=== PATIENT | female | born 1960 | race Caucasian/White ===

== ENCOUNTER 2017-09-20 15:50 | Emergency (ER) | payer MEDICARE, SELFPAY ==
[2017-09-20 15:51] VITALS: BP 122/91; PULSE 76; RESP 16; TEMP 36.5; O2SAT 94; BMI 23.3
--- NOTE | 2017-09-20 16:09 | CT_ITS ---
STUDY: CT ABDOMEN AND PELVIS WITHOUT CONTRAST REASON FOR EXAM: Female, 57 years old. Colostomy with nonfunctioning stoma RADIATION DOSAGE (If Supplied By Facility): CTDIvol = ( 6.77 ) mGy, DLP = ( 348.42 ) mGycm TECHNIQUE: Transaxial images were obtained from the dome of the diaphragm to the symphysis pubis without oral contrast, and without intravenous contrast. Sagittal and coronal images were reconstructed. Individualized dose optimization techniques were used for this CT. COMPARISON: None. FINDINGS: Evaluation is limited without intravenous contrast. There are trace bilateral pleural effusions with overlying atelectasis. The visualized portions of the heart and pericardium are within normal limits. There are no calcified gallstones present. The liver demonstrates an unremarkable unenhanced appearance. The spleen is normal in size. The pancreas demonstrates an unremarkable unenhanced appearance. The adrenal glands are within normal limits. There are no obstructing renal stones. There is no hydronephrosis. Normal visualized stomach. There is a right lower quadrant colostomy noted. There is no bowel obstruction or inflammation. The appendix is not visualized, but there are no findings to suggest acute appendicitis. The aorta is normal in caliber. There is no abdominal or pelvic free air, free fluid, fluid collection or lymphadenopathy. There are no destructive osseous lesions. CT/Abdomen/Pel W ORAL Cont Only IMPRESSION: Right lower quadrant colostomy in place. No bowel obstruction or inflammation. Trace bilateral pleural effusions with overlying atelectasis. Electronically Signed: Dennis Castillo, at 18:49 EST Tel , Service support ,
--- NOTE | 2017-09-20 16:28 | ED.VISSUMM ---
- ER Visit Summary Date of Service: 09/20/17 Chief Complaint: [] Abdominal discomfort constipation history of mitochondrial disorder History of Present Illness: The patient is a 57 F [] history of mitochondrial disorder, prior history for ileus bowel obstruction, colostomy, she indicates that basically for a few days she has had decreased output from the colostomy, initially she actually had diarrhea she has passed gas, no fever no vomiting she indicates when she gets this bad she has to come to the hospital. She spoke with Dr. Holly her surgeon who met her in the emergency department and examined her and discussed case with her. The patient's had no fever no cough no exposure to anyone has been ill no UTI symptoms. She indicates last week she had a similar process were basically her bowels stop moving because of her mitochondrial disorder and she develops ileus, she usually requires oral contrast Gastrografin CT IV fluid hydration she can be discharged home Dr. Holly has seen the patient in the emergency department please see her note Physical Examination: [] On examination the patient's resting cupping the bed her abdomen is minimally distended colostomy is in place it is dry the lungs are clear heart tones are normal the abdomen again is soft and nontender the backs unremarkable remarkable she has chronic weakness related to her mitochondrial disorder that affects every muscle her body neurologic she is at her baseline, she has been able to eat and drink she has had normal urinary habits and output Test Results: [] Emergency Department Course and Treatment: [] Please see Dr. Holly's note Dr. Holly did see her in the emergency department this time the plan is for IV fluid hydration CT with oral contrast only if this is unremarkable the patient can be discharged home follow-up Dr. Holly the patient is completely agreeable with this plan Patient's CT abdomen, UA all labs are unremarkable the plan is as outlined above by Dr. Holly to the patient Treatment Plan: [] Disposition: [] Home stable Impression: [] Abdominal pain history of same This note was generated with [employer] dictation software. It may contain incorrect words, spelling, and punctuation that were not noted in review of the chart prior to signing ED Disposition - Plan for ED Patient: Chief Complaint: Abd Pain Referrals: Marianna Forte MD [Primary Care Provider] -
[2017-09-20] MEDS: 0.9% Normal Saline 1,000 ML 125 ML IV (16:40)
[2017-09-20] MEDS: Ondansetron 4 MG/2 ML Vial IV ×2 (16:40→18:09)
[2017-09-20 16:53] LABS: Absolute Neutrophil Count 4.1 X10^3/uL (2.0-7.7); Basophil# 0.01 X10^3/uL; Basophil% 0.1 % (0-1); Eosinophil# 0.11 X10^3/uL; Eosinophils% 1.5 % (0-5); Hematocrit 40.8 % (37-47); Hemoglobin 12.8 g/dl (12.0-15.0); Lymphocyte % 37.2 % (19-41); Mean Corp Hgb Conc 31.4 g/gl (32-36); Mean Corpuscular Hgb 27.5 pg (27.0-32.0); Mean Corpuscular Volume 87.7 fL (81-99); Mean Platelet Vol. 10.7 fl (6.2-12.0); Monocyte# 0.36 X10^3/uL; Neutrophil # 4.06 X10^3/uL (2.7-7.7); Neutrophil % 56.1 % (47-70); Platelet Count 199 K/mm3 (150-450); RBC Distribution Width SD 41.5 fl (35.1-43.9); Red Blood Count 4.65 M/mm3 (4.2-5.4); White Blood Count 7.3 K/mm3 (4.4-11.0)
[2017-09-20 16:54] LABS: POSITIVE COUNT NO; POSITIVE DIFFERENTIAL NO; POSITIVE MORPHOLOGY NO
--- NOTE | 2017-09-20 17:10 | CON.PCM_ITS ---
- Consult Date of Consult: 09/20/17 - Reason for Consult CHIEF COMPLAINT: obstipation/constipation, abdominal distention/RLQ abdominal pain ? HPI: The patient is a 57 year old female with a complaint of obstipation and constipation via stoma since Friday. She had been admitted to the hospital about a week ago with similar presentation except that she had obstipation and constipation for two weeks prio. Had to undergo colonoscopy for fecal impaction. Patient is known to [facility] general surgery given history of mitochondrial myositis. She has overall muscle weakness, respiratory, hearing, and visual changes. She has a history of seizure disorders. She also has a long-standing history of impaired gastrointestinal motility. She had a PEG tube placed by Dr. Abdalla in 2012. She also has a history of chronic constipation. In the past. She has been on lactulose and multiple other agents including prokinetic agents. ? The patient had progressive issues with GI motility and constipation. She has tried multiple laxatives, been on multiple prokinetic agents and agents such as Linzess. She underwent a proximal transverse loop colostomy on November 21, 2015. She has been maintained on Reglan as a prokinetic agent. She was admitted to the hospital on August 29, 2017 with nausea and a feeling of abdominal discomfort. She also noted stomal edema. She was actually given Gastrografin as a contrast agent to assess for an obstructive pattern and this actually did result in decreased stoma edema and output from her stoma. Notes edema again of stoma - similar to last admission. also complaint of right lower quadrant abdominal pain. ? 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 Migraine, unspecified, without mention of intractable migraine without mention of status migrainosus ? Myositis - Mitochondrial myositis Nontoxic uninodular goiter ? Pigmentary retinal dystrophy ? Sensorineural hearing loss, asymmetrical ? Unspecified vertiginous syndromes and labyrinthine disorders ? PAST SURGICAL HISTORY BREAST BIOPSY ? ? COLONOSCOPY 06/18/04 normal EGD W/O BRSH W/PEG/ENDOS 01/11/15replaced displaced PEG tube LAP CHOLECYSTECT/CHOLANGIOGRAPHY ? 02/08/15 LYSIS ADNEXAL ADHESIONS ? 2004 PEG TUBE PLACEMENT HX ? 2013 REMOVAL OF TONSILS,<12 Y/O ? ? THYROID LOBECTOMY,UNILAT [address], benign TOTAL ABDOM HYSTERECTOMY ? with BSO CURRENT?MEDICATIONS amitriptyline (ELAVIL) 25 mg tablet Take 25 mg by mouth daily at bedtime. ALBUTEROL SULFATE (PROAIR HFA INHALATION) Inhale 2 Puffs as instructed as needed. oxyCODONE (ROXICODONE) 5 mg/5 mL oral solution Take 5-10 mL by mouth every 4 hours as needed. escitalopram oxalate (LEXAPRO) 10 mg tablet Take 10 mg by mouth daily at bedtime. diphenhydrAMINE (BENADRYL) 12.5 mg/5 mL liquid Take by mouth four times daily as needed. 25mg every 4 hours as needed for allergies levothyroxine (SYNTHROID) 75 mcg tablet Take 1 tablet by mouth once daily. metoclopramide HCl (REGLAN) 10 mg tablet Take 1 tablet by mouth four times daily. rivastigmine (EXELON) 9.5 mg/24 hr patch Apply 1 Patch as directed once daily. famotidine (PEPCID) 20 mg tablet 20 mg by G-TUBE route twice daily. melatonin 3 mg Take 2 tablets by mouth daily at bedtime. ondansetron (ZOFRAN, HYDROCHLORIDE,) 4 mg tablet Take 4 mg by mouth every 6 hours as needed. onabotulinum toxin type A (BOTOX) 200 unit injection Inject intramuscularly one time only. lacosamide (VIMPAT) 50 mg ORAL Tab Take 50 mg by mouth twice daily. DENOSUMAB (PROLIA SUBCUTANEOUS) Inject subcutaneously. Injection one injection every 6 months. levetiracetam(KEPPRA 100 MG/ML ORAL SOLN) Take 15 mL BID aspirin, enteric coated (ECOTRIN LOW STRENGTH) 81 mg ORAL TbEC Take one(1) tablet daily. gabapentin (NEURONTIN) 400 mg capsule Take 400 mg by mouth three times daily. meloxicam (MOBIC) 7.5 mg tablet Take 7.5 mg by mouth once daily. SUMAtriptan (IMITREX) 50 mg tablet Take 50 mg by mouth as needed. gabapentin 250 mg/5 mL (5 mL) soln 20 mL by G-TUBE route three times daily. albuterol HFA (PROVENTIL HFA, VENTOLIN HFA) 90 mcg/actuation inhaler Inhale 2 Puffs as instructed as needed. IBUPROFEN, BULK, MISC liquid 100mg every 6 hrs prn LACTOBACILLUS COMBO NO.11 ORAL by G-TUBE route once daily. one each gastric feeding tube daily phenazopyridine (PYRIDIUM, GERIDIUM) 100 mg tablet Take 100 mg by mouth three times daily as needed. B Complex Vitamins capsule Take 1 capsule by mouth once daily. gastric tube daily Water For Inject Bact Parabens soln by INJECTION(UNSPECIFIED PARENTERAL ROUTES ) route. 150 ml gastric feeding tube 4 times daily cyclobenzaprine (FLEXERIL) 5 mg tablet Take 10 mg by mouth three times daily. potassium chloride 20 mEq/15 mL solution Take 20 mEq by mouth once daily. oxybutynin (DITROPAN) 5 mg/5 mL syrup Take 10 mg by mouth once daily. ? ? ALLERGIES: Boniva [Ibandronate]; Erthromycin [Erythromycin]; Iodine; Betadine [ Povidone-Iodine]; Hay Fever [Seasonal Allergies]; Peanut; Penicillins; Shellfish ? PERSONAL HISTORY: Marital status: Smoking status: Former Smoker Packs/day: 0.50 Years: 2.00 Types: Cigarettes Quit date: 08/25/1982 Smokeless status: Never Used Alcohol use: No Drug use: No FAMILY?HISTORY Heart Maternal Grandmother ? Heart Maternal Grandfather ? ?? REVIEW OF SYMPTOMS: Denies fevers, has decreased appetite, complains of fatigue, denies chest pain, denies coughing up blood, abdominal pain as above, denies blood in urine, has seizure disorder but none presently ? ?? PHYSICAL EXAMINATION: ?General: The patient is 57 year old female, well nourished, well hydrated in no acute distress. She is lying comfortably on [facility] and does have a degree of peripheral muscle wasting. The patient is oriented to time, place, and person. ?VITALS: Blood pressure 134/88, Temp 98.7F pulse 90, weight 145 lb ?HEENT: Normal cephalic, ataumatic, pupils are equally round, sclera are anicteric, mucous membranes are moist, oropharynx is clear. Neck has no masses ?Respirtory: Clear to auscultation and percussion. Normal respiratory excursion and pattern. ?Cardiac: Examination is regular rate and rhythm. ?Abdominal exam: Soft, slightly distended, tenderness in right lower quadrant with no peritoneal signs noted. Stoma in right side with pink mucosa, there is clear lliquid brown stool present but no air in bag ?Rectal exam: exam deferred ?Extremities: no clubbing, cyanosis or edema. No adenopathy. ? IMPRESSION: Mitochondrial myositis, chronic constipation/GI motility disorders, presenting with obstipation and constipation ? PLAN: I have recommended that patient undergo CT scan with gastrografin oral contrast. Rule out intraabdominal pathology (such as internal hernia, stomal hernia, etc) and the gastrografin will hopefully improve GI peristalsis (this has helped her in the past) IV hydration Will probably be able to be discharged from ED.?
[2017-09-20 17:12] VITALS: BP 145/84; PULSE 55; RESP 14; O2SAT 99
[2017-09-20 17:15] LABS: AST(SGOT) 17 U/L (15-37); Alanine Aminotransfer ALT/SGPT 18 U/L (12-78); Albumin, Serum 3.6 g/dL (3.4-5.0); Alkaline Phosphatase 71 U/L (45-117); Anion Gap 9 (5-15); BUN 8 mg/dL (7-18); BUN/Creat Ratio 10.1 RATIO (10-20); Bilirubin, Direct 0.08 mg/dL (0.00-0.30); Calcium,Total 8.3 mg/dL (8.5-10.1); Chloride 109 mmol/L (98-107); Creatinine, Serum 0.79 mg/dL (0.55-1.02); EST Glomerular Filtration Rate 79 mL/min (>60); Est Glom Filt Rate - Afr Amer 95 mL/min (>60); Estimated Creatinine Clearance 71.78 ml/min; Globulin 3.8 g/dL (2.2-4.2); Glucose 103 mg/dL (70-110); Lipase 147 U/L (73-393); Potassium 3.5 mmol/L (3.5-5.1); Protein, Total 7.4 g/dL (6.4-8.2); Sodium Level 144 mmol/L (136-145)
[2017-09-20 17:33] LABS: Bacteria 0 SEEN /hpf (None Seen); Mucous, Urine 0 SEEN /hpf (<or=2+); Squamous Epithelial Cells - UA 0 SEEN /hpf (5-10); White Blood Cells 0 SEEN /hpf (0-5)
[2017-09-20 17:43] LABS: Color, Urine Straw (Yellow); Glucose, Dipstick Normal (Normal); Ketone-Dipstick Negative (Negative); Leukocyte Esterase-Dipstick Negative /ul (Negative); Nitrite-Dipstick Negative (Negative); Occult Blood-Urine 10 /ul (Negative); Protein-Dipstick Negative (Negative); Urine Bilirubin Dipstick Negative (Negative); Urine Clarity Clear (Clear); Urine Urobilinogen Normal (Normal)
[2017-09-20 17:52] LABS: Red Blood Cells-Urine 0-5 SEEN /hpf (0-5)
--- NOTE | 2017-09-20 18:10 | ED.RN ---
1805-PATIENT C/O NAUSEA. ED PHYSICIAN AWARE AND ORDERS RECEIVED.
[2017-09-20 18:20] VITALS: PULSE 76; RESP 16; O2SAT 100
--- NOTE | 2017-09-20 19:08 | ED.DEP ---
ED Disposition - Plan for ED Patient: Chief Complaint: Abd Pain Instructions: ED Abdominal Pain Unkn Cause Referrals: Marianna Forte MD [Primary Care Provider] - Caroline Holly MD [STAFF PHYSICIAN] -
[2017-09-20 19:16] VITALS: BP 155/93; PULSE 72; RESP 14; O2SAT 100
== END 2017-09-20 19:27 | disposition home or self-care (01) ==
LOC: ED 16:30
PROVIDERS: Emergency Provider Emergency Medicine; Family Provider Family Medicine; PCP Family Medicine
DX: R10.9 Unspecified abdominal pain (principal); K59.00 Constipation, unspecified; E88.40 Mitochondrial metabolism disorder, unspecified; Z87.19 Personal history of other diseases of the digestive system; Z93.3 Colostomy status
CPT/HCPCS: 74176; 80048; 80076; 81001; 83690; 84484; 85025; 96361; 96374; 96375; 96376; 99284; J7030; J7040; A4216; J2405

== ENCOUNTER 2017-09-29 11:29 | Emergency (ER) | payer MEDICARE, SELFPAY ==
[2017-09-29 11:30] VITALS: BP 133/89; PULSE 102; RESP 16; TEMP 36.6; O2SAT 99; BMI 23.3
--- NOTE | 2017-09-29 12:23 | RAD_ITS ---
STUDY: X-RAY - ACUTE ABDOMINAL SERIES REASON FOR EXAM: Female, 57 years old. Abdominal pain. TECHNIQUE: Single view of the chest. Supine, and decubitus view(s) of the abdomen were obtained. COMPARISON: Comparison is made with prior examination dated September 12, 2017. FINDINGS: Mild increased markings at the lung bases suggests a mild degree of bibasilar atelectasis. Normal size heart. Normal mediastinum and dianna. Normal visualized pulmonary arteries. Normal visualized aortic arch and descending thoracic aorta. Oral contrast is seen within the stomach as well as the small bowel and throughout the colon. There is no evidence of bowel obstruction. Normal visualized osseous structures. RAD/Acute Abdomen Inc Chest IMPRESSION: Contrast is seen within the stomach, small bowel loops and colon. Electronically Signed: Dennis Franco MD at 15:33 EST Tel [phone], Service support ,
[2017-09-29 12:46] LABS: Absolute Lymphocyte Count 2.16 X10^3/ul (0.83-4.51); Absolute Neutrophil Count 4.3 X10^3/uL (2.0-7.7); Basophil# 0.01 X10^3/uL; Basophil% 0.1 % (0-1); Eosinophil# 0.08 X10^3/uL; Eosinophils% 1.2 % (0-5); Hematocrit 43.1 % (37-47); Hemoglobin 13.8 g/dl (12.0-15.0); Lymphocyte # 2.16 X10^3/ul (4.0); Lymphocyte % 31.3 % (19-41); Mean Corpuscular Hgb 28.2 pg (27.0-32.0); Mean Corpuscular Volume 88.1 fL (81-99); Mean Platelet Vol. 10.9 fl (6.2-12.0); Monocyte% 5.8 % (0-10); Neutrophil # 4.26 X10^3/uL (2.7-7.7); Neutrophil % 61.6 % (47-70); Platelet Count 197 K/mm3 (150-450); RBC Distribution Width CV 13.3 % (11.6-14.6); RBC Distribution Width SD 42.1 fl (35.1-43.9); Red Blood Count 4.89 M/mm3 (4.2-5.4); White Blood Count 6.9 K/mm3 (4.4-11.0)
[2017-09-29 12:47] LABS: POSITIVE COUNT NO; POSITIVE DIFFERENTIAL NO; POSITIVE MORPHOLOGY NO
[2017-09-29 13:00] LABS: ALB/GLOB Ratio 1.1 RATIO (0.9-2.4); AST(SGOT) 19 U/L (15-37); Alanine Aminotransfer ALT/SGPT 23 U/L (13-56); Albumin, Serum 4.1 g/dL (3.2-5.0); Alkaline Phosphatase 76 U/L (45-117); Anion Gap 6 (5-15); BUN 10 mg/dL (7-18); BUN/Creat Ratio 10.3 RATIO (10-20); Chloride 107 mmol/L (98-107); Creatinine, Serum 0.97 mg/dL (0.55-1.02); EST Glomerular Filtration Rate 62 mL/min (>60); Est Glom Filt Rate - Afr Amer 75 mL/min (>60); Estimated Creatinine Clearance 58.46 ml/min; Globulin 3.9 g/dL (2.2-4.2); Glucose 93 mg/dL (74-106); Potassium 3.7 mmol/L (3.5-5.1); Sodium Level 140 mmol/L (136-145)
[2017-09-29] MEDS: Ondansetron ODT 4 MG Tablet PO (13:48)
--- NOTE | 2017-09-29 14:21 | ED.RN ---
PT C/O ABDOMINAL PAIN 04/03. REPORTED TO DR. MUNGUIA VERBALLY. PT AWAITING RADIOLOGY, DUE AT 1430
[2017-09-29 15:35] VITALS: RESP 14
--- NOTE | 2017-09-29 15:36 | ED.RN ---
PT REPORTS CRAMPING IS GETTING BETTER. GIVEN SUPPLIES TO CHANGE OSTOMY. PT PROVIDED HER OWN CARE, DENIED NEEDING ANY HELP. Darek MUNGUIA INFORMED ABOUT PT MEDICATION REQUEST FOR PAIN.
--- NOTE | 2017-09-29 15:47 | ED.DCSUM_ITS ---
- ER Visit Summary Date of Service: 09/29/17 Chief Complaint: [No output from stoma] History of Present Illness: The patient is a 57 F [who presents to the emergency department with pain around her stoma and no output since . She has nausea but no vomiting. This is happened several times in the past. She states that Gastrografin usually helps. No fevers or chills. 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 The stoma is moderately edematous but pink. SKIN is warm and dry no rashes Alert and Oriented x3, CN II-XII in tact, no motor or sensory deficits, gait normal No lymphadenopathy Test Results: [] Emergency Department Course and Treatment: [I spoke with the patient's surgeon Dr. Waite. He came to the emergency department to evaluate the patient. She was given Gastrografin to drink and an acute abdominal series. She had movement of the Gastrografin through her colon into her stoma. She began having copious amounts of liquid output. Her pain improved. The edema from the stoma improved. She feels comfortable going home. She has appointment follow-up with Dr. Waite on . She understands reasons for which to return.] Treatment Plan: [] Disposition: [Discharge Impression: [Stoma problem, resolved] This note was generated with [employer] software. It may contain incorrect words, spelling, and punctuation that were not noted in review of the chart prior to signing ED Disposition - Plan for ED Patient: Chief Complaint: Wound Referrals: Marianna Forte MD [Primary Care Provider] -
--- NOTE | 2017-09-29 15:48 | ED.DEP ---
ED Disposition - Plan for ED Patient: Chief Complaint: Wound Instructions: Abdominal Pain Referrals: Jamin Antoine MD [STAFF PHYSICIAN] - 10/02/17
[2017-09-29 16:11] VITALS: BP 132/97; PULSE 97; RESP 14; O2SAT 99
--- NOTE | 2017-09-29 16:12 | ED.RN ---
PT GIVEN WRITTEN AND VERBAL DISCHARGE INSTRUCTIONS. PT VERBALIZES UNDERSTANDING. DR. FREEMAN AT BEDSIDE TO SPEAK WITH PT ABLUT TEST RESULTS AND FOLLOW UP. PT TO FOLLOW UP WITH DR. FREEMAN ON FRIDAY. PT VOICES NO FURTHER NEEDS OR QUESTIONS. ALISSA RN ASSISTED PT INTO PERSONAL WHEELCHAIR. YULIANA CHAIDEZ ASSISTED PT GETTING INTO CAR. MOTHER DRIVING PT HOME.
== END 2017-09-29 16:14 | disposition home or self-care (01) ==
LOC: ED 12:55
PROVIDERS: Emergency Provider Emergency Medicine; Family Provider Family Medicine; PCP Family Medicine
DX: K94.03 Colostomy malfunction (principal); E88.40 Mitochondrial metabolism disorder, unspecified; K56.0 Paralytic ileus; G40.909 Epilepsy, unspecified, not intractable, without status epilepticus; Z79.899 Other long term (current) drug therapy
CPT/HCPCS: 74022; 80053; 85025; 99282; A4216

== ENCOUNTER 2017-10-07 18:05 | Emergency (ER) | payer MEDICARE, SELFPAY ==
[2017-10-07 18:06] VITALS: BP 147/89; PULSE 76; RESP 14; TEMP 36.3; O2SAT 99; BMI 23.3
[2017-10-07] MEDS: Ketorolac 30 MG/ML Syringe IV (19:17)
--- NOTE | 2017-10-07 20:40 | ED.VISSUMM ---
- ER Visit Summary Date of Service: 10/07/17 Chief Complaint: Migraine History of Present Illness: The patient is a 57 F with a history of chronic migraines. Patient reports pain behind her left eye which is consistent with her migraines. She has a nausea and sound sensitivity. She denies recent head injury or URI symptoms. Patient states she used to get migraines approximate 1 time a week. She goes to her primary care office and gets injections of Toradol and Phenergan. Past history significant for mitochondrial disease, spastic paraparesis, gastroparesis, and seizures. She is legally blind. Physical Examination: Vital signs are unremarkable. Patient's lying in bed in no acute distress. She is nontoxic appearing. Head and neck examination was no meningismus. Heart is regular rate and rhythm. Lung sounds are clear. Abdomen is soft nontender. Neuro exam reveals mild left-sided weakness which patient states is chronic and unchanged from her baseline. Test Results: [] Emergency Department Course and Treatment: Patient was given IV fluids along with Toradol and Phenergan. On repeat evaluation she was sitting upright in bed and appeared much more comfortable. She states that her headache is resolved. Treatment Plan: [] Disposition: Discharge Impression: Migraine, improved This note was generated with [employer] dictation software. It may contain incorrect words, spelling, and punctuation that were not noted in review of the chart prior to signing ED Disposition - Plan for ED Patient: Disposition: Home or Assisted Living Chief Complaint: Headache Instructions: ED Headache Migraine Referrals: Marianna Forte MD [Primary Care Provider] - As Needed
[2017-10-07 20:52] VITALS: BP 118/87; PULSE 71; RESP 17; O2SAT 99
== END 2017-10-07 20:54 | disposition home or self-care (01) ==
PROVIDERS: Emergency Provider Emergency Medicine; Family Provider Family Medicine; PCP Family Medicine
DX: G43.909 Migraine, unspecified, not intractable, without status migrainosus (principal); G40.909 Epilepsy, unspecified, not intractable, without status epilepticus; E03.9 Hypothyroidism, unspecified; E88.40 Mitochondrial metabolism disorder, unspecified; K31.84 Gastroparesis; H54.8 Legal blindness, as defined in USA; Z79.82 Long term (current) use of aspirin; Z79.899 Other long term (current) drug therapy
CPT/HCPCS: 96361; 96374; 96375; 99284; J7030; J7040; A4216

== ENCOUNTER 2017-11-01 18:19 | Emergency (ER) | payer MEDICARE, SELFPAY ==
[2017-11-01 18:20] VITALS: BP 130/105; PULSE 95; RESP 16; TEMP 36.7; O2SAT 94; BMI 23.7
[2017-11-01] MEDS: 0.9% Normal Saline 1,000 ML 999 ML IV (19:02)
[2017-11-01] MEDS: Ketorolac 30 MG/ML Syringe IV (19:02)
--- NOTE | 2017-11-01 19:51 | ED.DCSUM_ITS ---
- ER Visit Summary Date of Service: 11/01/17 Chief Complaint: Headache History of Present Illness: The patient is a 57 F who presents with a headache. Started earlier today. She describes throbbing throughout her entire head. Similar to prior migraine headaches. She has had nausea with vomiting. She also admits to photophobia. No injuries. She took one half of an oxycodone twice at home but it did not help. She also tried Zofran for the nausea as well as Tylenol. She denies a fever. Physical Examination: Vital signs reviewed. HEENT exam unremarkable. Heart is regular rate and rhythm without murmurs. Lungs are clear to auscultation. Abdomen is soft and nontender. Extremities reveal no edema. Skin exam normal. Neurologic exam normal, except for chronic lower extremity weakness Test Results: None indicated Emergency Department Course and Treatment: Patient was given IV saline as well as Toradol and Phenergan. She feels much better at this time. Patient will be discharged to continue her home medications Treatment Plan: [] Disposition: Discharge Impression: Migraine headache This note was generated with [employer] dictation software. It may contain incorrect words, spelling, and punctuation that were not noted in review of the chart prior to signing ED Disposition - Plan for ED Patient: Chief Complaint: Headache Referrals: Marianna Forte MD [Primary Care Provider] -
--- NOTE | 2017-11-01 19:51 | ED.DEP ---
ED Disposition - Plan for ED Patient: Disposition: Home or Assisted Living Chief Complaint: Headache Instructions: ED Headache Migraine Referrals: Marianna Forte MD [Primary Care Provider] -
[2017-11-01 20:24] VITALS: BP 125/68; PULSE 86; RESP 17; O2SAT 98
== END 2017-11-01 20:25 | disposition home or self-care (01) ==
PROVIDERS: Emergency Provider Emergency Medicine; Family Provider Family Medicine; PCP Family Medicine
DX: G43.909 Migraine, unspecified, not intractable, without status migrainosus (principal); E88.40 Mitochondrial metabolism disorder, unspecified; Z79.82 Long term (current) use of aspirin; Z79.899 Other long term (current) drug therapy
CPT/HCPCS: 96361; 96374; 96375; 99283; J7030

== ENCOUNTER 2017-12-28 15:19 | Emergency (ER) | payer MEDICARE, SELFPAY ==
[2017-12-28 15:20] VITALS: BP 138/95; PULSE 107; RESP 16; TEMP 36.8; O2SAT 98; BMI 25.0
--- NOTE | 2017-12-28 15:31 | ED.DCSUM_ITS ---
- ER Visit Summary Date of Service: 12/28/17 Chief Complaint: History of Present Illness: The patient is a 57 F presenting with headache which started yesterday. Headache was gradual in onset. Similar to her previous migraines. She took Tylenol at home. She states she ran out of her oxycodone prescription which was given to her by her primary care physician for her migraines. She has history of mitochondrial disease and sees Dr. Mayer. She denies fever or neck pain. She has nausea with no vomiting. No recent injury. Physical Examination: Vitals are stable. Patient is afebrile. Alert no acute distress. HEENT exam is unremarkable. Neck is supple. No meningismus Lungs are clear and equal bilaterally. Heart is regular rate and rhythm. Abdomen is soft nontender nondistended. Extremities are unremarkable. Skin is warm and dry. No focal neurologic deficit. Remainder of exam is unremarkable. Emergency Department Course and Treatment: She is given Compazine, Benadryl with improvement. She is advised to follow-up with her PCP and her neurologist. She is advised return to the ED for any worsening complaints. Disposition: Discharge home Impression: Migraine headache This note was generated with [employer] dictation software. It may contain incorrect words, spelling, and punctuation that were not noted in review of the chart prior to signing ED Disposition - Plan for ED Patient: Chief Complaint: Headache Referrals: Marianna Fotre MD [Primary Care Provider] -
[2017-12-28] MEDS: proCHLORPERazine 10 MG/2 ML Vial IV (15:42)
[2017-12-28] MEDS: DiphenhydrAMINE 50 MG/ML Syringe 25 MG IV (15:42)
--- NOTE | 2017-12-28 16:19 | ED.DEP ---
ED Disposition - Plan for ED Patient: Chief Complaint: Headache Instructions: ED Headache Migraine Referrals: Marianna Forte MD [Primary Care Provider] - Arsen Mayer MD [STAFF PHYSICIAN] -
[2017-12-28 16:39] VITALS: BP 138/72; PULSE 71; RESP 16; O2SAT 96
== END 2017-12-28 16:39 | disposition home or self-care (01) ==
LOC: ED 15:53
PROVIDERS: Emergency Provider Emergency Medicine; Family Provider Family Medicine; PCP Family Medicine
DX: G43.909 Migraine, unspecified, not intractable, without status migrainosus (principal); E88.40 Mitochondrial metabolism disorder, unspecified; Z79.82 Long term (current) use of aspirin; Z79.899 Other long term (current) drug therapy
CPT/HCPCS: 96374; 96375; 99284; A4216

== ENCOUNTER 2018-01-18 10:33 | Emergency (ER) | payer MEDICARE, SELFPAY ==
[2018-01-18 10:33] VITALS: BP 108/93; PULSE 90; RESP 18; TEMP 36.6; O2SAT 99; BMI 25.8
--- NOTE | 2018-01-18 11:29 | ED.VIS.GEN ---
History of Present Illness Chief Complaint: Headache Informant: Patient Onset: Days - 2 Context: Gradual Onset Timing: Continuous Quality: throbbing Location: left frontal and retroorbital Current Severity: Severe Maximum Severity: Severe Worsened by: light/sound Relieved by: nothing she has tried -- ibuprofen, imitrex, percocet, tylenol Associated Symptoms: nausea, blurry vision. flashing left eye aura prior to DC onset. Narrative: Similar to prior migraines except she cannot get this when they go away. No recent head injury. No recent illnesses. She has a history of mitochondrial myopathy, she has chronic weakness for that, that feels a little worse but otherwise no focal peripheral neurologic symptoms or confusion or neck stiffness or fevers. 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 Comment: Patient has been non-ambulatory for 5 years Past Medical History - Allergies and Home Meds Allergies/Adverse Reactions: Allergies shellfish derived Allergy (Severe, Verified 01/18/18 10:35) Anaphylaxis amoxicillin Allergy (Verified 01/18/18 10:35) Rash iodine Allergy (Verified 01/18/18 10:35) Rash peanut Allergy (Verified 01/18/18 10:35) Anaphylaxis it gets stuck in my throat Penicillins [PCN] Allergy (Verified 01/18/18 10:35) Rash povidone-iodine [From Betadine] Allergy (Verified 01/18/18 10:35) Rash soap [From Betadine] Allergy (Verified 01/18/18 10:35) Rash alendronate sodium [From Fosamax] Adverse Reaction (Verified 01/18/18 10:35) unable to swallow pill/choking UNABLE TO SWALLOW PILL/CHOKING risedronate sodium [From Actonel] Adverse Reaction (Verified 01/18/18 10:35) CHOKING Home Medications: Home Medications Medication Instructions Recorded Lacosamide [Vimpat] 50 mg PO BID 07/02/13 Rivastigmine 9.5mg Patch [Exelon 1 patch TD Q24H 02/16/16 9.5MG/24HR PATCH] Melatonin 3 mg Tablet 2 - 3 mg PO QHS 04/19/16 Gabapentin [Neurontin] 800 mg PO TID 04/05/17 levETIRAcetam tablet [Keppra 1,500 mg PO BID 04/05/17 tablet] Escitalopram Oxalate [Lexapro] 10 mg PO QHS 08/23/17 Famotidine [Pepcid AC] 20 mg PO BID 08/23/17 Levothyroxine [Synthroid] 75 mcg PO DAILY 08/23/17 Metoclopramide [Reglan] 10 mg PO BIDAC 08/23/17 Albuterol IH (ProAir) [Proair Hfa] 2 puff INHALATION Q4H PRN PRN 08/29/17 Amitriptyline HCl [Elavil] 25 mg PO QHS 08/29/17 Aspirin E.C. [Ecotrin] 81 mg PO DAILY@0800 08/29/17 Ondansetron [Zofran] 4 mg PO Q4H PRN PRN 08/29/17 Oxycodone HCl/Acetaminophen 1 tablet PO Q4H PRN 08/29/17 [Percocet 5-325] Botox 100 units SQ UD 09/11/17 Denosumab [Prolia] 60 mg SQ UD 09/11/17 Acetaminophen [Tylenol Tablet] 650 mg PO Q6H PRN PRN tablet 09/13/17 Albuterol Aerosols [Ventolin 2.5 mg INHALATION Q4H PRN 09/13/17 Aerosols] vial.neb. Ensure Clear 120 ml PO 4X/DAY liquid 09/13/17 Lactulose 10 gm PO X1 12/28/17 Primary Care Physician: Marianna Forte MD [Primary Care Provider] - Surgical History: adenoidectomy, appendectomy, cholecystectomy, hysterectomy, tonsillectomy, - - Status post proximal transverse loop colostomy 2015, thyroidectomy Smoking Status: Never smoker - Family History Maternal Family History: Reports: Heart Disease - In her maternal grandmother, - - Aneurysm and her maternal grandmother and grandfather Paternal Family History: Reports: Heart Disease - In the paternal grand mother, Stroke - father alive age 84, - - Aneurysm in her paternal grandmother and in a paternal aunt. Sibling Family History: Reports: - - She has a brother who suddenly at the age of 46 and he had been diagnosed with Prader-Willi syndrome. She has a sister who at 4 years of age due to a hole in her heart. Another sister suffers from a cardiac dysrhythmia. Review of Systems All systems negative except as indicated General: Denies: Chills, Fever Eyes: Reports: Blurred Vision - bilaterally. Denies: Diplopia Gastrointestinal: Reports: Nausea Neurological: Reports: Headache, Weakness - Diffuse, chronic, little worse than usual but nonfocal. Physical Exam Vital Signs/Narrative: Vital Signs Temp Pulse Resp BP Pulse Ox 01/18/18 10:33 98 F 90 18 108/93 H 99 Inital Vital Signs reviewed: Yes General: Well nourished, Well developed Head: Normocephalic, Atraumatic Eyes: Perrl, EOMI - With disconjugate gaze at baseline, - - Photophobic ENT: Moist mucous membranes, No rhinorrhea, TM's clear. Negative for: Sinus tenderness Neck: Supple, Nontender, No lymphadenopathy Cardiovascular: Regular rate, Regular rhythm. Negative for: Tachycardia Respiratory: No distress, CTA bilaterally Skin: Normal color, No rash Neurological: Alert, Oriented x3, Cranial nerves II-XII grossly intact, Normal Strength - Normal for her, to move all 4 extremities. Psychological: Normal affect Diagnostic/Tx/Re-eval - Medical Decision Making Patient was given IV fluids, Toradol, Reglan, Benadryl. On reevaluation, her headache is completely gone she feels much better. She is asking to leave. Advised to follow-up. ED Disposition - Plan for ED Patient: Disposition: Home or Assisted Living Chief Complaint: Headache Diagnosis: Migraine headache with aura Instructions: ED Headache Migraine Referrals: Marianna Forte MD [Primary Care Provider] - 3-5 Days if not improving
[2018-01-18] MEDS: 0.9% Normal Saline 1,000 ML 999 ML IV (11:35)
[2018-01-18] MEDS: DiphenhydrAMINE 50 MG/ML Syringe 25 MG IV (11:35)
[2018-01-18] MEDS: Metoclopramide 10 MG/2 ML Vial IV (11:35)
[2018-01-18] MEDS: Ketorolac 15 MG/ML Vial IV (11:39)
[2018-01-18 13:20] VITALS: BP 133/85; PULSE 78; RESP 16; O2SAT 99
== END 2018-01-18 13:22 | disposition home or self-care (01) ==
PROVIDERS: Emergency Provider Emergency Medicine; Family Provider Family Medicine; PCP Family Medicine
DX: G43.109 Migraine with aura, not intractable, without status migrainosus (principal); K21.9 Gastro-esophageal reflux disease without esophagitis; E03.9 Hypothyroidism, unspecified; G40.909 Epilepsy, unspecified, not intractable, without status epilepticus; K31.84 Gastroparesis; D35.2 Benign neoplasm of pituitary gland; D35.3 Benign neoplasm of craniopharyngeal duct; H35.52 Pigmentary retinal dystrophy; H90.5 Unspecified sensorineural hearing loss; Z79.82 Long term (current) use of aspirin; Z79.899 Other long term (current) drug therapy
CPT/HCPCS: 96361; 96374; 96375; 99283; J7030

== ENCOUNTER 2018-01-28 16:35 | Emergency (ER) | payer MEDICARE, SELFPAY ==
--- NOTE | 2018-01-28 16:35 | DT_ITS ---
This patient was seen during an EMR downtime January 26, 2018 - February 02, 2018. This patient may have a combination of paper and electronic documentation or all paper documentation. All documentation is viewable within the e-chart portion of [facility] for each patient visit.
--- NOTE | 2018-01-28 19:30 | CT_ITS ---
STUDY: CT ABDOMEN AND PELVIS WITHOUT CONTRAST REASON FOR EXAM: Female, 58 years old. Pain and swelling RADIATION DOSAGE (If Supplied By Facility): CTDIvol = ( 8.41 ) mGy, DLP = ( 447.75 ) mGycm TECHNIQUE: Transaxial images were obtained from the dome of the diaphragm to the symphysis pubis without oral contrast, and without intravenous contrast. Sagittal and coronal images were reconstructed. Individualized dose optimization techniques were used for this CT. COMPARISON: None. FINDINGS: The visualized lung bases are unremarkable. The visualized portions of the heart are within normal limits. There is an 11 mm cyst in the lower portion of the RIGHT lobe of liver. There has been a cholecystectomy. Bile ducts are normal in caliber. Normal spleen. Normal pancreas. Normal bilateral adrenal glands. Normal right kidney. Normal left kidney. Normal visualized stomach. Normal small intestine. There is a large amount of stool in the colon particularly on the RIGHT. There is NO mechanical obstruction or mass. There is NO colitis. There is a RIGHT lower quadrant colostomy. There is a hernia defect associated with the colostomy containing fat only. There is NO mass, hematoma or abscess. Appendix is not discretely identified. There is NO indirect evidence of appendicitis. Normal abdominal aorta. Normal inferior vena cava. Normal retroperitoneum. Normal urinary bladder. There is NO ascites or free air, abscess or adenopathy. Normal abdominal wall. Normal osseous structures. CT/Abdomen/Pel W ORAL Cont Only IMPRESSION: There is an 11 mm cyst in the lower portion of the RIGHT lobe of liver. There has been a cholecystectomy. Bile ducts are normal in caliber. There is a large amount of stool in the colon particularly on the RIGHT. There is NO mechanical obstruction or mass. There is NO colitis. There is a RIGHT lower quadrant colostomy. There is a hernia defect associated with the colostomy containing fat only. There is NO mass, hematoma or abscess. Appendix is not discretely identified. There is NO indirect evidence of appendicitis. There is NO ascites or free air, abscess or adenopathy. Electronically Signed: Lucius Ferguson MD at 3:12 EDT , Service support ,
[2018-01-31 10:32] LABS: Red Blood Count 4.66 M/mm3 (4.2-5.4); White Blood Count 8.7 K/mm3 (4.4-11.0)
[2018-01-31 10:33] LABS: Absolute Lymphocyte Count 2.46 X10^3/ul (0.83-4.51); Absolute Neutrophil Count 5.3 X10^3/uL (2.0-7.7); Basophil# 0.01 X10^3/uL; Basophil% 0.1 % (0-1); Eosinophil# 0.14 X10^3/uL; Eosinophils% 1.6 % (0-5); Hematocrit 41.3 % (37-47); Hemoglobin 13.2 g/dl (12.0-15.0); Lymphocyte # 2.46 X10^3/ul (4.0); Lymphocyte % 28.4 % (19-41); Mean Corpuscular Hgb 28.3 pg (27.0-32.0); Mean Corpuscular Volume 88.6 fL (81-99); Monocyte# 0.73 X10^3/uL; Monocyte% 8.4 % (0-10); Neutrophil % 61.4 % (47-70); POSITIVE COUNT NO; POSITIVE DIFFERENTIAL NO; POSITIVE MORPHOLOGY NO; Platelet Count 260 K/mm3 (150-450); RBC Distribution Width CV 13.4 % (11.6-14.6); RBC Distribution Width SD 42.8 fl (35.1-43.9)
[2018-02-04 11:18] LABS: Anion Gap 7 (5-15); BUN 7 mg/dL (7-18); Calcium,Total 8.3 mg/dL (8.5-10.1); Chloride 107 mmol/L (98-107); Creatinine, Serum 0.78 mg/dL (0.55-1.02); EST Glomerular Filtration Rate 80 mL/min (>60); Est Glom Filt Rate - Afr Amer 97 mL/min (>60); Glucose 106 mg/dL (74-106); Potassium 3.8 mmol/L (3.5-5.1); Sodium Level 143 mmol/L (136-145)
== END 2018-01-28 23:41 | disposition short-term general hospital (02) ==
PROVIDERS: Emergency Provider Emergency Medicine; Family Provider Family Medicine; PCP Family Medicine
DX: K43.5 Parastomal hernia without obstruction or gangrene (principal); K94.09 Other complications of colostomy; R10.9 Unspecified abdominal pain; G71.3 Mitochondrial myopathy, not elsewhere classified; G40.909 Epilepsy, unspecified, not intractable, without status epilepticus; H54.7 Unspecified visual loss; Z90.89 Acquired absence of other organs; Z90.49 Acquired absence of other specified parts of digestive tract; Z90.710 Acquired absence of both cervix and uterus; Z79.82 Long term (current) use of aspirin; Z79.899 Other long term (current) drug therapy; Z87.891 Personal history of nicotine dependence
CPT/HCPCS: 36415; 74176; 80048; 85025; 96361; 96374; 96375; 96376; 99284; J7030; A4216; J2405

== ENCOUNTER 2018-01-31 16:48 | Emergency (ER) | payer MEDICARE, SELFPAY ==
--- NOTE | 2018-01-31 16:48 | DT_ITS ---
This patient was seen during an EMR downtime January 26, 2018 - February 02, 2018. This patient may have a combination of paper and electronic documentation or all paper documentation. All documentation is viewable within the e-chart portion of [facility] for each patient visit.
[2018-02-03 16:55] LABS: Lactic Acid 1.1 mmol/L (0.4-2.0)
[2018-02-03 16:56] LABS: Anion Gap 9 (5-15); BUN 7 mg/dL (7-18); Calcium,Total 9.3 mg/dL (8.5-10.1); Chloride 104 mmol/L (98-107); Creatinine, Serum 0.88 mg/dL (0.55-1.02); EST Glomerular Filtration Rate 70 mL/min (>60); Est Glom Filt Rate - Afr Amer 85 mL/min (>60); Glucose 103 mg/dL (74-106); Potassium 3.6 mmol/L (3.5-5.1); Sodium Level 142 mmol/L (136-145)
[2018-02-03 20:54] LABS: Hemoglobin 13.5 g/dl (12.0-15.0); Red Blood Count 4.77 M/mm3 (4.2-5.4); White Blood Count 6.7 K/mm3 (4.4-11.0)
[2018-02-03 20:55] LABS: Absolute Lymphocyte Count 2.19 X10^3/ul (0.83-4.51); Absolute Neutrophil Count 3.8 X10^3/uL (2.0-7.7); Basophil# 0.01 X10^3/uL; Basophil% 0.1 % (0-1); Eosinophil# 0.12 X10^3/uL; Eosinophils% 1.8 % (0-5); Hematocrit 42.2 % (37-47); Lymphocyte # 2.19 X10^3/ul (4.0); Lymphocyte % 32.8 % (19-41); Mean Corpuscular Hgb 28.3 pg (27.0-32.0); Mean Corpuscular Volume 88.5 fL (81-99); Mean Platelet Vol. 10.7 fl (6.2-12.0); Monocyte# 0.59 X10^3/uL; Monocyte% 8.8 % (0-10); Neutrophil # 3.77 X10^3/uL (2.7-7.7); Neutrophil % 56.5 % (47-70); POSITIVE COUNT NO; POSITIVE DIFFERENTIAL NO; POSITIVE MORPHOLOGY NO; Platelet Count 283 K/mm3 (150-450); RBC Distribution Width CV 13.3 % (11.6-14.6); RBC Distribution Width SD 42.9 fl (35.1-43.9)
== END 2018-01-31 20:55 | disposition home or self-care (01) ==
LOC: ED 02-01 14:37
PROVIDERS: Emergency Provider Emergency Medicine; Family Provider Family Medicine; PCP Family Medicine
DX: K94.09 Other complications of colostomy (principal); M60.80 Other myositis, unspecified site; G40.909 Epilepsy, unspecified, not intractable, without status epilepticus; Z79.51 Long term (current) use of inhaled steroids; Z79.891 Long term (current) use of opiate analgesic; Z79.899 Other long term (current) drug therapy
CPT/HCPCS: 80048; 83605; 85025; 96361; 96374; 96376; 99283; J7030; A4216; J2405

== ENCOUNTER 2018-03-02 16:33 | Inpatient (IN) | payer MEDICARE, SELFPAY ==
[2018-03-02 16:40] VITALS: BP 123/94; PULSE 81; RESP 16; TEMP 36.9; O2SAT 94
--- NOTE | 2018-03-02 18:47 | NURSING ---
2 CASE INVESTIGATOR's in room assisting pt to BSC per caregiver request, when going from BSC back to bed pt was lowered to floor on knees gently. No signs of injury. knees w/out redness or ecchymosis. Pt denies any pain except for headache that she has had since arrival to unit. Will medicate for DC. Dr Oro notified, operative supervisor notified. Pts home health aide caregiver at bedside during transfer. vitals stable.
--- NOTE | 2018-03-02 18:49 | PCA ---
Patient called out to go to the bathroom. I offered the bedpan because we have not transferred patient yet. Per at home caregiver and patient that she could transfer to BSC with help. This SEGMENTAL PAVING SUPERVISOR and SEGMENTAL PAVING SUPERVISOR's Sandra and Zayra were assisting patient to the BSC from the bed. Getting up to BSC with 2 assist went fine. When patient was ready to go back to bed SEGMENTAL PAVING SUPERVISOR's Sandra and Lauren were trying to get patient back into bed when home theater installer insisted on helping transfer her back to bed. When transferring back to bed her legs gave out and patient was lowered to floor on her knees. Per home caregiver this happens frequently at home. Charlotte CHAIDEZ aware of all above.
[2018-03-02] MEDS: oxyCODONE 5 MG Tablet PO (18:52)
[2018-03-02 18:55] VITALS: BP 134/77; PULSE 72; RESP 18; TEMP 36.4; O2SAT 94
--- NOTE | 2018-03-02 19:08 | NURSING ---
pt reports that if oxyir does not take care of her DC, ER does a cocktail trio of toradol, benadryl, & zofran IV. Dr wolf notified, new order obtained to give if oxyir ineffective x1
--- NOTE | 2018-03-02 21:40 | PCM.HP.STD ---
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 The patient is a 58 year old Female with below past medical history admitted to [facility] 02/19/[address] to have surgery with Dr.Hermann Abbott. Dr. Abbott performed exploratory laparotomy, takedown of loop colostomy, reposition of parastomal hernia and resection of hernia sac, primary closure of parastomal hernia and colostomy site, resection of colon including previous colostomy site, in discontinuity with rectal stump and new implantation of end colostomy. Intraoperative colonoscopy was performed. Post-operative course uneventful. 03/02/2018 Admit to TCU with debility, here or rehabilitation, strengthening, prior to discharge home with family. 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) Seizure disorder, grand mal (Chronic) Gastroesophageal reflux disease (Chronic) Sensorineural hearing loss (Chronic) Seizure (Chronic) Gastroparesis (Chronic) Status post osteotomy (Chronic) Mitochondrial myopathies (Chronic) Allergies shellfish derived Allergy (Severe, Verified 01/18/18 10:35) Anaphylaxis amoxicillin Allergy (Verified 01/18/18 10:35) Rash iodine Allergy (Verified 01/18/18 10:35) Rash peanut Allergy (Verified 01/18/18 10:35) Anaphylaxis it gets stuck in my throat Penicillins [PCN] Allergy (Verified 01/18/18 10:35) Rash povidone-iodine [From Betadine] Allergy (Verified 01/18/18 10:35) Rash soap [From Betadine] Allergy (Verified 01/18/18 10:35) Rash alendronate sodium [From Fosamax] Adverse Reaction (Verified 01/18/18 10:35) unable to swallow pill/choking UNABLE TO SWALLOW PILL/CHOKING risedronate sodium [From Actonel] Adverse Reaction (Verified 01/18/18 10:35) CHOKING Home Medications: Ambulatory Orders Medication Instructions Recorded Lacosamide [Vimpat] 50 mg PO BID 07/02/13 Rivastigmine 9.5mg Patch [Exelon 1 patch TD Q24H 02/16/16 9.5MG/24HR PATCH] Melatonin 3 mg Tablet 3 mg PO QHS 04/19/16 Gabapentin [Neurontin] 800 mg PO TID 04/05/17 levETIRAcetam tablet [Keppra 1,750 mg PO BID 04/05/17 tablet] Escitalopram Oxalate [Lexapro] 10 mg PO QHS 08/23/17 Famotidine [Pepcid AC] 20 mg PO BID 08/23/17 Levothyroxine [Synthroid] 75 mcg PO DAILY 08/23/17 Metoclopramide [Reglan] 10 mg PO BIDAC 08/23/17 Albuterol IH (ProAir) [Proair Hfa] 2 puff INHALATION Q6H PRN PRN 08/29/17 Amitriptyline HCl [Elavil] 75 mg PO QHS 08/29/17 Aspirin E.C. [Ecotrin] 81 mg PO DAILY@0800 08/29/17 Ondansetron [Zofran] 4 mg PO Q6H PRN PRN 08/29/17 Botox 200 units SQ UD 09/11/17 Denosumab [Prolia] 60 mg SQ UD 09/11/17 Acetaminophen [Tylenol Tablet] 650 mg PO Q6H PRN PRN tablet 09/13/17 Ensure Clear 120 ml PO 4X/DAY liquid 09/13/17 Lactulose 20 gm PO DAILY PRN 12/28/17 Albuterol Inhaler [Ventolin Hfa 2 puff INHALATION Q4H PRN PRN 03/02/18 (SP)] DiphenhydrAMINE [Benadryl] 25 mg PO Q6H 03/02/18 Ibuprofen Liquid [Motrin Liquid] 100 mg PO Q6H PRN PRN 03/02/18 Oxycodone HCl [Roxicodone] 5 mg PO Q6H PRN PRN 03/02/18 Polyethylene Glycol 3350 [Miralax] 17 gm PO DAILY 03/02/18 Surgical History: adenoidectomy, appendectomy, cholecystectomy, hysterectomy, tonsillectomy, - - Status post proximal transverse loop colostomy 2016, thyroidectomy, further surgical history per HPI. Psychiatric History: Depression ACCOUNT SUPPORT MANAGER History: No pertinent ACCOUNT SUPPORT MANAGER history Lives: With Family - Daughter. Smoking Status: Never smoker Tobacco Use: Non-smoker Alcohol: None Drugs: None - *Family History Maternal History Items: Heart Disease - In her maternal grandmother, - - Aneurysm and her maternal grandmother and grandfather Paternal History Items: Heart Disease - In the paternal grand mother, Stroke - father alive age 84, - - Aneurysm in her paternal grandmother and in a paternal aunt. Sibling History Items: - - She has a brother who suddenly at the age of 46 and he had been diagnosed with Prader-Willi syndrome. She has a sister who at 4 years of age due to a hole in her heart. Another sister suffers from a cardiac dysrhythmia. Review of Systems Constitutional: Denies: Chills, Fever, Weight Change HEENT: Denies: Head Aches, Sinus Congestion, Sinus Drainage Cardiovascular: Denies: Chest Pain, Palpitations Respiratory: Denies: Cough, Shortness of breath at rest, Sputum production Gastrointestinal: Denies: Abdominal Pain, Nausea, Vomiting Genitourinary: Denies: Dysuria Musculoskeletal: Denies: Joint Pain, Joint Tenderness Skin: Denies: Rash, Wounds Neurological: Denies: Numbness, Tingling, Focal weakness Psychiatric: Denies: Anxiety, Depression, Homicidal Ideations, Suicidal Ideations Hematologic/ Lymphatic: Denies: Easy Bruising, Easy Bleeding VTE Information - Inpt Only VTE Present on Admission: No VTE Mechan Device Prophylaxis: Knee High PRICILLA Hose VTE Pharm Prophylaxis ordered?: Yes Patient Problems: Active and Suspected Problems Colostomy prolapse (Acute) Hypophosphatemia (Acute) - Physical Exam General: Alert, Oriented x3, Cooperative HEENT: Atraumatic, PERRLA, EOMI, Normocephalic Neck: Supple, No JVD, Negative Carotid Bruits Lungs: Clear to auscultation, Normal air movement Cardiovascular: Regular rate, No murmurs Abdomen: Bowel Sounds Present, Soft, Non Tender, - - Colostomy Extremities: No edema, Capillary Refill Less than 3 Seconds Skin: No rashes, No breakdown Musculoskeletal: No Tenderness to Palpation of Joints or Extremities Neurological: Cranial nerves II-XII grossly intact Psych/Mental Status: Normal Affect, Appropriate Vital Signs Temp Pulse Resp BP Pulse Ox 97.6 F L 72 18 134/77 H 94 03/02/18 18:55 03/02/18 18:55 03/02/18 18:55 03/02/18 18:55 03/02/18 18:55 Oxygen Delivery Method Room Air Finger Stick Blood Glucose 98 Assessment/Plan All Active Problems Colostomy prolapse (Acute) Hypophosphatemia (Acute) At high risk for abnormal gastrointestinal motility (Acute) Postictal state (Resolved) Status post laparoscopic cholecystectomy (Resolved) 58 year old female with below past medical history hospitalized for complicated abdominal surgery, admitted to TCU with debility, here for rehabilitation, strengthening, prior to discharge home with family. Debility - PT/OT. Pain - Tylenol 650MG Q6H PRN mild pain, Ibuprofen 100MG Q6H PRN moderate pain, Oxycodone 5MG Q6H PRN severe pain. Bowel - Miralax 17GM daily, Lactulose 20GM daily PRN. Pneumonia vaccination - Administer Prevnar 13 and/or Pneumovax 23 as necessary. DVT prophylaxis - Lovenox 40MG SC daily. Shortness of breath - Albuterol 2 puffs Q4H PRN. Neuropathic pain - Elavil 75MG QHS, Gabapentin 800MG TID. CV prophylaxis - Aspirin 81MG daily. Osteoporosis - Prolia 60MG SC every 6 months. Migraine headaches, Benadryl 25MG IV x dose, Toradol 30MG IV x 1 dose, Zofran 4MG IV x 1 dose, Benadryl 25MG Q6H PRN, Zofran 4MG Q6H PRN. Depression - Lexapro 10MG daily. GERD - Famotidine 20MG BID. Seizure disorder - Vimpat 50MG BID, Keppra 1750MG BID. Hypothyroidism - Levothyroxine 75MCG daily. Insomnia - Melatonin 3MG QHS. Gastroparesis - Reglan 10MG BIDAC. Mitochondrial myopathy - Exelon patch 9.5MG daily.
--- NOTE | 2018-03-02 21:49 | HP.PCM_ITS ---
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 The patient is a 58 year old Female with below past medical history admitted to [facility] 02/19/2018 to have surgery with Dr.Hermann Abbott. Dr. Abbott performed exploratory laparotomy, takedown of loop colostomy, reposition of parastomal hernia and resection of hernia sac, primary closure of parastomal hernia and colostomy site, resection of colon including previous colostomy site, in discontinuity with rectal stump and new implantation of end colostomy. Intraoperative colonoscopy was performed. Post-operative course uneventful. 03/02/2018 Admit to TCU with debility, here or rehabilitation, strengthening, prior to discharge home with family. 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) Seizure disorder, grand mal (Chronic) Gastroesophageal reflux disease (Chronic) Sensorineural hearing loss (Chronic) Seizure (Chronic) Gastroparesis (Chronic) Status post osteotomy (Chronic) Mitochondrial myopathies (Chronic) Allergies shellfish derived Allergy (Severe, Verified 01/18/18 10:35) Anaphylaxis amoxicillin Allergy (Verified 01/18/18 10:35) Rash iodine Allergy (Verified 01/18/18 10:35) Rash peanut Allergy (Verified 01/18/18 10:35) Anaphylaxis it gets stuck in my throat Penicillins [PCN] Allergy (Verified 01/18/18 10:35) Rash povidone-iodine [From Betadine] Allergy (Verified 01/18/18 10:35) Rash soap [From Betadine] Allergy (Verified 01/18/18 10:35) Rash alendronate sodium [From Fosamax] Adverse Reaction (Verified 01/18/18 10:35) unable to swallow pill/choking UNABLE TO SWALLOW PILL/CHOKING risedronate sodium [From Actonel] Adverse Reaction (Verified 01/18/18 10:35) CHOKING Home Medications: Ambulatory Orders Medication Instructions Recorded Lacosamide [Vimpat] 50 mg PO BID 07/02/13 Rivastigmine 9.5mg Patch [Exelon 1 patch TD Q24H 02/16/16 9.5MG/24HR PATCH] Melatonin 3 mg Tablet 3 mg PO QHS 04/19/16 Gabapentin [Neurontin] 800 mg PO TID 04/05/17 levETIRAcetam tablet [Keppra 1,750 mg PO BID 04/05/17 tablet] Escitalopram Oxalate [Lexapro] 10 mg PO QHS 08/23/17 Famotidine [Pepcid AC] 20 mg PO BID 08/23/17 Levothyroxine [Synthroid] 75 mcg PO DAILY 08/23/17 Metoclopramide [Reglan] 10 mg PO BIDAC 08/23/17 Albuterol IH (ProAir) [Proair Hfa] 2 puff INHALATION Q6H PRN PRN 08/29/17 Amitriptyline HCl [Elavil] 75 mg PO QHS 08/29/17 Aspirin E.C. [Ecotrin] 81 mg PO DAILY@0800 08/29/17 Ondansetron [Zofran] 4 mg PO Q6H PRN PRN 08/29/17 Botox 200 units SQ UD 09/11/17 Denosumab [Prolia] 60 mg SQ UD 09/11/17 Acetaminophen [Tylenol Tablet] 650 mg PO Q6H PRN PRN tablet 09/13/17 Ensure Clear 120 ml PO 4X/DAY liquid 09/13/17 Lactulose 20 gm PO DAILY PRN 12/28/17 Albuterol Inhaler [Ventolin Hfa 2 puff INHALATION Q4H PRN PRN 03/02/18 (SP)] DiphenhydrAMINE [Benadryl] 25 mg PO Q6H 03/02/18 Ibuprofen Liquid [Motrin Liquid] 100 mg PO Q6H PRN PRN 03/02/18 Oxycodone HCl [Roxicodone] 5 mg PO Q6H PRN PRN 03/02/18 Polyethylene Glycol 3350 [Miralax] 17 gm PO DAILY 03/02/18 Surgical History: adenoidectomy, appendectomy, cholecystectomy, hysterectomy, tonsillectomy, - - Status post proximal transverse loop colostomy 2016, thyroidectomy, further surgical history per HPI. 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 Smoking Status: Never smoker Tobacco Use: Non-smoker Alcohol: None Drugs: None - *Family History Maternal History Items: Heart Disease - In her maternal grandmother, - - Aneurysm and her maternal grandmother and grandfather Paternal History Items: Heart Disease - In the paternal grand mother, Stroke - father alive age 84, - - Aneurysm in her paternal grandmother and in a paternal aunt. Sibling History Items: - - She has a brother who suddenly at the age of 46 and he had been diagnosed with Prader-Willi syndrome. She has a sister who at 4 years of age due to a hole in her heart. Another sister suffers from a cardiac dysrhythmia. Review of Systems Constitutional: Denies: Chills, Fever, Weight Change HEENT: Denies: Head Aches, Sinus Congestion, Sinus Drainage Cardiovascular: Denies: Chest Pain, Palpitations Respiratory: Denies: Cough, Shortness of breath at rest, Sputum production Gastrointestinal: Denies: Abdominal Pain, Nausea, Vomiting Genitourinary: Denies: Dysuria Musculoskeletal: Denies: Joint Pain, Joint Tenderness Skin: Denies: Rash, Wounds Neurological: Denies: Numbness, Tingling, Focal weakness Psychiatric: Denies: Anxiety, Depression, Homicidal Ideations, Suicidal Ideations Hematologic/ Lymphatic: Denies: Easy Bruising, Easy Bleeding VTE Information - Inpt Only VTE Present on Admission: No VTE Mechan Device Prophylaxis: Knee High PRICILLA Hose VTE Pharm Prophylaxis ordered?: Yes Patient Problems: Active and Suspected Problems Colostomy prolapse (Acute) Hypophosphatemia (Acute) - Physical Exam General: Alert, Oriented x3, Cooperative HEENT: Atraumatic, PERRLA, EOMI, Normocephalic Neck: Supple, No JVD, Negative Carotid Bruits Lungs: Clear to auscultation, Normal air movement Cardiovascular: Regular rate, No murmurs Abdomen: Bowel Sounds Present, Soft, Non Tender, - - Colostomy Extremities: No edema, Capillary Refill Less than 3 Seconds Skin: No rashes, No breakdown Musculoskeletal: No Tenderness to Palpation of Joints or Extremities Neurological: Cranial nerves II-XII grossly intact Psych/Mental Status: Normal Affect, Appropriate Vital Signs Temp Pulse Resp BP Pulse Ox 97.6 F L 72 18 134/77 H 94 03/02/18 18:55 03/02/18 18:55 03/02/18 18:55 03/02/18 18:55 03/02/18 18:55 Oxygen Delivery Method Room Air Finger Stick Blood Glucose 98 Assessment/Plan All Active Problems Colostomy prolapse (Acute) Hypophosphatemia (Acute) At high risk for abnormal gastrointestinal motility (Acute) Postictal state (Resolved) Status post laparoscopic cholecystectomy (Resolved) 58 year old female with below past medical history hospitalized for complicated abdominal surgery, admitted to TCU with debility, here for rehabilitation, strengthening, prior to discharge home with family. * Debility - PT/OT. * Pain - Tylenol 650MG Q6H PRN mild pain, Ibuprofen 100MG Q6H PRN moderate pain , Oxycodone 5MG Q6H PRN severe pain. * Bowel - Miralax 17GM daily, Lactulose 20GM daily PRN. * Pneumonia vaccination - Administer Prevnar 13 and/or Pneumovax 23 as necessary. * DVT prophylaxis - Lovenox 40MG SC daily. * Shortness of breath - Albuterol 2 puffs Q4H PRN. * Neuropathic pain - Elavil 75MG QHS, Gabapentin 800MG TID. * CV prophylaxis - Aspirin 81MG daily. * Osteoporosis - Prolia 60MG SC every 6 months. * Migraine headaches, Benadryl 25MG IV x dose, Toradol 30MG IV x 1 dose, Zofran 4MG IV x 1 dose, Benadryl 25MG Q6H PRN, Zofran 4MG Q6H PRN. * Depression - Lexapro 10MG daily. * GERD - Famotidine 20MG BID. * Seizure disorder - Vimpat 50MG BID, Keppra 1750MG BID. * Hypothyroidism - Levothyroxine 75MCG daily. * Insomnia - Melatonin 3MG QHS. * Gastroparesis - Reglan 10MG BIDAC. * Mitochondrial myopathy - Exelon patch 9.5MG daily.
[2018-03-02 21:54] VITALS: BMI 25.4
[2018-03-02] MEDS: MELATONIN 3 MG TABLET PO (22:05)
[2018-03-02] MEDS: Lacosamide 50 MG Tablet PO (22:05)
[2018-03-02] MEDS: DiphenhydrAMINE 25 MG Capsule PO (22:06)
[2018-03-02] MEDS: levETIRAcetam 500 MG Tablet 1750 MG PO (22:06)
[2018-03-02] MEDS: Escitalopram Oxalate 10 MG Tablet PO (22:06)
[2018-03-02] MEDS: Famotidine 20 MG Tablet PO (22:06)
--- NOTE | 2018-03-02 22:18 | NURSING ---
Pt refusing seizure pads. Pt aware of safety concerns with pads. Pt verbalizes understanding, pt continues to refuse pads. Will continue to monitor.
[2018-03-02 22:19] VITALS: BMI 25.4
--- NOTE | 2018-03-02 22:23 | NURSING ---
Pt denies any personal items needing to be locked in hospital safe.
[2018-03-03] MEDS: Polyethylene Glycol 3350 17 GM PACKET PO (02:27)
--- NOTE | 2018-03-03 02:33 | NURSING ---
Code status discussed with pt. Pt wishes to be a full code.
[2018-03-03] MEDS: Lacosamide 50 MG Tablet PO ×2 (05:55→17:16)
[2018-03-03] MEDS: Famotidine 20 MG Tablet PO ×2 (05:55→17:17)
[2018-03-03] MEDS: levETIRAcetam 500 MG Tablet 1750 MG PO ×2 (05:55→17:16)
[2018-03-03] MEDS: DiphenhydrAMINE 25 MG Capsule PO ×3 (05:55→17:17)
[2018-03-03] MEDS: Levothyroxine 75 MCG Tablet PO (05:55)
[2018-03-03] MEDS: Ondansetron ODT 4 MG Tablet PO ×2 (05:59→16:17)
[2018-03-03] MEDS: Ibuprofen 100 MG/5 ML UDC PO (06:00)
[2018-03-03 06:12] LABS: Anion Gap 9 (5-15); BUN 12 mg/dL (7-18); BUN/Creat Ratio 14.9 RATIO (10-20); Calcium,Total 9.6 mg/dL (8.5-10.1); Chloride 101 mmol/L (98-107); EST Glomerular Filtration Rate 77 mL/min (>60); Est Glom Filt Rate - Afr Amer 94 mL/min (>60); Estimated Creatinine Clearance 70.01 ml/min; Glucose 108 mg/dL (74-106); Potassium 4.1 mmol/L (3.5-5.1); Sodium Level 140 mmol/L (136-145)
[2018-03-03 06:22] LABS: Absolute Lymphocyte Count 2.55 X10^3/ul (0.83-4.51); Basophil# 0.02 X10^3/uL; Basophil% 0.2 % (0-1); Hematocrit 38.6 % (37-47); Hemoglobin 12.4 g/dl (12.0-15.0); Lymphocyte # 2.55 X10^3/ul (4.0); Lymphocyte % 24.6 % (19-41); Mean Corp Hgb Conc 32.1 g/gl (32-36); Mean Corpuscular Hgb 28.2 pg (27.0-32.0); Mean Corpuscular Volume 87.7 fL (81-99); Mean Platelet Vol. 10.4 fl (6.2-12.0); Monocyte# 0.63 X10^3/uL; Monocyte% 6.1 % (0-10); Neutrophil # 7.03 X10^3/uL (2.7-7.7); Neutrophil % 67.7 % (47-70); Platelet Count 379 K/mm3 (150-450); RBC Distribution Width CV 13.3 % (11.6-14.6); RBC Distribution Width SD 41.6 fl (35.1-43.9); White Blood Count 10.4 K/mm3 (4.4-11.0)
[2018-03-03 06:25] LABS: POSITIVE COUNT NO; POSITIVE DIFFERENTIAL NO; POSITIVE MORPHOLOGY NO
[2018-03-03] MEDS: Aspirin E.C. 81 MG Tablet PO (09:14)
[2018-03-03] MEDS: Gabapentin 400 MG Capsule 800 MG PO ×3 (09:14→17:17)
[2018-03-03] MEDS: Rivastigmine 9.5mg Patch 1 PATCH TRANSDERM. (09:14)
[2018-03-03] MEDS: Metoclopramide 10 MG Tablet PO ×2 (09:14→17:17)
--- NOTE | 2018-03-03 09:22 | NURSING ---
Pt daughter requesting nurse come into room. Upon entering daughter concerned about pain patient is having. C/O sharp abdominal pain that started last night, pain is worse with movement, rated 7/10. Vitals 123/68, 77, 98.7, 96% RA, 16. Abdomen tender to light palpation in LLQ but soft. Bowel sounds slightly hypoactive but are audible in all 4 quadrants. Colostomy bag intact, small amount of soft, thick light brown stool coming out of stoma. Patient states that she had issues with constipation and that she sometimes feels this way when she becomes constipated. Dr. Oro updated, NO for soap suds enema via colostomy site x1. Elavil also d/c'd per patient's request. Patient updated.
--- NOTE | 2018-03-03 11:24 | PCM.PN.RX ---
<Chadd Wade Joy - Last Filed: 03/03/18 11:24> Progress Note - Pharmacy Subjective: TCU Admission Objective: Allergies shellfish derived Allergy (Severe, Verified 01/18/18 10:35) Anaphylaxis amoxicillin Allergy (Verified 01/18/18 10:35) Rash iodine Allergy (Verified 01/18/18 10:35) Rash peanut Allergy (Verified 01/18/18 10:35) Anaphylaxis it gets stuck in my throat Penicillins [PCN] Allergy (Verified 01/18/18 10:35) Rash povidone-iodine [From Betadine] Allergy (Verified 01/18/18 10:35) Rash soap [From Betadine] Allergy (Verified 01/18/18 10:35) Rash alendronate sodium [From Fosamax] Adverse Reaction (Verified 01/18/18 10:35) unable to swallow pill/choking UNABLE TO SWALLOW PILL/CHOKING risedronate sodium [From Actonel] Adverse Reaction (Verified 01/18/18 10:35) CHOKING Current Medications Generic Name Dose Route Start Last Admin Trade Name Freq PRN Reason Stop Dose Admin Acetaminophen 650 mg 03/02/18 21:49 Tylenol PO Q6H PRN PRN MILD PAIN (1-310) Albuterol Sulfate 2 puff 03/02/18 17:37 Ventolin Hfa (Sp) INHALATION Q4H PRN PRN SOB &/OR WHEEZING Aspirin 81 mg 03/03/18 08:00 03/03/18 09:14 Ecotrin PO 81 mg DAILY@0800 MARLI Administration Diphenhydramine HCl 25 mg 03/02/18 18:00 03/03/18 05:55 Benadryl PO 25 mg Q6 MARLI Administration Enoxaparin Sodium 40 mg 03/04/18 06:00 Lovenox SC DAILY@0600 MARLI Escitalopram Oxalate 10 mg 03/02/18 22:00 03/02/18 22:06 Lexapro PO 10 mg QHS MARLI Administration Famotidine 20 mg 03/02/18 18:00 03/03/18 05:55 Pepcid PO 20 mg BID MARLI Administration Gabapentin 800 mg 03/03/18 07:45 03/03/18 09:14 Neurontin PO 800 mg TIDCM MARLI Administration Ibuprofen 100 mg 03/02/18 21:53 03/03/18 06:00 Motrin Liquid PO 100 mg Q6H PRN PRN Administration MODERATE PAIN (4-5/10) Lacosamide 50 mg 03/02/18 18:00 03/03/18 05:55 Vimpat PO 50 mg BID MARLI Administration Lactulose 20 gm 03/02/18 17:37 Chronulac, Cephulac PO DAILY PRN Constipation Levetiracetam 1,750 mg 03/02/18 18:00 03/03/18 05:55 Keppra Tablet PO 1,750 mg BID MARLI Administration Levothyroxine Sodium 75 mcg 03/03/18 06:00 03/03/18 05:55 Synthroid PO 75 mcg DAILY MARLI Administration Melatonin 3 mg 03/02/18 22:00 03/02/18 22:05 Melatonin PO 3 mg QHS MARLI Administration Metoclopramide HCl 10 mg 03/03/18 07:30 03/03/18 09:14 Reglan PO 10 mg BIDAC MARLI Administration Ondansetron HCl 4 mg 03/02/18 17:37 03/03/18 05:59 Zofran Odt PO 4 mg Q6H PRN PRN Administration nausea, emesis Oxycodone HCl 5 mg 03/02/18 22:02 Oxyir PO Q6H PRN PRN SEVERE PAIN (6-10/10) Polyethylene Glycol 17 gm 03/03/18 06:00 03/03/18 02:27 Miralax PO 17 gm DAILY MARLI Administration Rivastigmine 1 patch 03/03/18 10:00 03/03/18 09:14 Exelon 9.5mg/24hr Patch TRANSDERM. 1 patch Q24 MARLI Administration Tuberculin PPD 5 tu 03/10/18 10:00 Tubersol, Aplisol, Ppd ID 03/10/18 10:01 X1 ONE Problem List Blindness (Chronic) Colostomy prolapse (Acute) Hypophosphatemia (Acute) Pituitary tumor (Chronic) Epilepsy (Chronic) Migraine (Chronic) Goiter (Chronic) Hearing loss (Chronic) Nausea (Chronic) Osteoporosis (Chronic) Neuropathic pain (Chronic) Vital Signs Temp Pulse Resp BP Pulse Ox 97.6 F L 72 18 134/77 H 94 03/02/18 18:55 03/02/18 18:55 03/02/18 18:55 03/02/18 18:55 03/02/18 18:55 Oxygen Delivery Method Room Air Weight: 71.668 kg Body Mass Index (BMI) 25.4 Finger Stick Blood Glucose 98 Sodium 140 mmol/L (136-145) 03/03/18 05:10 Potassium 4.1 mmol/L (3.5-5.1) 03/03/18 05:10 Chloride 101 mmol/L (98-107) 03/03/18 05:10 Carbon Dioxide 30.0 mmol/L (21.0-32.0) 03/03/18 05:10 Anion Gap 9 (5-15) 03/03/18 05:10 BUN 12 mg/dL (7-18) 03/03/18 05:10 Creatinine 0.80 mg/dL (0.55-1.02) 03/03/18 05:10 Est GFR (MDRD) Af Amer 94 mL/min (>60) 03/03/18 05:10 Est GFR (MDRD) Non-Af 77 mL/min (>60) 03/03/18 05:10 BUN/Creatinine Ratio 14.9 RATIO (10-20) 03/03/18 05:10 Glucose 108 mg/dL (74-106) H 03/03/18 05:10 Assessment/Plan: 1) Pain APAP for mild pain, ibuprofen for moderate pain, oxycodone for severe pain, gabapentin, diphenhydramine scheduled for migraines. Continue to monitor prn medication use, daily pain scores. 2) Pulm Albuterol inh as needed. Continue to monitor prn medication use. 3) Hx Seizure Lacosamide, levetiracetam. Continue to monitor for seizure. 4) Hypothyroidism Levothyroxine daily. Continue to monitor s/s hyper/hypothyroidism. 5) CV PPx ASA daily. Continue to monitor for chest pain. 6) Mitochondrial Myopathy Rivastigmine patch. Continue to monitor clinically. 7) GI Famotidine twice daily, metoclopramide twice daily, ondansetron as needed. Continue to monitor s/s GI distress. 8) Insomnia Melatonin at HS for sleep. Continue to monitor for insomnia. 9) DVT PPx Enoxaparin daily. Continue to monitor s/s bleeding/clot. Psychotropic Medications: 10) Escitalopram at HS. Continue to monitor s/s bleeding/clot. Unnecessary Medications: None Bowel Regimen: 11) PEG daily, lactulose prn. Continue to monitor prn medication use, for constipation/diarrhea. Date of Note:: 03/03/18 - Provider Comments Provider responsibility: Provider responsible to enter orders to implement recommendations <Vinod Oro Chi - Last Filed: 03/03/18 12:54> Progress Note - Pharmacy Subjective: [] Objective: Allergies shellfish derived Allergy (Severe, Verified 01/18/18 10:35) Anaphylaxis amoxicillin Allergy (Verified 01/18/18 10:35) Rash iodine Allergy (Verified 01/18/18 10:35) Rash peanut Allergy (Verified 01/18/18 10:35) Anaphylaxis it gets stuck in my throat Penicillins [PCN] Allergy (Verified 01/18/18 10:35) Rash povidone-iodine [From Betadine] Allergy (Verified 01/18/18 10:35) Rash soap [From Betadine] Allergy (Verified 01/18/18 10:35) Rash alendronate sodium [From Fosamax] Adverse Reaction (Verified 01/18/18 10:35) unable to swallow pill/choking UNABLE TO SWALLOW PILL/CHOKING risedronate sodium [From Actonel] Adverse Reaction (Verified 01/18/18 10:35) CHOKING Current Medications Generic Name Dose Route Start Last Admin Trade Name Freq PRN Reason Stop Dose Admin Acetaminophen 650 mg 03/02/18 21:49 Tylenol PO Q6H PRN PRN MILD PAIN (1-3/10) Albuterol Sulfate 2 puff 03/02/18 17:37 Ventolin Hfa (Sp) INHALATION Q4H PRN PRN SOB &/OR WHEEZING Aspirin 81 mg 03/03/18 08:00 03/03/18 09:14 Ecotrin PO 81 mg DAILY@0800 [facility] Administration Diphenhydramine HCl 25 mg 03/02/18 18:00 03/03/18 12:21 Benadryl PO 25 mg Q6 MARLI Administration Enoxaparin Sodium 40 mg 03/04/18 06:00 Lovenox SC DAILY@0600 [facility] Escitalopram Oxalate 10 mg 03/02/18 22:00 03/02/18 22:06 Lexapro PO 10 mg QHS MARLI Administration Famotidine 20 mg 03/02/18 18:00 03/03/18 05:55 Pepcid PO 20 mg BID MARLI Administration Gabapentin 800 mg 03/03/18 07:45 03/03/18 12:21 Neurontin PO 800 mg TIDCM MARLI Administration Ibuprofen 100 mg 03/02/18 21:53 03/03/18 06:00 Motrin Liquid PO 100 mg Q6H PRN PRN Administration MODERATE PAIN (4-5/10) Lacosamide 50 mg 03/02/18 18:00 03/03/18 05:55 Vimpat PO 50 mg BID MARLI Administration Lactulose 20 gm 03/02/18 17:37 Chronulac, Cephulac PO DAILY PRN Constipation Levetiracetam 1,750 mg 03/02/18 18:00 03/03/18 05:55 Keppra Tablet PO 1,750 mg BID MARLI Administration Levothyroxine Sodium 75 mcg 03/03/18 06:00 03/03/18 05:55 Synthroid PO 75 mcg DAILY MARLI Administration Melatonin 3 mg 03/02/18 22:00 03/02/18 22:05 Melatonin PO 3 mg QHS MARLI Administration Metoclopramide HCl 10 mg 03/03/18 07:30 03/03/18 09:14 Reglan PO 10 mg BIDAC MARLI Administration Nutritional Formula (Lactose Free) 120 ml 03/03/18 17:00 Ensure Enlive PO 4X/DAY MARLI Ondansetron HCl 4 mg 03/02/18 17:37 03/03/18 05:59 Zofran Odt PO 4 mg Q6H PRN PRN Administration nausea, emesis Oxycodone HCl 5 mg 03/02/18 22:02 Oxyir PO Q6H PRN PRN SEVERE PAIN (6-10/10) Polyethylene Glycol 17 gm 03/03/18 06:00 03/03/18 02:27 Miralax PO 17 gm DAILY MARLI Administration Rivastigmine 1 patch 03/03/18 10:00 03/03/18 09:14 Exelon 9.5mg/24hr Patch TRANSDERM. 1 patch Q24 MARLI Administration Tuberculin PPD 5 tu 03/10/18 10:00 Tubersol, Aplisol, Ppd ID 03/10/18 10:01 X1 ONE Problem List Blindness (Chronic) Colostomy prolapse (Acute) Hypophosphatemia (Acute) Pituitary tumor (Chronic) Epilepsy (Chronic) Migraine (Chronic) Goiter (Chronic) Hearing loss (Chronic) Nausea (Chronic) Osteoporosis (Chronic) Neuropathic pain (Chronic) Vital Signs Temp Pulse Resp BP Pulse Ox 97.6 F L 72 18 134/77 H 94 03/02/18 18:55 03/02/18 18:55 03/02/18 18:55 03/02/18 18:55 03/02/18 18:55 Oxygen Delivery Method Room Air Weight: 71.668 kg Body Mass Index (BMI) 25.4 Finger Stick Blood Glucose 98 Sodium 140 mmol/L (136-145) 03/03/18 05:10 Potassium 4.1 mmol/L (3.5-5.1) 03/03/18 05:10 Chloride 101 mmol/L (98-107) 03/03/18 05:10 Carbon Dioxide 30.0 mmol/L (21.0-32.0) 03/03/18 05:10 Anion Gap 9 (5-15) 03/03/18 05:10 BUN 12 mg/dL (7-18) 03/03/18 05:10 Creatinine 0.80 mg/dL (0.55-1.02) 03/03/18 05:10 Est GFR (MDRD) Af Amer 94 mL/min (>60) 03/03/18 05:10 Est GFR (MDRD) Non-Af 77 mL/min (>60) 03/03/18 05:10 BUN/Creatinine Ratio 14.9 RATIO (10-20) 03/03/18 05:10 Glucose 108 mg/dL (74-106) H 03/03/18 05:10 Assessment/Plan: Psychotropic Medications: Unnecessary Medications: Bowel Regimen: - Provider Comments Provider responsibility: Provider responsible to enter orders to implement recommendations Provider Comments to Recommendations by Pharmacy: Agree
[2018-03-03] MEDS: Tuberculin,Purif.prot.deriv. 50 TU/ML Vial 5 ML ID (12:21)
--- NOTE | 2018-03-03 12:23 | NURSING ---
Pt states her abdominal pain has subsided significantly, rates pain a 2/10 with movement. Patient sitting up in bed eating lunch. Small amount of soft, thick green/brown stool in colostomy bag, bowel has moved since earlier assessment. Patient encouraged to drink plenty of fluids to help keep bowels regular. Patient wishes to wait on soap suds enema to see if bowels begin to move more on their own. Will continue to monitor.
[2018-03-03] MEDS: oxyCODONE 5 MG Tablet PO ×2 (13:37→21:04)
--- NOTE | 2018-03-03 15:21 | NURSING ---
Was consulted to see patient for colostomy care. Pt had been very independent with her care at home. pt states that she had a very large prolapse that needed to be surgically repaired. patient now has an end descending colostomy. applied was just changed on 03/02/18 prior to leaving [facility]. plan to change appliance on . will plan changes every Friday and while pt is in TCU. Will attempt to get supplies that patient feels comfortable with. Pt currently has Coloplast JEROME flex pouch #[id number] and flex wafer #[id number]. Pt also used the Coloplast moldable ring #[id number]. Pt denies further needs at this time.
[2018-03-03 15:27] VITALS: BP 114/72; PULSE 82; RESP 20; TEMP 36.4; O2SAT 97
[2018-03-03] MEDS: Acetaminophen 325 MG Tablet 650 MG PO (16:14)
[2018-03-03] MEDS: Escitalopram Oxalate 10 MG Tablet PO (21:05)
[2018-03-03] MEDS: MELATONIN 3 MG TABLET PO (21:05)
[2018-03-04] MEDS: DiphenhydrAMINE 25 MG Capsule PO ×4 (00:28→17:17)
[2018-03-04] MEDS: Ibuprofen 100 MG/5 ML UDC PO ×2 (00:29→20:13)
[2018-03-04] MEDS: Enoxaparin 40 MG/0.4 ML Syringe SC (06:13)
[2018-03-04] MEDS: Levothyroxine 75 MCG Tablet PO (06:14)
[2018-03-04] MEDS: Famotidine 20 MG Tablet PO ×2 (06:14→17:18)
[2018-03-04] MEDS: levETIRAcetam 500 MG Tablet 1750 MG PO ×2 (06:14→17:17)
[2018-03-04] MEDS: Lacosamide 50 MG Tablet PO ×2 (06:18→17:24)
[2018-03-04] MEDS: Polyethylene Glycol 3350 17 GM PACKET PO (08:01)
[2018-03-04] MEDS: Metoclopramide 10 MG Tablet PO ×2 (08:02→17:18)
[2018-03-04] MEDS: Aspirin E.C. 81 MG Tablet PO (08:02)
[2018-03-04] MEDS: Gabapentin 400 MG Capsule 800 MG PO ×3 (08:02→17:17)
[2018-03-04] MEDS: Rivastigmine 9.5mg Patch 1 PATCH TRANSDERM. (10:25)
[2018-03-04] MEDS: Acetaminophen 325 MG Tablet 650 MG PO (10:29)
[2018-03-04] MEDS: oxyCODONE 5 MG Tablet PO ×2 (12:55→18:32)
[2018-03-04] MEDS: Ondansetron ODT 4 MG Tablet PO (12:55)
--- NOTE | 2018-03-04 13:09 | NURSING ---
Addendum entered by Charlotte Andujar Al 03/04/18 15:50: denies chest pain. Original Note: Addendum entered by Charlotte Andujar Al 03/04/18 15:31: EKG done d/t pt c/o CP showed NSR. Pt fell asleep awhile and rates pain 1/10. Family at bedside. Original Note: Therapy stopped this nurse and explained that Pt had gotten dizzy, lightheaded, and felt faint durning therapy. Pt blood pressure 137/85 HR 96 pulse OX 95 on room air, Pt having ABD pain 8/10 this nurse gave Pt medication for pain and something for nausea. Pt very pale and clammy. Deysi CHAIDEZ aware
[2018-03-04 15:46] VITALS: BP 111/77; PULSE 85; RESP 18; TEMP 36.8; O2SAT 96
[2018-03-04] MEDS: Escitalopram Oxalate 10 MG Tablet PO (20:13)
[2018-03-04] MEDS: MELATONIN 3 MG TABLET PO (20:14)
[2018-03-05] MEDS: DiphenhydrAMINE 25 MG Capsule PO ×4 (00:58→17:06)
[2018-03-05] MEDS: Levothyroxine 75 MCG Tablet PO (06:12)
[2018-03-05] MEDS: Lacosamide 50 MG Tablet PO ×2 (06:12→17:11)
[2018-03-05] MEDS: levETIRAcetam 500 MG Tablet 1750 MG PO ×2 (06:12→17:07)
[2018-03-05] MEDS: Famotidine 20 MG Tablet PO ×2 (06:12→17:07)
[2018-03-05] MEDS: Enoxaparin 40 MG/0.4 ML Syringe SC (06:14)
[2018-03-05] MEDS: Gabapentin 400 MG Capsule 800 MG PO ×3 (08:00→17:06)
[2018-03-05] MEDS: Polyethylene Glycol 3350 17 GM PACKET PO (08:00)
[2018-03-05] MEDS: Metoclopramide 10 MG Tablet PO ×2 (08:00→16:34)
[2018-03-05] MEDS: Aspirin E.C. 81 MG Tablet PO (08:00)
[2018-03-05] MEDS: Rivastigmine 9.5mg Patch 1 PATCH TRANSDERM. (11:01)
[2018-03-05] MEDS: Acetaminophen 325 MG Tablet 650 MG PO ×2 (11:15→17:11)
[2018-03-05] MEDS: oxyCODONE 5 MG Tablet PO (14:46)
--- NOTE | 2018-03-05 14:46 | NURSING ---
In to change ostomy appliance. removed current appliance. there is a moderate amount soft brown stool noted in the appliance. there is a small healing ulcer noted medial to the stoma that measures approx 1cm x 1.2cm x 0.1cm. tissue pale pink. no signs of infection noted. stoma is well budded. measures approx 1 3/8 and is oval in shape. there is a nearly healed incision just inferior to the stoma that is well approximated with steri strips. cleansed peristomal skin with soap and water. pat dry. applied a Coloplast 2 piece convex appliance with a Coloplast paste ring. had placed a small piece of Hollihesive over the open ulcered area prior to placing the appliance. pt tolerated well. plan to change appliance every Friday and .
[2018-03-05 16:00] VITALS: BP 114/73; PULSE 88; RESP 20; TEMP 35.6; O2SAT 93
[2018-03-05] MEDS: Ibuprofen 100 MG/5 ML UDC PO (21:13)
[2018-03-05] MEDS: Escitalopram Oxalate 10 MG Tablet PO (21:13)
[2018-03-05] MEDS: MELATONIN 3 MG TABLET PO (21:13)
[2018-03-06] MEDS: Levothyroxine 75 MCG Tablet PO (06:50)
[2018-03-06] MEDS: levETIRAcetam 500 MG Tablet 1750 MG PO ×2 (06:50→17:54)
[2018-03-06] MEDS: Enoxaparin 40 MG/0.4 ML Syringe SC (06:51)
[2018-03-06] MEDS: Famotidine 20 MG Tablet PO ×2 (06:51→17:54)
[2018-03-06] MEDS: DiphenhydrAMINE 25 MG Capsule PO ×3 (06:51→17:53)
[2018-03-06] MEDS: Lacosamide 50 MG Tablet PO ×2 (06:54→17:58)
[2018-03-06] MEDS: Polyethylene Glycol 3350 17 GM PACKET PO (07:57)
[2018-03-06] MEDS: Metoclopramide 10 MG Tablet PO ×2 (07:57→16:57)
[2018-03-06] MEDS: Aspirin E.C. 81 MG Tablet PO (07:57)
[2018-03-06] MEDS: Gabapentin 400 MG Capsule 800 MG PO ×3 (07:57→17:53)
[2018-03-06] MEDS: oxyCODONE 5 MG Tablet PO ×2 (10:25→18:35)
--- NOTE | 2018-03-06 10:27 | NURSING ---
Addendum entered by Pneny Yepez 03/06/18 12:37: Dr. Shorty inman, N.N.O. Original Note: Working with therapy. Complains of having chest pain. States she has had the pain since she was up to the bathroom around 0930 this AM. Also complains of SOB. States chest pain is now gone but still feels SOB. BP 114/77 P83, spo2 96% on room air. Does not appear to be laboring to breath. Lung sounds clear. Denies cough. Denies chest pressure. Resident does not feel like she needs an EKG. Will continue with therapy and monitor for increased SOB with activity or return of chest pain. Therapist aware and resident agreeable. Oxyir given for complaints of incisional pain.
[2018-03-06] MEDS: Rivastigmine 9.5mg Patch 1 PATCH TRANSDERM. (11:08)
--- NOTE | 2018-03-06 14:44 | CASEMGMT ---
Brief interview for mental status (BIMS) and resident mood interview (PHQ-9) completed on this day. BIMS score 04/08. PHQ-9 score 09/20
[2018-03-06 16:00] VITALS: BP 131/75; PULSE 82; RESP 18; TEMP 36.9; O2SAT 95
[2018-03-06] MEDS: Escitalopram Oxalate 10 MG Tablet PO (22:06)
[2018-03-06] MEDS: MELATONIN 3 MG TABLET PO (22:07)
[2018-03-07] MEDS: Levothyroxine 75 MCG Tablet PO (05:50)
[2018-03-07] MEDS: Lacosamide 50 MG Tablet PO ×2 (05:50→18:32)
[2018-03-07] MEDS: Enoxaparin 40 MG/0.4 ML Syringe SC (05:51)
[2018-03-07] MEDS: Famotidine 20 MG Tablet PO ×2 (05:51→18:25)
[2018-03-07] MEDS: levETIRAcetam 500 MG Tablet 1750 MG PO ×2 (05:51→18:24)
[2018-03-07] MEDS: DiphenhydrAMINE 25 MG Capsule PO ×3 (05:51→18:24)
[2018-03-07] MEDS: Aspirin E.C. 81 MG Tablet PO (08:02)
[2018-03-07] MEDS: Polyethylene Glycol 3350 17 GM PACKET PO (08:02)
[2018-03-07] MEDS: Gabapentin 400 MG Capsule 800 MG PO ×3 (08:02→16:34)
[2018-03-07] MEDS: Metoclopramide 10 MG Tablet PO ×2 (08:02→16:34)
[2018-03-07] MEDS: oxyCODONE 5 MG Tablet PO ×3 (09:27→21:55)
[2018-03-07] MEDS: Rivastigmine 9.5mg Patch 1 PATCH TRANSDERM. (09:45)
[2018-03-07] MEDS: Acetaminophen 325 MG Tablet 650 MG PO (12:33)
[2018-03-07 15:57] VITALS: BP 111/69; PULSE 76; RESP 20; TEMP 36.5; O2SAT 96
[2018-03-07] MEDS: Ibuprofen 100 MG/5 ML UDC PO (19:55)
[2018-03-07] MEDS: Escitalopram Oxalate 10 MG Tablet PO (21:53)
[2018-03-07] MEDS: MELATONIN 3 MG TABLET PO (21:53)
[2018-03-08] MEDS: Levothyroxine 75 MCG Tablet PO (06:37)
[2018-03-08] MEDS: DiphenhydrAMINE 25 MG Capsule PO ×3 (06:37→16:36)
[2018-03-08] MEDS: Famotidine 20 MG Tablet PO ×2 (06:37→16:36)
[2018-03-08] MEDS: levETIRAcetam 500 MG Tablet 1750 MG PO ×2 (06:37→16:36)
[2018-03-08] MEDS: Metoclopramide 10 MG Tablet PO ×2 (06:38→16:35)
[2018-03-08] MEDS: Enoxaparin 40 MG/0.4 ML Syringe SC (06:40)
[2018-03-08] MEDS: Lacosamide 50 MG Tablet PO ×2 (06:40→16:35)
[2018-03-08] MEDS: Aspirin E.C. 81 MG Tablet PO (08:19)
[2018-03-08] MEDS: Polyethylene Glycol 3350 17 GM PACKET PO (08:19)
[2018-03-08] MEDS: Gabapentin 400 MG Capsule 800 MG PO ×3 (08:19→16:35)
[2018-03-08] MEDS: Rivastigmine 9.5mg Patch 1 PATCH TRANSDERM. (09:23)
[2018-03-08] MEDS: oxyCODONE 5 MG Tablet PO ×2 (12:33→19:41)
[2018-03-08] MEDS: Ondansetron ODT 4 MG Tablet PO ×2 (12:33→21:24)
[2018-03-08 15:24] VITALS: BP 121/69; PULSE 76; RESP 18; TEMP 35.7; O2SAT 93
[2018-03-08] MEDS: MELATONIN 3 MG TABLET PO (21:52)
[2018-03-08] MEDS: Escitalopram Oxalate 10 MG Tablet PO (21:52)
[2018-03-09] MEDS: Lacosamide 50 MG Tablet PO ×2 (06:26→17:04)
[2018-03-09] MEDS: DiphenhydrAMINE 25 MG Capsule PO ×4 (06:26→23:59)
[2018-03-09] MEDS: Famotidine 20 MG Tablet PO ×2 (06:26→17:01)
[2018-03-09] MEDS: levETIRAcetam 500 MG Tablet 1750 MG PO ×2 (06:26→17:00)
[2018-03-09] MEDS: Levothyroxine 75 MCG Tablet PO (06:26)
[2018-03-09] MEDS: Enoxaparin 40 MG/0.4 ML Syringe SC (06:28)
[2018-03-09] MEDS: Gabapentin 400 MG Capsule 800 MG PO ×3 (08:00→17:00)
[2018-03-09] MEDS: Aspirin E.C. 81 MG Tablet PO (08:00)
[2018-03-09] MEDS: Metoclopramide 10 MG Tablet PO ×2 (08:00→16:08)
[2018-03-09] MEDS: Ibuprofen 100 MG/5 ML UDC PO ×2 (08:37→16:07)
--- NOTE | 2018-03-09 11:30 | RAD_ITS ---
STUDY: X-RAY - ABDOMEN/PELVIS REASON FOR EXAM: Female, 58 years old. Diarrhea. TECHNIQUE: Two AP supine views of the abdomen and pelvis. COMPARISON: None. FINDINGS: Normal visualized lung bases. There is an abundance of fecal material throughout the colon. The visualized liver, spleen and kidneys are grossly normal in size and morphology. Normal soft tissue structures. Normal visualized osseous structures. RAD/Abdomen Single View IMPRESSION: Large amount of fecal material is seen in the colon. Electronically Signed: Dennis Franco MD at 12:16 EDT Tel [phone], Service support ,
--- NOTE | 2018-03-09 11:50 | CASEMGMT ---
Insurance Clinical information faxed. Pending continued stay approval. Auth#[id number] Lizz DRISCOLL, ELECTRIC POWERLINE EXAMINER
[2018-03-09] MEDS: Rivastigmine 9.5mg Patch 1 PATCH TRANSDERM. (12:20)
[2018-03-09] MEDS: Acetaminophen 325 MG Tablet 650 MG PO ×2 (12:26→18:32)
[2018-03-09] MEDS: oxyCODONE 5 MG Tablet PO ×2 (14:08→20:48)
[2018-03-09] MEDS: Polyethylene Glycol 3350 17 GM PACKET PO (14:12)
--- NOTE | 2018-03-09 15:26 | CASEMGMT ---
Brief interview for mental status (BIMS) and resident mood interview (PHQ-9) completed on this day. BIMS score 04/08. PHQ-9 score 09/20
--- NOTE | 2018-03-09 15:47 | NURSING ---
Colostomy appliance changed. small ulcer medial to the stoma is healing well. incision just inferior to the stoma is nearly healed. pt tolerated appliance change well.
[2018-03-09 16:00] VITALS: BP 118/75; PULSE 74; RESP 18; TEMP 36.6; O2SAT 97
--- NOTE | 2018-03-09 17:58 | NURSING ---
Dr. Oro reviewed KUB from today, N.O. received, Pt updated
[2018-03-09] MEDS: Escitalopram Oxalate 10 MG Tablet PO (20:48)
[2018-03-09] MEDS: MELATONIN 3 MG TABLET PO (20:49)
[2018-03-09] MEDS: Lactulose 20 GM/30 ML UDC 30 GM PO (20:50)
[2018-03-09] MEDS: Ondansetron ODT 4 MG Tablet PO (20:54)
[2018-03-10] MEDS: DiphenhydrAMINE 25 MG Capsule PO ×3 (06:17→17:59)
[2018-03-10] MEDS: Lacosamide 50 MG Tablet PO ×2 (06:17→18:02)
[2018-03-10] MEDS: Levothyroxine 75 MCG Tablet PO (06:17)
[2018-03-10] MEDS: Famotidine 20 MG Tablet PO ×2 (06:17→18:00)
[2018-03-10] MEDS: Enoxaparin 40 MG/0.4 ML Syringe SC (06:17)
[2018-03-10] MEDS: levETIRAcetam 500 MG Tablet 1750 MG PO ×2 (06:18→17:59)
[2018-03-10] MEDS: Metoclopramide 10 MG Tablet PO ×2 (06:19→16:03)
[2018-03-10 06:22] LABS: Absolute Lymphocyte Count 2.73 X10^3/ul (0.83-4.51); Absolute Neutrophil Count 2.6 X10^3/uL (2.0-7.7); Basophil# 0.02 X10^3/uL; Basophil% 0.3 % (0-1); Eosinophil# 0.13 X10^3/uL; Eosinophils% 2.1 % (0-5); Hematocrit 36.5 % (37-47); Hemoglobin 11.5 g/dl (12.0-15.0); Lymphocyte # 2.73 X10^3/ul (4.0); Lymphocyte % 44.6 % (19-41); Mean Corp Hgb Conc 31.5 g/gl (32-36); Mean Corpuscular Hgb 27.8 pg (27.0-32.0); Mean Corpuscular Volume 88.2 fL (81-99); Mean Platelet Vol. 11.3 fl (6.2-12.0); Monocyte# 0.61 X10^3/uL; Neutrophil # 2.62 X10^3/uL (2.7-7.7); Neutrophil % 42.8 % (47-70); Platelet Count 358 K/mm3 (150-450); RBC Distribution Width CV 12.8 % (11.6-14.6); RBC Distribution Width SD 40.7 fl (35.1-43.9); Red Blood Count 4.14 M/mm3 (4.2-5.4); White Blood Count 6.1 K/mm3 (4.4-11.0)
[2018-03-10 06:33] LABS: POSITIVE COUNT NO; POSITIVE DIFFERENTIAL NO; POSITIVE MORPHOLOGY NO
[2018-03-10 06:44] LABS: Anion Gap 10 (5-15); BUN 12 mg/dL (7-18); BUN/Creat Ratio 13.5 RATIO (10-20); Calcium,Total 9.2 mg/dL (8.5-10.1); Chloride 105 mmol/L (98-107); Creatinine, Serum 0.89 mg/dL (0.55-1.02); EST Glomerular Filtration Rate 69 mL/min (>60); Est Glom Filt Rate - Afr Amer 83 mL/min (>60); Estimated Creatinine Clearance 62.93 ml/min; Glucose 89 mg/dL (74-106); Potassium 3.9 mmol/L (3.5-5.1); Sodium Level 141 mmol/L (136-145)
--- NOTE | 2018-03-10 08:33 | NURSING ---
Dr. Oro reviewed labs, N.N.O.
[2018-03-10] MEDS: Gabapentin 400 MG Capsule 800 MG PO ×3 (08:48→17:59)
[2018-03-10] MEDS: Aspirin E.C. 81 MG Tablet PO (08:48)
[2018-03-10] MEDS: oxyCODONE 5 MG Tablet PO ×2 (10:34→16:47)
[2018-03-10] MEDS: Rivastigmine 9.5mg Patch 1 PATCH TRANSDERM. (10:35)
[2018-03-10] MEDS: Tuberculin,Purif.prot.deriv. 50 TU/ML Vial 5 ML ID (10:36)
[2018-03-10] MEDS: Ibuprofen 100 MG/5 ML UDC PO (13:14)
[2018-03-10] MEDS: Ondansetron ODT 4 MG Tablet PO ×2 (13:17→21:14)
--- NOTE | 2018-03-10 13:25 | NURSING ---
Resident reports experiencing a sharp pain to the left and right of her stoma. Reports it started around 1030 after her shower and has continued to get worse. Reports nausea. Bowel sounds positive. Abdomen appears distended and resident reports feeling bloated. Motrin given at this time. Dr Oro notified by Rossy Yepez RN and orders received.
[2018-03-10 16:00] VITALS: BP 122/66; PULSE 88; RESP 20; TEMP 36.7; O2SAT 93
[2018-03-10] MEDS: Acetaminophen 325 MG Tablet 650 MG PO (16:01)
--- NOTE | 2018-03-10 16:05 | NURSING ---
Addendum entered by Penny Yepez 03/10/18 17:53: Dr. Oro reviewed KUB, N.O. to increase Lactulose to TID, Pt updated. Original Note: Resident tearful after therapy. Reports sharp pains around stoma area. Rates pain #9/10. Motrin was given earlier and medicated with tylenol now. Awaiting xray to abdomen to be done. Denies nausea.
--- NOTE | 2018-03-10 16:08 | CASEMGMT ---
Insurance Continued stay approved with next update due on 03/16/18. Auth#[id number] Lizz DRISCOLL, LEASE EXAMINER
--- NOTE | 2018-03-10 16:20 | RAD_ITS ---
STUDY: X-RAY - ABDOMEN/PELVIS REASON FOR EXAM: Female, 58 years old. Constipation, status post stomach surgery and bowel resection TECHNIQUE: AP supine and upright views of the abdomen and pelvis. COMPARISON: Prior study of 03/09/2018 FINDINGS: Normal visualized lung bases. There is an unremarkable bowel gas pattern. There is no demonstrated free abdominal air. The visualized liver, spleen and kidneys are grossly normal in size and morphology. Normal soft tissue structures. Normal visualized osseous structures. RAD/Abdomen Single View IMPRESSION: Normal x-ray examination of the abdomen and pelvis. Electronically Signed: Aquiles Atkinson MD at 17:05 EDT , Service support ,
[2018-03-10] MEDS: Ibuprofen 600 MG Tablet PO (19:43)
[2018-03-10] MEDS: Lactulose 20 GM/30 ML UDC 30 GM PO (19:45)
[2018-03-10] MEDS: Escitalopram Oxalate 10 MG Tablet PO (21:14)
[2018-03-10] MEDS: MELATONIN 3 MG TABLET PO (21:14)
[2018-03-11] MEDS: oxyCODONE 5 MG Tablet PO ×3 (00:35→18:57)
[2018-03-11] MEDS: DiphenhydrAMINE 25 MG Capsule PO ×4 (00:35→17:22)
[2018-03-11] MEDS: Levothyroxine 75 MCG Tablet PO (06:20)
[2018-03-11] MEDS: levETIRAcetam 500 MG Tablet 1750 MG PO ×2 (06:20→17:22)
[2018-03-11] MEDS: Famotidine 20 MG Tablet PO ×2 (06:20→17:23)
[2018-03-11] MEDS: Lacosamide 50 MG Tablet PO ×2 (06:20→17:26)
[2018-03-11] MEDS: Lactulose 20 GM/30 ML UDC 30 GM PO ×3 (06:21→21:51)
[2018-03-11] MEDS: Enoxaparin 40 MG/0.4 ML Syringe SC (06:21)
--- NOTE | 2018-03-11 08:06 | NURSING ---
Pt having c/o ABD pain and passing only liquid stool. Dr. Oro made aware. NO for golytly 2 L PO x1.
[2018-03-11] MEDS: Aspirin E.C. 81 MG Tablet PO (08:21)
[2018-03-11] MEDS: Gabapentin 400 MG Capsule 800 MG PO ×3 (08:21→17:22)
[2018-03-11] MEDS: Metoclopramide 10 MG Tablet PO ×2 (08:21→17:22)
[2018-03-11] MEDS: Rivastigmine 9.5mg Patch 1 PATCH TRANSDERM. (08:21)
[2018-03-11] MEDS: Ibuprofen 600 MG Tablet PO (08:27)
[2018-03-11] MEDS: Electrolyte Solution/Peg's 4000 ML 2000 ML PO (09:50)
--- NOTE | 2018-03-11 10:46 | CASEMGMT ---
Plan of care meeting held. Resident present as well as resident family. No discharge date set at this time. Resident to continue with further care and treatment on the Transitional Care Unit. Resident plans to discharge home with daughter at time of discharge. Resident next insurance update is due on 03/16/18 and is aware that continued stay approval is not guaranteed. Support given. Will continue to follow. Lizz DRISCOLL, ENVELOPE SEALING MACHINE OPERATOR
--- NOTE | 2018-03-11 11:58 | MDS.RN ---
Information for the mds was obtained from review of the clinical record, interview of resident, staff, and direct observation of resident's care.
[2018-03-11] MEDS: Acetaminophen 325 MG Tablet 650 MG PO (14:07)
[2018-03-11 16:00] VITALS: BP 114/76; PULSE 70; RESP 20; TEMP 36.7; O2SAT 96
--- NOTE | 2018-03-11 18:16 | NURSING ---
Pt has c/o sharp abdominal pain, Dr. Oro in to see patient this evening, NO for CT of abd/pelvis with contrast and ultram 50mg PO [id number].
[2018-03-11] MEDS: Escitalopram Oxalate 10 MG Tablet PO (21:51)
[2018-03-11] MEDS: MELATONIN 3 MG TABLET PO (21:51)
[2018-03-11] MEDS: traMADol 50 MG Tablet PO (21:51)
[2018-03-12] MEDS: DiphenhydrAMINE 25 MG Capsule PO ×4 (00:07→17:19)
[2018-03-12] MEDS: levETIRAcetam 500 MG Tablet 1750 MG PO ×2 (07:14→17:19)
[2018-03-12] MEDS: Famotidine 20 MG Tablet PO ×2 (07:14→17:19)
[2018-03-12] MEDS: Metoclopramide 10 MG Tablet PO ×2 (07:14→17:20)
[2018-03-12] MEDS: Lacosamide 50 MG Tablet PO ×2 (07:15→17:19)
[2018-03-12] MEDS: traMADol 50 MG Tablet PO ×4 (07:15→22:01)
[2018-03-12] MEDS: Enoxaparin 40 MG/0.4 ML Syringe SC (07:15)
[2018-03-12] MEDS: Levothyroxine 75 MCG Tablet PO (07:15)
[2018-03-12] MEDS: Lactulose 20 GM/30 ML UDC 30 GM PO (07:17)
[2018-03-12] MEDS: Gabapentin 400 MG Capsule 800 MG PO ×3 (08:01→17:19)
[2018-03-12] MEDS: Aspirin E.C. 81 MG Tablet PO (08:01)
[2018-03-12] MEDS: Rivastigmine 9.5mg Patch 1 PATCH TRANSDERM. (08:06)
--- NOTE | 2018-03-12 08:06 | NURSING ---
Removed colostomy appliance. there was a moderate amount of loose brown stool noted in the appliance. pt stated that her abdomen is less painful today and overall feels better. abdomen soft, non-distended. the small wound medial to the stoma is nearly healed. the incision inferior to the stoma is healed. no drainage noted. stoma is pink, well budded, and measures approx 1 3/8. stoma is oval in shape. there is a slight red rash noted in a few areas. pt denies itching. cleansed peristomal skin with soap and warm water. pat dry. lightly dusted stoma powder. applied a 2 piece convex Coloplast appliance with a barrier ring. placed Hollihesive over the small open wound prior to placing the appliance. pt tolerated well. pt states she will be going home this weekend and feels she has everything she will need at home. pt has plenty of ostomy appliances at this time. pt has follow up appt in [place] the second week of March. pt denies further needs at this time.
[2018-03-12] MEDS: oxyCODONE 5 MG Tablet PO (11:02)
[2018-03-12] MEDS: MethylPREDNISolone DosePak 4 MG BOX PO ×3 (11:53→21:58)
[2018-03-12] MEDS: Ibuprofen 600 MG Tablet PO (14:26)
[2018-03-12 15:59] VITALS: BP 118/76; PULSE 73; RESP 16; TEMP 35.9; O2SAT 96
[2018-03-12] MEDS: MELATONIN 3 MG TABLET PO (21:58)
[2018-03-12] MEDS: Escitalopram Oxalate 10 MG Tablet PO (21:58)
[2018-03-13] MEDS: levETIRAcetam 500 MG Tablet 1750 MG PO ×2 (05:45→18:01)
[2018-03-13] MEDS: DiphenhydrAMINE 25 MG Capsule PO ×3 (05:45→18:00)
[2018-03-13] MEDS: Enoxaparin 40 MG/0.4 ML Syringe SC (05:46)
[2018-03-13] MEDS: Famotidine 20 MG Tablet PO ×2 (05:46→18:02)
[2018-03-13] MEDS: Levothyroxine 75 MCG Tablet PO (05:46)
[2018-03-13] MEDS: Lacosamide 50 MG Tablet PO ×2 (05:49→17:59)
[2018-03-13] MEDS: traMADol 50 MG Tablet PO ×4 (05:49→21:55)
[2018-03-13] MEDS: Polyethylene Glycol 3350 17 GM PACKET PO (08:24)
[2018-03-13] MEDS: MethylPREDNISolone DosePak 4 MG BOX PO ×4 (08:24→21:52)
[2018-03-13] MEDS: Rivastigmine 9.5mg Patch 1 PATCH TRANSDERM. (08:24)
[2018-03-13] MEDS: Metoclopramide 10 MG Tablet PO ×2 (08:24→17:14)
[2018-03-13] MEDS: Aspirin E.C. 81 MG Tablet PO (08:24)
[2018-03-13] MEDS: Gabapentin 400 MG Capsule 800 MG PO ×3 (08:24→18:00)
[2018-03-13] MEDS: oxyCODONE 5 MG Tablet PO (12:53)
[2018-03-13 16:00] VITALS: BP 115/70; PULSE 81; RESP 18; TEMP 36.9; O2SAT 94
[2018-03-13] MEDS: Escitalopram Oxalate 10 MG Tablet PO (21:55)
[2018-03-13] MEDS: MELATONIN 3 MG TABLET PO (21:55)
--- NOTE | 2018-03-14 00:38 | NURSING ---
Addendum entered by Marianna Negron 03/14/18 08:08: SW updated. Dr Oro not approving discharge at this time. Pt continues to have abd pain. Will continue to monitor. Original Note: RN into see pt this evening. Pt informed this nurse she is back to her baseline with ADLs and would like to go home this weekend. Will update SW in AM.
[2018-03-14] MEDS: Famotidine 20 MG Tablet PO ×2 (06:06→16:51)
[2018-03-14] MEDS: traMADol 50 MG Tablet PO ×4 (06:06→21:21)
[2018-03-14] MEDS: levETIRAcetam 500 MG Tablet 1750 MG PO ×2 (06:06→16:50)
[2018-03-14] MEDS: Lacosamide 50 MG Tablet PO ×2 (06:06→16:49)
[2018-03-14] MEDS: Levothyroxine 75 MCG Tablet PO (06:06)
[2018-03-14] MEDS: DiphenhydrAMINE 25 MG Capsule PO ×4 (06:06→23:31)
[2018-03-14] MEDS: Enoxaparin 40 MG/0.4 ML Syringe SC (06:07)
[2018-03-14] MEDS: Aspirin E.C. 81 MG Tablet PO (08:28)
[2018-03-14] MEDS: Gabapentin 400 MG Capsule 800 MG PO ×3 (08:28→16:50)
[2018-03-14] MEDS: Metoclopramide 10 MG Tablet PO ×2 (08:29→16:26)
[2018-03-14] MEDS: Polyethylene Glycol 3350 17 GM PACKET PO (08:29)
[2018-03-14] MEDS: MethylPREDNISolone DosePak 4 MG BOX PO ×4 (08:29→21:23)
[2018-03-14] MEDS: Rivastigmine 9.5mg Patch 1 PATCH TRANSDERM. (10:12)
[2018-03-14] MEDS: oxyCODONE 5 MG Tablet PO (14:11)
[2018-03-14 15:42] VITALS: BP 119/71; PULSE 81; RESP 18; TEMP 36.7; O2SAT 95
[2018-03-14] MEDS: Escitalopram Oxalate 10 MG Tablet PO (21:21)
[2018-03-14] MEDS: MELATONIN 3 MG TABLET PO (21:22)
[2018-03-15] MEDS: levETIRAcetam 500 MG Tablet 1750 MG PO ×2 (05:22→18:22)
[2018-03-15] MEDS: Lacosamide 50 MG Tablet PO ×2 (05:22→18:19)
[2018-03-15] MEDS: DiphenhydrAMINE 25 MG Capsule PO ×4 (05:22→23:49)
[2018-03-15] MEDS: traMADol 50 MG Tablet PO ×4 (05:23→22:20)
[2018-03-15] MEDS: Enoxaparin 40 MG/0.4 ML Syringe SC (05:23)
[2018-03-15] MEDS: Famotidine 20 MG Tablet PO ×2 (05:23→18:23)
[2018-03-15] MEDS: Levothyroxine 75 MCG Tablet PO (05:23)
[2018-03-15] MEDS: MethylPREDNISolone DosePak 4 MG BOX PO ×3 (08:33→21:45)
[2018-03-15] MEDS: Metoclopramide 10 MG Tablet PO ×2 (08:33→18:21)
[2018-03-15] MEDS: Gabapentin 400 MG Capsule 800 MG PO ×3 (08:33→18:21)
[2018-03-15] MEDS: Aspirin E.C. 81 MG Tablet PO (08:33)
[2018-03-15] MEDS: Polyethylene Glycol 3350 17 GM PACKET PO (08:33)
[2018-03-15] MEDS: Rivastigmine 9.5mg Patch 1 PATCH TRANSDERM. (12:12)
[2018-03-15] MEDS: Ibuprofen 600 MG Tablet PO (14:29)
[2018-03-15 16:00] VITALS: BP 125/76; PULSE 67; RESP 18; TEMP 35.8; O2SAT 95
[2018-03-15] MEDS: Escitalopram Oxalate 10 MG Tablet PO (21:46)
[2018-03-15] MEDS: MELATONIN 3 MG TABLET PO (21:46)
[2018-03-16] MEDS: Levothyroxine 75 MCG Tablet PO (06:01)
[2018-03-16] MEDS: Lacosamide 50 MG Tablet PO ×2 (06:01→16:28)
[2018-03-16] MEDS: Famotidine 20 MG Tablet PO ×2 (06:01→16:30)
[2018-03-16] MEDS: traMADol 50 MG Tablet PO ×3 (06:01→16:28)
[2018-03-16] MEDS: Enoxaparin 40 MG/0.4 ML Syringe SC (06:02)
[2018-03-16] MEDS: levETIRAcetam 500 MG Tablet 1750 MG PO ×2 (06:02→16:31)
[2018-03-16] MEDS: DiphenhydrAMINE 25 MG Capsule PO ×3 (06:02→16:29)
[2018-03-16] MEDS: Metoclopramide 10 MG Tablet PO ×2 (07:37→16:31)
[2018-03-16] MEDS: Gabapentin 400 MG Capsule 800 MG PO ×3 (07:37→16:30)
[2018-03-16] MEDS: Aspirin E.C. 81 MG Tablet PO (07:37)
[2018-03-16] MEDS: MethylPREDNISolone DosePak 4 MG BOX PO (07:37)
[2018-03-16] MEDS: Polyethylene Glycol 3350 17 GM PACKET PO (10:07)
[2018-03-16] MEDS: Rivastigmine 9.5mg Patch 1 PATCH TRANSDERM. (10:07)
[2018-03-16] MEDS: Ibuprofen 600 MG Tablet PO (11:39)
--- NOTE | 2018-03-16 13:09 | NURSING ---
was called to see patient prior to discharge today. pt wanted this nurse to assess peristomal skin again prior to patient leaving. removed ostomy appliance. the small wound just medial to the stoma is healing well. there is no rash noted today. no redness noted to the periwound. cleansed peristomal skin with soap and water. pat dry. applied small amount of stoma powder to the open wound followed by [facility]. applied patient's 2 piece Coloplast appliance with barrier ring. stoma measures approx 1 3/8 and is still oval in shape. pattern kept for patient for appliance changes at home, but reminded patient that the stoma may still shrink. patient feels comfortable with appliance changes at home and feels between herself, her daughter, and home health, she should do just fine. pt denies further needs.
--- NOTE | 2018-03-16 13:21 | CASEMGMT ---
Social Work Spoke with resident in room. Resident requesting for discharge date to be set for 03/16/18. Spoke with staff/therapy, 03/16/18 is an agreeable discharge date at this time. Resident plans to discharge home with daughter. Physical and Occupational therapy are recommending for resident to have continued services within the home. Resident is agreeable to recommendation and requesting for home health services to be set up through [facility] ([facility]). Resident daughter plans to provide transportation home for resident at time of discharge. Resident reporting to have all needed durable medical equipment already set up within the home. Resident declining for this social media marketing specialist to contact resident family in regards to above. Support given. Telephone call to [facility], Sandra. This socia worker made referral for physical and occupational therapy. Order to be completed. Proposed discharge date: 03/16/18 PLAN: Discharge home with daughter and home health services. Lizz DRISCOLL, GUN NUMBER
[2018-03-16] MEDS: oxyCODONE 5 MG Tablet PO (15:10)
[2018-03-16 15:57] VITALS: BP 117/73; PULSE 61; RESP 18; TEMP 36.8; O2SAT 98
--- NOTE | 2018-03-16 17:32 | DCINST_ITS ---
- Discharge Diagnoses Current Active Problems: Current Active and Chronic Problems Blindness (Chronic) Colostomy prolapse (Acute) Hypophosphatemia (Acute) Pituitary tumor (Chronic) Epilepsy (Chronic) Migraine (Chronic) Goiter (Chronic) Hearing loss (Chronic) Nausea (Chronic) Osteoporosis (Chronic) Neuropathic pain (Chronic) You will use the following diet at home:: No restrictions, Regular Your food should be the consistency of: Regular Your liquids should be the consistency of: Regular/Thin Discharge Activity: Return to Normal Activity, May Shower, Use Walker Weight Bearing Status: Weight bearing as tolerated Call your doctor if you observe: Fever of 101 or Higher, Inability to urinate, Inability to have a bowel movement, Chest pain, Uncontrolled pain Allergies/Adverse Reactions: Allergies shellfish derived Allergy (Severe, Verified 01/18/18 10:35) Anaphylaxis amoxicillin Allergy (Verified 01/18/18 10:35) Rash iodine Allergy (Verified 01/18/18 10:35) Rash peanut Allergy (Verified 01/18/18 10:35) Anaphylaxis it gets stuck in my throat Penicillins [PCN] Allergy (Verified 01/18/18 10:35) Rash povidone-iodine [From Betadine] Allergy (Verified 01/18/18 10:35) Rash soap [From Betadine] Allergy (Verified 01/18/18 10:35) Rash alendronate sodium [From Fosamax] Adverse Reaction (Verified 01/18/18 10:35) unable to swallow pill/choking UNABLE TO SWALLOW PILL/CHOKING risedronate sodium [From Actonel] Adverse Reaction (Verified 01/18/18 10:35) CHOKING Medications to take at Discharge Lacosamide [Vimpat] 50 mg PO BID 07/02/13 Rivastigmine 9.5mg Patch [Exelon 9.5MG/24HR PATCH] 1 patch TD Q24H 02/16/16 Melatonin 3 mg Tablet 3 mg PO QHS 04/19/16 Gabapentin [Neurontin] 800 mg PO TID 04/05/17 levETIRAcetam tablet [Keppra tablet] 1,750 mg PO BID 04/05/17 Escitalopram Oxalate [Lexapro] 10 mg PO QHS 08/23/17 Famotidine [Pepcid AC] 20 mg PO BID 08/23/17 Levothyroxine [Synthroid] 75 mcg PO DAILY 08/23/17 Metoclopramide [Reglan] 10 mg PO BIDAC 08/23/17 Aspirin E.C. [Ecotrin] 81 mg PO DAILY@0800 08/29/17 Ondansetron [Zofran] 4 mg PO Q6H PRN PRN 08/29/17 Denosumab [Prolia] 60 mg SQ UD 09/11/17 Acetaminophen [Tylenol Tablet] 650 mg PO Q6H PRN PRN tablet 09/13/17 Albuterol Inhaler [Ventolin Hfa] 2 puff INHALATION Q4H PRN PRN 03/02/18 DiphenhydrAMINE [Benadryl] 25 mg PO Q6H 03/02/18 Oxycodone HCl [Roxicodone] 5 mg PO Q6H PRN PRN 03/02/18 Polyethylene Glycol 3350 [Miralax] 17 gm PO DAILY 03/02/18 Oxycodone [Oxyir] 5 mg PO Q6H PRN PRN #30 tab 03/16/18 traMADol [Ultram] 50 mg PO 4X/DAY #30 tab 03/16/18 The following prescriptions were given: Oxycodone [Oxyir] 5 mg PO Q6H PRN PRN #30 tab PRN Reason: Severe Pain (6-10/10) traMADol [Ultram] 50 mg PO 4X/DAY #30 tab Primary Care Physician: Marianna Forte MD [Primary Care Provider] - Please follow up with your Primary Care Physician in: 1 week. Test Results: Test results from this visit will be discussed in further detail at your follow- up appointment, if applicable. Please Follow Up With: JAIMIE RICE When: 2 weeks. Please Follow Up With: GALE BLISS When: 2 weeks. Please Follow Up With: KARAN FRAUSTO When: FOR HEADACHES Please Follow Up With: Ignacio Abbott When: [phone] Please Follow Up With: Arsen Mayer MD When: 2 weeks. Proposed Discharge Date: 03/16/18
--- NOTE | 2018-03-16 17:35 | HHNOTE_ITS ---
Home Health Note - Plan Overview of reason of hospitalization: The patient is a 58 year old Female with below past medical history hospitalized for complicated abdominal surgery, admitted to TCU with debility, here for rehabilitation, strengthening, prior to discharge home with family. Discharge home with daughter, and Home Health Services. Problems: Patient was seen for Blindness (Chronic) Colostomy prolapse (Acute) Hypophosphatemia (Acute) Pituitary tumor (Chronic) Epilepsy (Chronic) Migraine (Chronic) Goiter (Chronic) Hearing loss (Chronic) Nausea (Chronic) Osteoporosis (Chronic) Neuropathic pain (Chronic) Complete List of Medical Problems Blindness (Chronic) Colostomy prolapse (Acute) Hypophosphatemia (Acute) Pituitary tumor (Chronic) Epilepsy (Chronic) Migraine (Chronic) Goiter (Chronic) Hearing loss (Chronic) Nausea (Chronic) Osteoporosis (Chronic) Neuropathic pain (Chronic) Hypothyroidism (Chronic) Legal blindness (Chronic) Spastic paraparesis (Chronic) microvascular disease (Chronic) Hx of migraines (Chronic) 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) Seizure disorder, grand mal (Chronic) Gastroesophageal reflux disease (Chronic) Sensorineural hearing loss (Chronic) Seizure (Chronic) Gastroparesis (Chronic) Status post osteotomy (Chronic) At high risk for abnormal gastrointestinal motility (Acute) Mitochondrial myopathies (Chronic) - Requirements and Reasons Disciplines Needed/Ordered: Mcfp, Physical Therapy Reason for Disciplines: Disease Specific Monitoring/education, Medication Management/Knowledge Deficit, Wound Care, Gait Training, Stair Training, Fall Prevention, Home Safety/Equipment Instruction, Balance and/or Posture Training, Transfer Training Related To: Limited/Poor Endurance, Physical Impairments, Unsteady Gait/Balance , Fall Risk Patient is unable to leave the home: Without Aid of Supportive Devices (crutches , cane, wheelchair, walker), Without the assistance of another person - Additional Disciplines Additional Disciplines Needed/Ordered: Occupational Therapy
--- NOTE | 2018-03-16 17:35 | DS.PCM_ITS ---
Discharge Date and Diagnosis - Problem List Patient Problems: Active and Suspected Problems Colostomy prolapse (Acute) Hypophosphatemia (Acute) Date of Admission: 03/02/18 Date of Discharge: 03/16/18 - Primary Discharge Diagnosis Active and Suspected Problems Colostomy prolapse (Acute) Hypophosphatemia (Acute) - Secondary Discharge Diagnosis Chronic Problems Blindness (Chronic) Pituitary tumor (Chronic) Epilepsy (Chronic) Migraine (Chronic) Goiter (Chronic) Hearing loss (Chronic) Nausea (Chronic) Osteoporosis (Chronic) Neuropathic pain (Chronic) Hypothyroidism (Chronic) Legal blindness (Chronic) Spastic paraparesis (Chronic) Patient has been non-ambulatory for 5 years microvascular disease (Chronic) Hx of migraines (Chronic) 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 Electronically Signed: Aquiles Atkinson MD at 17:05 EDT , Service support , Consultations 03/03/18 00:45 Consult: Onc/Wound/pulmonologist intensivist Routine Comment: Ostomy to RUQ Operations: None Procedures: None Summary of Care Provided: The patient is a 58 year old Female with below past medical history hospitalized for complicated abdominal surgery, admitted to TCU with debility, here for rehabilitation, strengthening, prior to discharge home with family. Discharge home with daughter, and Home Health Services. Discharge Diet: No Restrictions Discharge Activity: Return to Normal Activity, May Shower, Use Walker Weight Bearing Status: Weight bearing as tolerated Call your doctor if you observe: Fever of 101 or Higher, Inability to urinate, Inability to have a bowel movement, Chest pain, Uncontrolled pain Home Medications: Medications to take at Discharge Lacosamide [Vimpat] 50 mg PO BID 07/02/13 Rivastigmine 9.5mg Patch [Exelon 9.5MG/24HR PATCH] 1 patch TD Q24H 02/16/16 Melatonin 3 mg Tablet 3 mg PO QHS 04/19/16 Gabapentin [Neurontin] 800 mg PO TID 04/05/17 levETIRAcetam tablet [Keppra tablet] 1,750 mg PO BID 04/05/17 Escitalopram Oxalate [Lexapro] 10 mg PO QHS 08/23/17 Famotidine [Pepcid AC] 20 mg PO BID 08/23/17 Levothyroxine [Synthroid] 75 mcg PO DAILY 08/23/17 Metoclopramide [Reglan] 10 mg PO BIDAC 08/23/17 Aspirin E.C. [Ecotrin] 81 mg PO DAILY@0800 08/29/17 Ondansetron [Zofran] 4 mg PO Q6H PRN PRN 08/29/17 Denosumab [Prolia] 60 mg SQ UD 09/11/17 Acetaminophen [Tylenol Tablet] 650 mg PO Q6H PRN PRN tablet 09/13/17 Albuterol Inhaler [Ventolin Hfa] 2 puff INHALATION Q4H PRN PRN 03/02/18 DiphenhydrAMINE [Benadryl] 25 mg PO Q6H 03/02/18 Oxycodone HCl [Roxicodone] 5 mg PO Q6H PRN PRN 03/02/18 Polyethylene Glycol 3350 [Miralax] 17 gm PO DAILY 03/02/18 Oxycodone [Oxyir] 5 mg PO Q6H PRN PRN #30 tab 03/16/18 traMADol [Ultram] 50 mg PO 4X/DAY #30 tab 03/16/18 Following Prescrptions Were Given to Patient: Oxycodone [Oxyir] 5 mg PO Q6H PRN PRN #30 tab PRN Reason: Severe Pain (6-10/10) traMADol [Ultram] 50 mg PO 4X/DAY #30 tab Primary Care Physician: Marianna Forte MD [Primary Care Provider] - Please follow up with your Primary Care Physician in: 1 week. Please Follow Up With: JAIMIE RICE When: 2 weeks. Please Follow Up With: GALE BLISS When: 2 weeks. Please Follow Up With: KARAN FRAUSTO When: FOR HEADACHES Please Follow Up With: Ignacio Abbott When: [phone] Please Follow Up With: Arsen Mayer MD When: 2 weeks. Disposition: Home with Home Health Minutes spent on discharge:: 35 Patient Condition:: Stable Medical Necessity - Tobacco Use Smoking Status: Never smoker Tobacco Use: Non-smoker Meaningful Use Info Meaningful Use Diagnoses (Choose all that apply): None applicable
--- NOTE | 2018-03-17 11:46 | CASEMGMT ---
Insurance Notified insurance of resident discharge home with with daughter and home health services on 03/16/18. Auth#[id number] Lizz DRISCOLL, DEPOT MANAGER
== END 2018-03-16 18:01 | disposition home health service (06) | DRG 950 ==
PROVIDERS: Admitting Provider Family Medicine Geriatric Medicine; Family Provider Family Medicine; PCP Family Medicine; Visit Provider Family Medicine Geriatric Medicine
DX: Z48.815 Encounter for surgical aftercare following surgery on the digestive system (principal); G40.909 Epilepsy, unspecified, not intractable, without status epilepticus; K21.9 Gastro-esophageal reflux disease without esophagitis; F32.9 Major depressive disorder, single episode, unspecified; E03.9 Hypothyroidism, unspecified; K31.84 Gastroparesis; G71.3 Mitochondrial myopathy, not elsewhere classified; G43.909 Migraine, unspecified, not intractable, without status migrainosus; M81.0 Age-related osteoporosis without current pathological fracture; H90.5 Unspecified sensorineural hearing loss; H35.52 Pigmentary retinal dystrophy; Z93.3 Colostomy status; H54.8 Legal blindness, as defined in USA; E83.39 Other disorders of phosphorus metabolism
CPT/HCPCS: 36415; 74018; 80048; 85025; 97110; 97162; 97166; 97530; 97535; 97542; 97802

== ENCOUNTER → 2018-03-11 18:25 | Outpatient (CLI) | payer MEDICARE, SELFPAY ==
--- NOTE | 2018-03-11 18:29 | CT_ITS ---
STUDY: CT ABDOMEN AND PELVIS WITHOUT CONTRAST REASON FOR EXAM: Female, 58 years old. Abdominal pain RADIATION DOSAGE (If Supplied By Facility): CTDIvol = ( 7.80 ) mGy, DLP = ( 405.41 ) mGycm TECHNIQUE: Transaxial images were obtained from the dome of the diaphragm to the symphysis pubis without oral contrast, and without intravenous contrast. Sagittal and coronal images were reconstructed. Individualized dose optimization techniques were used for this CT. COMPARISON: January 28, 2018 FINDINGS: The visualized lung bases are unremarkable. The visualized portions of the heart are within normal limits. Stable pectus deformity of the chest. Stable hypodensity of the right lobe of the liver. There is non-visualization of the gallbladder, which may be secondary to either contraction or a prior cholecystectomy. Normal spleen. Normal pancreas. Normal bilateral adrenal glands. Stable bilateral peripelvic cysts. Normal visualized stomach. Normal small intestine. There is a right lower quadrant ostomy noted. There is non-visualization of the appendix. There is diffuse atherosclerotic calcification of the abdominal aorta, without a demonstrated aneurysm. Normal inferior vena cava. There is a wispy appearance to the mesentery. Air in the urinary bladder. This is likely iatrogenic. There is absence of the uterus consistent with a prior hysterectomy. Normal abdominal wall. Normal osseous structures. CT/Abdomen/Pelvis without Cont IMPRESSION: Air in the urinary bladder. This is likely iatrogenic. Nonspecific mesenteric stranding. Differential includes mesenteric panniculitis, hypo-albuminemia, sequela of superior mesentery vein thrombosis, mesenteric edema, lymphedema, inflammation, and trauma. Electronically Signed: Hudson Gonzalez MD at 22:45 EDT , Service support ,
== END ==
PROVIDERS: Family Provider Family Medicine; PCP Family Medicine; Visit Provider Family Medicine Geriatric Medicine
DX: R10.9 Unspecified abdominal pain (principal)
CPT/HCPCS: 74176

== ENCOUNTER 2018-03-26 11:32 | Observation (INO) | payer MEDICARE, SELFPAY ==
[2018-03-26] VITALS (11 sets, daily range): BP systolic 113–134; BP diastolic 68–91; PULSE 68–100; RESP 12–16; TEMP 36.7–36.8; O2SAT 96–100; BMI 25.0; BMI 25.8
--- NOTE | 2018-03-26 11:47 | EKG12_ITS ---
Test Reason : CP Blood Pressure : / mmHG Vent. Rate : 103 BPM Atrial Rate : 103 BPM P-R Int : 126 ms QRS Dur : 064 ms QT Int : 344 ms P-R-T Axes : 042 064 -11 degrees QTc Int : [address] & T wave abnormality, consider anterolateral ischemia Abnormal ECG Confirmed by KEVIN COTTON, PANCHO ([id number]), editorial director KAMI VICTORIA ([id number] on 03/30/2018 1:58:37 PM Referred By: SOPHIA Confirmed By:PANCHO BROWN MD
--- NOTE | 2018-03-26 11:49 | ED.DCSUM_ITS ---
- ER Visit Summary Date of Service: 03/26/18 Chief Complaint: Chest pain History of Present Illness: The patient is a 58 F with history of epilepsy and spastic paraparesis. Patient states that she took a shower this morning. After transverse to her wheelchair she developed substernal chest pain. EMS was called. She was given nitroglycerin. She states her pain has reduced from a 7 down to a 5. She does report getting short of breath and feeling very hot. She states she did have similar pain with esophageal spasm in the past. Patient did have recent hernia repair and states that her cup trimming machine operator cleared her for surgery. She denies ever having a stress test or a heart cath. Physical Examination: Vital signs unremarkable. Patient sitting upright in bed. Head and neck examination grossly unremarkable. Heart is regular rate and rhythm. Lung sounds are clear. Abdomen is soft nontender. Lower external examination was no calf tenderness or edema. Test Results: EKG is sinus tach at 103 with T-wave inversions noted V2 through V6. This is more pronounced when compared to prior study from 3 weeks ago. CBC and chemistry studies unremarkable. Troponin is less than 0.015. Portable chest x-ray shows increased markings at the right lung base which is likely atelectasis. Emergency Department Course and Treatment: Patient was given aspirin and nitro was squad. She was given 4 mg of morphine here and is pain-free on repeat evaluation. I did discuss with her hospitalization overnight for cycling of enzymes. She is in agreement. I spoke with the hospitalist. Treatment Plan: [] Disposition: Admit Impression: Chest pain This note was generated with [employer] dictation software. It may contain incorrect words, spelling, and punctuation that were not noted in review of the chart prior to signing ED Disposition - Plan for ED Patient: Chief Complaint: Chest Pain Referrals: Marianna Forte MD [Primary Care Provider] -
--- NOTE | 2018-03-26 11:55 | RAD_ITS ---
STUDY: X-RAY CHEST REASON FOR EXAM: Female, 58 years old. Chest pain. TECHNIQUE: Single AP portable view of the chest. COMPARISON: Comparison is made with prior study dated August 23, 2017. FINDINGS: EKG electrodes are seen. Increased markings with areas of confluence seen in the right lower lobe suggestive of atelectasis and/or early infiltrate. Stable blunting of the left costophrenic angle. There is mild cardiac enlargement. Normal mediastinum and dianna. Normal visualized pulmonary arteries. There is atherosclerotic tortuosity of the aortic arch and descending thoracic aorta. Normal visualized thoracic spine. Normal visualized ribs, clavicles, and shoulders. There is no demonstrated abnormality of the visualized soft tissue structures of the upper abdomen. RAD/Chest 1 View (Portable) IMPRESSION: Increased markings at the right lung base. This most likely represents atelectasis. Electronically Signed: Dennis Franco MD at 12:53 EDT Tel [phone], Service support ,
[2018-03-26] MEDS: 0.9% Normal Saline 1,000 ML 150 ML IV (12:06)
[2018-03-26] MEDS: Morphine 4 MG/ML Syringe IV (12:08)
[2018-03-26 12:17] LABS: Absolute Neutrophil Count 5.7 X10^3/uL (2.0-7.7); Basophil# 0.02 X10^3/uL; Basophil% 0.2 % (0-1); Eosinophil# 0.13 X10^3/uL; Eosinophils% 1.5 % (0-5); Hematocrit 41.5 % (37-47); Hemoglobin 13.2 g/dl (12.0-15.0); Lymphocyte % 25.8 % (19-41); Mean Corp Hgb Conc 31.8 g/gl (32-36); Mean Corpuscular Hgb 27.3 pg (27.0-32.0); Mean Corpuscular Volume 85.7 fL (81-99); Monocyte# 0.71 X10^3/uL; Neutrophil # 5.73 X10^3/uL (2.7-7.7); Neutrophil % 64.3 % (47-70); Platelet Count 252 K/mm3 (150-450); RBC Distribution Width CV 13.1 % (11.6-14.6); RBC Distribution Width SD 40.5 fl (35.1-43.9); Red Blood Count 4.84 M/mm3 (4.2-5.4); White Blood Count 8.9 K/mm3 (4.4-11.0)
[2018-03-26 12:28] LABS: POSITIVE COUNT NO; POSITIVE DIFFERENTIAL NO; POSITIVE MORPHOLOGY NO
[2018-03-26 12:44] LABS: Anion Gap 5 (5-15); BUN 10 mg/dL (7-18); BUN/Creat Ratio 10.9 RATIO (10-20); Calcium,Total 9.7 mg/dL (8.5-10.1); Chloride 108 mmol/L (98-107); Creatinine, Serum 0.92 mg/dL (0.55-1.02); EST Glomerular Filtration Rate 66 mL/min (>60); Est Glom Filt Rate - Afr Amer 80 mL/min (>60); Estimated Creatinine Clearance 60.88 ml/min; Glucose 115 mg/dL (74-106); Potassium 4.3 mmol/L (3.5-5.1); Sodium Level 141 mmol/L (136-145)
--- NOTE | 2018-03-26 14:22 | PCM.HP.STD ---
Problem List (1) Blindness Status: Chronic (2) Osteoporosis Status: Chronic (3) Neuropathic pain Status: Chronic (4) Hypothyroidism Status: Chronic (5) Spastic paraparesis Status: Chronic Comment: Patient has been non-ambulatory for 5 years (6) Seizure disorder, grand mal Status: Chronic (7) Gastroesophageal reflux disease Status: Chronic (8) Sensorineural hearing loss Status: Chronic (9) Gastroparesis Status: Chronic History of Present Illness Date of Admission: 03/26/18 Chief Complaint: Chest pain. The patient is a 58 year old F with past medical history as mentioned above presented to the emergency room because of chest pain. This morning, she was taking a shower and she was transferring from shower to help wheelchair and started having retrosternal chest pain, sharp pain, 7 out of 10 in severity, associated with shortness of breath, nausea and dizziness, lasted for few minutes, not radiating, relieved by nitroglycerin and without aggravating factors. At this time, she denies any more chest pain. She denies syncope or presyncope. She denied vomiting, heartburn, abdominal pain, constipation or diarrhea. In the emergency department, her vital signs are stable. Routine blood work was unremarkable. EKG revealed normal sinus rhythm, T-wave inversion in leads V4, V5 and V6 which are more prominent than EKG from February,, no acute ST elevation. Troponin is negative. Chest x-ray showed no acute findings. She is being admitted for chest pain with EKG changes for evaluation. 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) Seizure disorder, grand mal (Chronic) Gastroesophageal reflux disease (Chronic) Sensorineural hearing loss (Chronic) Seizure (Chronic) Gastroparesis (Chronic) Status post osteotomy (Chronic) Mitochondrial myopathies (Chronic) Allergies shellfish derived Allergy (Severe, Verified 01/18/18 10:35) Anaphylaxis amoxicillin Allergy (Verified 01/18/18 10:35) Rash iodine Allergy (Verified 01/18/18 10:35) Rash peanut Allergy (Verified 01/18/18 10:35) Anaphylaxis it gets stuck in my throat Penicillins [PCN] Allergy (Verified 01/18/18 10:35) Rash povidone-iodine [From Betadine] Allergy (Verified 01/18/18 10:35) Rash soap [From Betadine] Allergy (Verified 01/18/18 10:35) Rash alendronate sodium [From Fosamax] Adverse Reaction (Verified 01/18/18 10:35) unable to swallow pill/choking UNABLE TO SWALLOW PILL/CHOKING risedronate sodium [From Actonel] Adverse Reaction (Verified 01/18/18 10:35) CHOKING Home Medications: Ambulatory Orders Medication Instructions Recorded Lacosamide [Vimpat] 50 mg PO BID 07/02/13 Rivastigmine 9.5mg Patch [Exelon 1 patch TD Q24H 02/16/16 9.5MG/24HR PATCH] Melatonin 3 mg Tablet 3 mg PO QHS 04/19/16 Gabapentin [Neurontin] 800 mg PO TID 04/05/17 levETIRAcetam tablet [Keppra 1,750 mg PO BID 04/05/17 tablet] Escitalopram Oxalate [Lexapro] 10 mg PO QHS 08/23/17 Famotidine [Pepcid AC] 20 mg PO BID 08/23/17 Levothyroxine [Synthroid] 75 mcg PO DAILY 08/23/17 Metoclopramide [Reglan] 10 mg PO BIDAC 08/23/17 Aspirin E.C. [Ecotrin] 81 mg PO DAILY@0800 08/29/17 Ondansetron [Zofran] 4 mg PO Q6H PRN PRN 08/29/17 Denosumab [Prolia] 60 mg SQ UD 09/11/17 Acetaminophen [Tylenol Tablet] 650 mg PO Q6H PRN PRN tablet 09/13/17 Albuterol Inhaler [Ventolin Hfa] 2 puff INHALATION Q4H PRN PRN 03/02/18 DiphenhydrAMINE [Benadryl] 25 mg PO Q6H PRN PRN 03/02/18 Oxycodone HCl [Roxicodone] 5 mg PO Q6H PRN PRN 03/02/18 Polyethylene Glycol 3350 [Miralax] 17 gm PO DAILY 03/02/18 traMADol [Ultram] 50 mg PO 4X/DAY PRN PRN 03/26/18 Surgical History: adenoidectomy, appendectomy, cholecystectomy, hysterectomy, tonsillectomy, - - Status post proximal transverse loop colostomy 2016, thyroidectomy, further surgical history per HPI. 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 Sibling History Items: - - She has a brother who suddenly at the age of 46 and he had been diagnosed with Prader-Willi syndrome. She has a sister who at 4 years of age due to a hole in her heart. Another sister suffers from a cardiac dysrhythmia. Review of Systems Constitutional: Denies: Anorexia, Chills, Fever, Weakness Eyes: Denies: Blurred vision, Double vision, Drainage, Redness, Vision Change HEENT: Denies: Difficulty Hearing, Ear Pain, Eye Pain, Nasal Congestion, Sore Throat Cardiovascular: Reports: Chest Pain, Light Headedness. Denies: Edema, Heaviness, Orthopnea, Palpitations, Paroxysmal Noc. Dyspnea, Syncope Respiratory: Reports: Shortness of Breath. Denies: Hemoptysis, Pleuritic Pain, Sputum production, Wheezing Gastrointestinal: Reports: Nausea. Denies: Abdominal Pain, Constipation, Vomiting Genitourinary: Denies: Dysuria, Frequency, Hematuria Musculoskeletal: Denies: Arm Pain, Back Pain, Foot Pain Skin: Denies: Dryness, Rash Neurological: Denies: Balance problems, Double vision, Change in Speech, Slurred speech, Focal weakness, Headaches Psychiatric: Denies: Anxiety, Depression Endocrine: Denies: Change in Body Habitus, Polydipsia VTE Information - Inpt Only VTE Present on Admission: No VTE Mechan Device Prophylaxis: None VTE Pharm Prophylaxis ordered?: Yes - Physical Exam General: Alert, Oriented x3, Cooperative, No apparent distress HEENT: Atraumatic, PERRLA, Normocephalic, - - Patient is blind. Oral: Moist Mucosa, No Gingival or Mucosal Lesions/ Ulcerations Neck: Supple, No JVD, Negative Carotid Bruits, Trachea Midline, Thyroid Normal Size and Texture Lungs: Clear to auscultation, No rhonchi, No wheeze, No rales, Diminished Cardiovascular: Regular rate, Regular Rhythm, Normal S1, Normal S2, No murmurs, PMI Normal Abdomen: Bowel Sounds Present, Soft, Non Tender, Non-Distended, No Hepato-splenomegaly, Obese, - - Colostomy bag in place. Extremities: No clubbing, No cyanosis, No edema Skin: No rashes, No breakdown Lymphatic: No Cervical, Supraclavicular, or Inguinal Adenopathy Neurological: Cranial nerves II-XII grossly intact, - - Spastic paraplegia. Psych/Mental Status: Normal Affect, Appropriate, Alert and oriented to time, place, person, mood and affect Vital Signs Temp Pulse Resp BP Pulse Ox 98.1 F 72 12 117/79 96 03/26/18 11:39 03/26/18 13:01 03/26/18 13:01 03/26/18 13:01 03/26/18 13:01 Laboratory Tests 03/26/18 03/26/18 Range/Units 12:05 12:05 WBC 8.9 (4.4-11.0) K/mm3 RBC 4.84 (4.2-5.4) M/mm3 Hgb 13.2 (12.0-15.0) g/dl Hct 41.5 (37-47) % MCV 85.7 (81-99) fL MCH 27.3 (27.0-32.0) pg MCHC 31.8 L (32-36) g/gl RDW 13.1 (11.6-14.6) % RDW Differential 40.5 (35.1-43.9) fl Plt Count 252 (150-450) K/mm3 MPV 11.0 (6.2-12.0) fl Immature Gran % (Auto) 0.200 (0.0-0.9) % Neut % (Auto) 64.3 (47-70) % Lymph % (Auto) 25.8 (19-41) % [place] % (Auto) 8.0 (0-10) % Eos % (Auto) 1.5 (0-5) % Baso % (Auto) 0.2 (0-1) % Absolute Neuts (auto) 5.7 (2.0-7.7) X10^3/uL Absolute Lymphs (auto) 2.30 (0.83-4.51) X10^3/ul Total Counted Not Reportable Sodium 141 (136-145) mmol/L Potassium 4.3 (3.5-5.1) mmol/L Chloride 108 H (98-107) mmol/L Carbon Dioxide 28.0 (21.0-32.0) mmol/L Anion Gap 5 (5-15) BUN 10 (7-18) mg/dL Creatinine 0.92 (0.55-1.02) mg/dL Estim Creat Clear Calc 60.88 ml/min Est GFR (MDRD) Af Amer 80 (>60) mL/min Est GFR (MDRD) Non-Af 66 (>60) mL/min BUN/Creatinine Ratio 10.9 (10-20) RATIO Glucose 115 H (74-106) mg/dL Calcium 9.7 (8.5-10.1) mg/dL Troponin I < 0.015 (<0.045) ng/mL Clinical Impression(s) from Imaging Studies Chest X-Ray 03/26/18 11:55 IMPRESSION: Increased markings at the right lung base. This most likely represents atelectasis. Electronically Signed: Dennis Franco MD at 12:53 EDT Tel [phone], Service support , Assessment/Plan All Active Problems Postictal state (Resolved) Status post laparoscopic cholecystectomy (Resolved) This is a 58 years old female patient presented to the emergency department because of chest pain, found to have EKG changes and she is being admitted for evaluation. #1 chest pain/EKG changes: Chest pain is not exertional. EKG revealed T-wave inversion and lateral chest leads which are more prominent compared to EKG from February,. Her troponin is negative. Chest x-ray showed no acute findings. She had no history of cardiac disease, no diabetes or hypertension. She has significant history of premature CAD in her family. Plan: Admit to PCU for observation, cardiac nausea, serial cardiac enzymes, repeat EKG tomorrow morning, IV fluids, nitroglycerin as needed, Tylenol as needed, IV antiemetics, nuclear stress test tomorrow morning if cardiac enzymes are negative, PT OT evaluation and treatment. #2 seizure disorder: Continue Keppra and Vimpat. #3 hypothyroidism: Continue levothyroxine. #4 GERD: Continue Pepcid and Reglan. #5 DVT prophylaxis: Subcu Lovenox. Other chronic medical problems: #1 spastic paraplegia. #2 sensorineural hearing loss. #3 gastroparesis. #4 status post colostomy. #5 chronic pain syndrome. #6 pituitary tumor. This note was generated with [employer] dictation software. It may contain incorrect words, spelling, and punctuation that were not noted in checking the note before signing. Code Visit OBSV E&M: 71873 Initial observation care L3
--- NOTE | 2018-03-26 14:26 | HP.PCM_ITS ---
Problem List (1) Blindness Status: Chronic (2) Osteoporosis Status: Chronic (3) Neuropathic pain Status: Chronic (4) Hypothyroidism Status: Chronic (5) Spastic paraparesis Status: Chronic Comment: Patient has been non-ambulatory for 5 years (6) Seizure disorder, grand mal Status: Chronic (7) Gastroesophageal reflux disease Status: Chronic (8) Sensorineural hearing loss Status: Chronic (9) Gastroparesis Status: Chronic History of Present Illness Date of Admission: 03/26/18 Chief Complaint: Chest pain. The patient is a 58 year old F with past medical history as mentioned above presented to the emergency room because of chest pain. This morning, she was taking a shower and she was transferring from shower to help wheelchair and started having retrosternal chest pain, sharp pain, 7 out of 10 in severity, associated with shortness of breath, nausea and dizziness, lasted for few minutes, not radiating, relieved by nitroglycerin and without aggravating factors. At this time, she denies any more chest pain. She denies syncope or presyncope. She denied vomiting, heartburn, abdominal pain, constipation or diarrhea. In the emergency department, her vital signs are stable. Routine blood work was unremarkable. EKG revealed normal sinus rhythm, T-wave inversion in leads V4, V5 and V6 which are more prominent than EKG from February,, no acute ST elevation. Troponin is negative. Chest x-ray showed no acute findings. She is being admitted for chest pain with EKG changes for evaluation. 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) Seizure disorder, grand mal (Chronic) Gastroesophageal reflux disease (Chronic) Sensorineural hearing loss (Chronic) Seizure (Chronic) Gastroparesis (Chronic) Status post osteotomy (Chronic) Mitochondrial myopathies (Chronic) Allergies shellfish derived Allergy (Severe, Verified 01/18/18 10:35) Anaphylaxis amoxicillin Allergy (Verified 01/18/18 10:35) Rash iodine Allergy (Verified 01/18/18 10:35) Rash peanut Allergy (Verified 01/18/18 10:35) Anaphylaxis it gets stuck in my throat Penicillins [PCN] Allergy (Verified 01/18/18 10:35) Rash povidone-iodine [From Betadine] Allergy (Verified 01/18/18 10:35) Rash soap [From Betadine] Allergy (Verified 01/18/18 10:35) Rash alendronate sodium [From Fosamax] Adverse Reaction (Verified 01/18/18 10:35) unable to swallow pill/choking UNABLE TO SWALLOW PILL/CHOKING risedronate sodium [From Actonel] Adverse Reaction (Verified 01/18/18 10:35) CHOKING Home Medications: Ambulatory Orders Medication Instructions Recorded Lacosamide [Vimpat] 50 mg PO BID 07/02/13 Rivastigmine 9.5mg Patch [Exelon 1 patch TD Q24H 02/16/16 9.5MG/24HR PATCH] Melatonin 3 mg Tablet 3 mg PO QHS 04/19/16 Gabapentin [Neurontin] 800 mg PO TID 04/05/17 levETIRAcetam tablet [Keppra 1,750 mg PO BID 04/05/17 tablet] Escitalopram Oxalate [Lexapro] 10 mg PO QHS 08/23/17 Famotidine [Pepcid AC] 20 mg PO BID 08/23/17 Levothyroxine [Synthroid] 75 mcg PO DAILY 08/23/17 Metoclopramide [Reglan] 10 mg PO BIDAC 08/23/17 Aspirin E.C. [Ecotrin] 81 mg PO DAILY@0800 08/29/17 Ondansetron [Zofran] 4 mg PO Q6H PRN PRN 08/29/17 Denosumab [Prolia] 60 mg SQ UD 09/11/17 Acetaminophen [Tylenol Tablet] 650 mg PO Q6H PRN PRN tablet 09/13/17 Albuterol Inhaler [Ventolin Hfa] 2 puff INHALATION Q4H PRN PRN 03/02/18 DiphenhydrAMINE [Benadryl] 25 mg PO Q6H PRN PRN 03/02/18 Oxycodone HCl [Roxicodone] 5 mg PO Q6H PRN PRN 03/02/18 Polyethylene Glycol 3350 [Miralax] 17 gm PO DAILY 03/02/18 traMADol [Ultram] 50 mg PO 4X/DAY PRN PRN 03/26/18 Surgical History: adenoidectomy, appendectomy, cholecystectomy, hysterectomy, tonsillectomy, - - Status post proximal transverse loop colostomy 2016, thyroidectomy, further surgical history per HPI. 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 Sibling History Items: - - She has a brother who suddenly at the age of 46 and he had been diagnosed with Prader-Willi syndrome. She has a sister who at 4 years of age due to a hole in her heart. Another sister suffers from a cardiac dysrhythmia. Review of Systems Constitutional: Denies: Anorexia, Chills, Fever, Weakness Eyes: Denies: Blurred vision, Double vision, Drainage, Redness, Vision Change HEENT: Denies: Difficulty Hearing, Ear Pain, Eye Pain, Nasal Congestion, Sore Throat Cardiovascular: Reports: Chest Pain, Light Headedness. Denies: Edema, Heaviness , Orthopnea, Palpitations, Paroxysmal Noc. Dyspnea, Syncope Respiratory: Reports: Shortness of Breath. Denies: Hemoptysis, Pleuritic Pain, Sputum production, Wheezing Gastrointestinal: Reports: Nausea. Denies: Abdominal Pain, Constipation, Vomiting Genitourinary: Denies: Dysuria, Frequency, Hematuria Musculoskeletal: Denies: Arm Pain, Back Pain, Foot Pain Skin: Denies: Dryness, Rash Neurological: Denies: Balance problems, Double vision, Change in Speech, Slurred speech, Focal weakness, Headaches Psychiatric: Denies: Anxiety, Depression Endocrine: Denies: Change in Body Habitus, Polydipsia VTE Information - Inpt Only VTE Present on Admission: No VTE Mechan Device Prophylaxis: None VTE Pharm Prophylaxis ordered?: Yes - Physical Exam General: Alert, Oriented x3, Cooperative, No apparent distress HEENT: Atraumatic, PERRLA, Normocephalic, - - Patient is blind. Oral: Moist Mucosa, No Gingival or Mucosal Lesions/ Ulcerations Neck: Supple, No JVD, Negative Carotid Bruits, Trachea Midline, Thyroid Normal Size and Texture Lungs: Clear to auscultation, No rhonchi, No wheeze, No rales, Diminished Cardiovascular: Regular rate, Regular Rhythm, Normal S1, Normal S2, No murmurs, PMI Normal Abdomen: Bowel Sounds Present, Soft, Non Tender, Non-Distended, No Hepato- splenomegaly, Obese, - - Colostomy bag in place. Extremities: No clubbing, No cyanosis, No edema Skin: No rashes, No breakdown Lymphatic: No Cervical, Supraclavicular, or Inguinal Adenopathy Neurological: Cranial nerves II-XII grossly intact, - - Spastic paraplegia. Psych/Mental Status: Normal Affect, Appropriate, Alert and oriented to time, place, person, mood and affect Vital Signs Temp Pulse Resp BP Pulse Ox 98.1 F 72 12 117/79 96 03/26/18 11:39 03/26/18 13:01 03/26/18 13:01 03/26/18 13:01 03/26/18 13:01 Laboratory Tests 3 03/26/18 03/26/18 Range/Units 12:05 12:05 WBC 8.9 (4.4-11.0) K/mm3 RBC 4.84 (4.2-5.4) M/mm3 Hgb 13.2 (12.0-15.0) g/dl Hct 41.5 (37-47) % MCV 85.7 (81-99) fL MCH 27.3 (27.0-32.0) pg MCHC 31.8 L (32-36) g/gl RDW 13.1 (11.6-14.6) % RDW Differential 40.5 (35.1-43.9) fl Plt Count 252 (150-450) K/mm3 MPV 11.0 (6.2-12.0) fl Immature Gran % (Auto) 0.200 (0.0-0.9) % Neut % (Auto) 64.3 (47-70) % Lymph % (Auto) 25.8 (19-41) % [place] % (Auto) 8.0 (0-10) % Eos % (Auto) 1.5 (0-5) % Baso % (Auto) 0.2 (0-1) % Absolute Neuts (auto) 5.7 (2.0-7.7) X10^3/uL Absolute Lymphs (auto) 2.30 (0.83-4.51) X10^3/ul Total Counted Not Reportable Sodium 141 (136-145) mmol/L Potassium 4.3 (3.5-5.1) mmol/L Chloride 108 H (98-107) mmol/L Carbon Dioxide 28.0 (21.0-32.0) mmol/L Anion Gap 5 (5-15) BUN 10 (7-18) mg/dL Creatinine 0.92 (0.55-1.02) mg/dL Estim Creat Clear Calc 60.88 ml/min Est GFR (MDRD) Af Amer 80 (>60) mL/min Est GFR (MDRD) Non-Af 66 (>60) mL/min BUN/Creatinine Ratio 10.9 (10-20) RATIO Glucose 115 H (74-106) mg/dL Calcium 9.7 (8.5-10.1) mg/dL Troponin I < 0.015 (<0.045) ng/mL Clinical Impression(s) from Imaging Studies Chest X-Ray 03/26/18 11:55 IMPRESSION: Increased markings at the right lung base. This most likely represents atelectasis. Electronically Signed: Dennis Franco MD at 12:53 EDT Tel [phone], Service support , Assessment/Plan All Active Problems Postictal state (Resolved) Status post laparoscopic cholecystectomy (Resolved) This is a 58 years old female patient presented to the emergency department because of chest pain, found to have EKG changes and she is being admitted for evaluation. #1 chest pain/EKG changes: Chest pain is not exertional. EKG revealed T-wave inversion and lateral chest leads which are more prominent compared to EKG from February,. Her troponin is negative. Chest x-ray showed no acute findings. She had no history of cardiac disease, no diabetes or hypertension. She has significant history of premature CAD in her family. Plan: Admit to PCU for observation, cardiac nausea, serial cardiac enzymes, repeat EKG tomorrow morning , IV fluids, nitroglycerin as needed, Tylenol as needed, IV antiemetics, nuclear stress test tomorrow morning if cardiac enzymes are negative, PT OT evaluation and treatment. #2 seizure disorder: Continue Keppra and Vimpat. #3 hypothyroidism: Continue levothyroxine. #4 GERD: Continue Pepcid and Reglan. #5 DVT prophylaxis: Subcu Lovenox. Other chronic medical problems: #1 spastic paraplegia. #2 sensorineural hearing loss. #3 gastroparesis. #4 status post colostomy. #5 chronic pain syndrome. #6 pituitary tumor. This note was generated with [employer] dictation software. It may contain incorrect words, spelling, and punctuation that were not noted in checking the note before signing. Code Visit OBSV E&M: 74784 Initial observation care L3
[2018-03-26] MEDS: Acetaminophen 325 MG Tablet 650 MG PO (15:43)
--- NOTE | 2018-03-26 17:12 | EKG12_ITS ---
Test Reason : CHEST PAIN Blood Pressure : / mmHG Vent. Rate : 068 BPM Atrial Rate : 068 BPM P-R Int : 132 ms QRS Dur : 066 ms QT Int : 434 ms P-R-T Axes : 028 050 022 degrees QTc Int : 461 ms Normal sinus rhythm T wave abnormality, consider anterolateral ischemia Prolonged QT Abnormal ECG Confirmed by KEVIN COTTON, PANCHO ([id number]), marketing editor KAMI VICTORIA ([id number] on 03/30/2018 3:46:10 PM Referred By: OG Confirmed By:PANCHO BROWN MD
[2018-03-26] MEDS: traMADol 50 MG Tablet PO ×2 (17:48→21:01)
[2018-03-26] MEDS: levETIRAcetam 500 MG Tablet 1750 MG PO (21:00)
[2018-03-26] MEDS: MELATONIN 3 MG TABLET PO (21:01)
[2018-03-26] MEDS: Gabapentin 400 MG Capsule 800 MG PO (21:01)
[2018-03-26] MEDS: Escitalopram Oxalate 10 MG Tablet PO (21:03)
[2018-03-26] MEDS: Nystatin Powder 15gm Bottle 1 APPLIC TOPICAL (21:03)
[2018-03-26] MEDS: Famotidine 20 MG Tablet PO (21:03)
[2018-03-26] MEDS: Lacosamide 50 MG Tablet PO (21:19)
[2018-03-27] VITALS (7 sets, daily range): BP systolic 116–148; BP diastolic 61–80; PULSE 76–81; RESP 16–18; TEMP 36.8–37.1; O2SAT 94–96
--- NOTE | 2018-03-27 04:43 | NURSING ---
All charting completed by assistant professor of nursing Daryl Huerta reviewed by this RN. This RN agrees with all completed charting.
[2018-03-27 04:57] LABS: Anion Gap 9 (5-15); BUN 8 mg/dL (7-18); BUN/Creat Ratio 9.6 RATIO (10-20); Calcium,Total 8.8 mg/dL (8.5-10.1); Chloride 109 mmol/L (98-107); Creatinine, Serum 0.84 mg/dL (0.55-1.02); EST Glomerular Filtration Rate 74 mL/min (>60); Est Glom Filt Rate - Afr Amer 90 mL/min (>60); Estimated Creatinine Clearance 66.67 ml/min; Glucose 88 mg/dL (74-106); Potassium 3.7 mmol/L (3.5-5.1); Sodium Level 145 mmol/L (136-145)
[2018-03-27 05:04] LABS: Absolute Lymphocyte Count 2.51 X10^3/ul (0.83-4.51); Absolute Neutrophil Count 4.1 X10^3/uL (2.0-7.7); Basophil# 0.02 X10^3/uL; Basophil% 0.3 % (0-1); Eosinophil# 0.19 X10^3/uL; Eosinophils% 2.6 % (0-5); Hematocrit 35.5 % (37-47); Hemoglobin 11.2 g/dl (12.0-15.0); Lymphocyte # 2.51 X10^3/ul (4.0); Lymphocyte % 33.8 % (19-41); Mean Corp Hgb Conc 31.5 g/gl (32-36); Mean Corpuscular Hgb 27.3 pg (27.0-32.0); Mean Corpuscular Volume 86.6 fL (81-99); Mean Platelet Vol. 10.9 fl (6.2-12.0); Monocyte# 0.63 X10^3/uL; Monocyte% 8.5 % (0-10); Neutrophil # 4.07 X10^3/uL (2.7-7.7); Neutrophil % 54.7 % (47-70); Platelet Count 206 K/mm3 (150-450); RBC Distribution Width CV 12.9 % (11.6-14.6); RBC Distribution Width SD 39.9 fl (35.1-43.9); White Blood Count 7.4 K/mm3 (4.4-11.0)
[2018-03-27 05:05] LABS: International Normalized Ratio 1.1; POSITIVE COUNT NO; POSITIVE DIFFERENTIAL NO; POSITIVE MORPHOLOGY NO; Prothrombin Time (Protime)PT. 13.7 SECONDS (11.7-14.9)
[2018-03-27 05:06] LABS: Partial Thromboplast Time 32.4 Seconds (24.1-36.2)
[2018-03-27] MEDS: Gabapentin 400 MG Capsule 800 MG PO ×2 (05:55→12:39)
--- NOTE | 2018-03-27 05:55 | EKG12_ITS ---
Test Reason : AM EKG Blood Pressure : / mmHG Vent. Rate : 075 BPM Atrial Rate : 075 BPM P-R Int : 138 ms QRS Dur : 068 ms QT Int : 426 ms P-R-T Axes : 051 053 034 degrees QTc Int : 475 ms Normal sinus rhythm T wave abnormality, consider anterolateral ischemia Prolonged QT Abnormal ECG Confirmed by KEVIN COTTON, PANCHO ([id number]), editor managing director KAMI VICTORIA ([id number] on 03/30/2018 3:44:21 PM Referred By: OG Confirmed By:PANCHO BROWN MD
[2018-03-27] MEDS: Nystatin Powder 15gm Bottle 1 APPLIC TOPICAL (05:56)
[2018-03-27] MEDS: Aspirin E.C. 81 MG Tablet PO (05:56)
[2018-03-27] MEDS: Levothyroxine 75 MCG Tablet PO (05:56)
[2018-03-27] MEDS: levETIRAcetam 500 MG Tablet 1750 MG PO (06:02)
--- NOTE | 2018-03-27 09:15 | NURSING ---
to stress test
--- NOTE | 2018-03-27 11:20 | NURSING ---
return from stress test
--- NOTE | 2018-03-27 11:27 | STRESSREP ---
Stress Test Report Date: 03/27/2018 Procedure: Pharmacologic stress nuclear imaging study Indications: Chest pain Consent: Per the patient Procedure: The patient underwent pharmacologic (Regadenoson) evaluation with a peak heart rate of 169 beats per minute (105 predicted maximal heart rate) and a peak blood pressure of 132/82 mmHg. The baseline ECG demonstrated normal sinus rhythm; nonspecific T-wave abnormality. The peak pharmacologic ECG demonstrated no obvious ECG changes. There were no cardiac dysrhythmias pretest, during pharmacologic infusion, or recovery. There was no complaint of chest discomfort during pharmacologic infusion or recovery. The examination was discontinued secondary to completion of protocol. Impression: 1. Pharmacologic (Regadenoson) evaluation 2. Peak pharmacologic ECG with no obvious ECG changes. 3. There were no cardiac dysrhythmias pretest, during pharmacologic infusion, or recovery 4. Nuclear images pending Myocardial perfusion imaging study: Technique: The patient was injected with 12 millicuries of technetium 99m Cardiolite and subsequently rest SPECT Cardiolite nuclear imaging was obtained in the horizontal long, vertical long, and short axis views. The patient underwent pharmacologic (Regadenoson) evaluation with a peak heart rate of 169 beats per minute (105 % percent predicted maximal heart rate) and a peak blood pressure of 132/82 mmHg. The patient was injected with 36 millicuries of technetium 99m Cardiolite and subsequently stress SPECT Cardiolite nuclear imaging was obtained in the horizontal long, vertical long, and short axis views. A gated Cardiolite study at peak stress was obtained. Interpretation: Rest and stress SPECT Cardiolite nuclear imaging status post realignment, normalization, and attenuation correction demonstrate relative uniform tracer uptake and myocardial perfusion appearing within normal limits. There is end systolic thickening and brightening. The gated Cardiolite study demonstrates myocardial thickening and inward wall motion. The reported LVEF is 89 %. Impression: 1. Rest and stress SPECT Cardiolite nuclear imaging demonstrate relative uniform tracer uptake and myocardial perfusion appearing within normal limits. 2. The gated Cardiolite study reports an LVEF of 89 %. This note was generated with [employer] software. It may contain incorrect words, spelling, and punctuation that were not noted in checking the note before signing.
--- NOTE | 2018-03-27 11:42 | DCINST_ITS ---
You will use the following diet at home:: No restrictions Your food should be the consistency of: Regular Your liquids should be the consistency of: Regular/Thin Discharge Activity: Return to Normal Activity Weight Bearing Status: - - resume previous activity Allergies/Adverse Reactions: Allergies shellfish derived Allergy (Severe, Verified 01/18/18 10:35) Anaphylaxis amoxicillin Allergy (Verified 01/18/18 10:35) Rash iodine Allergy (Verified 01/18/18 10:35) Rash peanut Allergy (Verified 01/18/18 10:35) Anaphylaxis it gets stuck in my throat Penicillins [PCN] Allergy (Verified 01/18/18 10:35) Rash povidone-iodine [From Betadine] Allergy (Verified 01/18/18 10:35) Rash soap [From Betadine] Allergy (Verified 01/18/18 10:35) Rash alendronate sodium [From Fosamax] Adverse Reaction (Verified 01/18/18 10:35) unable to swallow pill/choking UNABLE TO SWALLOW PILL/CHOKING risedronate sodium [From Actonel] Adverse Reaction (Verified 01/18/18 10:35) CHOKING Medications to take at Discharge Lacosamide [Vimpat] 50 mg PO BID 07/02/13 Rivastigmine 9.5mg Patch [Exelon 9.5MG/24HR PATCH] 1 patch TD Q24H 02/16/16 Melatonin 3 mg Tablet 3 mg PO QHS 04/19/16 Gabapentin [Neurontin] 800 mg PO TID 04/05/17 levETIRAcetam tablet [Keppra tablet] 1,750 mg PO BID 04/05/17 Escitalopram Oxalate [Lexapro] 10 mg PO QHS 08/23/17 Famotidine [Pepcid AC] 20 mg PO BID 08/23/17 Levothyroxine [Synthroid] 75 mcg PO DAILY 08/23/17 Metoclopramide [Reglan] 10 mg PO BIDAC 08/23/17 Aspirin E.C. [Ecotrin] 81 mg PO DAILY@0800 08/29/17 Ondansetron [Zofran] 4 mg PO Q6H PRN PRN 08/29/17 Denosumab [Prolia] 60 mg SQ UD 09/11/17 Acetaminophen [Tylenol Tablet] 650 mg PO Q6H PRN PRN tablet 09/13/17 Albuterol Inhaler [Ventolin Hfa] 2 puff INHALATION Q4H PRN PRN 03/02/18 DiphenhydrAMINE [Benadryl] 25 mg PO Q6H PRN PRN 03/02/18 Oxycodone HCl [Roxicodone] 5 mg PO Q6H PRN PRN 03/02/18 Polyethylene Glycol 3350 [Miralax] 17 gm PO DAILY 03/02/18 traMADol [Ultram] 50 mg PO 4X/DAY PRN PRN 03/26/18 Nystatin Powder [Mycostatin Powder] 1 applic TOPICAL TID bottle 03/27/18 traMADol [Ultram] 50 mg PO 4X/DAY tablet 03/27/18 Primary Care Physician: Marianna Forte MD [Primary Care Provider] - Please follow up with your Primary Care Physician in: in 1-2 weeks Test Results: Test results from this visit will be discussed in further detail at your follow- up appointment, if applicable.
[2018-03-27] MEDS: Acetaminophen 325 MG Tablet 650 MG PO (11:44)
--- NOTE | 2018-03-27 12:30 | CASEMGMT ---
KAYLYNN LANDA NOTE: D/C PLAN: Home with continued [facility] services: PT/OT, custodial, and aides. Intro role to RN SYEDA. Pt resting in bed, awake/alert/oriented. Pt's mother @ bedside. Pt reports she has transfer shower chair, raised toilet, grab bars, 2 wheelchairs, medical alert button, and hand held shower. Pt denies having any additonal DME needs, but does use [employer] as her DME company. Pt states she lives with her daughter who helps provide care and her mother also comes to help her. Pt has current [facility] custodial, PT, OT, and SW. Pt also has private duty aides that come 5 days/week. Pt states she has not further needs or concerns at this time. CM to follow for discharge planning needs that may arise. Sandra @ [facility] made aware pt discharging today and states their services will be continued, as pt is OBS and resumption of care order is not required. Ashley FRANKLINN RN SYEDA
[2018-03-27] MEDS: Famotidine 20 MG Tablet PO (12:39)
[2018-03-27] MEDS: Rivastigmine 9.5mg Patch 1 PATCH TRANSDERM. (12:39)
[2018-03-27] MEDS: traMADol 50 MG Tablet PO (12:44)
[2018-03-27] MEDS: Polyethylene Glycol 3350 17 GM PACKET PO (12:44)
[2018-03-27] MEDS: Lacosamide 50 MG Tablet PO (12:53)
[2018-03-27] MEDS: Acetaminophen/Butalbital/Caffe 1 Tablet 2 TABLET PO (13:37)
--- NOTE | 2018-03-28 12:14 | PCM.DC.SUM ---
Discharge Date and Diagnosis Date of Admission: 03/26/18 Date of Discharge: 03/27/18 - Primary Discharge Diagnosis #1 musculoskeletal chest pain #2 seizure disorder #3 spastic paraparesis - Secondary Discharge Diagnosis Chronic Problems Blindness (Chronic) Pituitary tumor (Chronic) Epilepsy (Chronic) Migraine (Chronic) Goiter (Chronic) Hearing loss (Chronic) Nausea (Chronic) Osteoporosis (Chronic) Neuropathic pain (Chronic) Hypothyroidism (Chronic) Legal blindness (Chronic) Spastic paraparesis (Chronic) Patient has been non-ambulatory for 5 years microvascular disease (Chronic) Hx of migraines (Chronic) 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 Patient was placed into observation status on PCU, her enzymes are cycled, and the patient underwent a nuclear stress test which was negative for reversible ischemia. On 03/27/18, patient was seen and examined and felt to be in stable condition for discharge home Discharge Activity: Return to Normal Activity Weight Bearing Status: - - resume previous activity Home Medications: Medications to take at Discharge Lacosamide [Vimpat] 50 mg PO BID 07/02/13 Rivastigmine 9.5mg Patch [Exelon 9.5MG/24HR PATCH] 1 patch TD Q24H 02/16/16 Melatonin 3 mg Tablet 3 mg PO QHS 04/19/16 Gabapentin [Neurontin] 800 mg PO TID 04/05/17 levETIRAcetam tablet [Keppra tablet] 1,750 mg PO BID 04/05/17 Escitalopram Oxalate [Lexapro] 10 mg PO QHS 08/23/17 Famotidine [Pepcid AC] 20 mg PO BID 08/23/17 Levothyroxine [Synthroid] 75 mcg PO DAILY 08/23/17 Metoclopramide [Reglan] 10 mg PO BIDAC 08/23/17 Aspirin E.C. [Ecotrin] 81 mg PO DAILY@0800 08/29/17 Ondansetron [Zofran] 4 mg PO Q6H PRN PRN 08/29/17 Denosumab [Prolia] 60 mg SQ UD 09/11/17 Acetaminophen [Tylenol Tablet] 650 mg PO Q6H PRN PRN tablet 09/13/17 Albuterol Inhaler [Ventolin Hfa] 2 puff INHALATION Q4H PRN PRN 03/02/18 DiphenhydrAMINE [Benadryl] 25 mg PO Q6H PRN PRN 03/02/18 Oxycodone HCl [Roxicodone] 5 mg PO Q6H PRN PRN 03/02/18 Polyethylene Glycol 3350 [Miralax] 17 gm PO DAILY 03/02/18 traMADol [Ultram] 50 mg PO 4X/DAY PRN PRN 03/26/18 Nystatin Powder [Mycostatin Powder] 1 applic TOPICAL TID bottle 03/27/18 traMADol [Ultram] 50 mg PO 4X/DAY tablet 03/27/18 Primary Care Physician: Marianna Forte MD [Primary Care Provider] - Please follow up with your Primary Care Physician in: in 1-2 weeks Disposition: Home Minutes spent on discharge:: 25 Patient Condition:: Stable Medical Necessity - Tobacco Use Smoking Status: Never smoker Meaningful Use Info Meaningful Use Diagnoses (Choose all that apply): None applicable Code Visit OBSV E&M: 26585 Observation care discharge
== END 2018-03-27 11:42 | disposition home health service (06) ==
LOC: ED 13:56 → PCU 14:19
PROVIDERS: Admitting Provider Hospitalist; Emergency Provider Emergency Medicine; Family Provider Family Medicine; PCP Family Medicine; Visit Provider Internal Medicine
DX: R07.89 Other chest pain (principal); G40.909 Epilepsy, unspecified, not intractable, without status epilepticus; G82.20 Paraplegia, unspecified; G43.909 Migraine, unspecified, not intractable, without status migrainosus; E03.9 Hypothyroidism, unspecified; H54.8 Legal blindness, as defined in USA; H90.5 Unspecified sensorineural hearing loss; K21.9 Gastro-esophageal reflux disease without esophagitis; Z79.899 Other long term (current) drug therapy; Z79.82 Long term (current) use of aspirin; R07.2 Precordial pain; F32.9 Major depressive disorder, single episode, unspecified; G89.4 Chronic pain syndrome; Z93.3 Colostomy status
CPT/HCPCS: 36415; 71045; 78452; 80048; 84484; 85025; 85610; 85730; 93005; 93017; 96361; 96374; 99218; 99285; A9500; J7030; A4216; G0378; J2785

== ENCOUNTER 2018-04-01 15:17 | Emergency (ER) | payer MEDICARE, SELFPAY ==
[2018-04-01 15:19] VITALS: BP 115/78; PULSE 92; RESP 18; TEMP 36.6; O2SAT 99; BMI 25.0
--- NOTE | 2018-04-01 15:48 | ED.VISSUMM ---
- ER Visit Summary Date of Service: 04/01/18 Chief Complaint: [] History of Present Illness: The patient is a 58 F [presents to the emergency department with complaint of a need for wound check after having a colostomy revision on February 19. Patient states that last evening she took her colostomy bag off and noted a small open wound over the area where her wafer sits just inferior to her colostomy. Patient noted small amount of drainage from the wound. Patient's not had a fever. She has not had any chills or sweats. She also states she has had small amount of output over the last 3 days. She increase her MiraLAX yesterday. Patient's surgeon was a Dr. Abbott at [facility]. Patient also has been seen locally by Dr. Jamin Bazan.] Physical Examination: [HEENT-PERRLA, EOMI. Cranial nerves II through XII grossly intact. TMs clear. Mucous membranes moist. No adenopathy. Cardiovascular-regular rate and rhythm without murmur or ectopy Lungs-clear to auscultation, chest wall stable without crepitus or subcu emphysema Abdomen-normoactive bowel sounds, soft. Patient's stoma looks normal and healthy. There are small amount of stool within the colostomy bag. Inferior to the stoma at 6 o'clock position is a circular open area measuring about a centimeter in diameter with some serous/sanguinous drainage noted. This is at the superior edge of the incision that was created inferior to the stoma. There is no evidence for cellulitis. I do not appreciate any evidence for peristomal hernia. Extremities-intact ?4, normal range of motion, normal pulses, atraumatic] Test Results: [Wound culture was sent] Emergency Department Course and Treatment: [Case was discussed with Dr. Jamin Bazan who asked that we cover the wound and he will be able to evaluate her and see her in the office tomorrow.] Treatment Plan: [Patient follow-up with Dr. Waite in the office tomorrow] Disposition: [Discharged home in stable condition] Impression: [Wound check-no evidence for infection Small wound dehiscence prior incision site] This note was generated with [employer] software. It may contain incorrect words, spelling, and punctuation that were not noted in review of the chart prior to signing ED Disposition - Plan for ED Patient: Chief Complaint: Wound Check Referrals: Marianna Forte MD [Primary Care Provider] -
--- NOTE | 2018-04-01 15:52 | ED.DEP ---
ED Disposition - Plan for ED Patient: Chief Complaint: Wound Check Instructions: ED Wound Check Post Op No Infec Referrals: Marianna Forte MD [Primary Care Provider] - Jamin Antoine MD [STAFF PHYSICIAN] - 1 Day
[2018-04-01 15:53] VITALS: BP 110/70; PULSE 90; RESP 14; O2SAT 99
== END 2018-04-01 16:00 | disposition home or self-care (01) ==
LOC: ED 15:51
PROVIDERS: Emergency Provider Emergency Medicine; Family Provider Family Medicine; PCP Family Medicine
DX: Z48.01 Encounter for change or removal of surgical wound dressing (principal); T81.31XA Disruption of external operation (surgical) wound, not elsewhere classified, initial encounter; Z93.3 Colostomy status; K21.9 Gastro-esophageal reflux disease without esophagitis; E03.9 Hypothyroidism, unspecified; G40.909 Epilepsy, unspecified, not intractable, without status epilepticus; Z79.82 Long term (current) use of aspirin; Z79.899 Other long term (current) drug therapy
CPT/HCPCS: 87070; 87077; 87186; 87205; 99282

== ENCOUNTER 2018-04-20 11:32 | Outpatient (RCR) | payer MEDICARE, SELFPAY | END 2018-04-24 23:59 | LOC: HHLAB 11:32 | PROVIDERS: Family Provider Family Medicine; PCP Family Medicine; Visit Provider Family Medicine | DX: L98.496 Non-pressure chronic ulcer of skin of other sites with bone involvement without evidence of necrosis (principal); G71.3 Mitochondrial myopathy, not elsewhere classified; Z43.3 Encounter for attention to colostomy | CPT/HCPCS: 87070; 87077; 87186; 87205 ==

== ENCOUNTER 2018-04-25 13:25 | Emergency (ER) | payer MEDICARE, SELFPAY ==
[2018-04-25 13:26] VITALS: BP 121/80; PULSE 97; RESP 16; TEMP 36.3; O2SAT 97; BMI 25.8
[2018-04-25] MEDS: DiphenhydrAMINE 50 MG/ML Syringe 25 MG IV (14:51)
[2018-04-25] MEDS: 0.9% Normal Saline 1,000 ML 999 ML IV (14:51)
[2018-04-25] MEDS: Ketorolac 30 MG/ML Syringe IV (14:52)
[2018-04-25] MEDS: proCHLORPERazine 10 MG/2 ML Vial IV (14:52)
--- NOTE | 2018-04-25 15:17 | ED.VISSUMM ---
- ER Visit Summary Date of Service: 04/25/18 Chief Complaint: Migraine History of Present Illness: The patient is a 58 F with a history of chronic migraines presenting with what she describes as her typical migraine flareup. She has had pain for the past 1-2 days. Onset was gradual. Not sudden or severe at onset. Not the worst headache of her life. No change in character or location from her typical pain. No vomiting or fever. No neck pain. Physical Examination: Vitals are within normal metastases. She is not in distress. Neck is supple. No meningeal findings. Heart tones are regular and without murmur. Lungs are clear bilateral. No focal or lateralizing neuro findings. At baseline mental status according to her family. Test Results: Emergency Department Course and Treatment: He was medicated and had near complete resolution of her pain. She states that she does not feel she needs a CT scan and that this is the exact same as her usual flare up. Denies any new or concerning features. She looks well. Neurologic exam is normal. Treatment Plan: She will follow-up with her doctor if not improving Disposition: Home in stable condition Impression: Initial encounter migraine headache, not intractable, no status migrainosus This note was generated with [employer] dictation software. It may contain incorrect words, spelling, and punctuation that were not noted in review of the chart prior to signing ED Disposition - Plan for ED Patient: Chief Complaint: Headache Instructions: ED Headache Migraine Referrals: Marianna Forte MD [Primary Care Provider] -
[2018-04-25 15:51] VITALS: PULSE 68; RESP 16; O2SAT 97
== END 2018-04-25 15:52 | disposition home or self-care (01) ==
LOC: ED 14:44
PROVIDERS: Emergency Provider Emergency Medicine; Family Provider Family Medicine; PCP Family Medicine
DX: G43.909 Migraine, unspecified, not intractable, without status migrainosus (principal)
CPT/HCPCS: 96361; 96374; 96375; 99283; J7030; A4216

== ENCOUNTER 2018-04-25 17:56 | Emergency (ER) | payer MEDICARE, SELFPAY ==
[2018-04-25 17:58] VITALS: BP 138/85; PULSE 91; RESP 16; TEMP 36.8; O2SAT 97; BMI 25.8
[2018-04-25] MEDS: Ondansetron ODT 4 MG Tablet PO (18:52)
[2018-04-25] MEDS: Midazolam 2 MG/2 ML Syringe IV (20:26)
--- NOTE | 2018-04-25 21:08 | ED.VISSUMM ---
- ER Visit Summary Date of Service: 04/25/18 Chief Complaint: Spinning History of Present Illness: The patient is a 58 F who was seen earlier today for migraine. She reports she has had vertigo since getting up out of bed. She described a spinning sensation. She began to vomit with change of position when she got home. She denies any double vision, blurred vision loss of vision. I trouble with speech or swallowing. She denies any new musculoskeletal, muscular or sensory symptoms. She denies any cardiac respiratory symptoms. She denies any blood in her emesis. She denies any black or maroon stool. Dictation for prior visit was read. Patient does report the spinning improved/resolved with closing her eyes. She sees shadows and light. She is considered legally blind. Past history of GERD, migraine headaches, seizure disorder, benign pituitary tumor, hypothyroidism and mitochondrial myopathy. There is also a history of neuropathy unspecified. Physical Examination: Patient appears ill. She is pale. Vital signs are noted and blood pressure is elevated 138/85. She is not febrile or hypoxic. Head is atraumatic normocephalic. Pupils are equal round reactive. Extraocular muscles are intact. TMs are pearly white with landmarks noted. Nares patent with no drainage. Posterior pharynx without erythema or exudate. Uvula is midline. There is no dysphonia or dysphasia. Trachea is midline. There is no stridor with auscultation of the neck. Heart is regular without murmur, gallop or rub. S1 and S2 are normal. Lungs are clear to auscultation with good movement of air bilaterally. Abdomen soft nontender. She is alert oriented ?3. Motor reveals mild weakness bilaterally. There is a tremor bilaterally and difficult to assess cerebellar testing. She does not ambulate she transfers weight. Sensation is intact. DTRs are symmetric. There is no Babinski sign noted. Test Results: None Emergency Department Course and Treatment: Patient was medicated with Zofran. Since patient had a positive Stevo-Hallpike maneuver Maurice maneuver was performed. Patient began to vomit during the Maurice maneuver. She received 2 mg of Versed IV push. Patient states her vertigo has resolved. She still complains of nausea. Treatment Plan: Patient was discharged with prescription for Valium and appropriate home-going instructions Disposition: Discharged home with mother Impression: Paroxysmal benign positional vertigo with crystal manipulation This note was generated with [employer] dictation software. It may contain incorrect words, spelling, and punctuation that were not noted in review of the chart prior to signing ED Disposition - Plan for ED Patient: Disposition: Home or Assisted Living Chief Complaint: Dizziness Instructions: ED BPV Vertigo Prescriptions: Diazepam [Valium] 2 mg PO TID #10 tab Referrals: Marianna Forte MD [Primary Care Provider] - As Needed
[2018-04-25 21:31] VITALS: BP 133/90; PULSE 72; RESP 16; O2SAT 100
== END 2018-04-25 21:36 | disposition home or self-care (01) ==
PROVIDERS: Emergency Provider Emergency Medicine; Family Provider Family Medicine; PCP Family Medicine
DX: H81.10 Benign paroxysmal vertigo, unspecified ear (principal); H54.8 Legal blindness, as defined in USA; K21.9 Gastro-esophageal reflux disease without esophagitis; G40.909 Epilepsy, unspecified, not intractable, without status epilepticus; E03.9 Hypothyroidism, unspecified; E66.9 Obesity, unspecified; Z68.25 Body mass index [BMI] 25.0-25.9, adult; Z87.891 Personal history of nicotine dependence; Z79.82 Long term (current) use of aspirin; Z79.899 Other long term (current) drug therapy; G43.909 Migraine, unspecified, not intractable, without status migrainosus
CPT/HCPCS: 96361; 96374; 96375; 99283; 99284; J7030; A4216

== ENCOUNTER → 2018-10-19 10:39 | Outpatient (CLI) | payer MEDICARE, SELFPAY ==
[2018-10-19 10:39] VITALS: BMI 23.3
[2018-10-19 13:09] LABS: Vitamin D,25 Hydroxy 22.9 ng/mL (29.95-100.01)
[2018-10-19 13:31] LABS: T4 Total, Thyroxin 8.7 ug/dL (4.8-13.9); Thyroid Stim Hormone (TSH) 1.11 uIU/mL (0.358-3.74)
== END ==
PROVIDERS: Family Provider Family Medicine; PCP Family Medicine; Visit Provider Family Medicine
DX: E03.9 Hypothyroidism, unspecified (principal); M81.0 Age-related osteoporosis without current pathological fracture
CPT/HCPCS: 36415; 82306; 84436; 84443

== ENCOUNTER 2019-02-19 10:00 | Outpatient (RCR) | payer MEDICARE, SELFPAY ==
[2018-10-19 10:39] VITALS: BMI 23.3
[2019-01-28 08:39] VITALS: BP 120/63; PULSE 84; RESP 18; TEMP 35.9; BMI 24.3
--- NOTE | 2019-01-28 23:52 | PCM.WC.HP ---
(1) Ulcer of back Status: Acute Current Visit: Yes Code(s): L98.429 - Non-pressure chronic ulcer of back with unspecified severity Comment: Acute right-sided lower back with fat layer exposed. History of Present Illness Date of Service: 01/28/19 Chief Complaint: Nonhealing low back ulcer. History of Wound: Ms. Mendoza is a 59-year-old who was in her stable state of health until about 3 weeks ago when she noted blood while taking a shower and at that point realized she had an ulcer at her back. Denies any known precipitating factors. Subsequently seen by her primary care physician who referred her here due to nonresolution. She has been applying Neosporin ointment. Feels well otherwise and denies chills, fever, nausea, vomiting or change in bowel habit. Denies any weight changes as well. 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 Allergies/Adverse Reactions: Allergies shellfish derived Allergy (Severe, Verified 01/28/19 08:57) Anaphylaxis amoxicillin Allergy (Verified 01/28/19 08:57) Rash iodine Allergy (Verified 01/28/19 08:57) Rash peanut Allergy (Verified 01/28/19 08:57) Anaphylaxis it gets stuck in my throat Penicillins [PCN] Allergy (Verified 01/28/19 08:57) Rash povidone-iodine [From Betadine] Allergy (Verified 01/28/19 08:57) Rash soap [From Betadine] Allergy (Verified 01/28/19 08:57) Rash alendronate sodium [From Fosamax] Adverse Reaction (Verified 01/28/19 08:57) unable to swallow pill/choking UNABLE TO SWALLOW PILL/CHOKING risedronate sodium [From Actonel] Adverse Reaction (Verified 01/28/19 08:57) CHOKING Home Medications: Ambulatory Orders Medication Instructions Recorded RX: Lacosamide [Vimpat] 50 mg PO BID 07/02/13 Melatonin 3 mg Tablet 3 mg PO QHS 04/19/16 RX: levETIRAcetam tablet [Keppra 1,750 mg PO BID 04/05/17 tablet] RX: Escitalopram Oxalate [Lexapro] 10 mg PO QHS 08/23/17 RX: Famotidine [Pepcid AC] 20 mg PO BID 08/23/17 RX: Levothyroxine [Synthroid] 75 mcg PO DAILY 08/23/17 RX: Metoclopramide [Reglan] 10 mg PO BIDAC 08/23/17 RX: Aspirin E.C. [Ecotrin] 81 mg PO DAILY@0800 08/29/17 RX: Ondansetron [Zofran] 4 mg PO Q6H PRN PRN 08/29/17 RX: Denosumab [Prolia] 60 mg SQ UD 09/11/17 RX: Acetaminophen [Tylenol Tablet] 650 mg PO Q6H PRN PRN tablet 09/13/17 RX: Albuterol Inhaler [Ventolin 2 puff INHALATION Q4H PRN PRN 03/02/18 Hfa] RX: DiphenhydrAMINE [Benadryl] 25 mg PO Q6H PRN PRN 03/02/18 RX: Oxycodone HCl [Roxicodone] 5 mg PO Q6H PRN PRN 03/02/18 RX: Polyethylene Glycol 3350 17 gm PO DAILY 03/02/18 [Miralax] - Family History Maternal Heart Disease - In her maternal grandmother, - - Aneurysm and her maternal grandmother and grandfather Paternal Heart Disease - In the paternal grand mother, Stroke - father alive age 84, - - Aneurysm in her paternal grandmother and in a paternal aunt. Sibling - - She has a brother who suddenly at the age of 46 and he had been diagnosed with Prader-Willi syndrome. She has a sister who at 4 years of age due to a hole in her heart. Another sister suffers from a cardiac dysrhythmia. Smoking Status: Former smoker Review of Systems Constitutional: Denies: Anorexia, Chills, Fever Eyes: Denies: Pain, Redness HEENT: Denies: Difficulty Swallowing Cardiovascular: Denies: Chest Pain, Chest Tightness Respiratory: Denies: Cough, Hemoptysis Gastrointestinal: Denies: Abdominal Pain, Hematemesis Skin: Denies: Jaundice - Physical Exam Vital Signs Temp Pulse Resp BP 96.6 F L 84 18 120/63 01/28/19 08:39 01/28/19 08:39 01/28/19 08:39 01/28/19 08:39 General: Alert, Cooperative, No apparent distress HEENT: Atraumatic Oral: Moist Mucosa Neck: Supple Lungs: Normal air movement Cardiovascular: Regular rate, Regular Rhythm, Normal S1, Normal S2 Abdomen: Non Tender Extremities: No cyanosis Skin: Ulcer/ Wound Wound Measurements and Assessment WC - Nurse 1 - General Ulcer Measurement Start: 01/28/19 08:33 Freq: Status: Active Protocol: Activity Type Activity Date Activity User E-Sign Co-Sign Detail Recorded Client Recorded Date Recorded By Document 01/28/19 08:39 DL [id number] 01/28/19 08:53 DL 01/28/19 08:39 Wound Center Nurse 1 [Ulcer Assessment] #1 R Upper Hip -Current Size (cm) - Length 0.5 -Current Size (cm) - Width 0.7 -Current Size (cm) - Depth 0.1 -Total Square Cm 0.35 -Photo Taken Yes -Exudate Amt None Present -Wound Margin Distinct, Outline Attached -Granulation Amt None Present (0 %) -Necrotic Tissue Type Eschar -Structure Exposed N/A -Texture (Sparkle-wound Skin Appearance) No Abnormality -Moisture (Sparkle-wound Skin Appearance No Abnormality ) -Color (Sparkle-wound Skin Appearance) Erythema Rubor -Temperature (Sparkle-wound Skin No Abnormality Appearance) (Pt Warm) -Tenderness on Palpation (Sparkle-wound No Skin Appearance) -Ulcer Cleansing Rinsed/ Irrigated with Saline -Foul Odor after Cleansing No -Anesthetic Used 4% Lidocaine Solution 5% Lidocaine Gel WC - Nurse 2 - General Ulcer CM Notes Start: 01/28/19 08:33 Freq: Status: Active Protocol: Activity Type Activity Date Activity User E-Sign Co-Sign Detail Recorded Client Recorded Date Recorded By Document 01/28/19 09:14 [id number] 01/28/19 09:22 DL 01/28/19 09:14 Wound Center Nurse 2 [Procedure/Treatment] -Time 09:14 -Correct Patient Yes -Correct Side, Site, Position Yes -Correct Procedure Yes -Procedure Performed Yes -Type of Procedure Debridement -Clinical Debridement Subcutaneous -Post Debridement Size (cm) - Length 0.9 -Post Debridement Size (cm) - Width 0.6 -Post Debridement Size (cm) - Depth 0.2 -Total Square Cm 0.54 -Wound/Ulcer Outcome Not Healed -Ulcer Cleansing Rinsed/ Irrigated with Saline -Foul Odor after Cleansing No -Bioengineered Tissue No -Bleeding Controlled with Pressure -Offloading No -Treatment Response Procedure Tolerated Well [See Physician Procedure note for Specifics] Pain Scale: 0-10 Numeric [Pain] -Is Patient Pain Free? Yes Musculoskeletal: No Muscle Wasting Psych/Mental Status: Normal Affect Debridement Note Post-Debridement Measurements/Treatment WC - Nurse 2 - General Ulcer CM Notes Start: 01/28/19 08:33 Freq: Status: Active Protocol: Activity Type Activity Date Activity User E-Sign Co-Sign Detail Recorded Client Recorded Date Recorded By Document 01/28/19 09:14 DL [id number] 01/28/19 09:22 DL 01/28/19 09:14 Wound Center Nurse 2 #1 R Upper Hip -Time 09:14 -Correct Patient Yes -Correct Side, Site, Position Yes -Correct Procedure Yes -Procedure Performed Yes -Type of Procedure Debridement -Clinical Debridement Subcutaneous -Post Debridement Size (cm) - Length 0.9 -Post Debridement Size (cm) - Width 0.6 -Post Debridement Size (cm) - Depth 0.2 -Total Square Cm 0.54 -Wound/Ulcer Outcome Not Healed -Ulcer Cleansing Rinsed/ Irrigated with Saline -Foul Odor after Cleansing No -Bioengineered Tissue No -Bleeding Controlled with Pressure -Offloading No -Treatment Response Procedure Tolerated Well Pain Scale: 0-10 Numeric Is Patient Pain Free? Yes Wound debrided: Lower back (right) Wound Grade/Stage: Stage II Type of Debridement: Excisional debridement Anesthesia Used: 4% Lidocaine Solution Depth: Down to and including healthy tissue, in the subcutaneous layer Percentage of wound debrided: 100 Instrument Used: 3mm curette, #15 blade, Forceps Tissue Removed: Slough and devitalized tissue Severity: Fat Layer Exposed Amount of bleeding with debridement: Mild Bleeding Controlled with: Pressure Patient tolerated procedure well Assessment/Plan Active Problems Ulcer of back (Acute) Acute right-sided lower back with fat layer exposed. Assessment: Nonhealing right-sided lower back ulcer with fat layer exposed. Plan: Debridement done as documented above, procedure was well-tolerated. Questionable etiology however necrotic tissue and significant slough burden. We will start with Santyl. Apply daily with moistened gauze. Offloading recommended. Increased protein intake also recommended. If no significant improvement after couple weeks of Santyl, will consider referral to dermatology for biopsy. Her questions were answered and she was advised to call with any further questions or concerns. Follow-up for courtesy visit next week and with me in 3 weeks. This note was generated with [employer] dictation software. It may contain incorrect words, spelling, and punctuation that were not noted in checking the note before signing.
[2019-02-05 08:34] VITALS: BP 134/81; PULSE 75; RESP 16; TEMP 36.3; BMI 24.3
--- NOTE | 2019-02-05 12:56 | HP.PCM_ITS ---
(1) Stage III pressure ulcer of right buttock Status: Chronic Current Visit: Yes Code(s): L89.313 - Pressure ulcer of right buttock, stage 3 (2) Epilepsy Status: Chronic Current Visit: Yes Qualifiers: Epilepsy type: unspecified Code(s): G40.909 - Epilepsy, unspecified, not intractable, without status epilepticus (3) Neuropathic pain Status: Chronic Current Visit: Yes Code(s): M79.2 - Neuralgia and neuritis, unspecified (4) Spastic paraparesis Status: Chronic Current Visit: Yes Code(s): G83.89 - Other specified paralytic syndromes Comment: Patient has been non-ambulatory for 5 years History of Present Illness Date of Service: 02/05/19 Chief Complaint: Nonhealing right low back/upper buttock ulcer. History of Wound: Ms. Mendoza is being seen as a courtesy visit for Dr. Leary. Kinsey is a 59-year-old who was in her stable state of health until about 4 weeks ago when she noted blood while taking a shower and at that point realized she had an ulcer at her back. Denies any known precipitating factors. Subsequently seen by her primary care physician who referred her here due to nonresolution. She had been applying Neosporin ointment. Feels well otherwise and denies chills, fever, nausea, vomiting or change in bowel habit. Denies any weight changes as well. 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 Allergies/Adverse Reactions: Allergies shellfish derived Allergy (Severe, Verified 01/28/19 08:57) Anaphylaxis amoxicillin Allergy (Verified 01/28/19 08:57) Rash iodine Allergy (Verified 01/28/19 08:57) Rash peanut Allergy (Verified 01/28/19 08:57) Anaphylaxis it gets stuck in my throat Penicillins [PCN] Allergy (Verified 01/28/19 08:57) Rash povidone-iodine [From Betadine] Allergy (Verified 01/28/19 08:57) Rash soap [From Betadine] Allergy (Verified 01/28/19 08:57) Rash alendronate sodium [From Fosamax] Adverse Reaction (Verified 01/28/19 08:57) unable to swallow pill/choking UNABLE TO SWALLOW PILL/CHOKING risedronate sodium [From Actonel] Adverse Reaction (Verified 01/28/19 08:57) CHOKING Home Medications: Ambulatory Orders Medication Instructions Recorded Lacosamide [Vimpat] 50 mg PO BID 07/02/13 Melatonin 3 mg Tablet 3 mg PO QHS 04/19/16 levETIRAcetam tablet [Keppra 1,750 mg PO BID 04/05/17 tablet] Escitalopram Oxalate [Lexapro] 10 mg PO QHS 08/23/17 Famotidine [Pepcid AC] 20 mg PO BID 08/23/17 Levothyroxine [Synthroid] 75 mcg PO DAILY 08/23/17 Metoclopramide [Reglan] 10 mg PO BIDAC 08/23/17 Aspirin E.C. [Ecotrin] 81 mg PO DAILY@0800 08/29/17 Ondansetron [Zofran] 4 mg PO Q6H PRN PRN 08/29/17 Denosumab [Prolia] 60 mg SQ UD 09/11/17 Acetaminophen [Tylenol Tablet] 650 mg PO Q6H PRN PRN tablet 09/13/17 Albuterol Inhaler [Ventolin Hfa] 2 puff INHALATION Q4H PRN PRN 03/02/18 DiphenhydrAMINE [Benadryl] 25 mg PO Q6H PRN PRN 03/02/18 Oxycodone HCl [Roxicodone] 5 mg PO Q6H PRN PRN 03/02/18 Polyethylene Glycol 3350 [Miralax] 17 gm PO DAILY 03/02/18 - Family History Maternal Heart Disease - In her maternal grandmother, - - Aneurysm and her maternal grandmother and grandfather Paternal Heart Disease - In the paternal grand mother, Stroke - father alive age 84, - - Aneurysm in her paternal grandmother and in a paternal aunt. Sibling - - She has a brother who suddenly at the age of 46 and he had been diagnosed with Prader-Willi syndrome. She has a sister who at 4 years of age due to a hole in her heart. Another sister suffers from a cardiac dysrhythmia. Lives: With Family Smoking Status: Former smoker Tobacco Use: Non-smoker Alcohol: None Drugs: None Review of Systems Constitutional: Denies: Chills, Fever, Weight Change Eyes: Denies: Pain, Vision Change HEENT: Denies: Difficulty Hearing, Difficulty Swallowing, Sinus Congestion Cardiovascular: Denies: Chest Pain, Palpitations Respiratory: Denies: Cough, Shortness of Breath Gastrointestinal: Denies: Diarrhea, Nausea, Vomiting Genitourinary: Denies: Dysuria, Hematuria Musculoskeletal: Reports: Joint stiffness Skin: Reports: Wounds Neurological: Reports: Incoordination, Numbness, Seizures Psychiatric: Reports: Anxiety Endocrine: Denies: Heat/ Cold Intolerance, Polydipsia, Polyuria Hematologic/ Lymphatic: Denies: Easy Bruising, Easy Bleeding - Physical Exam Vital Signs Temp Pulse Resp BP 97.3 F L 75 16 134/81 H 02/05/19 08:34 02/05/19 08:34 02/05/19 08:34 02/05/19 08:34 General: Alert, Oriented x3, Cooperative, No apparent distress HEENT: Atraumatic, Normocephalic Oral: Moist Mucosa Neck: Supple Lungs: Clear to auscultation Cardiovascular: Regular rate, Regular Rhythm Abdomen: Soft, Non Tender Extremities: No edema Skin: Ulcer/ Wound Wound Measurements and Assessment WC - Nurse 1 - General Ulcer Measurement Start: 01/28/19 08:33 Freq: Status: Active Protocol: Activity Type Activity Date Activity User E-Sign Co-Sign Detail Recorded Client Recorded Date Recorded By Document 02/05/19 08:34 [facility] [id number] 02/05/19 08:40 [facility] 02/05/19 08:34 Wound Center Nurse 1 [Ulcer Assessment] #1 R Upper Hip -Combined with other wound No -Current Size (cm) - Length 0.6 -Current Size (cm) - Width 0.4 -Current Size (cm) - Depth 0.1 -Total Square Cm 0.24 -Photo Taken No -Epithelialization None Present -Tunneling No -Undermining/Tunneling No -Circular Undermining No -Exudate Amt None Present -Wound Margin Distinct, Outline Attached -Granulation Amt None Present (0 %) -Slough/Fibrin Yes -Necrosis Amt Large (67-100%) -Necrotic Tissue Type Eschar -Texture (Sparkle-wound Skin Appearance) Assessed Scarring -Moisture (Sparkle-wound Skin Appearance No Abnormality ) Assessed -Color (Sparkle-wound Skin Appearance) No Abnormality Assessed -Temperature (Sparkle-wound Skin No Abnormality Appearance) (Pt Warm) -Tenderness on Palpation (Sparkle-wound No Skin Appearance) -Ulcer Cleansing Rinsed/ Irrigated with Saline -Foul Odor after Cleansing No -Anesthetic Used 5% Lidocaine Gel WC - Nurse 2 - General Ulcer CM Notes Start: 01/28/19 08:33 Freq: Status: Active Protocol: Activity Type Activity Date Activity User E-Sign Co-Sign Detail Recorded Client Recorded Date Recorded By Document 02/05/19 09:17 DV [id number] 02/05/19 09:32 DV 02/05/19 09:17 Wound Center Nurse 2 [Procedure/Treatment] -Time 09:19 -Correct Patient Yes -Correct Side, Site, Position Yes -Correct Procedure Yes -Procedure Performed Yes -Type of Procedure Debridement -Clinical Debridement Subcutaneous -Post Debridement Size (cm) - Length 0.7 -Post Debridement Size (cm) - Width 0.9 -Post Debridement Size (cm) - Depth 0.9 -Total Square Cm 0.63 -Wound/Ulcer Outcome Not Healed -Ulcer Cleansing Rinsed/ Irrigated with Saline -Foul Odor after Cleansing No -Bioengineered Tissue No -Injectable Lidocaine (%) 1 -Lidocaine (ml) 3 -Bleeding Controlled with Pressure -Offloading No -Treatment Response Procedure Tolerated Well [See Physician Procedure note for Specifics] Pain Scale: 0-10 Numeric [Pain] -Is Patient Pain Free? Yes Musculoskeletal: Muscle Wasting Psych/Mental Status: Normal Affect, Appropriate Debridement Note Post-Debridement Measurements/Treatment WC - Nurse 2 - General Ulcer CM Notes Start: 01/28/19 08:33 Freq: Status: Active Protocol: Activity Type Activity Date Activity User E-Sign Co-Sign Detail Recorded Client Recorded Date Recorded By Document 01/28/19 09:14 DL [id number] 01/28/19 09:22 DL Document 02/05/19 09:17 DV [id number] 02/05/19 09:32 DV 01/28/19 02/05/19 09:14 09:17 Wound Center Nurse 2 #1 R Upper Hip -Time 09:14 09:19 -Correct Patient Yes Yes -Correct Side, Site, Position Yes Yes -Correct Procedure Yes Yes -Procedure Performed Yes Yes -Type of Procedure Debridement Debridement -Clinical Debridement Subcutaneous Subcutaneous -Post Debridement Size (cm) - Length 0.9 0.7 -Post Debridement Size (cm) - Width 0.6 0.9 -Post Debridement Size (cm) - Depth 0.2 0.9 -Total Square Cm 0.54 0.63 -Wound/Ulcer Outcome Not Healed Not Healed -Ulcer Cleansing Rinsed/ Rinsed/ Irrigated with Irrigated with Saline Saline -Foul Odor after Cleansing No No -Bioengineered Tissue No No -Injectable Lidocaine (%) 1 -Lidocaine (ml) 3 -Bleeding Controlled with Pressure Pressure -Offloading No No -Treatment Response Procedure Procedure Tolerated Well Tolerated Well Pain Scale: 0-10 Numeric Is Patient Pain Free? Yes Yes Wound debrided: right upper hip Laterality: Right Wound Grade/Stage: Stage III Type of Debridement: Excisional debridement Anesthesia Used: 4% Lidocaine Solution, 5% Lidocaine Gel, Cetacaine - 1% lidocaine Depth: Down to and including healthy tissue, in the subcutaneous layer Percentage of wound debrided: 100 Instrument Used: #15 blade, Forceps Tissue Removed: yellow slough, devitalized tissue Severity: Fat Layer Exposed Amount of bleeding with debridement: Mild Bleeding Controlled with: Compression and gauze Patient tolerated procedure well Assessment/Plan Active Problems Ulcer of back (Acute) Acute right-sided lower back with fat layer exposed. Stage III pressure ulcer of right buttock (Chronic) Epilepsy (Chronic) Neuropathic pain (Chronic) Spastic paraparesis (Chronic) Patient has been non-ambulatory for 5 years Assessment: Nonhealing right-sided lower back ulcer with fat layer exposed. Plan: Debridement done as documented above, procedure was well-tolerated. Questionable etiology but given her disability and sedentary lifestyle it is likely pressure related. Will continue Santyl. Apply daily with moistened gauze. Offloading recommended. Increased protein intake also recommended. Her questions were answered and she was advised to call with any further questions or concerns. Follow-up in 1 week and [address] Leary. This note was generated with [employer] dictation software. It may contain incorrect words, spelling, and punctuation that were not noted in checking the note before signing.
[2019-02-19 10:55] VITALS: BP 126/83; PULSE 82; RESP 18; TEMP 35.8; BMI 24.3
--- NOTE | 2019-02-19 12:18 | PN.PCM_ITS ---
(1) Nonhealing nonsurgical wound with fat layer exposed Status: Acute Current Visit: Yes Code(s): T14.8XXA - Other injury of unspecified body region, initial encounter (2) Mitochondrial myopathies Status: Chronic Current Visit: No Code(s): G71.3 - Mitochondrial myopathy, not elsewhere classified (3) Pituitary tumor Status: Chronic Current Visit: No Code(s): D49.7 - Neoplasm of unspecified behavior of endocrine glands and other parts of nervous system (4) Seizure Status: Chronic Current Visit: No Code(s): R56.9 - Unspecified convulsions (5) Open wound of right hip and thigh without complication Status: Chronic Current Visit: Yes Qualifiers: Encounter type: initial encounter Qualified Code(s): S71.001A - Unspecified open wound, right hip, initial encounter; S71.101A - Unspecified open wound, right thigh, initial encounter Code(s): S71.001A - Unspecified open wound, right hip, initial encounter; S71.101A - Unspecified open wound, right thigh, initial encounter Type of Wound Date of Service: 02/19/19 Chief Complaint: Nonhealing right low back/upper buttock ulcer. History of Wound: Ms. Mendoza is being seen as a courtesy visit for Dr. Leary. Kinsey is a 59-year-old who was in her stable state of health until about 4 weeks ago when she noted blood while taking a shower and at that point realized she had an ulcer at her back. Denies any known precipitating factors. Subsequently seen by her primary care physician who referred her here due to nonresolution. She had been applying Neosporin ointment. Feels well otherwise and denies chills, fever, nausea, vomiting or change in bowel habit. Denies any weight changes as well. Progress of Wound: The area on her posterior right hip and a nonpressure area is either from a cyst that burst where she got bit by a bug or stung. The area is perfectly round deep has undermining no redness no pain no pus drainage no smell. We will try using Promogran packing into the wound to see if we can close. - Physical Exam Vital Signs Temp Pulse Resp BP 96.4 F L 82 18 126/83 H 02/19/19 10:55 02/19/19 10:55 02/19/19 10:55 02/19/19 10:55 General: Oriented x3, Cooperative, Well developed HEENT: Atraumatic, PERRLA Oral: Moist Mucosa Neck: Supple, No JVD Lungs: Clear to auscultation, Normal air movement Cardiovascular: Regular rate, Regular Rhythm Abdomen: Bowel Sounds Present, Soft, Non Tender, No Hepato-splenomegaly Extremities: No clubbing, No edema Skin: Ulcer/ Wound - Wound on right posterior hip nonpressure Wound Measurements and Assessment WC - Nurse 1 - General Ulcer Measurement Start: 01/28/19 08:33 Freq: Status: Active Protocol: Activity Type Activity Date Activity User E-Sign Co-Sign Detail Recorded Client Recorded Date Recorded By Document 02/19/19 10:55 RB [id number] 02/19/19 10:57 RB 02/19/19 10:55 Wound Center Nurse 1 [Ulcer Assessment] #1 R Upper Hip -Combined with other wound No -Current Size (cm) - Length 0.4 -Current Size (cm) - Width 0.2 -Current Size (cm) - Depth 0.2 -Total Square Cm 0.08 -Tunneling No -Undermining/Tunneling No -Circular Undermining No -Exudate Amt Small -Exudate Type Serosanguineous -Wound Margin Distinct, Outline Attached -Granulation Amt Small (1-33%) -Granulation Quality [place] -Slough/Fibrin Yes -Necrosis Amt Large (67-100%) -Necrotic Tissue Type Adherent Slough -Structure Exposed N/A -Texture (Sparkle-wound Skin Appearance) Assessed -Moisture (Sparkle-wound Skin Appearance Assessed ) -Color (Sparkle-wound Skin Appearance) Assessed -Temperature (Sparkle-wound Skin No Abnormality Appearance) (Pt Warm) -Tenderness on Palpation (Sparkle-wound No Skin Appearance) -Ulcer Cleansing Wound Cleanser -Foul Odor after Cleansing No -Anesthetic Used 5% Lidocaine Gel WC - Nurse 2 - General Ulcer CM Notes Start: 01/28/19 08:33 Freq: Status: Active Protocol: Activity Type Activity Date Activity User E-Sign Co-Sign Detail Recorded Client Recorded Date Recorded By Document 02/19/19 11:23 MW [id number] 02/19/19 11:29 MW 02/19/19 11:23 Wound Center Nurse 2 [Procedure/Treatment] -Time 11:23 -Correct Patient Yes -Correct Side, Site, Position Yes -Correct Procedure Yes -Procedure Performed Yes -Type of Procedure Debridement -Clinical Debridement Subcutaneous -Post Debridement Size (cm) - Length 0.5 -Post Debridement Size (cm) - Width 0.5 -Post Debridement Size (cm) - Depth 0.7 -Total Square Cm 0.25 -Wound/Ulcer Outcome Not Healed -Ulcer Cleansing Rinsed/ Irrigated with Saline -Foul Odor after Cleansing No -Bioengineered Tissue No -Bleeding Controlled with Pressure -Offloading No -Treatment Response Procedure Tolerated Well [See Physician Procedure note for Specifics] Pain Scale: 0-10 Numeric [Pain] -Is Patient Pain Free? Yes Musculoskeletal: No Tenderness to Palpation of Joints or Extremities Lymphatic: No Cervical, Supraclavicular, or Inguinal Adenopathy Neurological: Cranial nerves II-XII grossly intact, Neuro grossly intact Psych/Mental Status: Normal Affect, Appropriate Debridement Note Post-Debridement Measurements/Treatment WC - Nurse 2 - General Ulcer CM Notes Start: 01/28/19 08:33 Freq: Status: Active Protocol: Activity Type Activity Date Activity User E-Sign Co-Sign Detail Recorded Client Recorded Date Recorded By Document 01/28/19 09:14 DL [id number] 01/28/19 09:22 DL Document 02/05/19 09:17 DV [id number] 02/05/19 09:32 DV Document 02/19/19 11:23 MW [id number] 02/19/19 11:29 MW 01/28/19 02/05/19 02/19/19 09:14 09:17 11:23 Wound Center Nurse 2 #1 R Upper Hip -Time 09:14 09:19 11:23 -Correct Patient Yes Yes Yes -Correct Side, Site, Position Yes Yes Yes -Correct Procedure Yes Yes Yes -Procedure Performed Yes Yes Yes -Type of Procedure Debridement Debridement Debridement -Clinical Debridement Subcutaneous Subcutaneous Subcutaneous -Post Debridement Size (cm) - Length 0.9 0.7 0.5 -Post Debridement Size (cm) - Width 0.6 0.9 0.5 -Post Debridement Size (cm) - Depth 0.2 0.9 0.7 -Total Square Cm 0.54 0.63 0.25 -Wound/Ulcer Outcome Not Healed Not Healed Not Healed -Ulcer Cleansing Rinsed/ Rinsed/ Rinsed/ Irrigated with Irrigated with Irrigated with Saline Saline Saline -Foul Odor after Cleansing No No No -Bioengineered Tissue No No No -Injectable Lidocaine (%) 1 -Lidocaine (ml) 3 -Bleeding Controlled with Pressure Pressure Pressure -Offloading No No No -Treatment Response Procedure Procedure Procedure Tolerated Well Tolerated Well Tolerated Well Pain Scale: 0-10 Numeric Is Patient Pain Free? Yes Yes Yes Wound debrided: Right posterior hip Type of Debridement: Excisional debridement Anesthesia Used: 5% Lidocaine Gel Depth: Down to and including healthy tissue, in the subcutaneous layer Percentage of wound debrided: 100 Instrument Used: 3mm curette Tissue Removed: Fibrin and some slough Severity: Fat Layer Exposed Amount of bleeding with debridement: Mild Bleeding Controlled with: Compression and gauze Patient tolerated procedure well Assessment/Plan Active Problems Ulcer of back (Acute) Acute right-sided lower back with fat layer exposed. Stage III pressure ulcer of right buttock (Chronic) Nonhealing nonsurgical wound with fat layer exposed (Acute) Open wound of right hip and thigh without complication (Chronic) Epilepsy (Chronic) Neuropathic pain (Chronic) Spastic paraparesis (Chronic) Patient has been non-ambulatory for 5 years Assessment: Nonhealing right-sided lower back ulcer with fat layer exposed. Plan: Debridement done as documented above, procedure was well-tolerated. Discontinue the Santyl and start packing with Promogran cover with gauze dressing every day. We will obtain a pre-albumin to make sure that she is not malnourished due to her diseases. Follow up in 1 week. Her questions were answered and she was advised to call with any further questions or concerns. Follow-up in 1 week and [address] Leary. This note was generated with [employer] dictation software. It may contain incorrect words, spelling, and punctuation that were not noted in checking the note before signing.
[2019-02-19 15:00] LABS: Prealbumin 24.7 mg/dL (20.0-40.0)
== END 2019-02-21 23:59 ==
LOC: WC 10:00
PROVIDERS: Family Provider Family Medicine; PCP Family Medicine; Referring Provider Internal Medicine; Visit Provider Internal Medicine
DX: L98.422 Non-pressure chronic ulcer of back with fat layer exposed (principal); G40.909 Epilepsy, unspecified, not intractable, without status epilepticus; E03.9 Hypothyroidism, unspecified; K21.9 Gastro-esophageal reflux disease without esophagitis; G43.909 Migraine, unspecified, not intractable, without status migrainosus; E04.9 Nontoxic goiter, unspecified; H35.52 Pigmentary retinal dystrophy; Z79.899 Other long term (current) drug therapy; Z79.82 Long term (current) use of aspirin; Z87.891 Personal history of nicotine dependence
CPT/HCPCS: 11042; 84134; 99213; G0463

== ENCOUNTER 2019-03-19 10:30 | Outpatient (RCR) | payer MEDICARE, SELFPAY ==
[2019-02-22 01:02] VITALS: BP 126/83; PULSE 82; RESP 18; TEMP 35.8
[2019-02-26 10:31] VITALS: BP 125/90; PULSE 69; RESP 18; TEMP 36.8; BMI 24.3
--- NOTE | 2019-02-26 11:22 | PCM.WC.PN ---
(1) Nonhealing nonsurgical wound with fat layer exposed Status: Acute Current Visit: Yes Code(s): T14.8XXA - Other injury of unspecified body region, initial encounter (2) Blindness Status: Chronic Current Visit: Yes Code(s): H54.7 - Unspecified visual loss (3) Epilepsy Status: Chronic Current Visit: Yes Code(s): G40.909 - Epilepsy, unspecified, not intractable, without status epilepticus (4) Mitochondrial myopathies Status: Chronic Current Visit: Yes Code(s): G71.3 - Mitochondrial myopathy, not elsewhere classified (5) Pituitary tumor Status: Chronic Current Visit: No Code(s): D49.7 - Neoplasm of unspecified behavior of endocrine glands and other parts of nervous system (6) Cellulitis of right hip Status: Acute Current Visit: Yes Code(s): L03.115 - Cellulitis of right lower limb Type of Wound Date of Service: 02/26/19 Chief Complaint: Nonhealing right low back/upper buttock ulcer. History of Wound: Ms. Mendoza is being seen as a courtesy visit for Dr. Leary. Kinsey is a 59-year-old who was in her stable state of health until about 4 weeks ago when she noted blood while taking a shower and at that point realized she had an ulcer at her back. Denies any known precipitating factors. Subsequently seen by her primary care physician who referred her here due to nonresolution. She had been applying Neosporin ointment. Feels well otherwise and denies chills, fever, nausea, vomiting or change in bowel habit. Denies any weight changes as well. Progress of Wound: The area on her posterior right hip and a nonpressure area is either from a cyst that burst where she got bit by a bug or stung. The area is perfectly round deep has undermining no redness no pain no pus drainage no smell. We will try using Promogran packing into the wound to see if we can close. The area is smaller and less undermining noted. He will no redness or swelling at the site. This week we find out patient has been receiving injections for pain every 2 weeks and her hips. And unsure what she is receiving though this week she has cellulitis to the right hip area not near the open wound. Tender and hardened we will start her on antibiotics needs to follow-up with her family doctor. Subjective: Aerobic and anaerobic cultures obtained - Physical Exam Vital Signs Temp Pulse Resp BP 98.2 F 69 18 125/90 H 02/26/19 10:31 02/26/19 10:31 02/26/19 10:31 02/26/19 10:31 General: Oriented x3, Cooperative, Well developed HEENT: Atraumatic, PERRLA Oral: Moist Mucosa Neck: Supple, No JVD Lungs: Clear to auscultation, Normal air movement Cardiovascular: Regular rate, Regular Rhythm Abdomen: Bowel Sounds Present, Soft, Non Tender, No Hepato-splenomegaly Extremities: No clubbing, No edema Skin: Ulcer/ Wound - Open wound right upper buttocks area Wound Measurements and Assessment WC - Nurse 1 - General Ulcer Measurement Start: 02/26/19 10:31 Freq: Status: Active Protocol: Activity Type Activity Date Activity User E-Sign Co-Sign Detail Recorded Client Recorded Date Recorded By Document 02/26/19 10:31 RB [id number] 02/26/19 10:39 RB 02/26/19 10:31 Wound Center Nurse 1 [Ulcer Assessment] #1 R Upper Hip -Combined with other wound No -Current Size (cm) - Length 0.3 -Current Size (cm) - Width 0.3 -Current Size (cm) - Depth 0.5 -Total Square Cm 0.09 -Tunneling No -Undermining/Tunneling No -Circular Undermining No -Exudate Amt Small -Exudate Type Serosanguineous -Wound Margin Flat & Intact -Granulation Amt Medium (34-66%) -Granulation Quality [place] -Slough/Fibrin Yes -Necrosis Amt Medium (34-66%) -Necrotic Tissue Type Adherent Slough -Structure Exposed N/A -Texture (Sparkle-wound Skin Appearance) Assessed -Moisture (Sparkle-wound Skin Appearance Assessed ) -Color (Sparkle-wound Skin Appearance) Assessed, Erythema -Temperature (Sparkle-wound Skin No Abnormality Appearance) (Pt Warm) -Tenderness on Palpation (Sparkle-wound No Skin Appearance) -Ulcer Cleansing Wound Cleanser -Foul Odor after Cleansing No -Anesthetic Used 5% Lidocaine Gel WC - Nurse 2 - General Ulcer CM Notes Start: 02/26/19 10:31 Freq: Status: Active Protocol: Activity Type Activity Date Activity User E-Sign Co-Sign Detail Recorded Client Recorded Date Recorded By Document 02/26/19 10:53 MW [id number] 02/26/19 10:55 MW 02/26/19 10:53 Wound Center Nurse 2 [Procedure/Treatment] -Time 10:54 -Correct Patient Yes -Correct Side, Site, Position Yes -Correct Procedure Yes -Procedure Performed Yes -Type of Procedure Debridement -Clinical Debridement Subcutaneous -Post Debridement Size (cm) - Length 0.3 -Post Debridement Size (cm) - Width 0.3 -Post Debridement Size (cm) - Depth 0.5 -Total Square Cm 0.09 -Wound/Ulcer Outcome Not Healed -Ulcer Cleansing Rinsed/ Irrigated with Saline -Foul Odor after Cleansing No -Bioengineered Tissue No -Bleeding Controlled with Pressure -Offloading No -Treatment Response Procedure Tolerated Well [See Physician Procedure note for Specifics] Pain Scale: 0-10 Numeric [Pain] -Is Patient Pain Free? Yes Musculoskeletal: No Tenderness to Palpation of Joints or Extremities Lymphatic: No Cervical, Supraclavicular, or Inguinal Adenopathy Neurological: Cranial nerves II-XII grossly intact, Neuro grossly intact Psych/Mental Status: Normal Affect, Appropriate Debridement Note Post-Debridement Measurements/Treatment WC - Nurse 2 - General Ulcer CM Notes Start: 02/26/19 10:31 Freq: Status: Active Protocol: Activity Type Activity Date Activity User E-Sign Co-Sign Detail Recorded Client Recorded Date Recorded By Document 02/26/19 10:53 MW [id number] 02/26/19 10:55 MW 02/26/19 10:53 Wound Center Nurse 2 #1 R Upper Hip -Time 10:54 -Correct Patient Yes -Correct Side, Site, Position Yes -Correct Procedure Yes -Procedure Performed Yes -Type of Procedure Debridement -Clinical Debridement Subcutaneous -Post Debridement Size (cm) - Length 0.3 -Post Debridement Size (cm) - Width 0.3 -Post Debridement Size (cm) - Depth 0.5 -Total Square Cm 0.09 -Wound/Ulcer Outcome Not Healed -Ulcer Cleansing Rinsed/ Irrigated with Saline -Foul Odor after Cleansing No -Bioengineered Tissue No -Bleeding Controlled with Pressure -Offloading No -Treatment Response Procedure Tolerated Well Pain Scale: 0-10 Numeric Is Patient Pain Free? Yes Type of Debridement: Excisional debridement Anesthesia Used: 5% Lidocaine Gel Depth: Down to and including healthy tissue, in the subcutaneous layer, to muscle Percentage of wound debrided: 100 Instrument Used: 3mm curette Tissue Removed: Grayish discharge and fibrin Severity: Fat Layer Exposed Amount of bleeding with debridement: None Bleeding Controlled with: Compression and gauze Patient tolerated procedure well Assessment/Plan Active Problems Nonhealing nonsurgical wound with fat layer exposed (Acute) Cellulitis of right hip (Acute) Blindness (Chronic) Epilepsy (Chronic) Mitochondrial myopathies (Chronic) Assessment: Nonhealing right-sided lower back ulcer with fat layer exposed. Plan: Debridement done as documented above, procedure was well-tolerated. Discontinue the Santyl and start packing with Promogran cover with gauze dressing every day. We will obtain a pre-albumin to make sure that she is not malnourished due to her diseases. Follow up in 1 week. Her questions were answered and she was advised to call with any further questions or concerns. Start Bactrim DS 1 p.o. twice daily for 7 days for the cellulitis on the right hip from some kind of injection. Attained cultures will call with results of the wound in the right upper outer buttocks. This note was generated with [employer] software. It may contain incorrect words, spelling, and punctuation that were not noted in checking the note before signing.
[2019-03-05 10:32] VITALS: BP 113/67; PULSE 83; RESP 16; TEMP 36.2; BMI 24.3
--- NOTE | 2019-03-05 11:34 | PCM.WC.PN ---
(1) Nonhealing nonsurgical wound with fat layer exposed Status: Acute Current Visit: Yes Code(s): T14.8XXA - Other injury of unspecified body region, initial encounter (2) Blindness Status: Chronic Current Visit: Yes Code(s): H54.7 - Unspecified visual loss (3) Epilepsy Status: Chronic Current Visit: Yes Code(s): G40.909 - Epilepsy, unspecified, not intractable, without status epilepticus (4) Mitochondrial myopathies Status: Chronic Current Visit: Yes Code(s): G71.3 - Mitochondrial myopathy, not elsewhere classified (5) Pituitary tumor Status: Chronic Current Visit: No Code(s): D49.7 - Neoplasm of unspecified behavior of endocrine glands and other parts of nervous system (6) Cellulitis of right hip Status: Acute Current Visit: No Code(s): L03.115 - Cellulitis of right lower limb Type of Wound Date of Service: 03/05/19 Chief Complaint: Nonhealing right low back/upper buttock ulcer. History of Wound: Ms. Mendoza is being seen as a courtesy visit for Dr. Leary. Kinsey is a 59-year-old who was in her stable state of health until about 4 weeks ago when she noted blood while taking a shower and at that point realized she had an ulcer at her back. Denies any known precipitating factors. Subsequently seen by her primary care physician who referred her here due to nonresolution. She had been applying Neosporin ointment. Feels well otherwise and denies chills, fever, nausea, vomiting or change in bowel habit. Denies any weight changes as well. Progress of Wound: The area on her posterior right hip and a nonpressure area is either from a cyst that burst where she got bit by a bug or stung or from injections that she gets weekly for pain and nauseousness. The area is perfectly round deep has undermining no redness no pain no pus drainage no smell. We will try using Promogran packing into the wound to see if we can close. The area is smaller and less undermining noted. No redness or swelling at the site. This week where noting it is smaller and less depth. - Physical Exam Vital Signs Temp Pulse Resp BP 97.1 F L 83 16 113/67 03/05/19 10:32 03/05/19 10:32 03/05/19 10:32 03/05/19 10:32 General: Oriented x3, Cooperative, Well developed HEENT: Atraumatic, PERRLA Oral: Moist Mucosa Neck: Supple, No JVD Lungs: Clear to auscultation, Normal air movement Cardiovascular: Regular rate, Regular Rhythm Abdomen: Bowel Sounds Present, Soft, Non Tender, No Hepato-splenomegaly Extremities: No clubbing, No edema Skin: Ulcer/ Wound - Right hip probable abscess Wound Measurements and Assessment WC - Nurse 1 - General Ulcer Measurement Start: 02/26/19 10:31 Freq: Status: Active Protocol: Activity Type Activity Date Activity User E-Sign Co-Sign Detail Recorded Client Recorded Date Recorded By Document 03/05/19 10:32 [facility] [id number] 03/05/19 10:39 BMF 03/05/19 10:32 Wound Center Nurse 1 [Ulcer Assessment] #1 R Upper Hip -Combined with other wound No -Current Size (cm) - Length 0.1 -Current Size (cm) - Width 0.1 -Current Size (cm) - Depth 0.4 -Total Square Cm 0.01 -Photo Taken No -Epithelialization None Present -Tunneling No -Undermining/Tunneling No -Circular Undermining No -Exudate Amt None Present -Wound Margin Flat & Intact -Granulation Amt None Present (0 %) -Slough/Fibrin Yes -Necrosis Amt Small (1-33%) -Necrotic Tissue Type Adherent Slough -Texture (Sparkle-wound Skin Appearance) Assessed, Scarring -Moisture (Sparkle-wound Skin Appearance Assessed,Dry/ ) Scaly -Color (Sparkle-wound Skin Appearance) Assessed -Temperature (Sparkle-wound Skin No Abnormality Appearance) (Pt Warm) -Tenderness on Palpation (Sparkle-wound No Skin Appearance) -Ulcer Cleansing Rinsed/ Irrigated with Saline -Foul Odor after Cleansing No -Anesthetic Used 5% Lidocaine Gel WC - Nurse 2 - General Ulcer CM Notes Start: 02/26/19 10:31 Freq: Status: Active Protocol: Activity Type Activity Date Activity User E-Sign Co-Sign Detail Recorded Client Recorded Date Recorded By Document 03/05/19 10:57 MW [id number] 03/05/19 10:57 MW 03/05/19 10:57 Wound Center Nurse 2 [Procedure/Treatment] -Time 10:57 -Correct Patient Yes -Correct Side, Site, Position Yes -Correct Procedure Yes -Procedure Performed Yes -Type of Procedure Debridement -Clinical Debridement Subcutaneous -Post Debridement Size (cm) - Length 0.2 -Post Debridement Size (cm) - Width 0.3 -Post Debridement Size (cm) - Depth 0.4 -Total Square Cm 0.06 -Wound/Ulcer Outcome Not Healed -Ulcer Cleansing Rinsed/ Irrigated with Saline -Foul Odor after Cleansing No -Bioengineered Tissue No -Bleeding Controlled with Pressure -Offloading No -Treatment Response Procedure Tolerated Well [See Physician Procedure note for Specifics] Pain Scale: 0-10 Numeric [Pain] -Is Patient Pain Free? Yes Musculoskeletal: No Tenderness to Palpation of Joints or Extremities Lymphatic: No Cervical, Supraclavicular, or Inguinal Adenopathy Neurological: Cranial nerves II-XII grossly intact, Neuro grossly intact Psych/Mental Status: Normal Affect, Appropriate Debridement Note Post-Debridement Measurements/Treatment WC - Nurse 2 - General Ulcer CM Notes Start: 02/26/19 10:31 Freq: Status: Active Protocol: Activity Type Activity Date Activity User E-Sign Co-Sign Detail Recorded Client Recorded Date Recorded By Document 02/26/19 10:53 MW [id number] 02/26/19 10:55 MW Document 03/05/19 10:57 MW [id number] 03/05/19 10:57 MW 02/26/19 03/05/19 10:53 10:57 Wound Center Nurse 2 #1 R Upper Hip -Time 10:54 10:57 -Correct Patient Yes Yes -Correct Side, Site, Position Yes Yes -Correct Procedure Yes Yes -Procedure Performed Yes Yes -Type of Procedure Debridement Debridement -Clinical Debridement Subcutaneous Subcutaneous -Post Debridement Size (cm) - Length 0.3 0.2 -Post Debridement Size (cm) - Width 0.3 0.3 -Post Debridement Size (cm) - Depth 0.5 0.4 -Total Square Cm 0.09 0.06 -Wound/Ulcer Outcome Not Healed Not Healed -Ulcer Cleansing Rinsed/ Rinsed/ Irrigated with Irrigated with Saline Saline -Foul Odor after Cleansing No No -Bioengineered Tissue No No -Bleeding Controlled with Pressure Pressure -Offloading No No -Treatment Response Procedure Procedure Tolerated Well Tolerated Well Pain Scale: 0-10 Numeric Is Patient Pain Free? Yes Yes Wound debrided: Right hip Type of Debridement: Excisional debridement Anesthesia Used: 5% Lidocaine Gel Depth: Down to and including healthy tissue, in the subcutaneous layer Percentage of wound debrided: 100 Instrument Used: 3mm curette Tissue Removed: Fibrin Severity: Limited To Skin Breakdown Bleeding Controlled with: Compression and gauze Patient tolerated procedure well Assessment/Plan Active Problems Nonhealing nonsurgical wound with fat layer exposed (Acute) Blindness (Chronic) Epilepsy (Chronic) Mitochondrial myopathies (Chronic) Assessment: Nonhealing right-sided lower back ulcer with fat layer exposed. Plan: Debridement done as documented above, procedure was well-tolerated. Discontinue the Santyl and start packing with Promogran cover with gauze dressing every day. We will obtain a pre-albumin to make sure that she is not malnourished due to her diseases. Follow up in 2 week. Her questions were answered and she was advised to call with any further questions or concerns.
[2019-03-19 10:34] VITALS: BP 109/66; PULSE 72; RESP 16; TEMP 36.5; BMI 24.3
--- NOTE | 2019-03-19 12:05 | PCM.WC.PN ---
(1) Nonhealing nonsurgical wound with fat layer exposed Status: Acute Current Visit: Yes Code(s): T14.8XXA - Other injury of unspecified body region, initial encounter (2) Blindness Status: Chronic Current Visit: Yes Code(s): H54.7 - Unspecified visual loss (3) Epilepsy Status: Chronic Current Visit: Yes Code(s): G40.909 - Epilepsy, unspecified, not intractable, without status epilepticus (4) Mitochondrial myopathies Status: Chronic Current Visit: Yes Code(s): G71.3 - Mitochondrial myopathy, not elsewhere classified (5) Pituitary tumor Status: Chronic Current Visit: No Code(s): D49.7 - Neoplasm of unspecified behavior of endocrine glands and other parts of nervous system (6) Cellulitis of right hip Status: Acute Current Visit: No Code(s): L03.115 - Cellulitis of right lower limb Type of Wound Date of Service: 03/19/19 Chief Complaint: Nonhealing right low back/upper buttock ulcer. History of Wound: Ms. Mendoza is being seen as a courtesy visit for Dr. Leary. Kinsey is a 59-year-old who was in her stable state of health until about 4 weeks ago when she noted blood while taking a shower and at that point realized she had an ulcer at her back. Denies any known precipitating factors. Subsequently seen by her primary care physician who referred her here due to nonresolution. She had been applying Neosporin ointment. Feels well otherwise and denies chills, fever, nausea, vomiting or change in bowel habit. Denies any weight changes as well. Progress of Wound: Right hip wound is healed patient will be discharged from the wound center - Physical Exam Vital Signs Temp Pulse Resp BP 97.7 F L 72 16 109/66 03/19/19 10:34 03/19/19 10:34 03/19/19 10:34 03/19/19 10:34 General: Oriented x3, Cooperative, Well developed HEENT: Atraumatic, PERRLA Oral: Moist Mucosa Neck: Supple, No JVD Lungs: Clear to auscultation, Normal air movement Cardiovascular: Regular rate, Regular Rhythm Abdomen: Bowel Sounds Present, Soft, Non Tender, No Hepato-splenomegaly Extremities: No clubbing, No edema Skin: Ulcer/ Wound - Right hip abscess wound Wound Measurements and Assessment - Nurse 1 - General Ulcer Measurement Start: 02/26/19 10:31 Freq: Status: Active Protocol: Activity Type Activity Date Activity User E-Sign Co-Sign Detail Recorded Client Recorded Date Recorded By Document 03/19/19 10:34 [facility] [id number] 03/19/19 10:40 [facility] 03/19/19 10:34 Wound Center Nurse 1 [Ulcer Assessment] #1 R Upper Hip -Combined with other wound No -Current Size (cm) - Length 0.1 -Current Size (cm) - Width 0.1 -Current Size (cm) - Depth 0.1 -Total Square Cm 0.01 -Epithelialization Large 67-100% -Tunneling No -Undermining/Tunneling No -Circular Undermining No -Exudate Amt None Present -Granulation Amt None Present (0 %) -Slough/Fibrin Yes -Necrosis Amt Small (1-33%) -Necrotic Tissue Type Adherent Slough -Texture (Sparkle-wound Skin Appearance) Assessed, Scarring -Moisture (Sparkle-wound Skin Appearance Assessed ) -Color (Sparkle-wound Skin Appearance) Assessed -Temperature (Sparkle-wound Skin No Abnormality Appearance) (Pt Warm) -Tenderness on Palpation (Sparkle-wound No Skin Appearance) -Ulcer Cleansing Rinsed/ Irrigated with Saline -Foul Odor after Cleansing No -Anesthetic Used 5% Lidocaine Gel - Nurse 2 - General Ulcer CM Notes Start: 02/26/19 10:31 Freq: Status: Active Protocol: Activity Type Activity Date Activity User E-Sign Co-Sign Detail Recorded Client Recorded Date Recorded By Document 03/19/19 10:45 [id number] 03/19/19 11:12 MW 03/19/19 10:45 Wound Center Nurse 2 [Procedure/Treatment] -Time 10:45 -Correct Patient Yes -Correct Side, Site, Position Yes -Correct Procedure Yes -Procedure Performed No -Post Debridement Size (cm) - Length 0 -Post Debridement Size (cm) - Width 0 -Post Debridement Size (cm) - Depth 0 -Total Square Cm 0 -Wound/Ulcer Outcome Healed- Epithelialized [See Physician Procedure note for Specifics] Pain Scale: 0-10 Numeric [Pain] -Is Patient Pain Free? Yes Musculoskeletal: No Tenderness to Palpation of Joints or Extremities Lymphatic: No Cervical, Supraclavicular, or Inguinal Adenopathy Neurological: Cranial nerves II-XII grossly intact, Neuro grossly intact Psych/Mental Status: Normal Affect, Appropriate Debridement Note Post-Debridement Measurements/Treatment WC - Nurse 2 - General Ulcer CM Notes Start: 02/26/19 10:31 Freq: Status: Active Protocol: Activity Type Activity Date Activity User E-Sign Co-Sign Detail Recorded Client Recorded Date Recorded By Document 02/26/19 10:53 MW [id number] 02/26/19 10:55 MW Document 03/05/19 10:57 MW [id number] 03/05/19 10:57 MW Document 03/19/19 10:45 MW [id number] 03/19/19 11:12 MW 02/26/19 03/05/19 03/19/19 10:53 10:57 10:45 Wound Center Nurse 2 #1 R Upper Hip -Time 10:54 10:57 10:45 -Correct Patient Yes Yes Yes -Correct Side, Site, Position Yes Yes Yes -Correct Procedure Yes Yes Yes -Procedure Performed Yes Yes No -Type of Procedure Debridement Debridement -Clinical Debridement Subcutaneous Subcutaneous -Post Debridement Size (cm) - Length 0.3 0.2 0 -Post Debridement Size (cm) - Width 0.3 0.3 0 -Post Debridement Size (cm) - Depth 0.5 0.4 0 -Total Square Cm 0.09 0.06 0 -Wound/Ulcer Outcome Not Healed Not Healed Healed- Epithelialized -Ulcer Cleansing Rinsed/ Rinsed/ Irrigated with Irrigated with Saline Saline -Foul Odor after Cleansing No No -Bioengineered Tissue No No -Bleeding Controlled with Pressure Pressure -Offloading No No -Treatment Response Procedure Procedure Tolerated Well Tolerated Well Pain Scale: 0-10 Numeric Is Patient Pain Free? Yes Yes Yes No debridement was completed today Assessment/Plan Active Problems Nonhealing nonsurgical wound with fat layer exposed (Acute) Blindness (Chronic) Epilepsy (Chronic) Mitochondrial myopathies (Chronic) Assessment: Nonhealing right-sided lower back ulcer with fat layer exposed. Plan: Discharge from the wound center and follow-up as needed
== END 2019-03-24 23:59 ==
LOC: WC 10:30
PROVIDERS: Family Provider Family Medicine; PCP Family Medicine; Referring Provider Internal Medicine; Visit Provider Internal Medicine
DX: L98.422 Non-pressure chronic ulcer of back with fat layer exposed (principal); G40.909 Epilepsy, unspecified, not intractable, without status epilepticus; L03.115 Cellulitis of right lower limb; H54.7 Unspecified visual loss
CPT/HCPCS: 11042; 87070; 87075; 87077; 87186; 87205; 99212; G0463

== ENCOUNTER → 2019-08-02 10:57 | Outpatient (CLI) | payer MEDICARE, SELFPAY ==
[2019-08-02 12:18] LABS: Absolute Lymphocyte Count 2.28 X10^3/uL (0.83-4.51); Absolute Neutrophil Count 3.7 X10^3/uL (2.0-7.7); Basophil# 0.02 X10^3/uL; Basophil% 0.3 % (0-1); Eosinophil# 0.08 X10^3/uL; Eosinophils% 1.2 % (0-5); Hematocrit 43.3 % (37-47); Lymphocyte # 2.28 X10^3/ul (4.0); Lymphocyte % 35.3 % (19-41); Mean Corp Hgb Conc 32.3 g/dL (32-36); Mean Corpuscular Hgb 28.9 pg (27.0-32.0); Mean Corpuscular Volume 89.5 fL (81-99); Mean Platelet Vol. 11.2 fl (6.2-12.0); Monocyte# 0.37 X10^3/uL; Monocyte% 5.7 % (0-10); NRBC Flagged by Analyzer 0 % (0-5); Neutrophil % 57.3 % (47-70); Platelet Count 232 K/mm3 (150-450); RBC Distribution Width CV 13.6 % (11.6-14.6); RBC Distribution Width SD 44.4 fl (35.1-43.9); Red Blood Count 4.84 M/mm3 (4.2-5.4); White Blood Count 6.5 K/mm3 (4.4-11.0)
[2019-08-02 13:00] LABS: AST(SGOT) 26 U/L (15-37); Alanine Aminotransfer ALT/SGPT 61 U/L (13-56); Albumin, Serum 3.9 g/dL (3.2-5.0); Alkaline Phosphatase 87 U/L (45-117); Anion Gap 8 (5-15); BUN 14 mg/dL (7-18); BUN/Creat Ratio 14.1 RATIO (10-20); Calcium,Total 9.7 mg/dL (8.5-10.1); Chloride 106 mmol/L (98-107); Cholesterol 288 mg/dL (200); EST Glomerular Filtration Rate 60 mL/min (>60); Est Glom Filt Rate - Afr Amer 73 mL/min (>60); Globulin 3.9 g/dL (2.2-4.2); Glucose 104 mg/dL (74-106); High Density Lipoprotein 62 mg/dL; Potassium 3.8 mmol/L (3.5-5.1); Protein, Total 7.8 g/dL (6.4-8.2); Sodium Level 139 mmol/L (136-145); T4 Total, Thyroxin 11.1 ug/dL (4.8-13.9); Thyroid Stim Hormone (TSH) 3.97 uIU/mL (0.358-3.74); Triglycerides 231 mg/dL; Very Low Density Lipoprotein 46 mg/dL (5-40)
== END ==
PROVIDERS: Family Provider Family Medicine; PCP Family Medicine; Visit Provider Family Medicine
DX: E03.9 Hypothyroidism, unspecified (principal); E78.00 Pure hypercholesterolemia, unspecified; R53.1 Weakness
CPT/HCPCS: 36415; 80053; 80061; 84436; 84443; 85025

== ENCOUNTER 2019-08-09 14:00 | Outpatient (RCR) | payer MEDICARE, SELFPAY ==
--- NOTE | 2019-07-29 14:02 | HP.PTEVAL ---
Patient's Visit Information RODRIGO JI is a 59 year old F referred to Physical Therapy by NIRAJ Hines with a diagnosis of Weakness, debility. Date of Evaluation: 07/29/19 Physical Therapist: Bao Montenegro DPT - Visit Plan Frequency: 2x /Week Duration: 4 Weeks - Subjective Findings: Pt. is here today for her initial evaluation with diagnosis of weakness and dability. Pt. has been non ambulatory for 5+ years, but has been able to stand at counter and or walker up to 3 minutes. Pt. recently has declined to only standing for brief moments upto ~10sec. Pt. reports having increased R hip and abdominal pain as well starting ~1 week ago without mech of injury. Pt. has also noticed increased difficulty with her breathing during excersion. Pt. denies N/T in iether LE, slight peripheral neuropathy. Med Hx: mitochondrial myopathy, blindness, osteoporosis, epilepsy. Pt. has a cholostomy as well. Pt. lives alone with assistances from aides and family. She reports beign independent with transfers, slides from wc to furniture. She is able to get in and out of bed independently with use of railings. Pt. is concerned about her recent decline. She also has changed her epilepsy medication recently, but thinks this has improved some her symptoms. Pt. is hopeful to increase her strength in BLEs in order to get back to more independence and increase her standing tolerance to closer to 3 minutes allowing for increased independence with home ADLs and activities. - Pain abdomen Pain Intensity (Out of 10): 2 Pain Intensity Range: 0, 6 R hip Pain Intensity (Out of 10): 0 Pain Intensity Range: 0, 4 - Objective POSTURE: Pt. requires back support to sit up right and UE support to maintain stability. Pt. frequently flexes forward especially if attempting to move either LE. Pt. requires WC seat belt for safety. Pt. requires min/mod A for stability in sitting. PALPATION: patient has pain with palpation of R greater trochanter. Mild pain with palpation of abdomen, I did not palpate around cholostemy. NEURO: slight reduction in sensation to light touch of distal BLEs. Hyper reflexia noted throughout bilateral LEls. ROM: Pt. has good ROM of BLE and UEs. Pt. has mild R anterior hip pain with increased flexion. MMT: Pt. has 3/5 strength throughout BLes, except hip extension 3+/5 bilaterally. FUNCTIONAL MOBILITY: transfers CGA for safety, does slide transfers from WC to bed. Sit to supine mod A for safety tends to have difficulty controlling movements. Supine to sitting, rolling needs CGA to not roll off the bed. STANDING: pt. is able to stand with mod/maxA to maintain stability. pt. was able to stand upto 5 sec this date with BUE assistance on parallel bars. Pt's legs did suddenly give out on her resulting in lowering back to WC. - Goals Goal 1:: Pt. to be I with HEP. Goal Time Frame: 4-6 Weeks Goal 2:: Pt. to complete all slide transfers independently without LOB and increased safety. Goal Time Frame: 4-6 Weeks Goal 3:: Pt. to have increased BLE strength - Rehabilitation Potential Physical Therapy Diagnosis: Pt. has signs and symptoms consistent with general weakness and debility stemming from her mitochondrial myopathy disorder. Pt. has marked BLE and BUE weakness and difficulty with safety during transfer and difficulty standing. Rehabilitation Potential: Fair - Anticipated Interventions Patient/Client Instruction: Educate patient on: Condition, Plan of Care, Risk Factors, Benefits of Fitness Program For the Purpose of:: To improve decision making, To facilitate caregiver knowledge, To improve self management, To prevent re-injury, To improve ability to perform tasks related to life management, To improve tolerance to ADL's Therapeutic Exercise to Include: Strength training, Power training, Endurance training, Balance training, Body mechanics, Passive ROM, Active ROM, Dynamic Lumbar Stabilization For the Purpose of:: To decrease pain, To decrease swelling/inflammation, To increase ROM, To improve nutrient delivery to tissue, To increase oxygenation perfusion, To improve muscle performance and motor function, To improve ability to perform ADL's, To improve performance and independence with ADL's, To decrease level of supervision to perform tasks, To improve balance Thank you for the opportunity to evaluate your patient. For Medicare and Medicare HMO plans, please review the plan of care and approve it. It will need to be FAXED BACK to us at [phone] for Medicare purposes. For Medicare only, by signing this I certify the plan of care. Please let me know if there are questions or concerns regarding this plan of care. Physician Signature: Date:
== END 2019-08-09 19:00 | disposition home or self-care (01) ==
LOC: PT 14:00
PROVIDERS: Family Provider Family Medicine; PCP Family Medicine; Referring Provider Nurse Practitioner Family; Visit Provider Nurse Practitioner Family
DX: R53.1 Weakness (principal)
CPT/HCPCS: 97110; 97161

== ENCOUNTER → 2019-08-27 13:20 | Outpatient (CLI) | payer MEDICARE, SELFPAY ==
--- NOTE | 2019-08-27 13:24 | RAD_ITS ---
STUDY: X-RAY CHEST REASON FOR EXAM: Female, 59 years old. bronchitis TECHNIQUE: PA and lateral views of the chest. COMPARISON: 03/26/2018 FINDINGS: There is fibrotic scarring in the right lung base. There is no demonstrated pleural abnormality. Normal size heart. Normal mediastinum and dianna. Normal visualized pulmonary arteries. There is atherosclerotic tortuosity of the aortic arch and descending thoracic aorta. There is an increased kyphosis of the thoracic spine. Normal visualized ribs, clavicles, and shoulders. There is no demonstrated abnormality of the visualized soft tissue structures of the upper abdomen. RAD/Chest PA and Lateral IMPRESSION: 1. No airspace consolidation pleural effusion. Electronically Signed: Tiago Knowles MD (Brooks) at 16:21 EST , Service support ,
== END ==
PROVIDERS: Family Provider Family Medicine; PCP Family Medicine; Referring Provider Family Medicine; Visit Provider Family Medicine
DX: J20.9 Acute bronchitis, unspecified (principal)
CPT/HCPCS: 71046

== ENCOUNTER 2019-11-24 10:20 | Emergency (ER) | payer MEDICARE, SELFPAY ==
[2019-11-24] VITALS (7 sets, daily range): BP systolic 108–155; BP diastolic 81–98; PULSE 78–91; RESP 15–25; TEMP 36.4–36.9; O2SAT 95–99; BMI 21.4
--- NOTE | 2019-11-24 11:02 | CT_ITS ---
STUDY: CT ABDOMEN AND PELVIS WITHOUT CONTRAST REASON FOR EXAM: Female, 59 years old. DECREASED COLOSTOMY OUTPUT, SOB, COUGH, FEVER RADIATION DOSAGE (If Supplied By Facility): CTDIvol = ( 6.15 ) mGy, DLP = ( 328.78 ) mGycm TECHNIQUE: Transaxial images were obtained from the dome of the diaphragm to the symphysis pubis without oral contrast, and without intravenous contrast. Sagittal and coronal images were reconstructed. Individualized dose optimization techniques were used for this CT. COMPARISON: 03/11/2018. FINDINGS: The visualized lung bases are unremarkable. The visualized portions of the heart are within normal limits. Normal liver with stable 1.1 cm cyst. There are surgical clips in the gallbladder fossa consistent with a prior cholecystectomy. Normal spleen. Normal pancreas. Normal bilateral adrenal glands. Normal right kidney. Normal left kidney. No definite renal or ureteral stones are seen. There is no hydronephrosis on either side. Evaluation of the GI tract is limited by absence of oral contrast. Cannot exclude stomach wall thickening. No dilated loops of bowel or evidence for obstruction. Cannot exclude segmental thickening of the thompson of the small or large bowel. Cannot exclude enteritis or colitis. Moderate diffuse fecal retention. Grossly satisfactory and stable appearance of right colostomy. Appendix is not seen. Normal abdominal aorta. Normal inferior vena cava. Normal retroperitoneum. Normal urinary bladder. There is absence of the uterus consistent with a prior hysterectomy. Normal abdominal wall. Normal osseous structures. CT/Abdomen/Pelvis without Cont IMPRESSION: No definite acute abnormality. Electronically Signed: Magdiel Ivey MD at 12:39 EDT , Service support ,
--- NOTE | 2019-11-24 11:02 | EKG12_ITS ---
Test Reason : CP Blood Pressure : / mmHG Vent. Rate : 083 BPM Atrial Rate : 083 BPM P-R Int : 142 ms QRS Dur : 068 ms QT Int : 376 ms P-R-T Axes : 049 057 027 degrees QTc Int : 441 ms Sinus rhythm with Premature atrial complexes Possible Left atrial enlargement Nonspecific T wave abnormality Abnormal ECG Confirmed by WING COTTON, NAI ([id number]), television news video editor KAMI VICTORIA ([id number]) on 11/30/2019 2:03:28 PM Referred By: CRYSTAL Confirmed By:KATE DIMAS MD
--- NOTE | 2019-11-24 11:07 | ED.DCSUM_ITS ---
History of Present Illness Chief Complaint: Cough Informant: Patient Onset: Days Context: Gradual Onset Timing: Continuous Narrative: Patient is a 59-year-old female presenting with cough. She is medical history including seizure disorder, gastroparesis, mitochondrial myopathy, hypothyroid, chronic neuropathic pain and goiter. She is presenting today with cough. Patient states she is had a cough for about 4 days. It is nonproductive. She also has tightness in her chest. She states she has been using albuterol inhaler at home. In addition patient notes that she has had migraine on the left front of her head for the past few days. Patient is been trying take Tylenol, Zofran and Benadryl at home with no relief. She has a migraine medication that she took a couple days ago but that also did not help. Patient has an extensive history of migraines. She denies any photophobia. She states this is consistent with her headaches. She states she had a fever at home but states it is been 100.0. She is been taking Tylenol as well for fever. In addition patient has a history of gastroparesis and has had decreased ostomy output for the past 2 days. She states that yesterday she has had nothing come out of her ostomy. She states sometimes this is just her typical gastroparesis and sometimes there is an obstruction and she needs surgery. She has pain in her left upper quadrant but denies any other abdominal pain. She denies any hematuria or dysuria but notes increased frequency of urination. She reports decreased appetite and decreased activity levels. Her daughter is a nurse and her primary caregiver. Patient is in a wheelchair at baseline. Patient has not had any known expose to COVID. Surgeon for her ostomy is through [facility], Dr. Abbott. Past Medical History - Allergies and Home Meds Allergies/Adverse Reactions: Allergies shellfish derived Allergy (Severe, Verified 11/24/19 10:40) Anaphylaxis amoxicillin Allergy (Verified 11/24/19 10:40) Rash iodine Allergy (Verified 11/24/19 10:40) Rash peanut Allergy (Verified 11/24/19 10:40) Anaphylaxis it gets stuck in my throat Penicillins [PCN] Allergy (Verified 11/24/19 10:40) Rash povidone-iodine [From Betadine] Allergy (Verified 11/24/19 10:40) Rash soap [From Betadine] Allergy (Verified 11/24/19 10:40) Rash alendronate sodium [From Fosamax] Adverse Reaction (Verified 11/24/19 10:40) unable to swallow pill/choking UNABLE TO SWALLOW PILL/CHOKING risedronate sodium [From Actonel] Adverse Reaction (Verified 11/24/19 10:40) CHOKING Primary Care Physician: Marianna Forte MD [Primary Care Provider] - Past Medical History: - - Gastroparesis, mitochondrial myopathy, chronic migraines, seizure disorder, hypothyroid Surgical History: adenoidectomy, appendectomy, cholecystectomy, hysterectomy, tonsillectomy, - - Status post proximal transverse loop colostomy 2016, thyroidectomy, further surgical history per HPI. Smoking Status: Never smoker - Family History Maternal Family History: Reports: Heart Disease - In her maternal grandmother, - - Aneurysm and her maternal grandmother and grandfather Paternal Family History: Reports: Heart Disease - In the paternal grand mother, Stroke - father alive age 84, - - Aneurysm in her paternal grandmother and in a paternal aunt. Sibling Family History: Reports: - - She has a brother who suddenly at the age of 46 and he had been diagnosed with Prader-Willi syndrome. She has a sister who at 4 years of age due to a hole in her heart. Another sister suffers from a cardiac dysrhythmia. Review of Systems General: Reports: Malaise. Denies: Chills, Fever, Sweats Eyes: Denies: Visual changes - bilaterally, Diplopia ENT: Denies: Rhinorrhea, Sore throat Cardiovascular: Reports: Chest pain - Tightness. Denies: Palpitations Respiratory: Reports: Dyspnea, Cough. Denies: Dyspnea on exertion Gastrointestinal: Reports: Abdominal pain - Left Upper quadrant, Nausea, Constipation - Decreased ostomy output. Denies: Vomiting, Diarrhea, Melena, Hematochezia Genitourinary: Denies: Dysuria, Hematuria, Frequency Musculoskeletal: Denies: Back pain, Extremity Pain Skin: Denies: Rash, Wounds Neurological: Reports: Headache, Weakness - generalized . Denies: Numbness Physical Exam Vital Signs/Narrative: Vital Signs Temp Pulse Resp BP Pulse Ox 11/24/19 10:53 98.5 F 86 18 121/98 H 98 11/24/19 10:23 97.5 F L 86 20 H 155/81 H 97 Inital Vital Signs reviewed: Yes General: Well developed, No Acute Distress, - - frail appearing Head: Normocephalic, Atraumatic Eyes: Perrl, EOMI ENT: Moist mucous membranes, No rhinorrhea Neck: Supple, Nontender, No JVD Cardiovascular: Regular rate, Regular rhythm, No murmurs Respiratory: No distress, CTA bilaterally, Chest nontender Abdomen: Soft, Nontender, Nondistended, Normal bowel sounds, Hypoactive bowel sounds, - - Ostomy RUQ, empty of air and stool Back: Nontender, Normal Inspection. Negative for: CVA tenderness Extremities: Nontender, No edema Skin: Normal color, No rash Neurological: Alert, Oriented x3, Cranial nerves II-XII grossly intact, Normal Strength, Normal Sensation Psychological: Normal affect, Normal Mood Diagnostic/Tx/Re-eval Chest X-Ray - ED: 1 View Clinical Impression(s) from Imaging Studies Abdomen/Pelvis CT 11/24/19 11:02 IMPRESSION: No definite acute abnormality. Electronically Signed: Magdiel Ivey MD at 12:39 EDT , Service support , Chest X-Ray 11/24/19 11:25 IMPRESSION: Normal x-ray examination of the chest. Electronically Signed: Magdiel Ivey MD at 11:52 EDT , Service support , Laboratory Data 11/24/19 11/24/19 11/24/19 11:34 11:34 12:25 WBC 7.7 RBC 4.75 Hgb 14.8 Hct 43.0 MCV 90.5 MCH 31.2 MCHC 34.4 RDW Std Deviation 39.3 RDW Coeff of Stormy 12.1 Plt Count 192 MPV 10.8 Immature Gran % (Auto) 0.300 Neut % (Auto) 59.3 Lymph % (Auto) 34.4 [place] % (Auto) 5.1 Eos % (Auto) 0.8 Baso % (Auto) 0.1 Absolute Neuts (auto) 4.6 Absolute Lymphs (auto) 2.64 Nucleated RBC % 0 Sodium 139 Potassium 3.6 Chloride 104 Carbon Dioxide 29.0 Anion Gap 6 BUN 12 Creatinine 0.92 Estim Creat Clear Calc 60.11 Est GFR (MDRD) Af Amer 80 Est GFR (MDRD) Non-Af 66 BUN/Creatinine Ratio 13.1 Glucose 91 Calcium 9.6 Total Bilirubin 0.50 AST 22 ALT 32 Alkaline Phosphatase 76 Troponin I < 0.015 Total Protein 7.8 Albumin 4.1 Globulin 3.7 Albumin/Globulin Ratio 1.1 Lipase 164 Urine Color Yellow Urine Clarity Sl. Cloudy Urine pH 6.5 Ur Specific [place] 1.010 Urine Protein Negative Urine Glucose (UA) Normal Urine Ketones Negative Urine Occult Blood 25 H Urine Nitrite Negative Urine Bilirubin Negative Urine Urobilinogen Normal Ur Leukocyte Esterase 500 H Urine RBC 0-5 SEEN Urine WBC 25-50 SEEN Ur Squamous Epith Cells 0-5 SEEN Urine Bacteria 2+ Urine Mucus 1+ - Rhythm Strip Rhythm Strip: Sinus Rhythm Rate: 83 Ectopy: None - EKG Initial EKG Interpretation: Sinus Rhythm, - - Normal sinus rhythm at a rate of 83 with PACs Normal axis Normal intervals Nonspecific T wave inversions however no change compared to prior EKG on 03/27/2018 - Medical Decision Making Patient is evaluated for cough as well as neurolysed weakness just not feeling well. Patient appears frail but no acute distress. Her vital signs are normal. Her lung sounds are clear. X-ray of the chest does not show any acute infiltrate. It is possible that patient could have novel coronavirus however patient does not have fever or any severe symptoms warranting testing at this time. CBC, CMP, Lipase and troponin are normal. Abdomen soft nontender. Urinalysis is consistent with UTI. Culture is sent. Prior culture showed that she was sensitive to Macrobid so she will be placed back on this. Patient is not have signs or symptoms concerning for pyelonephritis so I believe Macrobid should be sufficient. In addition patient has a penicillin allergy. Patient will be given coronavirus precautions and instructed to follow-up with her primary care doctor. She is given a 7-day course of Bactrim. She is counseled on signs and symptoms require return to the emergency room. She verbalizes agreement of This plan. She is discharged home in stable condition. ED Disposition - Plan for ED Patient: Disposition: Psychiatric Hospital or Unit Diagnosis: UTI (urinary tract infection), Cough, Suspected 2019 novel coronavirus infection Instructions: ED CYSTITIS Female Adult Prescriptions: Nitrofurantoin Monohyd/M-Cryst [Macrobid 100 mg Capsule] 100 mg PO BID #10 cap Transmission Status: Pending to [facility] Referrals: Marianna Forte MD [Primary Care Provider] - Additional Instructions: It is possible that your cough is from COVID-19 but I do not have the capabilities of testing you at this time. Your chest x ray was normal as well as your vital signs and blood work, therefore you are safe to go home at this time.
--- NOTE | 2019-11-24 11:25 | RAD_ITS ---
STUDY: X-RAY CHEST REASON FOR EXAM: Female, 59 years old. COUGH, SOB, FEVER; -- EPILEPSY TECHNIQUE: Single AP portable view of the chest. COMPARISON: 08/27/2019. FINDINGS: The lungs are clear and expanded. There is no demonstrated pleural abnormality. Normal size heart. Normal mediastinum and dianna. Normal visualized pulmonary arteries. Normal visualized aortic arch and descending thoracic aorta. Normal visualized thoracic spine. Normal visualized ribs, clavicles, and shoulders. There is no demonstrated abnormality of the visualized soft tissue structures of the upper abdomen. RAD/Chest 1 View (Portable) IMPRESSION: Normal x-ray examination of the chest. Electronically Signed: Magdiel Ivey MD at 11:52 EDT , Service support ,
[2019-11-24] MEDS: DiphenhydrAMINE 50 MG/ML Syringe 25 MG IV (11:56)
[2019-11-24] MEDS: 0.9% Normal Saline 1,000 ML 1000 ML IV (11:56)
[2019-11-24] MEDS: Ketorolac 15 MG/ML Vial IV (11:56)
[2019-11-24] MEDS: proCHLORPERazine 10 MG/2 ML Vial IV (11:56)
[2019-11-24 11:57] LABS: Absolute Lymphocyte Count 2.64 X10^3/uL (0.83-4.51); Absolute Neutrophil Count 4.6 X10^3/uL (2.0-7.7); Basophil# 0.01 X10^3/uL; Basophil% 0.1 % (0-1); Eosinophil# 0.06 X10^3/uL; Eosinophils% 0.8 % (0-5); Hemoglobin 14.8 g/dL (12.0-15.0); Lymphocyte # 2.64 X10^3/ul (4.0); Lymphocyte % 34.4 % (19-41); Mean Corp Hgb Conc 34.4 g/dL (32-36); Mean Corpuscular Hgb 31.2 pg (27.0-32.0); Mean Corpuscular Volume 90.5 fL (81-99); Mean Platelet Vol. 10.8 fl (6.2-12.0); Monocyte# 0.39 X10^3/uL; Monocyte% 5.1 % (0-10); NRBC Flagged by Analyzer 0 % (0-5); Neutrophil # 4.55 X10^3/uL (2.7-7.7); Neutrophil % 59.3 % (47-70); Platelet Count 192 K/mm3 (150-450); RBC Distribution Width CV 12.1 % (11.6-14.6); RBC Distribution Width SD 39.3 fl (35.1-43.9); Red Blood Count 4.75 M/mm3 (4.2-5.4); White Blood Count 7.7 K/mm3 (4.4-11.0)
[2019-11-24 12:22] LABS: ALB/GLOB Ratio 1.1 RATIO (0.9-2.4); AST(SGOT) 22 U/L (15-37); Alanine Aminotransfer ALT/SGPT 32 U/L (13-56); Albumin, Serum 4.1 g/dL (3.2-5.0); Alkaline Phosphatase 76 U/L (45-117); Anion Gap 6 (5-15); BUN 12 mg/dL (7-18); BUN/Creat Ratio 13.1 RATIO (10-20); Calcium,Total 9.6 mg/dL (8.5-10.1); Chloride 104 mmol/L (98-107); Creatinine, Serum 0.92 mg/dL (0.55-1.02); EST Glomerular Filtration Rate 66 mL/min (>60); Est Glom Filt Rate - Afr Amer 80 mL/min (>60); Estimated Creatinine Clearance 60.11 ml/min; Globulin 3.7 g/dL (2.2-4.2); Glucose 91 mg/dL (74-106); Lipase 164 U/L (73-393); Potassium 3.6 mmol/L (3.5-5.1); Protein, Total 7.8 g/dL (6.4-8.2); Sodium Level 139 mmol/L (136-145)
[2019-11-24 12:55] LABS: Color, Urine Yellow (Yellow); Glucose, Dipstick Normal (Normal); Ketone-Dipstick Negative (Negative); Leukocyte Esterase-Dipstick 500 /ul (Negative); Nitrite-Dipstick Negative (Negative); Occult Blood-Urine 25 /ul (Negative); Protein-Dipstick Negative (Negative); Urine Bilirubin Dipstick Negative (Negative); Urine Clarity Sl. Cloudy (Clear); Urine Urobilinogen Normal (Normal); Urine pH 6.5 (5.0 - 8.0)
[2019-11-24 13:05] LABS: Bacteria 2+ /hpf (None Seen); Mucous, Urine 1+ /hpf (<or=2+); Red Blood Cells-Urine 0-5 SEEN /hpf (0-5); Squamous Epithelial Cells - UA 0-5 SEEN /hpf (5-10); White Blood Cells 25-50 SEEN /hpf (0-5)
[2019-11-24] MEDS: Nitrofurantoin Macrocrystals 100 MG Capsule PO (14:26)
== END 2019-11-24 15:04 | disposition home or self-care (01) ==
PROVIDERS: Emergency Provider Emergency Medicine; PCP Family Medicine
DX: N39.0 Urinary tract infection, site not specified (principal); R05 Cough; E03.9 Hypothyroidism, unspecified; G40.909 Epilepsy, unspecified, not intractable, without status epilepticus; K31.84 Gastroparesis; G43.909 Migraine, unspecified, not intractable, without status migrainosus; Z93.3 Colostomy status; Z79.82 Long term (current) use of aspirin
CPT/HCPCS: 71045; 74176; 80053; 81001; 83690; 84484; 85025; 87086; 87088; 87804; 87807; 93005; 96361; 96374; 96375; 99285; J7030; A4216

== ENCOUNTER → 2019-12-06 13:05 | Outpatient (CLI) | payer MEDICARE, SELFPAY ==
[2019-11-24 10:23] VITALS: BMI 21.4
--- NOTE | 2019-12-06 13:07 | CT_ITS ---
STUDY: CT ABDOMEN AND PELVIS WITHOUT CONTRAST REASON FOR EXAM: Female, 59 years old. Left flank pain, antibiotics x 2. Hx mitochondrial myopathy, epilepsy, gastroparesis, PEG tube, colostomy, appendectomy, SALIMA/BSO, cholecystectomy. RADIATION DOSAGE (If Supplied By Facility): CTDIvol = ( 6.02 ) mGy, DLP = ( 303.06 ) mGycm TECHNIQUE: Transaxial images were obtained from the dome of the diaphragm to the symphysis pubis without oral contrast, and without intravenous contrast. Sagittal and coronal images were reconstructed. Individualized dose optimization techniques were used for this CT. COMPARISON: Comparison is made with prior study dated November 24, 2019. FINDINGS: There is a pectus excavatum deformity. Stable mild increased markings at the lung bases suggestive of a scarring. The visualized portions of the heart are within normal limits. Stable 1.2 cm cyst in the inferior aspect of the right lobe of the liver. There are surgical clips in the gallbladder fossa consistent with a prior cholecystectomy. Normal spleen. Normal pancreas. Normal bilateral adrenal glands. Normal right kidney. Normal left kidney. Normal visualized stomach. Normal small intestine. Once again, an ostomy is seen in the anterior abdominal wall in the right lower quadrant. This is unchanged. Moderate amount of fecal material is seen in the right hemicolon. There are surgical clips in the region of the appendix consistent with a prior appendectomy. Normal abdominal aorta. Normal inferior vena cava. Normal retroperitoneum. Normal urinary bladder. There is absence of the uterus consistent with a prior hysterectomy. Normal abdominal wall. Normal osseous structures. CT/Abdomen/Pelvis without Cont IMPRESSION: Stable examination. No acute abnormality is seen Electronically Signed: Dennis Franco, at 14:28 EDT , Service support ,
== END ==
PROVIDERS: PCP Family Medicine; Referring Provider Family Medicine; Visit Provider Family Medicine
DX: R10.9 Unspecified abdominal pain (principal); R35.0 Frequency of micturition
CPT/HCPCS: 74176; 87077; 87086; 87088

== ENCOUNTER → 2019-12-07 10:21 | Outpatient (CLI) | payer MEDICARE, SELFPAY ==
[2019-11-24 10:23] VITALS: BMI 21.4
--- NOTE | 2019-12-07 10:24 | RAD_ITS ---
STUDY: X-RAY - THORACIC SPINE REASON FOR EXAM: Female, 59 years old. Back pain for several weeks TECHNIQUE: 2 view(s) of the thoracic spine were obtained. COMPARISON: None. FINDINGS: There is an increase in the normal thoracic kyphosis. There is no substantial scoliosis. There is demineralization of the thoracic spine with endplate spondylosis. There is multilevel disc space narrowing of the thoracic spine. The soft tissue structures are unremarkable. RAD/Thoracic Spine 2 Views IMPRESSION: Multilevel disc space narrowing and spondylosis. Increased thoracic kyphosis. Electronically Signed: Dennis Franco, at 14:46 EDT , Service support ,
== END ==
PROVIDERS: PCP Family Medicine; Referring Provider Family Medicine; Visit Provider Family Medicine
DX: R10.9 Unspecified abdominal pain (principal)
CPT/HCPCS: 72070

== ENCOUNTER 2020-03-21 12:42 | Emergency (ER) | payer MEDICARE, SELFPAY ==
[2019-11-24 10:23] VITALS: BMI 21.4
[2020-03-21 12:45] VITALS: BP 141/87; PULSE 82; RESP 15; TEMP 36.4; O2SAT 100; BMI 21.7
--- NOTE | 2020-03-21 12:46 | ED.DCSUM_ITS ---
History of Present Illness Chief Complaint: Shortness of Breath Informant: Patient, Family Narrative: 60-year-old female presenting with left shoulder pain radiating down her left arm. This started about 3:15 AM this morning. She is presenting 10 hours later for evaluation of this. She states she was initially sweating and short of breath. She states that she has not had any central chest pain. She has not had any cough. She did not had fever. She has no exposure to COVID?19 that she knows of. She speculated as to whether she had a seizure in her sleep and hurt her shoulder. She took Tylenol and Percocet without any relief. Past Medical History - Allergies and Home Meds Allergies/Adverse Reactions: Allergies shellfish derived Allergy (Severe, Verified 11/24/19 10:40) Anaphylaxis amoxicillin Allergy (Verified 11/24/19 10:40) Rash iodine Allergy (Verified 11/24/19 10:40) Rash peanut Allergy (Verified 11/24/19 10:40) Anaphylaxis it gets stuck in my throat Penicillins [PCN] Allergy (Verified 11/24/19 10:40) Rash povidone-iodine [From Betadine] Allergy (Verified 11/24/19 10:40) Rash soap [From Betadine] Allergy (Verified 11/24/19 10:40) Rash alendronate sodium [From Fosamax] Adverse Reaction (Verified 11/24/19 10:40) unable to swallow pill/choking UNABLE TO SWALLOW PILL/CHOKING risedronate sodium [From Actonel] Adverse Reaction (Verified 11/24/19 10:40) CHOKING Primary Care Physician: Marianna Frote MD [Primary Care Provider] - Prior records reviewed: Yes Surgical History: adenoidectomy, appendectomy, cholecystectomy, hysterectomy, tonsillectomy, - - Status post proximal transverse loop colostomy 2016, thyroidectomy, further surgical history per HPI. Smoking Status: Never smoker - Family History Maternal Family History: Reports: Heart Disease - In her maternal grandmother, - - Aneurysm and her maternal grandmother and grandfather Paternal Family History: Reports: Heart Disease - In the paternal grand mother, Stroke - father alive age 84, - - Aneurysm in her paternal grandmother and in a paternal aunt. Sibling Family History: Reports: - - She has a brother who suddenly at the age of 46 and he had been diagnosed with Prader-Willi syndrome. She has a sister who at 4 years of age due to a hole in her heart. Another sister suffers from a cardiac dysrhythmia. Review of Systems General: Reports: Sweats. Denies: Chills, Fever ENT: Denies: Rhinorrhea, Sore throat Cardiovascular: Reports: Heart racing. Denies: Chest pain Respiratory: Denies: Dyspnea, Cough Gastrointestinal: Denies: Abdominal pain, Nausea, Vomiting Musculoskeletal: Reports: - - Right shoulder pain Skin: Denies: Rash, Abscess Neurological: Denies: Headache Physical Exam General: No Acute Distress Head: Normocephalic, Atraumatic ENT: Moist mucous membranes Cardiovascular: Regular rate, Regular rhythm Respiratory: No distress Abdomen: Soft Back: Nontender Extremities: - - No reproducible tenderness to palpation over the right shoulder girdle. There is no rash. No ecchymosis. No deformity. Skin: Normal color, No rash Neurological: Alert, Oriented x3 Psychological: Normal affect Diagnostic/Tx/Re-eval Clinical Impression(s) from Imaging Studies Shoulder X-Ray 03/21/20 13:19 IMPRESSION: Degenerative spurring along the inferior aspect of the acromion. Electronically Signed: Dennis Franco, at 14:03 EDT , Service support , Chest X-Ray 03/21/20 13:40 IMPRESSION: No acute abnormality is seen. Stable examination. Electronically Signed: Dennis Franco, at 14:03 EDT , Service support , Laboratory Data 03/21/20 12:57 WBC 6.5 RBC 5.02 Hgb 14.6 Hct 44.5 MCV 88.6 MCH 29.1 MCHC 32.8 RDW Std Deviation 37.2 RDW Coeff of Stormy 11.8 Plt Count 225 MPV 11.6 Immature Gran % (Auto) 0.200 Neut % (Auto) 44.0 L Lymph % (Auto) 46.3 H [place] % (Auto) 8.0 Eos % (Auto) 1.2 Baso % (Auto) 0.3 Absolute Neuts (auto) 2.9 Absolute Lymphs (auto) 3.01 Nucleated RBC % 0 - Rhythm Strip Rhythm Strip: Sinus Rhythm Rate: 77 - EKG Initial EKG Interpretation: Sinus Rhythm, Non-Specific ST Changes - Medical Decision Making She presents with left shoulder pain which is been present for about 10 hours. She has no shortness of breath, cough. She denies trauma. She is concerned maybe she had a seizure when she was asleep there is no external signs of injury and unable to reproduce it externally. She is given pain medication as well as IV fluids in the ED. I did do a cardiac work-up. This is all normal. Her troponin is negative did have pain. EKG sinus rhythm with nonspecific findings. Her vital signs are stable and she is afebrile. Left shoulder x-ray is also negative. Given her normal work-up I will send her home to follow-up with her PCP. Impression: 1. Left shoulder pain 2. Atypical left-sided chest pain ED Disposition - Plan for ED Patient: Disposition: Home or Assisted Living Diagnosis: Shoulder pain Instructions: ED Shoulder Pain Uncertain Cause Referrals: Marianna Forte MD [Primary Care Provider] -
[2020-03-21 13:04] VITALS: O2SAT 99
--- NOTE | 2020-03-21 13:18 | EKG12_ITS ---
Test Reason : Blood Pressure : / mmHG Vent. Rate : 077 BPM Atrial Rate : 077 BPM P-R Int : 138 ms QRS Dur : 060 ms QT Int : 374 ms P-R-T Axes : 055 059 030 degrees QTc Int : 423 ms Normal sinus rhythm Nonspecific T wave abnormality Abnormal ECG Confirmed by DIEGO RIVERA ([id number]), editor greeting card KAMI VICTORIA ([id number]) on 03/23/2020 11:16:31 AM Referred By: MOHAN Confirmed By:DIEGO RIVERA
--- NOTE | 2020-03-21 13:19 | RAD_ITS ---
STUDY: X-RAY - LEFT SHOULDER REASON FOR EXAM: Female, 60 years old. Woke up this morning with left arm pain, sweating and SOB. No known injury. TECHNIQUE: 4 view(s) of the shoulder. COMPARISON: None. FINDINGS: Normal glenohumeral articulation. Normal acromioclavicular joint. Degenerative spurring along the inferior aspect of the acromion. Normal humeral head and visualized proximal humerus. The soft tissue structures are unremarkable. Normal visualized pulmonary apex. RAD/Shoulder min 2 Views IMPRESSION: Degenerative spurring along the inferior aspect of the acromion. Electronically Signed: Dennis Franco, at 14:03 EDT , Service support ,
--- NOTE | 2020-03-21 13:40 | RAD_ITS ---
STUDY: X-RAY CHEST REASON FOR EXAM: Female, 60 years old. Woke up this morning with left arm pain, sweating and SOB. No known injury. TECHNIQUE: Single AP portable view of the chest. COMPARISON: Comparison is made with prior examination dated 11-24-19. FINDINGS: The lungs are clear and expanded. There is no demonstrated pleural abnormality. There is borderline cardiomegaly. Normal mediastinum and dianna. Normal visualized pulmonary arteries. There is atherosclerotic tortuosity of the aortic arch and descending thoracic aorta. Normal visualized thoracic spine. Normal visualized ribs, clavicles, and shoulders. There is no demonstrated abnormality of the visualized soft tissue structures of the upper abdomen. RAD/Chest 1 View (Portable) IMPRESSION: No acute abnormality is seen. Stable examination. Electronically Signed: Dennis Franco, at 14:03 EDT , Service support ,
[2020-03-21 13:43] VITALS: BP 139/79; PULSE 69; RESP 18; O2SAT 99
[2020-03-21] MEDS: 0.9% Normal Saline 1,000 ML 1000 ML IV (13:46)
[2020-03-21] MEDS: Morphine 4 MG/ML Syringe IV (13:46)
[2020-03-21] MEDS: Ondansetron 4 MG/2 ML Vial IV (13:46)
[2020-03-21] MEDS: Aspirin 81 MG TAB.CHEW 324 MG PO (13:46)
[2020-03-21 14:00] VITALS: BP 139/79; PULSE 70; RESP 14; O2SAT 96
[2020-03-21 14:16] LABS: Absolute Lymphocyte Count 3.01 X10^3/uL (0.83-4.51); Absolute Neutrophil Count 2.9 X10^3/uL (2.0-7.7); Basophil# 0.02 X10^3/uL; Basophil% 0.3 % (0-1); Eosinophil# 0.08 X10^3/uL; Eosinophils% 1.2 % (0-5); Hematocrit 44.5 % (37-47); Hemoglobin 14.6 g/dL (12.0-15.0); Lymphocyte # 3.01 X10^3/ul (4.0); Lymphocyte % 46.3 % (19-41); Mean Corp Hgb Conc 32.8 g/dL (32-36); Mean Corpuscular Hgb 29.1 pg (27.0-32.0); Mean Corpuscular Volume 88.6 fL (81-99); Mean Platelet Vol. 11.6 fl (6.2-12.0); Monocyte# 0.52 X10^3/uL; NRBC Flagged by Analyzer 0 % (0-5); Neutrophil # 2.86 X10^3/uL (2.7-7.7); Platelet Count 225 K/mm3 (150-450); RBC Distribution Width CV 11.8 % (11.6-14.6); RBC Distribution Width SD 37.2 fl (35.1-43.9); Red Blood Count 5.02 M/mm3 (4.2-5.4); White Blood Count 6.5 K/mm3 (4.4-11.0)
[2020-03-21 14:30] LABS: Anion Gap 4 (5-15); BUN 14 mg/dL (7-18); BUN/Creat Ratio 14.7 RATIO (10-20); Calcium,Total 9.7 mg/dL (8.5-10.1); Chloride 108 mmol/L (98-107); Creatinine, Serum 0.95 mg/dL (0.55-1.02); EST Glomerular Filtration Rate 63 mL/min (>60); Est Glom Filt Rate - Afr Amer 77 mL/min (>60); Estimated Creatinine Clearance 57.48 ml/min; Glucose 102 mg/dL (74-106); Potassium 3.6 mmol/L (3.5-5.1); Sodium Level 141 mmol/L (136-145)
[2020-03-21 15:00] VITALS: BP 127/81; PULSE 69; RESP 100; O2SAT 14
== END 2020-03-21 15:22 | disposition home or self-care (01) ==
PROVIDERS: Emergency Provider Student in an Organized Health Care Education/Training Program; PCP Family Medicine
DX: M25.512 Pain in left shoulder (principal); R07.89 Other chest pain
CPT/HCPCS: 71045; 73030; 80048; 84484; 85025; 93005; 96361; 96374; 96375; 99284; J7030; A4216; J2405

== ENCOUNTER → 2020-05-08 11:41 | Outpatient (CLI) | payer MEDICARE, SELFPAY ==
--- NOTE | 2020-05-08 11:45 | RAD_ITS ---
STUDY: X-RAY - LEFT HUMERUS REASON FOR EXAM: Female, 60 years old. UPPER- MID SHAFT HUMERAL PAIN xMONTHS, UNKNOWN INJURY, HAS FALLEN A FEW TIMES -- PT IS CONTRACTED IN THAT ARM TECHNIQUE: 4 view(s) of the humerus. COMPARISON: None. FINDINGS: Normal visualized humerus. There is no demonstrated fracture or osseous destructive process. Narrowed glenohumeral joint. There is no demonstrated soft tissue abnormality. RAD/Humerus min 2 Views IMPRESSION: Normal x-ray examination of the Mild degenerative changes of the left shoulder joint Electronically Signed: Eliud Nuñez MD at 22:57 EDT , Service support ,
== END ==
PROVIDERS: PCP Family Medicine; Referring Provider Family Medicine; Visit Provider Family Medicine
DX: M79.602 Pain in left arm (principal)
CPT/HCPCS: 73060

== ENCOUNTER → 2020-05-31 07:51 | Outpatient (CLI) | payer MEDICARE, SELFPAY ==
--- NOTE | 2020-05-31 15:14 | NEURO ---
NCS and/or EMG Patient Report Ordering Doctor: Marianna Forte DATE OF SERVICE: 05/31/20 Kinsey Mendoaz is a 60-year-old female who presents for electrodiagnostic testing of the left upper limb. She reports limited range of motion around the left shoulder with sharp pains. She reports pain radiates to the hand. Electrodiagnostic findings: Left median motor nerve demonstrates normal distal latency, amplitude and conduction velocity. Normal left ulnar motor response, including conduction across the elbow. Normal median ulnar F wave. Prolonged left median sensory latency at the wrist. Normal left ulnar and radial sensory responses. On needle EMG, all muscles tested in the left upper limb, as well as the left cervical paraspinal showed no evidence of denervation with normal motor unit action potentials. There was decreased recruitment noted in the left deltoid, likely secondary to pain. Electrodiagnostic impression: This is an abnormal study in the left upper limb 1. Electrodiagnostic findings suggestive of left-sided median mononeuropathy, consistent with a mild left carpal tunnel syndrome. This does not however explain her pain about the left shoulder. If there are any further questions, please do not hesitate to contact me.
== END ==
PROVIDERS: PCP Family Medicine; Referring Provider Family Medicine; Visit Provider Family Medicine
DX: M79.602 Pain in left arm (principal)
CPT/HCPCS: 95886; 95909

== ENCOUNTER → 2020-09-04 14:21 | Outpatient (CLI) | payer MEDICARE, SELFPAY ==
[2020-09-04 18:02] LABS: Absolute Lymphocyte Count 2.18 X10^3/uL (0.83-4.51); Absolute Neutrophil Count 5.7 X10^3/uL (2.0-7.7); Basophil# 0.02 X10^3/uL; Basophil% 0.2 % (0-1); Eosinophil# 0.08 X10^3/uL; Eosinophils% 0.9 % (0-5); Hematocrit 46.3 % (37-47); Hemoglobin 14.4 g/dL (12.0-15.0); Lymphocyte # 2.18 X10^3/ul (4.0); Lymphocyte % 25.6 % (19-41); Mean Corp Hgb Conc 31.1 g/dL (32-36); Mean Corpuscular Hgb 28.5 pg (27.0-32.0); Mean Corpuscular Volume 91.7 fL (81-99); Mean Platelet Vol. 11.4 fl (6.2-12.0); Monocyte# 0.57 X10^3/uL; Monocyte% 6.7 % (0-10); NRBC Flagged by Analyzer 0 % (0-5); Neutrophil # 5.65 X10^3/uL (2.7-7.7); Neutrophil % 66.4 % (47-70); Platelet Count 238 K/mm3 (150-450); RBC Distribution Width CV 12.5 % (11.6-14.6); RBC Distribution Width SD 42.1 fl (35.1-43.9); Red Blood Count 5.05 M/mm3 (4.2-5.4); White Blood Count 8.5 K/mm3 (4.4-11.0)
[2020-09-04 18:19] LABS: AST(SGOT) 17 U/L (15-37); Alanine Aminotransfer ALT/SGPT 28 U/L (13-56); Albumin, Serum 3.6 g/dL (3.2-5.0); Alkaline Phosphatase 89 U/L (45-117); Anion Gap 5 (5-15); BUN 14 mg/dL (7-18); BUN/Creat Ratio 15.8 RATIO (10-20); Calcium,Total 9.3 mg/dL (8.5-10.1); Chloride 108 mmol/L (98-107); Creatinine, Serum 0.89 mg/dL (0.55-1.02); EST Glomerular Filtration Rate 68 mL/min (>60); Est Glom Filt Rate - Afr Amer 83 mL/min (>60); Globulin 3.5 g/dL (2.2-4.2); Glucose 83 mg/dL (74-106); Potassium 3.5 mmol/L (3.5-5.1); Protein, Total 7.1 g/dL (6.4-8.2); Sodium Level 142 mmol/L (136-145)
== END ==
PROVIDERS: PCP Family Medicine; Referring Provider Family Medicine; Visit Provider Family Medicine
DX: Z01.818 Encounter for other preprocedural examination (principal)
CPT/HCPCS: 36415; 80053; 85025

== ENCOUNTER 2020-09-11 06:06 | Day surgery (SDC) | payer MEDICARE, SELFPAY ==
[2020-09-11] VITALS (7 sets, daily range): BP systolic 113–127; BP diastolic 74–85; PULSE 72–81; RESP 14–18; TEMP 36.2–37.1; O2SAT 95–99; BMI 22.1
[2020-09-11] MEDS: Lactated Ringers 1,000 ML 100 ML IV (06:46)
[2020-09-11] MEDS: Lidocaine 1% (5 ml sdv) 5 ML Vial (07:37)
[2020-09-11] MEDS: Betamethasone/Betamethasone 30 MG/5 ML Vial (07:37)
--- NOTE | 2020-09-11 08:14 | PCM.OPRPT ---
Report of Operation Date of Procedure: 09/11/20 Pre-Operative Diagnosis: Adhesive capsulitis left shoulder Post-Operative Diagnosis: same Surgery/Procedure Performed:: LUCILLE with injection left shoulder Type of Anesthesia:: General - Admit VTE Documentation VTE Present on Admission: No VTE Mechan Device Prophylaxis: SCD's VTE Pharm Prophylaxis ordered?: No Reason prophylaxis not ordered:: Treatment Not Indicated
[2020-09-11] MEDS: HYDROcodone Bitartrate/Apap 5/325 Tablet PO (08:29)
== END 2020-09-11 09:13 | disposition home or self-care (01) ==
LOC: SDC 06:06 → AC 06:06
PROVIDERS: PCP Family Medicine; Referring Provider Orthopaedic Surgery; Visit Provider Orthopaedic Surgery
PROC: (CPT 23700; principal; 2020-09-11 07:25)
DX: M75.02 Adhesive capsulitis of left shoulder (principal); Z20.828 Contact with and (suspected) exposure to other viral communicable diseases; E78.00 Pure hypercholesterolemia, unspecified; E07.9 Disorder of thyroid, unspecified; G40.909 Epilepsy, unspecified, not intractable, without status epilepticus; Z79.899 Other long term (current) drug therapy; M19.012 Primary osteoarthritis, left shoulder; Z87.891 Personal history of nicotine dependence; Z93.3 Colostomy status; R13.10 Dysphagia, unspecified; K44.9 Diaphragmatic hernia without obstruction or gangrene; K31.84 Gastroparesis
CPT/HCPCS: 23700; 87426; C9803; J7120; J0702

== ENCOUNTER 2020-09-15 10:40 | Emergency (ER) | payer MEDICARE, SELFPAY ==
[2020-09-11 06:36] VITALS: BMI 22.1
[2020-09-15 10:41] VITALS: BP 150/95; PULSE 107; RESP 17; TEMP 36.9; O2SAT 99; BMI 21.6
[2020-09-15] MEDS: Ondansetron 4 MG/2 ML Vial IV (10:55)
[2020-09-15] MEDS: 0.9% Normal Saline 1,000 ML 1000 ML IV (10:55)
--- NOTE | 2020-09-15 11:09 | CT_ITS ---
STUDY: CT ABDOMEN AND PELVIS WITH CONTRAST REASON FOR EXAM: Female, 60 years old. Abdomen pain, nausea. Hx mitochondrial myopathy, epilepsy, SALIMA/BSO, cholecystectomy, appendectomy, colostomy. RADIATION DOSAGE (If Supplied By Facility): CTDIvol = ( 9.09 ) mGy, DLP = ( 807.82 ) mGycm TECHNIQUE: Transaxial images were obtained from the dome of the diaphragm to the symphysis pubis with oral contrast. Oral and amp; IV Gastrografin and amp; 75mL Isovue-300 was administered. Sagittal and coronal images were reconstructed. Individualized dose optimization techniques were used for this CT. COMPARISON: Comparison is made with prior study dated 12/06/2019. FINDINGS: Pectus excavatum deformity. Stable mild increased markings at the lung bases suggestive of scarring. The visualized portions of the heart are within normal limits. There is decreased attenuation of the liver consistent with steatosis. Stable 1.2 cm cyst in the inferior aspect of the right lobe of liver. The patient is status post cholecystectomy. Normal spleen. Normal pancreas. Normal bilateral adrenal glands. Normal right kidney. Normal left kidney. Normal visualized stomach. Normal small intestine. Moderate amount of fecal material is seen in the right hemicolon. The patient is status post appendectomy. Nephrostomy is seen in the anterior right lower quadrant. Normal abdominal aorta. Normal inferior vena cava. Normal retroperitoneum. Normal urinary bladder. There is absence of the uterus consistent with a prior hysterectomy. Normal abdominal wall. Normal osseous structures. CT/Abdomen/Pelvis WITH Contrast IMPRESSION: Stable examination. No acute abnormality is seen. Electronically Signed: Dennis Franco MD at 14:45 EST , Service support ,
[2020-09-15] MEDS: LORazepam 2 MG/ML Syringe 1 MG IV (11:15)
[2020-09-15] MEDS: Morphine 4 MG/ML Syringe IV (11:25)
--- NOTE | 2020-09-15 11:28 | ED.VISSUMM ---
- ER Visit Summary Date of Service: 09/15/20 Chief Complaint: Seizure History of Present Illness: The patient is a 60 F who presents with seizures that occurred this morning. Daughter witnessed the seizures and states they are her typical seizures. Daughter states that she stiffens up with her arms and legs and rocks back and forth. Daughter states these last approximately 15 to 20 seconds. Daughter states these are generalized. Daughter states patient is post ictal for approximately 20 minutes after the seizure. Patient did take her Keppra today. Patient did vomit this morning. Patient is unsure if she vomited up her pills. Patient admits to diffuse pain in her abdomen. Patient denies any urinary complaints. Patient states she has had decreased output of her colostomy. Physical Examination: Vital signs are stable. Patient is afebrile. Patient is in no acute distress. Oral mucosa is pink and moist. Neck is supple. Trachea is midline. There is no JVD noted. Heart was regular rate and rhythm. Lungs are clear and equal bilaterally. Abdomen is soft. Bowel sounds are normal. There is mild left upper quadrant tenderness. There is no rebound or guarding noted. Skin is warm dry. Cranial nerves II through XII are intact. There are no focal motor or sensory deficits noted. Extremities are intact. There is no calf tenderness or edema. Test Results: CBC shows a mild leukocytosis of 12.3. This is most likely from the seizure activity. Comprehensive metabolic profile showed a mild hypokalemia of 3.1. Urinalysis does not show any evidence of urinary tract infection. CT scan of the abdomen and pelvis was obtained. There is no acute abnormality noted. This was interpreted by the radiologist and reviewed by myself. Emergency Department Course and Treatment: Patient was given IV fluids and Zofran here. Patient did have a seizure here in the emergency department. Patient was given Ativan. Patient stopped seizing after that. Patient had a second seizure here. Patient was given a repeat dose of Ativan. Patient was given a dose of IV Keppra. Patient had no further seizure activity. Patient was resting comfortably on reevaluation. Patient was given a prescription for Zofran to take as needed for nausea and vomiting so that she can keep her Keppra medication down. Patient was instructed to follow-up with her primary care physician in 3 to 5 days. Patient was instructed return if worse in any way. Patient and family understood and were agreeable with the plan. All questions were answered. Disposition: Discharge home Impression: 1. Breakthrough seizure 2. Nausea and vomiting This note was generated with [employer] dictation software. It may contain incorrect words, spelling, and punctuation that were not noted in review of the chart prior to signing ED Disposition - Plan for ED Patient: Disposition: Home or Assisted Living Diagnosis: Seizure, Nausea and vomiting Instructions: ED Seizure, Recurrent (Adult), ED Vomiting (Adult) Prescriptions: Ondansetron [Zofran Odt] 4 mg PO Q8H PRN PRN #10 tab PRN Reason: Nausea Transmission Status: Pending to [id number] Referrals: Marianna Forte MD [Primary Care Provider] - 3-5 Days
[2020-09-15] MEDS: MethylPREDNISolone 125 MG/2 ML Vial 60 MG IV (11:34)
[2020-09-15] MEDS: DiphenhydrAMINE 50 MG/ML Syringe 25 MG IV (11:34)
[2020-09-15 11:37] LABS: Absolute Lymphocyte Count 2.15 X10^3/uL (0.83-4.51); Absolute Neutrophil Count 9.4 X10^3/uL (2.0-7.7); Basophil# 0.02 X10^3/uL; Basophil% 0.2 % (0-1); Eosinophil# 0.03 X10^3/uL; Eosinophils% 0.2 % (0-5); Hematocrit 46.6 % (37-47); Hemoglobin 14.9 g/dL (12.0-15.0); Lymphocyte # 2.15 X10^3/ul (4.0); Lymphocyte % 17.4 % (19-41); Mean Corpuscular Hgb 28.1 pg (27.0-32.0); Mean Corpuscular Volume 87.8 fL (81-99); Mean Platelet Vol. 10.7 fl (6.2-12.0); Monocyte# 0.71 X10^3/uL; Monocyte% 5.8 % (0-10); NRBC Flagged by Analyzer 0 % (0-5); Neutrophil % 76.2 % (47-70); Platelet Count 182 K/mm3 (150-450); RBC Distribution Width CV 12.4 % (11.6-14.6); RBC Distribution Width SD 40.4 fl (35.1-43.9); Red Blood Count 5.31 M/mm3 (4.2-5.4); White Blood Count 12.3 K/mm3 (4.4-11.0)
[2020-09-15] MEDS: LORazepam 2 MG/ML Syringe 0.5 MG IV ×2 (11:50→12:35)
[2020-09-15 11:51] VITALS: BP 148/77; PULSE 89; RESP 18; O2SAT 99
[2020-09-15 11:52] LABS: Bacteria 0 SEEN /hpf (None Seen); Mucous, Urine 0 SEEN /hpf (<or=2+); Red Blood Cells-Urine 0 SEEN /hpf (0-5); White Blood Cells 0 SEEN /hpf (0-5)
[2020-09-15 11:53] LABS: AST(SGOT) 13 U/L (15-37); Alanine Aminotransfer ALT/SGPT 25 U/L (13-56); Albumin, Serum 3.7 g/dL (3.2-5.0); Alkaline Phosphatase 83 U/L (45-117); Anion Gap 5 (5-15); BUN 12 mg/dL (7-18); BUN/Creat Ratio 13.8 RATIO (10-20); Calcium,Total 9.1 mg/dL (8.5-10.1); Chloride 111 mmol/L (98-107); Creatinine, Serum 0.87 mg/dL (0.55-1.02); EST Glomerular Filtration Rate 70 mL/min (>60); Est Glom Filt Rate - Afr Amer 85 mL/min (>60); Estimated Creatinine Clearance 67.63 ml/min; Globulin 3.7 g/dL (2.2-4.2); Glucose 90 mg/dL (74-106); Lipase 96 U/L (73-393); Potassium 3.1 mmol/L (3.5-5.1); Protein, Total 7.4 g/dL (6.4-8.2); Sodium Level 143 mmol/L (136-145)
[2020-09-15 11:56] LABS: Color, Urine Yellow (Yellow); Glucose, Dipstick Normal (Normal); Ketone-Dipstick 15 mg/dl (Negative); Leukocyte Esterase-Dipstick Negative /ul (Negative); Nitrite-Dipstick Negative (Negative); Occult Blood-Urine Negative /ul (Negative); Protein-Dipstick Negative (Negative); Urine Bilirubin Dipstick Negative (Negative); Urine Clarity Sl. Cloudy (Clear); Urine Urobilinogen Normal (Normal)
[2020-09-15 12:00] VITALS: BP 131/87; PULSE 89; RESP 15; O2SAT 97
[2020-09-15 12:06] LABS: Squamous Epithelial Cells - UA 0-5 SEEN /hpf (5-10)
[2020-09-15] MEDS: levETIRAcetam IV 1,000 MG/100 ML BAG 400 MG IV (12:06)
[2020-09-15] MEDS: proMETHazine 25 MG/ML Syringe 6.25 MG IM (12:13)
[2020-09-15 12:16] LABS: Lactic Acid 1.7 mmol/L (0.4-1.9)
[2020-09-15 13:00] VITALS: BP 135/86; PULSE 89; RESP 18; O2SAT 97
[2020-09-15 14:00] VITALS: BP 125/80; PULSE 84; RESP 16; O2SAT 98
[2020-09-15 15:59] VITALS: BP 125/90; PULSE 89; RESP 19; O2SAT 99
== END 2020-09-15 16:00 | disposition home or self-care (01) ==
PROVIDERS: Emergency Provider Emergency Medicine; PCP Family Medicine
DX: G40.909 Epilepsy, unspecified, not intractable, without status epilepticus (principal); R11.2 Nausea with vomiting, unspecified; Z93.3 Colostomy status; Z79.82 Long term (current) use of aspirin
CPT/HCPCS: 74177; 80053; 81001; 83605; 83690; 85025; 96365; 96372; 96375; 96376; 99285; J7030; J7050; Q9967; A4216; J2405

== ENCOUNTER 2021-03-23 10:07 | Emergency (ER) | payer MEDICARE, SELFPAY ==
[2021-03-23 10:09] VITALS: BP 154/105; PULSE 126; RESP 18; TEMP 37.1; O2SAT 100; BMI 22.1
[2021-03-23 10:11] VITALS: BP 154/105; PULSE 126; RESP 18; TEMP 37.1; O2SAT 100
--- NOTE | 2021-03-23 10:27 | CT_ITS ---
STUDY: CTA ABDOMEN AND PELVIS REASON FOR EXAM: Female, 61 years old. Abdominal and back pain RADIATION DOSAGE (If Supplied By Facility): CTDIvol = ( 6.715 ) mGy, DLP = ( 384.23 ) mGycm. Individualized dose optimization techniques were used for this CT.? TECHNIQUE: 2.5 mm helical cuts were performed through the lower chest abdomen and pelvis. MPR performed along with three-dimensional reconstructions of the abdominal aorta and its branches COMPARISON: 09/15/2020 FINDINGS: There is a pectus excavatum deformity. Peripheral calcifications noted in the abdominal aorta without aneurysm or dissection. No significant stenosis noted in the origins of the celiac axis, SMA or either renal artery. Normal bifurcation of the distal aorta into the common iliac arteries. Lung bases show chronic interstitial changes with dependent atelectasis. There is fatty infiltration of the liver without a discrete solid lesion, there is a 1.5 cm cyst in the right lobe. Gallbladder not visualized. Spleen, pancreas, and adrenals are unremarkable. There are bilateral parapelvic cysts, no obstructive uropathy or suspicious solid renal lesion. No free intraperitoneal fluid, air, or suspicious adenopathy. Bladder distends normally, has been a previous hysterectomy, retained stool noted in the colon Bony structures show degenerative change CT/CT ANGIO ABD&PEL W/O&W/DYE IMPRESSION: Normal tapering of the abdominal aorta without aneurysm or dissection, no suspicious retroperitoneal fluid Fatty liver with 1.5 cm right hepatic cyst, no specific follow-up needed Retained stool noted throughout the colon Bilateral parapelvic renal cysts, no specific follow-up needed Degenerative bony changes Electronically Signed: George Guy MD at 12:21 EDT , Service support ,
--- NOTE | 2021-03-23 10:37 | EDS_ITS ---
HPI History of Present Illness Chief Complaint: Abd Pain Informant: patient Onset/Context/Timing Onset: Days (Worsened over the past 4 days) Context: Gradual Onset Current Severity: Moderate Maximum Severity: Severe Narrative Narrative: Patient presents secondary to abdominal pain. 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 Patient has had prior ascending colostomy performed in 2018 at the [facility]. Patient states she has been having increased abdominal pain for the past 1 to 2 months. She is scheduled to have a CT scan performed next week. Over the past 3 to 4 days she has had significantly increased pain and presented to the emergency room. She states she has not urinated today. She states when she sits on the commode she has such severe pain she feels like she is going to pass out. She does report bloody mucus from her rectal stump for the past couple days. She reports having subjective fever last evening that improved after Tylenol and ibuprofen. [facility] Medical History Colostomy in place GERD (gastroesophageal reflux disease) High cholesterol Hx of migraines Hypothyroidism Legal blindness Migraines Mitochondrial myopathies Seizure Spastic paraparesis Home Medications Melatonin 3 mg Tablet 5 mg PO QHS 04/19/16 [History Last Taken 11/23/19] levetiracetam 1,725 mg PO BID 04/05/17 [History Last Taken 09/11/20 05:00] levothyroxine 100 mcg PO DAILY 08/23/17 [History Last Taken 09/11/20 05:00] aspirin 81 mg PO DAILY@0800 08/29/17 [History Last Taken 11/24/19] ondansetron HCl 4 mg PO Q6H PRN PRN 08/29/17 [History Last Taken Unknown] diphenhydramine HCl [Banophen] 25 mg PO Q6H PRN PRN 03/02/18 [History Last Taken Unknown] oxycodone [Roxicodone] 5 mg PO Q6H PRN PRN 03/02/18 [History Last Taken 03/02/18 09:03] polyethylene glycol 3350 17 g PO DAILY 03/02/18 [History Last Taken 03/26/18] acetaminophen 1,000 mg PO Q6H PRN PRN 11/24/19 [History Last Taken 11/24/19 09:30] atorvastatin 20 mg PO DAILY 11/24/19 [History Last Taken 11/23/19] ibuprofen 600 mg PO Q6H 09/06/20 [History Last Taken Unknown] multivitamin 1 tab PO DAILY 09/06/20 [History Last Taken Unknown] ondansetron 4 mg PO Q8H PRN PRN #10 tab 09/15/20 [Rx Last Taken Unknown] metronidazole [Flagyl] 500 mg PO BID #10 tab 03/23/21 [Rx Last Taken Unknown] oxycodone 5 mg PO Q6H PRN 3 Days #14 tab 03/23/21 [Rx Last Taken Unknown] Allergy/AdvReac Type Severity Reaction Status Date / Time shellfish derived Allergy Severe Anaphylaxis Verified 03/23/21 10:08 amoxicillin Allergy Rash Verified 03/23/21 10:08 ciprofloxacin [From Cipro] Allergy Rash Verified 03/23/21 10:08 iodine Allergy Rash Verified 03/23/21 10:08 peanut Allergy Anaphylaxis Verified 03/23/21 10:08 Penicillins [PCN] Allergy Rash Verified 03/23/21 10:08 povidone-iodine Allergy Rash Verified 03/23/21 10:08 [From Betadine] soap [From Betadine] Allergy Rash Verified 03/23/21 10:08 alendronate sodium AdvReac unable to Verified 03/23/21 10:08 [From Fosamax] swallow pill/choking risedronate sodium AdvReac CHOKING Verified 03/23/21 10:08 [From Actonel] Surgical History (Updated 03/23/21 @ 10:[address] Judi Gar MD) H/O: hysterectomy History of appendectomy Status post colostomy Social History Smoking Status: Never smoker ROS ROS ED Constitutional Constitutional ED: Denies chills or fever(s) Eyes Eyes: Denies change in vision ENT ENT ED: Denies sore throat Cardiovascular Cardiovascular: Denies chest pain Respiratory/Chest Respiratory/Chest: Denies cough or dyspnea Gastrointestinal Gastrointestinal: Reports abdominal pain and nausea; Denies diarrhea or vomiting Genitourinary Genitourinary ED: Reports other Details: Decreased urination ; Denies dysuria Musculoskeletal Musculoskeletal: Denies back pain Integumentary Denies rash Neurologic Neurologic: Denies headache(s) or weakness Psychiatric Psychiatric: Denies anxiety or depression Allergic/Immunologic Allergic/Immunologic ED: Denies urticaria EXAM Physical Exam Const Vital Signs: 03/23/21 10:09 03/23/21 10:11 03/23/21 11:42 Temperature 98.8 F 98.8 F Temperature Source Oral Oral Pulse Rate 126 H 126 H 86 Respiratory Rate 18 18 20 H Blood Pressure 154/105 H 154/105 H 129/100 H Blood Pressure Mean 121 121 109 Pulse Ox 100 100 92 Oxygen Delivery Method Room Air Room Air Room Air 03/23/21 14:09 Temperature Temperature Source Pulse Rate 85 Respiratory Rate 17 Blood Pressure 131/77 H Blood Pressure Mean 95 Pulse Ox 97 Oxygen Delivery Method Positive well nourished and well developed General Appearance ED: well developed Neck supple Chest Wall inspection of chest normal and palpation of chest normal Resp normal respiratory effort and clear to auscultation bilaterally Cardio Rate: tachycardic GI Auscultation: hypoactive bowel sounds Palpation: tender other (Significant suprapubic and left lower quadrant tenderness with guarding.) Extremity normal to inspection Neuro oriented x3 Sensorium / Orientation: alert Psych mental status grossly normal Skin no rashes or lesions noted MDM MDM MDM Narrative Medical decision making narrative: Patient is given morphine and Zofran for pain and nausea. She is also given Solu-Medrol and Benadryl for pretreatment of IV contrast CT. Labs and urinalysis are obtained. Lab Data Attestation: I reviewed the patient's lab results. Labs: Laboratory Results - last 24 hr 03/23/21 03/23/21 03/23/21 10:26 10:26 10:55 WBC 11.5 H RBC 5.34 Hgb 15.4 H Hct 47.0 MCV 88.0 MCH 28.8 MCHC 32.8 RDW Std Deviation 38.6 RDW Coeff of Stormy 11.9 Plt Count 224 MPV 11.3 Immature Gran % (Auto) 0.300 Neut % (Auto) 71.7 H Lymph % (Auto) 20.8 [place] % (Auto) 6.2 Eos % (Auto) 0.8 Baso % (Auto) 0.2 Absolute Neuts (auto) 8.3 H Absolute Lymphs (auto) 2.40 Nucleated RBC % 0 Sodium 139 Potassium 3.2 L Chloride 106 Carbon Dioxide 24.0 Anion Gap 9 BUN 10 Creatinine 0.90 Estim Creat Clear Calc 59.89 Est GFR (MDRD) Af Amer 81 Est GFR (MDRD) Non-Af 67 BUN/Creatinine Ratio 11.1 Glucose 101 Lactic Acid 1.7 Calcium 10.0 Total Bilirubin 0.70 Direct Bilirubin 0.21 AST 19 ALT 23 Alkaline Phosphatase 99 Total Protein 8.4 H Albumin 4.4 Globulin 4.0 Urine Color Urine Clarity Urine pH Ur Specific [place] Urine Protein Urine Glucose (UA) Urine Ketones Urine Occult Blood Urine Nitrite Urine Bilirubin Urine Urobilinogen Ur Leukocyte Esterase Urine RBC Urine WBC Ur Squamous Epith Cells Urine Bacteria Urine Mucus 03/23/21 11:40 WBC RBC Hgb Hct MCV MCH MCHC RDW Std Deviation RDW Coeff of Stormy Plt Count MPV Immature Gran % (Auto) Neut % (Auto) Lymph % (Auto) [place] % (Auto) Eos % (Auto) Baso % (Auto) Absolute Neuts (auto) Absolute Lymphs (auto) Nucleated RBC % Sodium Potassium Chloride Carbon Dioxide Anion Gap BUN Creatinine Estim Creat Clear Calc Est GFR (MDRD) Af Amer Est GFR (MDRD) Non-Af BUN/Creatinine Ratio Glucose Lactic Acid Calcium Total Bilirubin Direct Bilirubin AST ALT Alkaline Phosphatase Total Protein Albumin Globulin Urine Color Yellow Urine Clarity Clear Urine pH 6.0 Ur Specific [place] 1.010 Urine Protein Negative Urine Glucose (UA) Normal Urine Ketones 15 H Urine Occult Blood Negative Urine Nitrite Negative Urine Bilirubin Negative Urine Urobilinogen Normal Ur Leukocyte Esterase Negative Urine RBC 0 SEEN Urine WBC 0 SEEN Ur Squamous Epith Cells 0 SEEN Urine Bacteria 0 SEEN Urine Mucus 0 SEEN Radiography Diagnostic Testing: Radiology Impression Abdomen/Pelvis CTA 03/23/21 10:27 IMPRESSION: Normal tapering of the abdominal aorta without aneurysm or dissection, no suspicious retroperitoneal fluid Fatty liver with 1.5 cm right hepatic cyst, no specific follow-up needed Retained stool noted throughout the colon Bilateral parapelvic renal cysts, no specific follow-up needed Degenerative bony changes Electronically Signed: George Guy MD at 12:21 EDT , Service support , Treatment and Re-Evaluation Comments:: On repeat evaluation patient's pain is improved. I spoke with Dr. Antoine, her local surgeon. He reviewed the CT images. He would like the patient to be given oral Flagyl and try [id number] enemas into her rectal stump. He will schedule her for endoscopy this coming week where she can be sedated and have her colon cleansed out. Discharge Plan Triage Chief Complaint: Abd Pain ED Provider: Judi Gar Dx/Rx/DC Orders Clinical Impression: Abdominal pain, Constipation Instructions: Abdominal Pain, ED Constipation (Adult) Prescriptions: New metronidazole [Flagyl] 500 mg tablet 500 mg PO BID Qty: 10 RF: 0 oxycodone 5 mg tablet 5 mg PO Q6H PRN (Reason: pain) 3 Days Qty: 14 RF: 0 No Action Melatonin 3 mg Tablet Mg 5 mg PO QHS RF: 0 levetiracetam 500 MG tablet 1,725 mg PO BID RF: 0 levothyroxine 75 MCG tablet 100 mcg PO DAILY RF: 0 aspirin 81 MG tablet 81 mg PO DAILY@0800 RF: 0 ondansetron HCl 8 MG tablet 4 mg PO Q6H PRN PRN (Reason: nausea, emesis) RF: 0 polyethylene glycol 3350 17 GM powder in packet 17 g PO DAILY RF: 0 diphenhydramine HCl [Banophen] 25 MG capsule 25 mg PO Q6H PRN PRN (Reason: headache) RF: 0 oxycodone [Roxicodone] 5 MG tablet 5 mg PO Q6H PRN PRN (Reason: Pain) RF: 0 acetaminophen 325 MG tablet 1,000 mg PO Q6H PRN PRN (Reason: Pain) RF: 0 atorvastatin 20 MG tablet 20 mg PO DAILY RF: 0 ibuprofen 600 MG tablet 600 mg PO Q6H RF: 0 multivitamin 1 EACH tablet 1 tab PO DAILY RF: 0 ondansetron 4 MG tablet 4 mg PO Q8H PRN PRN (Reason: Nausea) Qty: 10 RF: 0 Primary Care Provider: Marianna Forte Referrals: Marianna Forte MD [Primary Care Provider] - Jamin Antoine MD [STAFF PHYSICIAN] - As soon as possible Activity Restrictions/Additional Instructions: As discussed, please call Dr. Antoine's office this afternoon. He is trying to schedule you for an endoscopy this coming week. Disposition Disposition: Home, Self Care Discharge Date/Time: 03/23/21 16:39
[2021-03-23] MEDS: Ondansetron 4 MG/2 ML Vial IV (10:41)
[2021-03-23] MEDS: 0.9% Normal Saline 1,000 ML 1000 ML IV (10:41)
[2021-03-23] MEDS: 0.9% Normal Saline 1,000 ML 150 ML IV (10:41)
[2021-03-23] MEDS: Morphine 4 MG/ML Syringe IV (10:43)
[2021-03-23 10:46] LABS: Absolute Neutrophil Count 8.3 X10^3/uL (2.0-7.7); Basophil# 0.02 X10^3/uL; Basophil% 0.2 % (0-1); Eosinophil# 0.09 X10^3/uL; Eosinophils% 0.8 % (0-5); Hemoglobin 15.4 g/dL (12.0-15.0); Lymphocyte % 20.8 % (19-41); Mean Corp Hgb Conc 32.8 g/dL (32-36); Mean Corpuscular Hgb 28.8 pg (27.0-32.0); Mean Platelet Vol. 11.3 fl (6.2-12.0); Monocyte# 0.72 X10^3/uL; Monocyte% 6.2 % (0-10); NRBC Flagged by Analyzer 0 % (0-5); Neutrophil # 8.26 X10^3/uL (2.7-7.7); Neutrophil % 71.7 % (47-70); Platelet Count 224 K/mm3 (150-450); RBC Distribution Width CV 11.9 % (11.6-14.6); RBC Distribution Width SD 38.6 fl (35.1-43.9); Red Blood Count 5.34 M/mm3 (4.2-5.4); White Blood Count 11.5 K/mm3 (4.4-11.0)
[2021-03-23] MEDS: DiphenhydrAMINE 50 MG/ML Syringe 25 MG IV (10:49)
[2021-03-23] MEDS: MethylPREDNISolone 125 MG/2 ML Vial 60 MG IV (10:52)
[2021-03-23 10:57] LABS: AST(SGOT) 19 U/L (15-37); Alanine Aminotransfer ALT/SGPT 23 U/L (13-56); Albumin, Serum 4.4 g/dL (3.2-5.0); Alkaline Phosphatase 99 U/L (45-117); Anion Gap 9 (5-15); BUN 10 mg/dL (7-18); BUN/Creat Ratio 11.1 RATIO (10-20); Bilirubin, Direct 0.21 mg/dL (0.00-0.30); Chloride 106 mmol/L (98-107); EST Glomerular Filtration Rate 67 mL/min (>60); Est Glom Filt Rate - Afr Amer 81 mL/min (>60); Estimated Creatinine Clearance 59.89 ml/min; Glucose 101 mg/dL (74-106); Potassium 3.2 mmol/L (3.5-5.1); Protein, Total 8.4 g/dL (6.4-8.2); Sodium Level 139 mmol/L (136-145)
[2021-03-23 11:32] LABS: Lactic Acid 1.7 mmol/L (0.4-1.9)
[2021-03-23 11:42] VITALS: BP 129/100; PULSE 86; RESP 20; O2SAT 92
[2021-03-23 11:48] LABS: Bacteria 0 SEEN /hpf (None Seen); Color, Urine Yellow (Yellow); Glucose, Dipstick Normal (Normal); Ketone-Dipstick 15 mg/dl (Negative); Leukocyte Esterase-Dipstick Negative /ul (Negative); Mucous, Urine 0 SEEN /hpf (<or=2+); Nitrite-Dipstick Negative (Negative); Occult Blood-Urine Negative /ul (Negative); Protein-Dipstick Negative (Negative); Red Blood Cells-Urine 0 SEEN /hpf (0-5); Squamous Epithelial Cells - UA 0 SEEN /hpf (5-10); Urine Bilirubin Dipstick Negative (Negative); Urine Clarity Clear (Clear); Urine Urobilinogen Normal (Normal); White Blood Cells 0 SEEN /hpf (0-5)
--- NOTE | 2021-03-23 12:52 | NURSING ---
DR FREEMAN PAGEJoy
[2021-03-23 14:09] VITALS: BP 131/77; PULSE 85; PULSE 87; RESP 16; RESP 17; O2SAT 97
== END 2021-03-23 16:39 | disposition home or self-care (01) ==
PROVIDERS: Emergency Provider Emergency Medicine; PCP Family Medicine
DX: R10.9 Unspecified abdominal pain (principal); K59.00 Constipation, unspecified; Z93.3 Colostomy status
CPT/HCPCS: 74174; 80048; 80076; 81001; 83605; 85025; 96361; 96374; 96375; 99283; J7030; Q9967; A4216; J2405

== ENCOUNTER → 2021-04-02 19:50 | Outpatient (CLI) | payer MEDICARE, SELFPAY ==
[2021-03-23 10:09] VITALS: BMI 22.1
== END ==
PROVIDERS: PCP Family Medicine; Referring Provider Family Medicine; Visit Provider Family Medicine
DX: R31.9 Hematuria, unspecified (principal)
CPT/HCPCS: 87077; 87086; 87088; 87186

== ENCOUNTER → 2021-04-16 11:23 | Outpatient (CLI) | payer MEDICARE, SELFPAY ==
--- NOTE | 2021-04-16 11:26 | US_ITS ---
STUDY: ULTRASOUND - URINARY BLADDER REASON FOR EXAM: Female, 61 years old. URINE RETENTION TECHNIQUE: Ultrasound evaluation of the urinary bladder was performed with real-time and static johnson-scale imaging. COMPARISON: None. FINDINGS: There is no right UVJ calculus. There is a non-visualization of a right ureteral jet. There is no left UVJ calculus. There is a non-visualization of a left ureteral jet. The distended volume of the urinary bladder is 25.53 ml. The empty volume of the urinary bladder is 21.4 ml. The bladder wall is within normal limits. The bladder wall measures 3. There is no demonstrated bladder wall mass lesion. There are no demonstrated bladder calculi. US/Post Void Residual Bladder IMPRESSION: Small capacity urinary bladder. Electronically Signed: Dennis Franco MD at 14:10 EDT , Service support ,
== END ==
PROVIDERS: PCP Family Medicine; Referring Provider Family Medicine; Visit Provider Family Medicine
DX: R33.9 Retention of urine, unspecified (principal)
CPT/HCPCS: 51798

== ENCOUNTER 2021-05-31 10:23 | Emergency (ER) | payer MEDICARE, SELFPAY ==
[2021-05-31] VITALS (7 sets, daily range): BP systolic 118–141; BP diastolic 74–82; PULSE 79–99; RESP 14–22; TEMP 36.8–36.9; O2SAT 95–100; BMI 24.4
[2021-05-31] MEDS: LORazepam 2 MG/ML Syringe IV (10:27)
--- NOTE | 2021-05-31 10:28 | CT_ITS ---
STUDY: CT BRAIN WITHOUT CONTRAST REASON FOR EXAM: Female, 61 years old. Status epilepticus RADIATION DOSAGE (If Supplied By Facility): CTDIvol = ( 44.99 ) mGy, DLP = ( 846.73 ) mGycm TECHNIQUE: Transaxial CT imaging of the brain was performed without administration of intravenous contrast material. Individualized dose optimization techniques were used for this CT. COMPARISON: 03/01/2017 FINDINGS: Normal soft tissue structures. Normal calvarium. Normal size ventricles and extra-axial spaces for the patient''s age. Normal white matter tracts of the cerebral hemispheres. Normal basal ganglia and thalami. Normal brainstem. Normal cerebellum. There is no intracranial hemorrhage. There are no findings of an acute ischemic infarction. Normal visualized paranasal sinuses. CT/Brain/Head without Contrast IMPRESSION: Normal unenhanced CT scan of the brain. Electronically Signed: Tiago Knowles MD ([place]) at 11:17 EDT , Service support ,
--- NOTE | 2021-05-31 10:43 | EDS_ITS ---
HPI History of Present Illness Chief Complaint: Seizure Detail of Chief Complaint: Multiple seizures Informant: family and EMS Onset/Context/Timing Onset: Today Context: Sudden Onset Timing: Intermittent Quality: Multiple generalized tonic-clonic seizures prior to arrival. 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 She has history of grand mal seizures. It is unknown if patient been compliant with her meds. I was called to see patient medially since she had a witnessed seizure by nurse. She is presently postictal. She did receive 0.5 mg of Ativan in route. She received additional 2 mg of Ativan in the ER. Since she has had 10 seizures without awakening she will need transfer to tertiary care center. We will determine where she has been seen in the past. Prior similar symptoms: No Recent Illness/Hospitalization: No [facility] Medical History Colostomy in place GERD (gastroesophageal reflux disease) High cholesterol Hx of migraines Hypothyroidism Legal blindness Migraines Mitochondrial myopathies Seizure Spastic paraparesis Home Medications Melatonin 3 mg Tablet 5 mg PO QHS 04/19/16 [History Last Taken 11/23/19] levetiracetam 1,725 mg PO BID 04/05/17 [History Last Taken 09/11/20 05:00] levothyroxine 100 mcg PO DAILY 08/23/17 [History Last Taken 09/11/20 05:00] aspirin 81 mg PO DAILY@0800 08/29/17 [History Last Taken 11/24/19] ondansetron HCl 4 mg PO Q6H PRN PRN 08/29/17 [History Last Taken Unknown] diphenhydramine HCl [Banophen] 25 mg PO Q6H PRN PRN 03/02/18 [History Last Taken Unknown] oxycodone [Roxicodone] 5 mg PO Q6H PRN PRN 03/02/18 [History Last Taken 03/02/18 09:03] polyethylene glycol 3350 17 g PO DAILY 03/02/18 [History Last Taken 03/26/18] acetaminophen 1,000 mg PO Q6H PRN PRN 11/24/19 [History Last Taken 11/24/19 09:30] atorvastatin 20 mg PO DAILY 11/24/19 [History Last Taken 11/23/19] ibuprofen 600 mg PO Q6H 09/06/20 [History Last Taken Unknown] multivitamin 1 tab PO DAILY 09/06/20 [History Last Taken Unknown] ondansetron 4 mg PO Q8H PRN PRN #10 tab 09/15/20 [Rx Last Taken Unknown] metronidazole [Flagyl] 500 mg PO BID #10 tab 03/23/21 [Rx Last Taken Unknown] oxycodone 5 mg PO Q6H PRN 3 Days #14 tab 03/23/21 [Rx Last Taken Unknown] Allergy/AdvReac Type Severity Reaction Status Date / Time shellfish derived Allergy Severe Anaphylaxis Verified 05/31/21 10:35 amoxicillin Allergy Rash Verified 05/31/21 10:35 ciprofloxacin [From Cipro] Allergy Rash Verified 05/31/21 10:35 iodine Allergy Rash Verified 05/31/21 10:35 peanut Allergy Anaphylaxis Verified 05/31/21 10:35 Penicillins [PCN] Allergy Rash Verified 05/31/21 10:35 povidone-iodine Allergy Rash Verified 05/31/21 10:35 [From Betadine] soap [From Betadine] Allergy Rash Verified 05/31/21 10:35 alendronate sodium AdvReac unable to Verified 05/31/21 10:35 [From Fosamax] swallow pill/choking risedronate sodium AdvReac CHOKING Verified 05/31/21 10:35 [From Actonel] Surgical History H/O: hysterectomy History of appendectomy Status post colostomy Social History household members: none Smoking Status: Former smoker details: Unknown substance use type: other details: Unknown ROS ROS ED Review of Systems ROS Unobtainable: due to mental status EXAM Physical Exam Const Vital Signs: 05/31/21 10:25 05/31/21 10:37 05/31/21 11:23 Temperature 98.3 F Temperature Source Temporal Pulse Rate 89 92 79 Respiratory Rate 14 20 H 22 H Blood Pressure 141/82 H 118/77 Blood Pressure Mean 101 90 Pulse Ox 95 100 100 Oxygen Delivery Method Room Air Nasal Cannula Nasal Cannula Oxygen Flow Rate (L/min) 2 2 05/31/21 12:00 Temperature Temperature Source Pulse Rate 85 Respiratory Rate 15 Blood Pressure 123/74 H Blood Pressure Mean 90 Pulse Ox 100 Oxygen Delivery Method Room Air Oxygen Flow Rate (L/min) Positive well nourished and well developed General Appearance ED: well developed and other Patient with generalized tonic- clonic seizure now postictal HEENT Reports moist mucous membranes HEENT Narrative: Head is atraumatic normocephalic. Eyes PERRL General Eye ED: Negative for pale conjunctiva or scleral icterus Neck no lymphadenopathy, supple and no JVD Chest Wall inspection of chest normal Resp normal respiratory effort and clear to auscultation bilaterally Cardio regular rate, regular rhythm, S1 normal heart sound, S2 normal heart sound and no murmurs GI normal to inspection, nondistended, normoactive bowel sounds Palpation: soft Narrative: External genitalia normal. Back/Spine no CVA tenderness Cervical Spine: Negative for cervical spine tenderness Thoracic Spine / Upper Back: Negative for thoracic spinal tenderness or paraspinal muscle tenderness Extremity normal to inspection General Extremety ED: Negative for edema General Extremity: Negative for edema Neuro No oriented x3 and No CN's II-XII intact bilaterally Neuro Narrative: Postictal. Bilateral Pinsky sign. There is no clonus. Sensorium / Orientation: Negative for alert Motor Exam: Negative for strength 5/5 throughout Psych Psych Narrative: Postictal Skin no rashes or lesions noted and no wounds MDM MDM MDM Narrative Medical decision making narrative: Patient with status epilepticus. CT of the head was obtained to rule out intracranial process. Appropriate labs were obtained. Will review prior records treatment patient been transferred in the past and what anticonvulsant she is on. She will require transfer to tertiary center with capability of continuous EEG monitoring. Daughter was informed of patient's laboratory results and need for transfer. She states she goes to [facility]. Her neurologist Dr. Mayer who is practices at [facility]. Call was placed to [facility] for transfer. If no beds are available will try the [facility] system. There were no beds available at [facility]. Spoke with the transfer nurse at [facility]. She was given information. She will determine if patient can go to [facility] otherwise will place on list for [facility] Lab Data Attestation: I reviewed the patient's lab results. Lab results narrative: comprehensive metabolic panel is unremarkable. Lactate elevated 2.9. Coags are normal. White count is normal. CT of the head reveals no acute pathology. Labs: Laboratory Results - last 24 hr 05/31/21 05/31/21 05/31/21 10:50 10:50 10:50 WBC 6.4 RBC 4.88 Hgb 14.1 Hct 42.8 MCV 87.7 MCH 28.9 MCHC 32.9 RDW Std Deviation 39.1 RDW Coeff of Stormy 12.2 Plt Count 207 MPV 11.0 Immature Gran % (Auto) 0.200 Neut % (Auto) 57.0 Lymph % (Auto) 35.7 [place] % (Auto) 5.8 Eos % (Auto) 1.1 Baso % (Auto) 0.2 Absolute Neuts (auto) 3.6 Absolute Lymphs (auto) 2.27 Nucleated RBC % 0 PT 13.2 INR 1.1 APTT 33.3 Sodium 142 Potassium 3.4 L Chloride 108 H Carbon Dioxide 26.0 Anion Gap 8 BUN 13 Creatinine 0.92 Estim Creat Clear Calc 58.59 Est GFR (MDRD) Af Amer 79 Est GFR (MDRD) Non-Af 66 BUN/Creatinine Ratio 14.1 Glucose 106 Lactic Acid Calcium 10.2 H Total Bilirubin 0.50 AST 23 ALT 24 Alkaline Phosphatase 87 Total Protein 7.8 Albumin 4.1 Globulin 3.7 Albumin/Globulin Ratio 1.1 Urine Color Urine Clarity Urine pH Ur Specific [place] Urine Protein Urine Glucose (UA) Urine Ketones Urine Occult Blood Urine Nitrite Urine Bilirubin Urine Urobilinogen Ur Leukocyte Esterase Urine RBC Urine WBC Ur Squamous Epith Cells Amorphous Sediment Urine Bacteria Urine Mucus Ur Drug Screen Comment 05/31/21 05/31/21 05/31/21 10:50 11:46 11:46 WBC RBC Hgb Hct MCV MCH MCHC RDW Std Deviation RDW Coeff of Stormy Plt Count MPV Immature Gran % (Auto) Neut % (Auto) Lymph % (Auto) [place] % (Auto) Eos % (Auto) Baso % (Auto) Absolute Neuts (auto) Absolute Lymphs (auto) Nucleated RBC % PT INR APTT Sodium Potassium Chloride Carbon Dioxide Anion Gap BUN Creatinine Estim Creat Clear Calc Est GFR (MDRD) Af Amer Est GFR (MDRD) Non-Af BUN/Creatinine Ratio Glucose Lactic Acid 2.9 H* Calcium Total Bilirubin AST ALT Alkaline Phosphatase Total Protein Albumin Globulin Albumin/Globulin Ratio Urine Color Yellow Urine Clarity Clear Urine pH 8.0 Ur Specific [place] 1.020 Urine Protein Negative Urine Glucose (UA) Normal Urine Ketones 15 H Urine Occult Blood 10 H Urine Nitrite Negative Urine Bilirubin Negative Urine Urobilinogen Normal Ur Leukocyte Esterase Negative Urine RBC 0 SEEN Urine WBC 0 SEEN Ur Squamous Epith Cells 0 SEEN Amorphous Sediment 1+ Urine Bacteria 0 SEEN Urine Mucus 0 SEEN Ur Drug Screen Comment Radiography Diagnostic Testing: Clinical Impression(s) from Imaging Studies Brain CT 05/31/21 10:28 IMPRESSION: Normal unenhanced CT scan of the brain. Electronically Signed: Tiago Knowles MD ([place]) at 11:17 EDT , Service support , Critical Care Time Critical Care Time: Yes Critical care time (excluding procedures): 30-74 minutes (31), Including time spent: (His history, physical, documentation, initiation of treatment for status epilepticus), Discussing w/Patient &/or Family/Roving Can Tender, Discussing w/Consultants and Arranging Admission or Transfer Discharge Plan Triage Chief Complaint: Seizure ED Provider: Torsten Escobar Dx/Rx/DC Orders Clinical Impression: Epilepsy with status epilepticus Prescriptions: No Action Melatonin 3 mg Tablet Mg 5 mg PO QHS RF: 0 levetiracetam 500 MG tablet 1,725 mg PO BID RF: 0 levothyroxine 75 MCG tablet 100 mcg PO DAILY RF: 0 aspirin 81 MG tablet 81 mg PO DAILY@0800 RF: 0 ondansetron HCl 8 MG tablet 4 mg PO Q6H PRN PRN (Reason: nausea, emesis) RF: 0 polyethylene glycol 3350 17 GM powder in packet 17 g PO DAILY RF: 0 diphenhydramine HCl [Banophen] 25 MG capsule 25 mg PO Q6H PRN PRN (Reason: headache) RF: 0 oxycodone [Roxicodone] 5 MG tablet 5 mg PO Q6H PRN PRN (Reason: Pain) RF: 0 acetaminophen 325 MG tablet 1,000 mg PO Q6H PRN PRN (Reason: Pain) RF: 0 atorvastatin 20 MG tablet 20 mg PO DAILY RF: 0 ibuprofen 600 MG tablet 600 mg PO Q6H RF: 0 multivitamin 1 EACH tablet 1 tab PO DAILY RF: 0 ondansetron 4 MG tablet 4 mg PO Q8H PRN PRN (Reason: Nausea) Qty: 10 RF: 0 metronidazole [Flagyl] 500 mg tablet 500 mg PO BID Qty: 10 RF: 0 oxycodone 5 mg tablet 5 mg PO Q6H PRN (Reason: pain) 3 Days Qty: 14 RF: 0 Primary Care Provider: Marianna Forte Referrals: Marianna Forte MD [Primary Care Provider] - Disposition Disposition: Acute Care Hospital Discharge Location: [facility]
[2021-05-31 11:00] LABS: Absolute Lymphocyte Count 2.27 X10^3/uL (0.83-4.51); Absolute Neutrophil Count 3.6 X10^3/uL (2.0-7.7); Basophil# 0.01 X10^3/uL; Basophil% 0.2 % (0-1); Eosinophil# 0.07 X10^3/uL; Eosinophils% 1.1 % (0-5); Hematocrit 42.8 % (37-47); Hemoglobin 14.1 g/dL (12.0-15.0); Lymphocyte # 2.27 X10^3/ul (0.83-4.51); Lymphocyte % 35.7 % (19-41); Mean Corp Hgb Conc 32.9 g/dL (32-36); Mean Corpuscular Hgb 28.9 pg (27.0-32.0); Mean Corpuscular Volume 87.7 fL (81-99); Monocyte# 0.37 X10^3/uL; Monocyte% 5.8 % (0-10); NRBC Flagged by Analyzer 0 % (0-5); Neutrophil # 3.63 X10^3/uL (2.7-7.7); Platelet Count 207 K/mm3 (150-450); RBC Distribution Width CV 12.2 % (11.6-14.6); RBC Distribution Width SD 39.1 fl (35.1-43.9); Red Blood Count 4.88 M/mm3 (4.2-5.4); White Blood Count 6.4 K/mm3 (4.4-11.0)
[2021-05-31 11:08] LABS: International Normalized Ratio 1.1; Prothrombin Time (Protime)PT. 13.2 SECONDS (11.7-14.9)
[2021-05-31 11:09] LABS: Partial Thromboplast Time 33.3 Seconds (24.1-36.2)
[2021-05-31 11:16] LABS: ALB/GLOB Ratio 1.1 RATIO (0.9-2.4); AST(SGOT) 23 U/L (15-37); Alanine Aminotransfer ALT/SGPT 24 U/L (13-56); Albumin, Serum 4.1 g/dL (3.2-5.0); Alkaline Phosphatase 87 U/L (45-117); Anion Gap 8 (5-15); BUN 13 mg/dL (7-18); BUN/Creat Ratio 14.1 RATIO (10-20); Calcium,Total 10.2 mg/dL (8.5-10.1); Chloride 108 mmol/L (98-107); Creatinine, Serum 0.92 mg/dL (0.55-1.02); EST Glomerular Filtration Rate 66 mL/min (>60); Est Glom Filt Rate - Afr Amer 79 mL/min (>60); Estimated Creatinine Clearance 58.59 ml/min; Globulin 3.7 g/dL (2.2-4.2); Glucose 106 mg/dL (74-106); Potassium 3.4 mmol/L (3.5-5.1); Protein, Total 7.8 g/dL (6.4-8.2); Sodium Level 142 mmol/L (136-145)
[2021-05-31 11:29] LABS: Lactic Acid 2.9 mmol/L (0.4-1.9)
[2021-05-31 11:51] LABS: Bacteria 0 SEEN /hpf (None Seen); Mucous, Urine 0 SEEN /hpf (<or=2+); Red Blood Cells-Urine 0 SEEN /hpf (0-5); Squamous Epithelial Cells - UA 0 SEEN /hpf (5-10); White Blood Cells 0 SEEN /hpf (0-5)
[2021-05-31 11:54] LABS: Color, Urine Yellow (Yellow); Glucose, Dipstick Normal (Normal); Ketone-Dipstick 15 mg/dl (Negative); Leukocyte Esterase-Dipstick Negative /ul (Negative); Nitrite-Dipstick Negative (Negative); Occult Blood-Urine 10 /ul (Negative); Protein-Dipstick Negative (Negative); Urine Bilirubin Dipstick Negative (Negative); Urine Clarity Clear (Clear); Urine Urobilinogen Normal (Normal)
[2021-05-31 11:59] LABS: Amorphous Sediment 1+
[2021-05-31 12:43] LABS: Amphetamine Urine VISTA NEGATIVE (<1000 ng/mL); Barbiturate Urine VISTA NEGATIVE (< 200 ng/mL); Benzodiazepine Urine VISTA NEGATIVE (< 200 ng/mL); Cocaine Urine VISTA NEGATIVE (< 300 ng/mL); Ecstacy Urine VISTA NEGATIVE (< 500 ng/mL); Methadone Urine VISTA NEGATIVE (< 300 ng/mL); PCP Urine VISTA NEGATIVE (< 25 ng/mL); THC Urine VISTA NEGATIVE (< 50 ng/mL); Vista UDS pH Range 7
--- NOTE | 2021-05-31 13:35 | ED.RN ---
PT ACCEPTED AT [facility] ICU BED 6 NURSE TO NURSE IS [id number]
[2021-05-31 14:57] LABS: Reflex Lactate? Y
[2021-05-31] MEDS: Ondansetron 4 MG/2 ML Vial IV (14:57)
[2021-05-31] MEDS: Morphine 4 MG/ML Syringe IV (14:57)
--- NOTE | 2021-05-31 15:02 | ED.RN ---
REPORT TO [facility]. PT SKIN P/W/D, RESP EVEN AND UNLABORED, PT A&O X 3, NO DISTRESS NOTED. PT OUT OF ED FOR TRANSPORT TO [facility].
[2021-06-04 20:35] LABS: KEPPRA (LEVETIRACETAM) 57.1 ug/mL (10.0-40.0)
== END 2021-05-31 15:02 | disposition short-term general hospital (02) ==
PROVIDERS: Emergency Provider Emergency Medicine; PCP Family Medicine
DX: G40.901 Epilepsy, unspecified, not intractable, with status epilepticus (principal); E78.00 Pure hypercholesterolemia, unspecified; E03.9 Hypothyroidism, unspecified; Z79.82 Long term (current) use of aspirin; Z87.891 Personal history of nicotine dependence; Z93.3 Colostomy status; Z79.899 Other long term (current) drug therapy
CPT/HCPCS: 70450; 80053; 80177; 80307; 81001; 83605; 85025; 85610; 85730; 87426; 96374; 96375; 99285; A4216; J2405

== ENCOUNTER 2021-07-13 11:51 | Emergency (ER) | payer MEDICARE, SELFPAY ==
[2021-07-13] VITALS (7 sets, daily range): BP systolic 119–132; BP diastolic 67–98; PULSE 73–93; RESP 14–20; TEMP 36.4–36.9; O2SAT 94–100; BMI 22.1
--- NOTE | 2021-07-13 13:30 | CT_ITS ---
STUDY: CT ABDOMEN AND PELVIS WITH CONTRAST REASON FOR EXAM: Female, 61 years old. Abd pain, vomiting, recent proctocolectomy RADIATION DOSAGE (If Supplied By Facility): CTDIvol = ( 6.79 ) mGy, DLP = ( 781.18 ) mGycm TECHNIQUE: Transaxial images were obtained from the dome of the diaphragm to the symphysis pubis without oral contrast. IV 100mL Isovue-370 was administered. Sagittal and coronal images were reconstructed. Individualized dose optimization techniques were used for this CT. COMPARISON: Comparison is made with prior study dated 09/15/2020. FINDINGS: There is evidence of a pectus excavatum deformity. Mild degree of increased markings at the lung bases suggestive of bibasilar atelectasis. The visualized portions of the heart are within normal limits. Small amount of the free intraperitoneal air is seen in keeping with the patient''s history of recent proctocolectomy. There is decreased attenuation of the liver consistent with steatosis. Stable 1.2 cm cyst in the inferior aspect of the right lobe of the liver. The patient is status post post cholecystectomy. Normal spleen. Normal pancreas. Normal bilateral adrenal glands. Normal right kidney. Normal left kidney. Normal visualized stomach. Minimally fluid distended small bowel loops within the pelvis. A colostomy is seen in the anterior right lateral mid abdomen. Small amount of air is seen within the pelvic fat in the presacral region with the presacral soft tissue thickening most likely representing postoperative surgical changes with the patient''s history of recent proctocolectomy. Normal abdominal aorta. Normal inferior vena cava. Normal retroperitoneum. Air is seen within the anterior aspect of the urinary bladder. This most likely represents possible insertion of a ARAMBULA catheter. There has been no insertion of a ARAMBULA catheter, a fistulous communication with bowel be ruled out. The patient is status post hysterectomy. Normal abdominal wall. Normal osseous structures. CT/Abdomen/Pelvis W IV Cont ONLY IMPRESSION: The patient is status post proctocolectomy with an ostomy in the right lateral abdominal wall. Findings suggestive of postsurgical changes in the pelvis with the prominent soft tissues in the presacral space. Mildly distended fluid-filled small bowel loops in the pelvis. Small amount of air is seen within the urinary bladder. If there has been manipulation with a ARAMBULA catheter versus normal finding otherwise, a fistulous communication should be ruled out. Electronically Signed: Dennis Franco MD at 15:32 EST , Service support ,
--- NOTE | 2021-07-13 13:30 | CT_ITS ---
STUDY: CTA CHEST REASON FOR EXAM: Female, 61 years old. Sob, pleuritic R CP, recent surgery/hospitalizatn RADIATION DOSAGE (If Supplied By Facility): CTDIvol = ( 6.79 ) mGy, DLP = ( 781.18 ) mGycm TECHNIQUE: The examination was performed with the intravenous administration of IV 100mL Isovue-370. Post-processing of the angiographic images was performed, with multiplanar reformation and 3D reconstruction. Individualized dose optimization techniques were used for this CT. COMPARISON: None. FINDINGS: There is a pectus excavatum deformity. Normal enhancement of the main pulmonary artery and right and left pulmonary arteries. Normal enhancement of the bilateral peripheral pulmonary arteries. There is no demonstrated pulmonary embolism. Normal thoracic aorta and visualized great vessels. There is no demonstrated aortic dissection. Normal heart and pericardium. Normal mediastinum. Normal hilar regions. Normal visualized trachea and bronchi. The lungs are well expanded. Mild degree of increased markings at the lung bases suggestive of bibasilar atelectasis. Normal pleura. Normal chest wall structures. Normal osseous structures. Fatty infiltration of the liver. Small amount of free air beneath the right hemidiaphragm in keeping with the patient''s history of recent proctocolectomy. CT/CTA Chest W/WO Contrast IMPRESSION: No evidence of pulmonary embolus. Findings suggestive of mild degree of bibasilar atelectasis. Small amount of free intraperitoneal air beneath the right hemidiaphragm in keeping with the patient''s history of recent proctocolectomy. Electronically Signed: Dennis Franco MD at 15:33 EST , Service support ,
--- NOTE | 2021-07-13 13:33 | EKG12_ITS ---
Test Reason : ABD PAIN Blood Pressure : / mmHG Vent. Rate : 080 BPM Atrial Rate : 080 BPM P-R Int : 122 ms QRS Dur : 066 ms QT Int : 404 ms P-R-T Axes : 047 066 015 degrees QTc Int : 465 ms Normal sinus rhythm Nonspecific T wave abnormality Abnormal ECG Confirmed by BRITTANY COTTON, JEFF ([id number]), newspaper photo editor DAREK RAMOS ([id number]) on 07/16/2021 1:14:31 PM Referred By: KEYA Confirmed By:JEFF SOTO MD
--- NOTE | 2021-07-13 13:33 | EX.ED.DYSGE1 ---
HPI History of Present Illness Chief Complaint: Abd Pain Narrative Narrative: Patient states 2 weeks ago at [facility] she had a proctocolectomy with ileostomy due to motility problems and subsequent over distention of the colon according to the patient. She was discharged about 3 days ago, she states since then she has had a significant increase in liquid ileostomy output without blood or melena, vomiting, increased abdominal pain that is focused behind the ileostomy she states, and pleuritic right upper chest pain along with some shortness of breath. No palpitations or dyspnea. [facility] Medical History Colostomy in place GERD (gastroesophageal reflux disease) High cholesterol Hx of migraines Hypothyroidism Legal blindness Migraines Mitochondrial myopathies Seizure Spastic paraparesis Home Medications levetiracetam 1,500 mg PO BID 04/05/17 [History Last Taken 05/30/21] aspirin 81 mg PO DAILY@0800 08/29/17 [History Last Taken 05/30/21] diphenhydramine HCl [Banophen] 25 mg PO Q6H PRN PRN 03/02/18 [History Last Taken 05/30/21] polyethylene glycol 3350 17 g PO DAILY 03/02/18 [History Last Taken 05/31/21] atorvastatin 20 mg PO DAILY 11/24/19 [History Last Taken 05/30/21] multivitamin 1 tab PO DAILY 09/06/20 [History Last Taken 05/30/21] acetaminophen 1,000 mg PO Q6H PRN 05/31/21 [History Last Taken 05/30/21] ascorbic acid (vitamin C) 500 mg PO DAILY 05/31/21 [History Last Taken 05/30/21] levothyroxine 100 mcg PO DAILY 05/31/21 [History Last Taken 05/30/21] melatonin 3 mg PO QHS 05/31/21 [History Last Taken 05/30/21] methenamine hippurate 1 g PO BID 05/31/21 [History Last Taken 05/30/21] ondansetron 4 mg PO Q8H PRN 05/31/21 [History Last Taken 05/31/21] oxycodone-acetaminophen 1 tab PO BID PRN 05/31/21 [History Last Taken 05/30/21] Allergy/AdvReac Type Severity Reaction Status Date / Time shellfish derived Allergy Severe Anaphylaxis Verified 07/13/21 11:53 amoxicillin Allergy Rash Verified 07/13/21 11:53 ciprofloxacin [From Cipro] Allergy Rash Verified 07/13/21 11:53 iodine Allergy Rash Verified 07/13/21 11:53 peanut Allergy Anaphylaxis Verified 07/13/21 11:53 Penicillins [PCN] Allergy Rash Verified 07/13/21 11:53 povidone-iodine Allergy Rash Verified 07/13/21 11:53 [From Betadine] soap [From Betadine] Allergy Rash Verified 07/13/21 11:53 alendronate sodium AdvReac unable to Verified 07/13/21 11:53 [From Fosamax] swallow pill/choking risedronate sodium AdvReac CHOKING Verified 07/13/21 11:53 [From Actonel] Surgical History H/O: hysterectomy History of appendectomy Status post colostomy Social History household members: none Smoking Status: Former smoker details: Unknown substance use type: other details: Unknown ROS ROS ED Constitutional Constitutional ED: Reports malaise and other Details: I feel dehydrated ; Denies chills or fever(s) Eyes Eyes: Denies change in vision or diplopia ENT ENT ED: Denies rhinorrhea or sore throat Cardiovascular Cardiovascular: Reports chest pain; Denies palpitations Respiratory/Chest Respiratory/Chest: Reports dyspnea; Denies cough Gastrointestinal Gastrointestinal: Reports as per HPI, abdominal pain, diarrhea, nausea and vomiting Genitourinary Genitourinary ED: Denies dysuria or hematuria Musculoskeletal Musculoskeletal: Denies back pain or neck pain Integumentary Denies abscess or rash Neurologic Neurologic: Denies headache(s), paresthesias or weakness Psychiatric Psychiatric: Denies anxiety or suicidal thoughts EXAM Physical Exam Const Vital Signs: 07/13/21 11:54 07/13/21 12:01 07/13/21 13:21 Temperature 98.2 F 98.2 F 98.2 F Temperature Source Oral Oral Oral Pulse Rate 93 92 90 Respiratory Rate 14 18 20 H Blood Pressure 119/86 H 125/85 H 120/80 Blood Pressure Mean 97 98 93 Pulse Ox 100 100 94 Oxygen Delivery Method Room Air Room Air Room Air 07/13/21 14:39 07/13/21 15:17 07/13/21 16:00 Temperature 98.4 F 98.4 F 97.5 F L Temperature Source Oral Oral Temporal Pulse Rate 73 84 88 Respiratory Rate 15 16 19 H Blood Pressure 121/67 H 132/74 H 123/98 H Blood Pressure Mean 85 93 106 Pulse Ox 96 95 97 Oxygen Delivery Method Room Air Room Air Positive well nourished and well developed General Appearance ED: well developed and NAD HEENT Reports moist mucous membranes normocephalic and atraumatic Eyes PERRL and EOMs intact bilaterally Neck full ROM and supple Resp normal respiratory effort and clear to auscultation bilaterally Cardio regular rate, regular rhythm and no murmurs GI non-tender and non-distended Auscultation: normoactive bowel sounds Palpation: soft Back/Spine no CVA tenderness General Back: other FROM Extremity normal to inspection General Extremety ED: Negative for edema, pulses abnormal or tenderness General Extremity: Negative for edema or pulses abnormal Neuro oriented x3, CN's II-XII intact bilaterally and no sensory deficits noted Sensorium / Orientation: awake and alert Motor Exam: strength 5/5 throughout Skin no rashes or lesions noted and no wounds MDM MDM MDM Narrative Medical decision making narrative: Labs are noted along with minor elevations of some LFTs. No hyperbilirubinemia or sign of obstruction. Given her recent surgery, chest symptoms, and abdominal symptoms, CTA of the chest was obtained in addition to CT abdomen/pelvis with IV contrast. Results are as below, these are noted. She did in fact have a Arambula during surgery that was removed within the subsequent admission prior to discharge from the hospital, which probably explains the small amount of air in her bladder. Her lipase is slightly abnormal but not significantly so, and I do not think she needs to be hospitalized for this. She was treated with IV fluids, Zofran, morphine, and on reevaluation she is feeling much better and drinking fluids. I offered transfer back to [place], she does not want this and wants to go home. I see no evidence of an acute postoperative complication at this time, and I suspect that the pain she was having in her right chest was more in the shoulder and could have been Kehr sign due to her abdominal symptoms and recent surgery. Diaphragmatic irritation could also give her symptomatic dyspnea, she does not appear objectively dyspneic here in the emergency department and her vital signs have been stable/normal. She already has Zofran at home. Will discharge her home with instructions to try to hydrate more than usual since she had a colectomy, and to continue with clear liquids for the next 48 hours and to advance her diet as tolerated, returning if worse and/or following up with her surgeon/specialist at [facility] which she is comfortable doing and prefers. Lab Data Attestation: I reviewed the patient's lab results. Labs: Laboratory Results - last 24 hr 07/13/21 07/13/21 13:16 13:16 WBC 8.2 RBC 4.29 Hgb 12.6 Hct 38.6 MCV 90.0 MCH 29.4 MCHC 32.6 RDW Std Deviation 39.5 RDW Coeff of Stormy 12.1 Plt Count 422 MPV 10.5 Immature Gran % (Auto) 0.200 Neut % (Auto) 69.9 Lymph % (Auto) 19.4 Barren % (Auto) 6.7 Eos % (Auto) 3.4 Baso % (Auto) 0.4 Absolute Neuts (auto) 5.7 Absolute Lymphs (auto) 1.59 Nucleated RBC % 0 Sodium 136 Potassium 3.7 Chloride 103 Carbon Dioxide 30.0 Anion Gap 3 L BUN 10 Creatinine 0.78 Estim Creat Clear Calc 69.11 Est GFR (MDRD) Af Amer 96 Est GFR (MDRD) Non-Af 80 BUN/Creatinine Ratio 12.9 Glucose 131 H Calcium 9.3 Total Bilirubin 0.30 AST 56 H ALT 126 H Alkaline Phosphatase 368 H Troponin I High Sens 5 Total Protein 6.9 Albumin 2.8 L Globulin 4.1 Albumin/Globulin Ratio 0.7 L Lipase 449 H Radiography Diagnostic Testing: Clinical Impression(s) from Imaging Studies Abdomen/Pelvis CT 07/13/21 13:30 IMPRESSION: The patient is status post proctocolectomy with an ostomy in the right lateral abdominal wall. Findings suggestive of postsurgical changes in the pelvis with the prominent soft tissues in the presacral space. Mildly distended fluid-filled small bowel loops in the pelvis. Small amount of air is seen within the urinary bladder. If there has been manipulation with a ARAMBULA catheter versus normal finding otherwise, a fistulous communication should be ruled out. Electronically Signed: Dennis Franco MD at 15:32 EST , Service support , Chest CTA 07/13/21 13:30 IMPRESSION: No evidence of pulmonary embolus. Findings suggestive of mild degree of bibasilar atelectasis. Small amount of free intraperitoneal air beneath the right hemidiaphragm in keeping with the patient''s history of recent proctocolectomy. Electronically Signed: Dennis Franco MD at 15:33 EST , Service support , Rhythm Strip Rhythm Strip: Sinus Rhythm Rate: 80 Ectopy: None EKG Initial EKG: Attestation: I personally reviewed and interpreted this EKG as follows: Interpretation: Sinus Rhythm and No Acute Injury Pattern Prior EKG tracings: available for review Prior: Unchanged Discharge Plan Triage Chief Complaint: Abd Pain Other Complaint: Shortness of Breath ED Provider: Ariel Knowles Dx/Rx/DC Orders Clinical Impression: Abdominal pain, diffuse, Nausea vomiting and diarrhea Instructions: Abdominal Pain, ED Clear Liquid Diet, ED Vomiting and Diarrhea ... Prescriptions: No Action levetiracetam 500 MG tablet 1,500 mg PO BID RF: 0 aspirin 81 MG tablet 81 mg PO DAILY@0800 RF: 0 polyethylene glycol 3350 17 GM powder in packet 17 g PO DAILY RF: 0 diphenhydramine HCl [Banophen] 25 MG capsule 25 mg PO Q6H PRN PRN (Reason: headache) RF: 0 atorvastatin 20 MG tablet 20 mg PO DAILY RF: 0 multivitamin 1 EACH tablet 1 tab PO DAILY RF: 0 melatonin 3 mg Tablet 3 mg PO QHS RF: 0 acetaminophen 500 mg Tablet 1,000 mg PO Q6H PRN (Reason: Pain) RF: 0 levothyroxine 100 mcg tablet 100 mcg PO DAILY RF: 0 oxycodone-acetaminophen 5-325 mg tablet 1 tab PO BID PRN (Reason: Pain) RF: 0 methenamine hippurate 1 gram tablet 1 g PO BID RF: 0 ascorbic acid (vitamin C) 500 mg Tablet 500 mg PO DAILY RF: 0 ondansetron 4 mg tablet,disintegrating 4 mg PO Q8H PRN (Reason: Nausea) RF: 0 Primary Care Provider: Marianna Forte Referrals: Marianna Forte MD [Primary Care Provider] - 3-5 Days if not improving (And/your your surgeon/specialists at [facility]) Activity Restrictions/Additional Instructions: Stick to clear liquid diet for the next 48 hours, you may then try to eat more normal foods as long as you tolerate these and you are not getting worse. Make sure you are drinking plenty fluid. Take your Zofran as needed and your other prescriptions as prescribed. Disposition Disposition: Home, Self Care
[2021-07-13] MEDS: Ondansetron 4 MG/2 ML Vial IV (13:44)
[2021-07-13] MEDS: DiphenhydrAMINE 50 MG/ML Syringe 25 MG IV (13:44)
[2021-07-13] MEDS: Morphine 4 MG/ML Syringe IV (13:44)
[2021-07-13] MEDS: 0.9% Normal Saline 1,000 ML 999 ML IV (13:44)
[2021-07-13 13:46] LABS: Absolute Lymphocyte Count 1.59 X10^3/uL (0.83-4.51); Absolute Neutrophil Count 5.7 X10^3/uL (2.0-7.7); Basophil# 0.03 X10^3/uL; Basophil% 0.4 % (0-1); Eosinophil# 0.28 X10^3/uL; Eosinophils% 3.4 % (0-5); Hematocrit 38.6 % (37-47); Hemoglobin 12.6 g/dL (12.0-15.0); Lymphocyte # 1.59 X10^3/ul (0.83-4.51); Lymphocyte % 19.4 % (19-41); Mean Corp Hgb Conc 32.6 g/dL (32-36); Mean Corpuscular Hgb 29.4 pg (27.0-32.0); Mean Platelet Vol. 10.5 fl (6.2-12.0); Monocyte# 0.55 X10^3/uL; Monocyte% 6.7 % (0-10); NRBC Flagged by Analyzer 0 % (0-5); Neutrophil # 5.71 X10^3/uL (2.7-7.7); Neutrophil % 69.9 % (47-70); Platelet Count 422 K/mm3 (150-450); RBC Distribution Width CV 12.1 % (11.6-14.6); RBC Distribution Width SD 39.5 fl (35.1-43.9); Red Blood Count 4.29 M/mm3 (4.2-5.4); White Blood Count 8.2 K/mm3 (4.4-11.0)
[2021-07-13 13:57] LABS: ALB/GLOB Ratio 0.7 RATIO (0.9-2.4); AST(SGOT) 56 U/L (15-37); Alanine Aminotransfer ALT/SGPT 126 U/L (13-56); Albumin, Serum 2.8 g/dL (3.2-5.0); Alkaline Phosphatase 368 U/L (45-117); Anion Gap 3 (5-15); BUN 10 mg/dL (7-18); BUN/Creat Ratio 12.9 RATIO (10-20); Calcium,Total 9.3 mg/dL (8.5-10.1); Chloride 103 mmol/L (98-107); Creatinine, Serum 0.78 mg/dL (0.55-1.02); EST Glomerular Filtration Rate 80 mL/min (>60); Est Glom Filt Rate - Afr Amer 96 mL/min (>60); Estimated Creatinine Clearance 69.11 ml/min; Globulin 4.1 g/dL (2.2-4.2); Glucose 131 mg/dL (74-106); Lipase 449 U/L (73-393); Potassium 3.7 mmol/L (3.5-5.1); Protein, Total 6.9 g/dL (6.4-8.2); Sodium Level 136 mmol/L (136-145); Troponin-I HS 5 pg/mL (3.0-54.0)
[2021-07-13] MEDS: MethylPREDNISolone 125 MG/2 ML Vial IV (14:36)
== END 2021-07-13 16:39 | disposition home or self-care (01) ==
PROVIDERS: Emergency Provider Emergency Medicine; PCP Family Medicine
DX: R10.9 Unspecified abdominal pain (principal); R11.2 Nausea with vomiting, unspecified; R19.7 Diarrhea, unspecified; H54.8 Legal blindness, as defined in USA; E78.00 Pure hypercholesterolemia, unspecified; E03.9 Hypothyroidism, unspecified; Z93.3 Colostomy status; Z87.891 Personal history of nicotine dependence; Z79.82 Long term (current) use of aspirin; Z79.899 Other long term (current) drug therapy
CPT/HCPCS: 71275; 74177; 80053; 83690; 84484; 85025; 87426; 93005; 96374; 96375; 99285; J7030; Q9967; A4216; J2405

== ENCOUNTER 2021-07-18 15:13 | Emergency (ER) | payer MEDICARE, SELFPAY ==
[2021-07-18 15:14] VITALS: BP 109/65; PULSE 89; RESP 16; TEMP 36.9; O2SAT 100; BMI 22.2
--- NOTE | 2021-07-18 15:39 | CT_ITS ---
STUDY: CT ABDOMEN AND PELVIS WITH CONTRAST REASON FOR EXAM: Female, 61 years old. Diffuse abdominal pain, nausea RADIATION DOSAGE (If Supplied By Facility): CTDIvol = ( 11.36 ) mGy, DLP = ( 867.06 ) mGycm TECHNIQUE: Transaxial images were obtained from the dome of the diaphragm to the symphysis pubis without oral contrast. IV 100mL Isovue-300 was administered. Sagittal and coronal images were reconstructed. Individualized dose optimization techniques were used for this CT. COMPARISON: 07/13/2021 FINDINGS: Pectus excavatum deformity again noted There are chronic interstitial fibrotic changes of the lung bases. The visualized portions of the heart are within normal limits. Liver is unremarkable aside from a simple 1 cm cyst. There is non-visualization of the gallbladder, which may be secondary to either contraction or a prior cholecystectomy. Normal spleen. Normal pancreas. Normal bilateral adrenal glands. There is right-sided hydronephrosis and hydroureter. Findings could be due to a 3.5 mm stone seen on axial image 111. However, on the coronal images calcification appears to be extrinsic to the distal ureter and bladder. There is no clearly defined obstructing stone or stricture. The left kidney shows parapelvic cysts but no obstruction or solid lesion is noted. Normal visualized stomach. There is a right lower quadrant ostomy, there is no evidence of obstruction or ileus. Some retained stool is noted in the colon. Ostomy site is free of acute inflammation. Appendix is not visualized Normal abdominal aorta. Normal inferior vena cava. Normal retroperitoneum. Bladder distends normally without wall thickening or internal debris there is evidence of air within the bladder perhaps from recent catheterization. Anterior to the bladder is nonspecific induration of the dependent pelvic fat without evidence of abscess or adenopathy. Normal abdominal wall. Mild degenerative bony changes CT/Abdomen/Pelvis W IV Cont ONLY IMPRESSION: Right-sided hydronephrosis and hydroureter of uncertain etiology. There is a 3.50 m calcification in the right hemipelvis but on the coronal images this is shown to be extrinsic to the distal ureter or bladder. Right lower quadrant ostomy site free of complication, retained stool noted throughout the colon Nonspecific induration of the pelvic fat inferior to the bladder suggests a proctitis there is no abscess or adenopathy. Air within the nondependent bladder perhaps from recent catheterization. There is no bladder wall thickening or internal debris. Simple hepatic cyst, no specific follow-up needed Electronically Signed: George Guy MD at 17:18 EST , Service support ,
--- NOTE | 2021-07-18 15:42 | EX.ED.DYSGE1 ---
HPI History of Present Illness Chief Complaint: Fever Detail of Chief Complaint: Postop abdominal pain after colectomy Informant: patient and friend Onset/Context/Timing Onset: Days Context: Gradual Onset Timing: Continuous Current Severity: Mild Maximum Severity: Mild Narrative Narrative: 61-year-old female significant past medical history including mitochondrial disease, legally blind and multiple prior surgeries. 3 weeks ago she had a colectomy done at the [facility] with partial small bowel resection and resection of her rectum. She now has an ileostomy. Previously she had a colectomy and appendectomy. She states she has had more abdominal pain. And has been running fevers as high as 102. States after her surgery 3 weeks ago she was at the [facility] and hospitalized for about 2 weeks. She denies any dysuria. She was treated in emergency department about 1 week ago for dehydration. Prior similar symptoms: Yes Recent Illness/Hospitalization: Yes [facility] Medical History Colostomy in place GERD (gastroesophageal reflux disease) High cholesterol Hx of migraines Hypothyroidism Legal blindness Migraines Mitochondrial myopathies Seizure Spastic paraparesis Home Medications levetiracetam 1,500 mg PO BID 04/05/17 [History Last Taken 05/30/21] aspirin 81 mg PO DAILY@0800 08/29/17 [History Last Taken 05/30/21] diphenhydramine HCl [Banophen] 25 mg PO Q6H PRN PRN 03/02/18 [History Last Taken 05/30/21] polyethylene glycol 3350 17 g PO DAILY 03/02/18 [History Last Taken 05/31/21] atorvastatin 20 mg PO DAILY 11/24/19 [History Last Taken 05/30/21] multivitamin 1 tab PO DAILY 09/06/20 [History Last Taken 05/30/21] acetaminophen 1,000 mg PO Q6H PRN 05/31/21 [History Last Taken 05/30/21] ascorbic acid (vitamin C) 500 mg PO DAILY 05/31/21 [History Last Taken 05/30/21] levothyroxine 100 mcg PO DAILY 05/31/21 [History Last Taken 05/30/21] melatonin 3 mg PO QHS 05/31/21 [History Last Taken 05/30/21] methenamine hippurate 1 g PO BID 05/31/21 [History Last Taken 05/30/21] ondansetron 4 mg PO Q8H PRN 05/31/21 [History Last Taken 05/31/21] oxycodone-acetaminophen 1 tab PO BID PRN 05/31/21 [History Last Taken 05/30/21] Allergy/AdvReac Type Severity Reaction Status Date / Time shellfish derived Allergy Severe Anaphylaxis Verified 07/18/21 15:19 amoxicillin Allergy Rash Verified 07/18/21 15:19 ciprofloxacin [From Cipro] Allergy Rash Verified 07/18/21 15:19 iodine Allergy Rash Verified 07/18/21 15:19 peanut Allergy Anaphylaxis Verified 07/18/21 15:19 Penicillins [PCN] Allergy Rash Verified 07/18/21 15:19 povidone-iodine Allergy Rash Verified 07/18/21 15:19 [From Betadine] soap [From Betadine] Allergy Rash Verified 07/18/21 15:19 alendronate sodium AdvReac unable to Verified 07/18/21 15:19 [From Fosamax] swallow pill/choking risedronate sodium AdvReac CHOKING Verified 07/18/21 15:19 [From Actonel] Surgical History H/O: hysterectomy History of appendectomy Status post colostomy Social History household members: none Smoking Status: Former smoker details: Unknown substance use type: other details: Unknown ROS ROS ED ROS Narrative Fever. Abdominal pain. Nausea and vomiting. Recent hospitalization. Review of Systems ROS Unobtainable: Denies due to encephalopathy Constitutional Constitutional ED: Reports fever(s) Eyes Eyes: Denies change in vision ENT ENT ED: Denies ear pain or sore throat Cardiovascular Cardiovascular: Denies chest pain Respiratory/Chest Respiratory/Chest: Denies cough or dyspnea Gastrointestinal Gastrointestinal: Reports abdominal pain, nausea and vomiting Genitourinary Genitourinary ED: Denies dysuria Musculoskeletal Musculoskeletal: Denies myalgias Integumentary Denies rash Neurologic Neurologic: Denies headache(s) Psychiatric Psychiatric: Denies depression Endocrine Endocrinology: Denies polyuria Allergic/Immunologic Allergic/Immunologic ED: Denies urticaria EXAM Physical Exam Narrative Exam Narrative: 61-year-old female no acute distress. Vital signs stable afebrile. Current temperature is 98.4 she states has been taking Tylenol. Pulse ox 9% on room air no signs hypoxia. HEENT exam unremarkable. Moist with membranes. She is legally blind. Neck nontender no lymphadenopathy. Lungs clear to auscultation bilaterally. Heart regular rhythm rate about 90 no murmur. Abdomen soft. Nondistended. Diffusely tender. Well-healed midline surgical incision that is vertical. Sats[place] in place. Right lower quadrant ileostomy with loose brown stool. Positive bowel sounds. She has contractures in her lower extremities no edema. 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 Neurologically she is blind. She has contractures and weakness in her lower extremities. She is awake and alert answering questions and following commands. Const Vital Signs: 07/18/21 15:14 07/18/21 15:21 07/18/21 17:40 Temperature 98.4 F Temperature Source Oral Pulse Rate 89 98 Respiratory Rate 16 16 Respiratory Effort Normal Non-Labored Respiratory Pattern Normal Blood Pressure 109/65 111/63 Blood Pressure Mean 79 79 Pulse Ox 100 98 Oxygen Delivery Method Room Air Room Air Positive well nourished and well developed; Negative for obese, cachectic, contractures or unkempt General Appearance ED: well developed and NAD; Negative for unkempt, cachectic, contractures, cyanotic or diaphoretic Nutritional Appearance: Negative for cachectic or obese HEENT Reports moist mucous membranes Negative for trauma or tenderness Eyes PERRL Eyes Narrative: Legally blind. Neck no lymphadenopathy, supple and no JVD General: Negative for tenderness Chest Wall inspection of chest normal and palpation of chest normal Resp normal respiratory effort and clear to auscultation bilaterally Effort and Inspection: Negative for pain with movement Auscultation: Negative for rales, rhonchi or wheezes Cardio regular rate, regular rhythm, S1 normal heart sound, S2 normal heart sound and no murmurs GI normal to inspection, nondistended, normoactive bowel sounds, non-distended and no masses; Negative for non-tender GI Narrative: Vertical recent surgical incision well healing. Sats[place] in place. Right lower quadrant colostomy with loose stool. No gross blood. Inspection: Negative for abdominal distention Auscultation: normoactive bowel sounds Palpation: soft and tender; Negative for guarding or rebound tenderness present Back/Spine no CVA tenderness General Back: Negative for CVA tenderness Cervical Spine: Negative for cervical spine tenderness Thoracic Spine / Upper Back: Negative for thoracic spinal tenderness or paraspinal muscle tenderness Extremity Extremity Narrative: Contractures bilateral lower extremities. No edema. Nontender. 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 Neuro oriented x3 Neuro Narrative: Legally blind. Sensorium / Orientation: alert; Negative for orientation impaired, lethargic or stuporous Motor Exam: Negative for strength 5/5 throughout Psych mental status grossly normal Appearance: Negative for unkempt Mood & Affect: Negative for depressed or tearful Skin no rashes or lesions noted and no wounds MDM MDM MDM Narrative Medical decision making narrative: 61-year-old female status post recent total colectomy with ileostomy and recent partial small bowel resection. Planing abdominal pain and recent fevers. Labs and CAT scan are being obtained. She has reportedly an iodine allergy will be pretreated with Solu-Medrol Benadryl prior to the CAT scan. She is receiving IV fluids. Morphine for pain and Zofran for nausea. Repeat exam at 7:05 PM patient is doing well. Her vital signs are stable. She does not look septic or toxic. Her abdomen is benign normal postoperative discomfort. She has a well-healing incision. She and I went over all of her test we do not have any specific cause. She has a follow-up appointment next week with the [facility] and she will call them and see if she can get that moved up. I have nothing at this time that would require admission to the hospital. She already has pain and nausea medications at home. She knows to return if feeling worse. Lab Data Attestation: I reviewed the patient's lab results. Lab results narrative: CBC shows a white count of 6.0. Hemoglobin 11.5 which is unremarkable for someone status post her recent major abdominal surgery. Covid test negative. Electrolytes unremarkable gap is 7 normal BUN and creatinine. Normal liver enzymes. Alkaline phosphatase 207. Lipase is elevated at 523. Urinalysis is normal no signs of infection. No white cells, no red cells, and no nitrates. Labs: Laboratory Results - last 24 hr 07/18/21 07/18/21 07/18/21 15:25 15:25 17:05 WBC 6.0 RBC 3.95 L Hgb 11.5 L Hct 35.1 L MCV 88.9 MCH 29.1 MCHC 32.8 RDW Std Deviation 39.4 RDW Coeff of Stormy 12.2 Plt Count 317 MPV 10.5 Immature Gran % (Auto) 0.300 Neut % (Auto) 71.6 H Lymph % (Auto) 17.7 L [place] % (Auto) 9.7 Eos % (Auto) 0.5 Baso % (Auto) 0.2 Absolute Neuts (auto) 4.3 Absolute Lymphs (auto) 1.06 Nucleated RBC % 0 Sodium 138 Potassium 3.5 Chloride 104 Carbon Dioxide 27.0 Anion Gap 7 BUN 6 L Creatinine 0.75 Estim Creat Clear Calc 71.87 Est GFR (MDRD) Af Amer 100 Est GFR (MDRD) Non-Af 83 BUN/Creatinine Ratio 8.0 L Glucose 93 Calcium 9.2 Total Bilirubin 0.50 AST 30 ALT 45 Alkaline Phosphatase 207 H Total Protein 6.9 Albumin 2.9 L Globulin 4.0 Albumin/Globulin Ratio 0.7 L Lipase 523 H Urine Color Straw Urine Clarity Clear Urine pH 7.0 Ur Specific [place] 1.005 Urine Protein Negative Urine Glucose (UA) Normal Urine Ketones Negative Urine Occult Blood Negative Urine Nitrite Negative Urine Bilirubin Negative Urine Urobilinogen Normal Ur Leukocyte Esterase Negative Urine RBC 0-5 SEEN Urine WBC 0-5 SEEN Ur Squamous Epith Cells 0-5 SEEN Urine Bacteria 0 SEEN Urine Mucus 0 SEEN Radiography Chest X-Ray - ED: 1 View, Heart, Lungs, Mediastinum, Bony Structures, No Acute Disease and Chronic Changes Diagnostic Testing: Clinical Impression(s) from Imaging Studies Abdomen/Pelvis CT 07/18/21 15:39 IMPRESSION: Right-sided hydronephrosis and hydroureter of uncertain etiology. There is a 3.50 m calcification in the right hemipelvis but on the coronal images this is shown to be extrinsic to the distal ureter or bladder. Right lower quadrant ostomy site free of complication, retained stool noted throughout the colon Nonspecific induration of the pelvic fat inferior to the bladder suggests a proctitis there is no abscess or adenopathy. Air within the nondependent bladder perhaps from recent catheterization. There is no bladder wall thickening or internal debris. Simple hepatic cyst, no specific follow-up needed Electronically Signed: George Guy MD at 17:18 EST , Service support , Chest X-Ray 07/18/21 16:31 IMPRESSION: No acute pulmonary process Electronically Signed: George Guy MD at 17:00 EST , Service support , Chest x-ray portable 1 view shows no acute abnormality. Normal cardiac silhouette no infiltrate. Also read by the radiologist who agrees. Radiologist read CAT scan there is no acute signs of obstruction or perforation. There is some right-sided hydronephrosis of uncertain cause. Discharge Plan Triage Chief Complaint: Fever ED Provider: Leo Rubio Dx/Rx/DC Orders Clinical Impression: Fever, Acute postoperative abdominal pain Instructions: Abdominal Pain, ED FUO Adult Prescriptions: No Action levetiracetam 500 MG tablet 1,500 mg PO BID RF: 0 aspirin 81 MG tablet 81 mg PO DAILY@0800 RF: 0 polyethylene glycol 3350 17 GM powder in packet 17 g PO DAILY RF: 0 diphenhydramine HCl [Banophen] 25 MG capsule 25 mg PO Q6H PRN PRN (Reason: headache) RF: 0 atorvastatin 20 MG tablet 20 mg PO DAILY RF: 0 multivitamin 1 EACH tablet 1 tab PO DAILY RF: 0 melatonin 3 mg Tablet 3 mg PO QHS RF: 0 acetaminophen 500 mg Tablet 1,000 mg PO Q6H PRN (Reason: Pain) RF: 0 levothyroxine 100 mcg tablet 100 mcg PO DAILY RF: 0 oxycodone-acetaminophen 5-325 mg tablet 1 tab PO BID PRN (Reason: Pain) RF: 0 methenamine hippurate 1 gram tablet 1 g PO BID RF: 0 ascorbic acid (vitamin C) 500 mg Tablet 500 mg PO DAILY RF: 0 ondansetron 4 mg tablet,disintegrating 4 mg PO Q8H PRN (Reason: Nausea) RF: 0 Primary Care Provider: Marianna Forte Referrals: Marianna Forte MD [Primary Care Provider] - Activity Restrictions/Additional Instructions: Your test tonight are basically unremarkable with only specific cause for any fever. There is no signs of infection in your urine or chest x-ray. The CAT scan of your abdomen is unremarkable other than some mild dilation of the right kidney and ureter. Follow-up with the [facility] and see if you get your appointment moved up from July 27 possibly they can see you either Friday or Friday. Continue your nausea and pain medications at home. Return to the emergency department if you are feeling worse. Disposition Disposition: Home, Self Care
[2021-07-18] MEDS: 0.9% Normal Saline 1,000 ML 1000 ML IV (15:47)
[2021-07-18] MEDS: DiphenhydrAMINE 50 MG/ML Syringe 25 MG IV (15:47)
[2021-07-18] MEDS: morphine 8 MG/ML Syringe IV (15:48)
[2021-07-18] MEDS: MethylPREDNISolone 125 MG/2 ML Vial IV (15:48)
[2021-07-18] MEDS: Ondansetron 4 MG/2 ML Vial IV (15:48)
[2021-07-18 16:04] LABS: Absolute Lymphocyte Count 1.06 X10^3/uL (0.83-4.51); Absolute Neutrophil Count 4.3 X10^3/uL (2.0-7.7); Basophil# 0.01 X10^3/uL; Basophil% 0.2 % (0-1); Eosinophil# 0.03 X10^3/uL; Eosinophils% 0.5 % (0-5); Hematocrit 35.1 % (37-47); Hemoglobin 11.5 g/dL (12.0-15.0); Lymphocyte # 1.06 X10^3/ul (0.83-4.51); Lymphocyte % 17.7 % (19-41); Mean Corp Hgb Conc 32.8 g/dL (32-36); Mean Corpuscular Hgb 29.1 pg (27.0-32.0); Mean Corpuscular Volume 88.9 fL (81-99); Mean Platelet Vol. 10.5 fl (6.2-12.0); Monocyte# 0.58 X10^3/uL; Monocyte% 9.7 % (0-10); NRBC Flagged by Analyzer 0 % (0-5); Neutrophil # 4.29 X10^3/uL (2.7-7.7); Neutrophil % 71.6 % (47-70); Platelet Count 317 K/mm3 (150-450); RBC Distribution Width CV 12.2 % (11.6-14.6); RBC Distribution Width SD 39.4 fl (35.1-43.9); Red Blood Count 3.95 M/mm3 (4.2-5.4)
[2021-07-18 16:17] LABS: ALB/GLOB Ratio 0.7 RATIO (0.9-2.4); AST(SGOT) 30 U/L (15-37); Alanine Aminotransfer ALT/SGPT 45 U/L (13-56); Albumin, Serum 2.9 g/dL (3.2-5.0); Alkaline Phosphatase 207 U/L (45-117); Anion Gap 7 (5-15); BUN 6 mg/dL (7-18); Calcium,Total 9.2 mg/dL (8.5-10.1); Chloride 104 mmol/L (98-107); Creatinine, Serum 0.75 mg/dL (0.55-1.02); EST Glomerular Filtration Rate 83 mL/min (>60); Est Glom Filt Rate - Afr Amer 100 mL/min (>60); Estimated Creatinine Clearance 71.87 ml/min; Glucose 93 mg/dL (74-106); Lipase 523 U/L (73-393); Potassium 3.5 mmol/L (3.5-5.1); Protein, Total 6.9 g/dL (6.4-8.2); Sodium Level 138 mmol/L (136-145)
--- NOTE | 2021-07-18 16:31 | RAD_ITS ---
STUDY: X-RAY CHEST REASON FOR EXAM: Female, 61 years old. Post op fever TECHNIQUE: Single AP portable view of the chest. COMPARISON: 03/21/2020 FINDINGS: The lungs are clear and expanded. There is no demonstrated pleural abnormality. Normal size heart. Normal mediastinum and dianna. Normal visualized pulmonary arteries. Normal visualized aortic arch and descending thoracic aorta. There are diffuse degenerative changes of the visualized thoracic spine. There is degenerative osteoarthritis of the bilateral shoulders. There is no demonstrated abnormality of the visualized soft tissue structures of the upper abdomen. RAD/Chest 1 View (Portable) IMPRESSION: No acute pulmonary process Electronically Signed: George Guy MD at 17:00 EST , Service support ,
[2021-07-18 17:11] LABS: Bacteria 0 SEEN /hpf (None Seen); Mucous, Urine 0 SEEN /hpf (<or=2+)
[2021-07-18 17:12] LABS: Color, Urine Straw (Yellow); Glucose, Dipstick Normal (Normal); Ketone-Dipstick Negative (Negative); Leukocyte Esterase-Dipstick Negative /ul (Negative); Nitrite-Dipstick Negative (Negative); Occult Blood-Urine Negative /ul (Negative); Protein-Dipstick Negative (Negative); Specific Gravity, Urine 1.005 (1.002-1.030); Urine Bilirubin Dipstick Negative (Negative); Urine Clarity Clear (Clear); Urine Urobilinogen Normal (Normal)
[2021-07-18 17:37] LABS: Red Blood Cells-Urine 0-5 SEEN /hpf (0-5); Squamous Epithelial Cells - UA 0-5 SEEN /hpf (5-10); White Blood Cells 0-5 SEEN /hpf (0-5)
[2021-07-18 17:40] VITALS: BP 111/63; PULSE 98; RESP 16; O2SAT 98
[2021-07-18 19:18] VITALS: BP 127/75; PULSE 95; PULSE 97; RESP 16; RESP 18; TEMP 37.1; O2SAT 96
== END 2021-07-18 19:31 | disposition home or self-care (01) ==
PROVIDERS: Emergency Provider Emergency Medicine; PCP Family Medicine
DX: R50.9 Fever, unspecified (principal); G89.18 Other acute postprocedural pain; R10.9 Unspecified abdominal pain; Z93.3 Colostomy status; Z93.2 Ileostomy status; Z90.49 Acquired absence of other specified parts of digestive tract; Z87.891 Personal history of nicotine dependence
CPT/HCPCS: 71045; 74177; 80053; 81001; 83690; 85025; 87426; 96361; 96374; 96375; 99285; J7030; Q9967; J2405

== ENCOUNTER 2021-08-03 18:09 | Inpatient (IN) | payer MEDICARE, SELFPAY ==
[2021-08-03] VITALS (7 sets, daily range): BP systolic 103–113; BP diastolic 68–87; PULSE 85–113; RESP 17–19; TEMP 36.7–37.1; O2SAT 94–98; BMI 19.7
--- NOTE | 2021-08-03 18:56 | CT_ITS ---
STUDY: CT ABDOMEN AND PELVIS WITHOUT CONTRAST REASON FOR EXAM: Female, 61 years old. Flank pain RADIATION DOSAGE (If Supplied By Facility): CTDIvol = ( 6.15 ) mGy, DLP = ( 333.39 ) mGycm TECHNIQUE: Transaxial images were obtained from the dome of the diaphragm to the symphysis pubis without oral contrast, and without intravenous contrast. Sagittal and coronal images were reconstructed. Individualized dose optimization techniques were used for this CT. COMPARISON: July 13 2021. FINDINGS: Right lower lobe infiltrate. Bilateral basilar atelectasis. Pectus excavatum. The visualized portions of the heart are within normal limits. 11 mm right hepatic cyst in the liver. Normal gallbladder and extrahepatic biliary system. Normal spleen. Normal pancreas. Normal bilateral adrenal glands. Normal right kidney. Parapelvic cysts of the left kidney. Normal visualized stomach. Mild ileus of the small intestine with air fluid levels. Prior surgery of the colon. Normal abdominal aorta. Normal inferior vena cava. Normal retroperitoneum. Normal urinary bladder. There is a colostomy in the right anterior abdominal wall. Normal osseous structures. CT/Abdomen/Pelvis without Cont IMPRESSION: Small bowel ileus. Right-sided colostomy. Right lower infiltrate. Left renal cysts. Electronically Signed: Ruben Alvarado DO at 20:35 EST Tel [phone], Service support ,
--- NOTE | 2021-08-03 18:58 | EDS_ITS ---
HPI HPI - GI History of Present Illness Chief Complaint: Abd Pain Detail of Chief Complaint: Flank/abdomen pain that started last evening Informant: patient Abdominal Pain/Flank Pain Current Severity: 06/03 Narrative Narrative: Patient presents to the emergency department complaint of pain in her right side that started last night. Patient states she cannot stop throwing up. She rates her pain a 10 out of 10. Patient has history of frequent hematuria and states she has a spot on the right kidney for which she scheduled to see a urologist. Patient states June 28 she had a total proctoscopy colectomy with colostomy. Patient has had low-grade temp this evening to 99. Patient has had output from her ileostomy. No history of kidney stones. Prior similar symptoms: No PFSH PFSH Medical History Colostomy in place GERD (gastroesophageal reflux disease) High cholesterol Hx of migraines Hypothyroidism Legal blindness Migraines Mitochondrial myopathies Seizure Spastic paraparesis Home Medications levetiracetam 1,500 mg PO BID 04/05/17 [History Last Taken 05/30/21] aspirin 81 mg PO DAILY@0800 08/29/17 [History Last Taken 05/30/21] diphenhydramine HCl [Banophen] 25 mg PO Q6H PRN PRN 03/02/18 [History Last Taken 05/30/21] polyethylene glycol 3350 17 g PO DAILY 03/02/18 [History Last Taken 05/31/21] atorvastatin 20 mg PO DAILY 11/24/19 [History Last Taken 05/30/21] multivitamin 1 tab PO DAILY 09/06/20 [History Last Taken 05/30/21] acetaminophen 1,000 mg PO Q6H PRN 05/31/21 [History Last Taken 05/30/21] ascorbic acid (vitamin C) 500 mg PO DAILY 05/31/21 [History Last Taken 05/30/21] levothyroxine 100 mcg PO DAILY 05/31/21 [History Last Taken 05/30/21] melatonin 3 mg PO QHS 05/31/21 [History Last Taken 05/30/21] methenamine hippurate 1 g PO BID 05/31/21 [History Last Taken 05/30/21] ondansetron 4 mg PO Q8H PRN 05/31/21 [History Last Taken 05/31/21] oxycodone-acetaminophen 1 tab PO BID PRN 05/31/21 [History Last Taken 05/30/21] Allergy/AdvReac Type Severity Reaction Status Date / Time shellfish derived Allergy Severe Anaphylaxis Verified 07/18/21 15:19 amoxicillin Allergy Rash Verified 07/18/21 15:19 ciprofloxacin [From Cipro] Allergy Rash Verified 07/18/21 15:19 iodine Allergy Rash Verified 07/18/21 15:19 peanut Allergy Anaphylaxis Verified 07/18/21 15:19 Penicillins [PCN] Allergy Rash Verified 07/18/21 15:19 povidone-iodine Allergy Rash Verified 07/18/21 15:19 [From Betadine] soap [From Betadine] Allergy Rash Verified 07/18/21 15:19 alendronate sodium AdvReac unable to Verified 07/18/21 15:19 [From Fosamax] swallow pill/choking risedronate sodium AdvReac CHOKING Verified 07/18/21 15:19 [From Actonel] Family History (Updated 08/03/21 @ 23:[address] Saul Vides MD) Other Diabetes Heart disease Surgical History H/O: hysterectomy History of appendectomy Status post colostomy Social History household members: none Smoking Status: Former smoker details: Unknown substance use type: other details: Unknown ROS ROS ED Constitutional Constitutional ED: Reports systems reviewed and no addt'l complaints, except as documented; Denies body ache(s), change in weight or chills Eyes Eyes: Denies acute decrease in peripheral vision, change in vision, double vision or loss of vision ENT ENT ED: Reports none; Denies ear pain, lip swelling, loss taste/smell, neck pain, otalgia or sore throat Cardiovascular Cardiovascular: Reports none; Denies abdominal pain, chest pain with activity, leg edema, lightheadedness, palpitations, rapid heart rate or syncope Respiratory/Chest Respiratory/Chest: Reports none; Denies change in mental status, dry cough, dyspnea, hemoptysis, shortness of breath at rest or shortness of breath with exertion Gastrointestinal Gastrointestinal: Reports none, abdominal pain, nausea and vomiting; Denies change in stool character, diarrhea, hematemesis, hematochezia, melena or rectal bleeding Genitourinary Genitourinary ED: Reports none; Denies abdominal discomfort, anuria, dysuria, genital pain or polyuria Musculoskeletal Musculoskeletal: Reports none and back pain; Denies arthralgias, difficulty walking, extremity pain, muscle weakness or myalgias Integumentary Reports none; Denies abscess or rash Neurologic Neurologic: Reports none; Denies abnormal gait, confusion, focal weakness, frequent falls, headache(s), loss of vision, numbness, paresthesias, radicular pain, vertigo or weakness Psychiatric Psychiatric: Reports systems reviewed and no addt'l complaints, except as documented and none; Denies behavioral changes, confusion, difficulty concentrating, hallucinations, suicidal ideation, tactile hallucinations or visual hallucinations Endocrine Endocrinology: Denies none, cold intolerance, excessive sweating, fatigue or heat intolerance Hematologic/Lymphatic Hematologic/Lymphatic: Reports none; Denies anemia, easy bleeding or easy bruising Allergic/Immunologic Allergic/Immunologic ED: Denies as per HPI, none, lip swelling, mouth swelling, throat swelling, tongue swelling or hives EXAM Physical Exam Const Vital Signs: 08/03/21 18:15 08/03/21 20:39 08/03/21 20:42 Temperature 98.8 F 98.0 F Temperature Source Oral Temporal Pulse Rate 113 H 87 98 Respiratory Rate 18 17 19 H Blood Pressure 113/87 H 103/69 103/69 Blood Pressure Mean 95 80 80 Pulse Ox 96 94 94 Oxygen Delivery Method Room Air Room Air Room Air 08/03/21 22:19 08/03/21 22:20 08/03/21 23:18 Temperature 98.2 F 98.2 F Temperature Source Temporal Temporal Pulse Rate 98 88 Respiratory Rate 18 17 Blood Pressure 104/68 105/74 Blood Pressure Mean 80 84 Pulse Ox 98 98 94 Oxygen Delivery Method Room Air Positive well nourished and well developed General Appearance ED: well developed and NAD HEENT Reports TM's clear and moist mucous membranes normocephalic and atraumatic; Negative for trauma or tenderness Tympanic Membrane ED: Yes TM's clear Eyes PERRL and EOMs intact bilaterally General Eye ED: Negative for pale conjunctiva or scleral icterus Neck no lymphadenopathy, supple and no JVD General: Negative for tenderness Chest Wall inspection of chest normal and palpation of chest normal Chest: Negative for tenderness Resp normal respiratory effort and clear to auscultation bilaterally Effort and Inspection: Negative for respiratory distress or pain with movement Auscultation: Negative for rhonchi, wheezes or diminished lung sounds Cardio regular rate, regular rhythm, S1 normal heart sound, S2 normal heart sound and no murmurs Peripheral Pulses: pulses 2+ throughout GI normal to inspection, nondistended, normoactive bowel sounds, soft to palpation, non-distended and no masses GI Narrative: Tenderness palpation over right upper quadrant with some mild guarding. There is no rebound, rigidity, or peritoneal signs. Back/Spine no thoracic nor lumbar tenderness Back/Spine Narrative: CVA tenderness on the right. Extremity normal to inspection General Extremety ED: Negative for edema General Extremity: Negative for edema Neuro oriented x3, CN's II-XII intact bilaterally, no sensory deficits noted and gait normal Sensorium / Orientation: awake, alert, oriented to person, oriented to place and oriented to time Motor Exam: strength 5/5 throughout and strength abnormal Psych mental status grossly normal Skin no rashes or lesions noted and no wounds MDM MDM MDM Narrative Medical decision making narrative: IV line established on arrival. Patient was medicated with Dilaudid and Zofran. Patient had improvement in her nausea. Patient on CT noted to have ileus otherwise nothing acute. I perform a CTA of the chest given her pleuritic pain and this was positive for right-sided pulmonary emboli. Patient was started on Lovenox subcu. Patient also noted to have UTI and was started on Rocephin 1 g IV. Lab Data Attestation: I reviewed the patient's lab results. Labs: Laboratory Results - last 24 hr 08/03/21 08/03/21 08/03/21 19:20 19:20 20:37 WBC 15.7 H RBC 4.00 L Hgb 11.4 L Hct 35.5 L MCV 88.8 MCH 28.5 MCHC 32.1 RDW Std Deviation 39.0 RDW Coeff of Stormy 12.0 Plt Count 214 MPV 11.0 Immature Gran % (Auto) 0.600 Neut % (Auto) 83.5 H Lymph % (Auto) 6.7 L [place] % (Auto) 9.0 Eos % (Auto) 0.1 Baso % (Auto) 0.1 Absolute Neuts (auto) 13.1 H Absolute Lymphs (auto) 1.05 Nucleated RBC % 0 Sodium 141 Potassium 3.5 Chloride 107 Carbon Dioxide 26.0 Anion Gap 8 BUN 9 Creatinine 0.60 Estim Creat Clear Calc 83.84 Est GFR (MDRD) Af Amer 130 Est GFR (MDRD) Non-Af 108 BUN/Creatinine Ratio 15.1 Glucose 153 H Calcium 9.8 Total Bilirubin 1.30 H AST 35 ALT 35 Alkaline Phosphatase 145 H Total Protein 7.3 Albumin 2.9 L Globulin 4.4 H Albumin/Globulin Ratio 0.7 L Lipase 49 L Urine Color Yellow Urine Clarity Cloudy Urine pH 5.0 Ur Specific [place] 1.020 Urine Protein 100 H Urine Glucose (UA) Normal Urine Ketones 5 H Urine Occult Blood 150 H Urine Nitrite Negative Urine Bilirubin Negative Urine Urobilinogen Normal Ur Leukocyte Esterase 500 H Urine RBC 0 SEEN Urine WBC >100 SEEN Ur Squamous Epith Cells 0 SEEN Urine Bacteria 0 SEEN Urine Mucus 0 SEEN Radiography Diagnostic Testing: Clinical Impression(s) from Imaging Studies Abdomen/Pelvis CT 08/03/21 18:56 IMPRESSION: Small bowel ileus. Right-sided colostomy. Right lower infiltrate. Left renal cysts. Electronically Signed: Ruben Alvarado DO at 20:35 EST Tel [phone], Service support , Chest CTA 08/03/21 20:50 IMPRESSION: Right pulmonary embolism. No arterial dissection. Right lower lobe infiltrates. Mild right pleural effusion. Bibasilar atelectasis. Electronically Signed: Ruben Alvarado DO at 22:50 EST Tel [phone], Service support , Discharge Plan Triage Chief Complaint: Abd Pain ED Provider: Fredy Rosado Dx/Rx/DC Orders Clinical Impression: UTI (urinary tract infection), Pulmonary emboli, Back pain, Vomiting Prescriptions: No Action levetiracetam 500 MG tablet 1,500 mg PO BID RF: 0 aspirin 81 MG tablet 81 mg PO DAILY@0800 RF: 0 polyethylene glycol 3350 17 GM powder in packet 17 g PO DAILY RF: 0 diphenhydramine HCl [Banophen] 25 MG capsule 25 mg PO Q6H PRN PRN (Reason: headache) RF: 0 atorvastatin 20 MG tablet 20 mg PO DAILY RF: 0 multivitamin 1 EACH tablet 1 tab PO DAILY RF: 0 melatonin 3 mg Tablet 3 mg PO QHS RF: 0 acetaminophen 500 mg Tablet 1,000 mg PO Q6H PRN (Reason: Pain) RF: 0 levothyroxine 100 mcg tablet 100 mcg PO DAILY RF: 0 oxycodone-acetaminophen 5-325 mg tablet 1 tab PO BID PRN (Reason: Pain) RF: 0 methenamine hippurate 1 gram tablet 1 g PO BID RF: 0 ascorbic acid (vitamin C) 500 mg Tablet 500 mg PO DAILY RF: 0 ondansetron 4 mg tablet,disintegrating 4 mg PO Q8H PRN (Reason: Nausea) RF: 0 Primary Care Provider: Marianna Forte Referrals: Marianna Forte MD [Primary Care Provider] - Disposition Disposition: Acute Care Hospital [facility]
[2021-08-03] MEDS: HYDROmorphone 1 MG/ML Syringe IV (19:23)
[2021-08-03] MEDS: 0.9% Normal Saline 1,000 ML 1000 ML IV (19:23)
[2021-08-03] MEDS: Ondansetron 4 MG/2 ML Vial IV (19:24)
[2021-08-03] MEDS: Ketorolac 15 MG/ML Vial IV (19:29)
[2021-08-03 19:30] LABS: Absolute Lymphocyte Count 1.05 X10^3/uL (0.83-4.51); Absolute Neutrophil Count 13.1 X10^3/uL (2.0-7.7); Basophil# 0.02 X10^3/uL; Basophil% 0.1 % (0-1); Eosinophil# 0.01 X10^3/uL; Eosinophils% 0.1 % (0-5); Hematocrit 35.5 % (37-47); Hemoglobin 11.4 g/dL (12.0-15.0); Lymphocyte # 1.05 X10^3/ul (0.83-4.51); Lymphocyte % 6.7 % (19-41); Mean Corp Hgb Conc 32.1 g/dL (32-36); Mean Corpuscular Hgb 28.5 pg (27.0-32.0); Mean Corpuscular Volume 88.8 fL (81-99); Monocyte# 1.42 X10^3/uL; NRBC Flagged by Analyzer 0 % (0-5); Neutrophil # 13.11 X10^3/uL (2.7-7.7); Neutrophil % 83.5 % (47-70); Platelet Count 214 K/mm3 (150-450); White Blood Count 15.7 K/mm3 (4.4-11.0)
[2021-08-03 19:47] LABS: ALB/GLOB Ratio 0.7 RATIO (0.9-2.4); AST(SGOT) 35 U/L (15-37); Alanine Aminotransfer ALT/SGPT 35 U/L (13-56); Albumin, Serum 2.9 g/dL (3.2-5.0); Alkaline Phosphatase 145 U/L (45-117); Anion Gap 8 (5-15); BUN 9 mg/dL (7-18); BUN/Creat Ratio 15.1 RATIO (10-20); Calcium,Total 9.8 mg/dL (8.5-10.1); Chloride 107 mmol/L (98-107); EST Glomerular Filtration Rate 108 mL/min (>60); Est Glom Filt Rate - Afr Amer 130 mL/min (>60); Estimated Creatinine Clearance 83.84 ml/min; Globulin 4.4 g/dL (2.2-4.2); Glucose 153 mg/dL (74-106); Lipase 49 U/L (73-393); Potassium 3.5 mmol/L (3.5-5.1); Protein, Total 7.3 g/dL (6.4-8.2); Sodium Level 141 mmol/L (136-145)
--- NOTE | 2021-08-03 20:06 | ED.RN ---
Patient is working on a urine at this time and is due for her keppra at 2100
[2021-08-03] MEDS: levETIRAcetam IV 1,000 MG/100 ML BAG 400 MG IV (20:32)
[2021-08-03 20:46] LABS: Bacteria 0 SEEN /hpf (None Seen); Mucous, Urine 0 SEEN /hpf (<or=2+); Red Blood Cells-Urine 0 SEEN /hpf (0-5); Squamous Epithelial Cells - UA 0 SEEN /hpf (5-10)
--- NOTE | 2021-08-03 20:50 | CT_ITS ---
We are attempting to reach an attending provider to discuss findings. An addendum with communication details will be sent when the communication is complete. STUDY: CTA CHEST REASON FOR EXAM: Female, 61 years old. pe suspected RADIATION DOSAGE (If Supplied By Facility): CTDIvol = ( 11.99 ) mGy, DLP = ( 259.39 ) mGycm TECHNIQUE: The examination was performed with the intravenous administration of IV 100mL Isovue-370. Post-processing of the angiographic images was performed, with multiplanar reformation and 3D reconstruction. Individualized dose optimization techniques were used for this CT. COMPARISON: None. FINDINGS: Filling defect is noted in the of the right main pulmonary artery. There are filling defects of the right lower lobe peripheral pulmonary arteries. This is compatible with pulmonary embolism. Normal thoracic aorta and visualized great vessels. There is no demonstrated aortic dissection. Normal heart and pericardium. Normal mediastinum. Normal hilar regions. Normal visualized trachea and bronchi. The lungs are well expanded. Right lower lobe infiltrates. Mild right pleural effusion. Bibasilar atelectasis. Normal pleura. Pectus excavatum. Normal osseous structures. Normal visualized upper abdomen. CT/CTA Chest W/WO Contrast IMPRESSION: Right pulmonary embolism. No arterial dissection. Right lower lobe infiltrates. Mild right pleural effusion. Bibasilar atelectasis. Electronically Signed: Ruben Alvarado DO at 22:50 EST Tel [phone], Service support ,
[2021-08-03 20:55] LABS: Color, Urine Yellow (Yellow); Glucose, Dipstick Normal (Normal); Ketone-Dipstick 5 mg/dl (Negative); Leukocyte Esterase-Dipstick 500 /ul (Negative); Nitrite-Dipstick Negative (Negative); Occult Blood-Urine 150 /ul (Negative); Protein-Dipstick 100 mg/dl (Negative); Urine Bilirubin Dipstick Negative (Negative); Urine Clarity Cloudy (Clear); Urine Urobilinogen Normal (Normal)
[2021-08-03] MEDS: MethylPREDNISolone 125 MG/2 ML Vial 80 MG IV (21:03)
[2021-08-03] MEDS: DiphenhydrAMINE 50 MG/ML Syringe 25 MG IV (21:03)
[2021-08-03 21:18] LABS: White Blood Cells >100 SEEN /hpf (0-5)
[2021-08-03] MEDS: Ceftriaxone 1 GM/50 ML BAG IV (23:12)
--- NOTE | 2021-08-03 23:21 | PCM.HP.STD ---
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 She described the pain as sharp. The pain increases with taking a deep breath. The pain improved with a pain medicine received at the emergency department. The pain radiates to her middle back. Also she complains of nausea with multiple vomiting. On the day of presentation she vomited about 7 times prior to arrival at the emergency department. Also complaining of a low-grade fever at home controlled with Tylenol. She has a history of epilepsy and states that recently her epilepsy has been difficult to control because of poor intestinal absorption. Because of pain with taking a deep breath she has been taking her asthma inhaler. 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 GERD (gastroesophageal reflux disease) GI bleed High cholesterol Hx of migraines Hypothyroidism Legal blindness Migraines Mitochondrial myopathies Non-smoker Seizure Spastic paraparesis Stroke/cerebrovascular accident Home Medications levetiracetam 1,500 mg PO BID 04/05/17 [History Last Taken 08/03/21] aspirin 81 mg PO DAILY@0800 08/29/17 [History Last Taken 08/03/21] diphenhydramine HCl [Banophen] 25 mg PO Q6H PRN PRN 03/02/18 [History Last Taken 05/30/21] atorvastatin 20 mg PO DAILY 11/24/19 [History Last Taken 05/30/21] multivitamin 1 tab PO DAILY 09/06/20 [History Last Taken 08/03/21] acetaminophen 1,000 mg PO Q6H PRN 05/31/21 [History Last Taken 08/03/21] ascorbic acid (vitamin C) 500 mg PO DAILY 05/31/21 [History Last Taken 05/30/21] levothyroxine 75 mcg PO DAILY 05/31/21 [History Last Taken 08/03/21] ondansetron 4 mg PO Q8H PRN 05/31/21 [History Last Taken 08/04/21] oxycodone-acetaminophen 1 tab PO BID PRN 05/31/21 [History Last Taken 08/03/21] Allergy/AdvReac Type Severity Reaction Status Date / Time shellfish derived Allergy Severe Anaphylaxis Verified 07/18/21 15:19 amoxicillin Allergy Rash Verified 07/18/21 15:19 ciprofloxacin [From Cipro] Allergy Rash Verified 07/18/21 15:19 iodine Allergy Rash Verified 07/18/21 15:19 peanut Allergy Anaphylaxis Verified 07/18/21 15:19 Penicillins [PCN] Allergy Rash Verified 07/18/21 15:19 povidone-iodine Allergy Rash Verified 07/18/21 15:19 [From Betadine] soap [From Betadine] Allergy Rash Verified 07/18/21 15:19 alendronate sodium AdvReac unable to Verified 07/18/21 15:19 [From Fosamax] swallow pill/choking risedronate sodium AdvReac CHOKING Verified 07/18/21 15:19 [From Actonel] Family History Other Diabetes Heart disease Surgical History H/O: hysterectomy History of appendectomy History of cholecystectomy Status post colostomy Social History household members: none Smoking Status: Former smoker details: Unknown substance use type: other details: Unknown ROS ROS Narrative Constitutional: Reports low-grade fever. Denies change in weight Eyes: Reports legal blindness HEENT: Denies abnormal hearing, dysphagia, ear pain, epistaxis, headache(s), hearing loss, nasal congestion, nasal discharge, post nasal drip, sinus pressure, sore throat or other Cardiovascular: Denies chest pain or palpitations. Respiratory/Chest: Denies cough, excessive phlegm production. Gastrointestinal: Denies abdominal pain, coffee ground emesis, constipation, diarrhea, dyspepsia, hematemesis, hematochezia, loose stools, melena, nausea, vomiting or other Genitourinary: Reports urinary urgency. Denies hematuria. Musculoskeletal: Patient is wheelchair-bound. Neurologic: Denies numbness, paresthesias. Reports seizures. Endocrinology: Denies change in body appearance, cold intolerance, excessive sweating, heat intolerance, polydipsia, polyuria or other Hematologic/Lymphatic: Denies anemia, easy bleeding, easy bruising, lymphadenopathy or other Integumentary: Denies rashes Allergic/Immunologic: Denies rhinitis, hives, eczema,or other Vital Signs Vital Signs Vital Signs: 08/03/21 18:15 08/03/21 20:39 08/03/21 20:42 Temperature 98.8 F 98.0 F Temperature Source Oral Temporal Pulse Rate 113 H 87 98 Respiratory Rate 18 17 19 H Blood Pressure 113/87 H 103/69 103/69 Blood Pressure Mean 95 80 80 Pulse Ox 96 94 94 Oxygen Delivery Method Room Air Room Air Room Air 08/03/21 22:19 08/03/21 22:20 08/03/21 23:18 Temperature 98.2 F 98.2 F Temperature Source Temporal Temporal Pulse Rate 98 88 Respiratory Rate 18 17 Blood Pressure 104/68 105/74 Blood Pressure Mean 80 84 Pulse Ox 98 98 94 Oxygen Delivery Method Room Air Weight Weight: 55.338 kg Body Mass Index (BMI) 19.7 Physical Exam Narrative Physical exam: General: Frail looking. Head: Normocephalic, atraumatic, no tenderness Eyes: PERRLA, EOMI ENT, no trauma, moist mucous membranes, no rhinorrhea Neck: Nontender, full range of motion, no spinal tenderness, deformities, step-off CVS: Regular rate and rhythm. S1-S2 present. No murmur, gallop or rub. Respiratory : clear to auscultation bilaterally, chest wall nontender, no wheezing Abdomen: Soft, nondistended, normal bowel sounds, no masses. Colostomy/ostomy in place. Right costovertebral tenderness. : Deferred Back: Nontender, no CVA tenderness, no midline spinal tenderness, deformities, step-offs Extremities: Strength in bilateral upper extremities 3 out of 5. Strength in right lower extremity 2 out of 5. Strength in left lower extremity 1 out of 5. Decreased range of motion of all extremities. Skin: Normal color, no trauma, abrasions Neuro: Alert, oriented, cranial nerves II through XII grossly intact. Psychiatry: Normal mood. Normal affect. Not depressed. Not anxious. Results Lab / Micro Data Result Diagrams: 08/03/21 19:20 08/03/21 19:20 Labs: Laboratory Results - last 24 hr 08/03/21 19:20: WBC 15.7 H, RBC 4.00 L, Hgb 11.4 L, Hct 35.5 L, MCV 88.8, MCH 28.5, MCHC 32.1, RDW Std Deviation 39.0, RDW Coeff of Stormy 12.0, Plt Count 214, MPV 11.0, Immature Gran % (Auto) 0.600, Neut % (Auto) 83.5 H, Lymph % (Auto) 6.7 L, [place] % (Auto) 9.0, Eos % (Auto) 0.1, Baso % (Auto) 0.1, Absolute Neuts (auto) 13.1 H, Absolute Lymphs (auto) 1.05, Nucleated RBC % 0 08/03/21 19:20: Sodium 141, Potassium 3.5, Chloride 107, Carbon Dioxide 26.0, Anion Gap 8, BUN 9, Creatinine 0.60, Estim Creat Clear Calc 83.84, Est GFR (MDRD) Af Amer 130, Est GFR (MDRD) Non-Af 108, BUN/Creatinine Ratio 15.1, Glucose 153 H, Calcium 9.8, Total Bilirubin 1.30 H, AST 35, ALT 35, Alkaline Phosphatase 145 H, Total Protein 7.3, Albumin 2.9 L, Globulin 4.4 H, Albumin/Globulin Ratio 0.7 L, Lipase 49 L 08/03/21 20:37: Urine Color Yellow, Urine Clarity Cloudy, Urine pH 5.0, Ur Specific [place] 1.020, Urine Protein 100 H, Urine Glucose (UA) Normal, Urine Ketones 5 H, Urine Occult Blood 150 H, Urine Nitrite Negative, Urine Bilirubin Negative, Urine Urobilinogen Normal, Ur Leukocyte Esterase 500 H, Urine RBC 0 SEEN, Urine WBC >100 SEEN, Ur Squamous Epith Cells 0 SEEN, Urine Bacteria 0 SEEN, Urine Mucus 0 SEEN Radiology Impression Abdomen/Pelvis CT 08/03/21 18:56 IMPRESSION: Small bowel ileus. Right-sided colostomy. Right lower infiltrate. Left renal cysts. Electronically Signed: Ruben Alvarado DO at 20:35 EST Tel [phone], Service support , Chest CTA 08/03/21 20:50 IMPRESSION: Right pulmonary embolism. No arterial dissection. Right lower lobe infiltrates. Mild right pleural effusion. Bibasilar atelectasis. Electronically Signed: Ruben Alvarado DO at 22:50 EST Tel [phone], Service support , Assessment & Plan Assessment/Plan (1) UTI (urinary tract infection): QUALIFIERS: Urinary tract infection type: acute cystitis Hematuria presence: without hematuria Qualified Code(s): N30.00 - Acute cystitis without hematuria (2) Pulmonary emboli: QUALIFIERS: Pulmonary embolism type: other Chronicity: acute Acute cor pulmonale presence: without acute cor pulmonale Qualified Code(s): I26.99 - Other pulmonary embolism without acute cor pulmonale PLAN: UTI Review of emergency department labs showed abnormal urinalysis. Urine culture ordered emergent department follow-up. Review of [facility] department labs showed white count of 15.7 with neutrophilia of 83.5% and lymphopenia of 6.7%. The bilirubin is 1.30. Alkaline phosphatase is 145 Received ceftriaxone the emergency department and continued. Trend CBC and BMP. PE Chest CTA with right pulmonary embolism and right lower lobe infiltrate with mild right pleural effusion as well as bibasilar atelectasis. Actual Chest CTA was independently interpreted and I agree with radiologist interpretation. Received Lovenox in the emergency department and continued We will check echocardiogram. Ileus Abdomen pelvis CT showed small bowel ileus; right lower infiltrate. Keep patient n.p.o. Gentle IV hydration. Pneumonia Likely aspiration Of note patient reportedly patient was recently treated for aspiration pneumonia while at [facility]. Metronidazole and ceftriaxone ordered. Epilepsy While npo hold home Keppra and start IV keppra. Seizure precautions ordered. DVT prophylaxis: Not indicated since patient has been started on Lovenox for acute PE. Charges/Coding Visit Charges Inpatient E&M: 92928 Init Hosp L3
[2021-08-03] MEDS: Enoxaparin 60 MG/0.6 ML Syringe SC (23:26)
[2021-08-04] VITALS (9 sets, daily range): BP systolic 99–121; BP diastolic 62–71; PULSE 73–96; RESP 16–18; TEMP 36.6–37.1; O2SAT 94–99; BMI 20.5
--- NOTE | 2021-08-04 00:26 | PCS.PANDOC ---
PANDEMIC DOCUMENTATION INITIATED: Date: 04/09/2021 Time: 190
--- NOTE | 2021-08-04 02:30 | ECHOD_ITS ---
Reason For Study: Emboli Procedure This was a 2D Doppler, Color Flow transthoracic echocardiogram. Exam performed portable in patient room. Left Ventricle Normal left ventricle. The estimated ejection fraction is 55-60 %. Right Ventricle Normal right ventricle. Normal systolic function. Atria Normal left atrium. Normal right atrium. Mitral Valve The mitral valve is structurally normal. No prolapse or stenosis seen. Tricuspid Valve Normal tricuspid valve. Aortic Valve Normal aortic valve. Pulmonic Valve The pulmonic valve is not well visualized. Great Vessels Normal aortic root. Pericardium/Pleural Small pericardial effusion. MMode/2D Measurements & Calculations LVIDd: 4.0 cm IVSd: 0.89 cm Ao root diam: 2.9 cm LVIDs: 2.3 cm LVPWd: 0.79 cm RVDd: 2.6 cm FS: 43.1 % LAV(MOD-bp): 20.7 ml LA A4 area: 9.7 cm2 LA dimension(2D): 2.5 cm LAV(MOD-bp) Indexed: 12.9 ml/m2 LAV(MOD-sp2): 22.0 ml LAV(MOD-sp4): 15.7 ml RA A4 area: 10.5 cm2 Doppler Measurements & Calculations MV E max terrell: 97.6 cm/sec Lat Peak E' Terrell: 9.4 cm/sec Med Peak E' Terrell: 7.9 cm/sec MV A max terrell: 101.9 cm/sec E/E' lat: 10.4 E/E' med: 12.4 MV E/A: 0.96 Ao V2 max: 170.2 cm/sec LV V1 max: 128.9 cm/sec PA V2 max: 76.6 cm/sec Ao max P.6 mmHg LV V1 max P.6 mmHg Ao V2 mean: 124.9 cm/sec Ao mean P.7 mmHg Ao V2 VTI: 35.1 cm ECHO/Echo Complete Interpretation Summary The estimated ejection fraction is 55-60 %. Small pericardial effusion Ordering Physician: Saul Vides Referring Physician: Marianna Forte Performed By: Lisbeth Wooten RDCS, RVT
[2021-08-04] MEDS: metroNIDAZOLE 500 MG/100 ML BAG 100 MG IV (03:05)
[2021-08-04] MEDS: 0.9% Normal Saline 1,000 ML 75 ML IV ×2 (03:12→15:18)
[2021-08-04] MEDS: Ondansetron 4 MG/2 ML Vial IV ×2 (03:20→15:48)
[2021-08-04] MEDS: 0.9% Saline Lock 10 ML Syringe IV (03:21)
[2021-08-04] MEDS: Morphine 2 MG/ML Syringe IV ×5 (03:21→23:22)
[2021-08-04 07:49] LABS: Absolute Lymphocyte Count 0.71 X10^3/uL (0.83-4.51); Absolute Neutrophil Count 12.4 X10^3/uL (2.0-7.7); Basophil# 0.01 X10^3/uL; Basophil% 0.1 % (0-1); Hematocrit 35.1 % (37-47); Hemoglobin 11.2 g/dL (12.0-15.0); Lymphocyte # 0.71 X10^3/ul (0.83-4.51); Lymphocyte % 5.2 % (19-41); Mean Corp Hgb Conc 31.9 g/dL (32-36); Mean Corpuscular Volume 90.9 fL (81-99); Mean Platelet Vol. 11.6 fl (6.2-12.0); Monocyte# 0.49 X10^3/uL; Monocyte% 3.6 % (0-10); NRBC Flagged by Analyzer 0 % (0-5); Neutrophil # 12.43 X10^3/uL (2.7-7.7); Neutrophil % 90.7 % (47-70); Platelet Count 212 K/mm3 (150-450); RBC Distribution Width CV 11.9 % (11.6-14.6); RBC Distribution Width SD 38.6 fl (35.1-43.9); Red Blood Count 3.86 M/mm3 (4.2-5.4); White Blood Count 13.7 K/mm3 (4.4-11.0)
[2021-08-04] MEDS: Enoxaparin 60 MG/0.6 ML Syringe SC (08:10)
[2021-08-04 08:19] LABS: ALB/GLOB Ratio 0.6 RATIO (0.9-2.4); AST(SGOT) 44 U/L (15-37); Alanine Aminotransfer ALT/SGPT 48 U/L (13-56); Albumin, Serum 2.7 g/dL (3.2-5.0); Alkaline Phosphatase 150 U/L (45-117); Anion Gap 5 (5-15); BUN 11 mg/dL (7-18); BUN/Creat Ratio 19.9 RATIO (10-20); Calcium,Total 9.8 mg/dL (8.5-10.1); Chloride 111 mmol/L (98-107); Creatinine, Serum 0.55 mg/dL (0.55-1.02); EST Glomerular Filtration Rate 118 mL/min (>60); Est Glom Filt Rate - Afr Amer 143 mL/min (>60); Estimated Creatinine Clearance 95.03 ml/min; Globulin 4.3 g/dL (2.2-4.2); Glucose 152 mg/dL (74-106); Sodium Level 141 mmol/L (136-145)
--- NOTE | 2021-08-04 09:40 | CASEMGMT ---
Addendum entered by Nesha Fraser 08/04/21 10:43: Spoke with hospitalist to obtain orders for therapy, notified from hospitalist that pt would like to go to [facility] TCU. Notified Eusebia DELGADO. Original Note: KAYLYNN LANDA Assessment: Face to Face with pt for initial transition planning/care coordination assessment. KAYLYNN LANDA introduced self and role at [facility], pt voices understanding and consents to assessment. Pt is A/O x4 and answers all questions appropriately at this time. Pt lying in bed in no distress. Care providers, pharmacy, and demographics verified/updated. Admitting Dx: UTI, PE PCP:Jann Specialists:Moreno neuro; Kristel uro; Milena GI; Uriel; Uma, optstephanie Preferred Pharmacy: [facility] Retail Insurance: [facility] [place] (formerly [employer]) Prescription Benefit: yes LNOK: Lisa Mendoza, tameka; Lauren Mendoza dtr Living Arrangements: Pt lives alone in a two story house. She only utilizes main level. Pt states normally she is I in ADL's normally. Pt states she is barely getting by with services in the home. Transportation: Pt dtrs or [employer] friends transport her to medical appts. Pt denies concerns with transportation. DME/HHC/SNF: Pt has a w/c, sliding shower bench, grab bars in the bathroom. Pt has had [facility] in the past. She states she currently is being seen by N for SN, PT, ST and OT services. Pt also hires a private aide from [employer] that comes M-F for 4 hrs/day providing meals, doing housework and any other task the patient needs assisted with. Pt has been to [facility] and [facility] for therapy. Pt states she may need some s/t therapy post hospitalization prior to returning home. Pt states no further concerns/needs. CM to follow. Advised pt to ask CM if any further question/concerns/needs arise, voices understanding. Pt Goal: Home with resumption of HHC and private aide vs SNF Plan: TBD
--- NOTE | 2021-08-04 13:32 | PCM.PN.HOSP ---
Documented by User: Gus LEON 08/04/21 13:49 Subjective Subjective Patient is a 61-year-old female lying in bed, alert and oriented x3. Patient reports no improvement in her shortness of breath or cough from admission. Reports feeling overall weak and tired. Does not appear in acute distress. Objective Data Objective Data Vital Signs: Vital Signs Temp Pulse Resp BP Pulse Ox 98.4 F 78 18 111/71 99 08/04/21 08:07 08/04/21 08:07 08/04/21 08:07 08/04/21 08:07 08/04/21 08:07 Oxygen Delivery Method Room Air Weight: 126 lb 12.253 oz Body Mass Index (BMI) 20.5 Intake & Output: Intake and Output for Last 24 Hours 08/02/21 08/03/21 08/04/21 23:59 23:59 23:59 Intake Total 1150 / 1150 215 / 215 Balance 1150 / 1150 215 / 215 Lab / Micro Data Result Diagrams: 08/04/21 07:28 08/04/21 07:28 Labs: Laboratory Results - last 24 hr 08/03/21 19:20: WBC 15.7 H, RBC 4.00 L, Hgb 11.4 L, Hct 35.5 L, MCV 88.8, MCH 28.5, MCHC 32.1, RDW Std Deviation 39.0, RDW Coeff of Stormy 12.0, Plt Count 214, MPV 11.0, Immature Gran % (Auto) 0.600, Neut % (Auto) 83.5 H, Lymph % (Auto) 6.7 L, [place] % (Auto) 9.0, Eos % (Auto) 0.1, Baso % (Auto) 0.1, Absolute Neuts (auto) 13.1 H, Absolute Lymphs (auto) 1.05, Nucleated RBC % 0 08/03/21 19:20: Sodium 141, Potassium 3.5, Chloride 107, Carbon Dioxide 26.0, Anion Gap 8, BUN 9, Creatinine 0.60, Estim Creat Clear Calc 83.84, Est GFR (MDRD) Af Amer 130, Est GFR (MDRD) Non-Af 108, BUN/Creatinine Ratio 15.1, Glucose 153 H, Calcium 9.8, Total Bilirubin 1.30 H, AST 35, ALT 35, Alkaline Phosphatase 145 H, Total Protein 7.3, Albumin 2.9 L, Globulin 4.4 H, Albumin/Globulin Ratio 0.7 L, Lipase 49 L 08/03/21 20:37: Urine Color Yellow, Urine Clarity Cloudy, Urine pH 5.0, Ur Specific [place] 1.020, Urine Protein 100 H, Urine Glucose (UA) Normal, Urine Ketones 5 H, Urine Occult Blood 150 H, Urine Nitrite Negative, Urine Bilirubin Negative, Urine Urobilinogen Normal, Ur Leukocyte Esterase 500 H, Urine RBC 0 SEEN, Urine WBC >100 SEEN, Ur Squamous Epith Cells 0 SEEN, Urine Bacteria 0 SEEN, Urine Mucus 0 SEEN 08/04/21 07:28: Sodium 141, Potassium 4.0, Chloride 111 H, Carbon Dioxide 25.0, Anion Gap 5, BUN 11, Creatinine 0.55, Estim Creat Clear Calc 95.03, Est GFR (MDRD) Af Amer 143, Est GFR (MDRD) Non-Af 118, BUN/Creatinine Ratio 19.9, Glucose 152 H, Calcium 9.8, Total Bilirubin 0.70, AST 44 H, ALT 48, Alkaline Phosphatase 150 H, Total Protein 7.0, Albumin 2.7 L, Globulin 4.3 H, Albumin/Globulin Ratio 0.6 L 08/04/21 07:28: WBC 13.7 H, RBC 3.86 L, Hgb 11.2 L, Hct 35.1 L, MCV 90.9, MCH 29.0, MCHC 31.9 L, RDW Std Deviation 38.6, RDW Coeff of Stormy 11.9, Plt Count 212, MPV 11.6, Immature Gran % (Auto) 0.400, Neut % (Auto) 90.7 H, Lymph % (Auto) 5.2 L, [place] % (Auto) 3.6, Eos % (Auto) 0.0, Baso % (Auto) 0.1, Absolute Neuts (auto) 12.4 H, Absolute Lymphs (auto) 0.71 L, Nucleated RBC % 0 Radiography Diagnostic Testing: Radiology Impression Abdomen/Pelvis CT 08/03/21 18:56 IMPRESSION: Small bowel ileus. Right-sided colostomy. Right lower infiltrate. Left renal cysts. Electronically Signed: Ruben Alvarado DO at 20:35 EST Tel [phone], Service support , Chest CTA 08/03/21 20:50 IMPRESSION: Right pulmonary embolism. No arterial dissection. Right lower lobe infiltrates. Mild right pleural effusion. Bibasilar atelectasis. Electronically Signed: Ruben Alvarado DO at 22:50 EST Tel [phone], Service support , ADDENDUM: 08/03/21 2323 IMPRESSION: Right pulmonary embolism. No arterial dissection. Right lower lobe infiltrates. Mild right pleural effusion. Bibasilar atelectasis. N.B. : The above Results were Read Back by Ruben Alvarado DO to Fredy Rosado MD, and understanding confirmed on 08/03/2021 23:16:41 (ET). Electronically Signed: Ruben Alvarado DO at 22:50 EST Tel [phone], Service support , Echocardiogram 08/04/21 02:30 Interpretation Summary The estimated ejection fraction is 55-60 %. Small pericardial effusion Ordering Physician: Saul Vides Referring Physician: Marianna Forte Performed By: Lisbeth Wooten, [place], RVT Physical Exam Const alert, oriented x3 and no apparent distress HEENT head/scalp atraumatic and moist oral mucous membranes Head and Scalp: normocephalic Eyes Eyes Narrative: Patient reports legal blindness. Neck no lymphadenopathy, supple and no JVD Resp normal respiratory effort, no retractions, no use of accessory muscles and clear to auscultation bilaterally Cardio regular rate, regular rhythm, no murmurs and no JVD GI normal to inspection, nondistended, normoactive bowel sounds, soft to palpation and non-tender Extremity normal to inspection, full ROM and no clubbing, cyanosis or edema Skin no rashes or lesions noted, no wounds and skin turgor normal Neuro CN's II-XII intact bilaterally Psych affect normal Assessment & Plan Assessment/Plan (1) UTI (urinary tract infection): QUALIFIERS: Hematuria presence: without hematuria Urinary tract infection type: acute cystitis Qualified Code(s): N30.00 - Acute cystitis without hematuria (2) Pulmonary emboli: QUALIFIERS: Acute cor pulmonale presence: without acute cor pulmonale Chronicity: acute Pulmonary embolism type: other Qualified Code(s): I26.99 - Other pulmonary embolism without acute cor pulmonale PLAN: Day 1 Discharge planning: To be determined, patient reports ongoing debility and inability to care for self. Case management and social work following. 1) pulmonary embolism Patient's respiratory status is stable and she is currently satting 99% on room air. Rapid Covid is negative. Chest CTA on admission demonstrated PE and right lower lobe infiltrate with mild right pleural effusion and bibasilar atelectasis. Patient initiated on Lovenox, transition to Eliquis today. 2) acute cystitis Vital signs stable and patient is afebrile. Patient still reports pain on urination. CBC does demonstrate a leukocytosis at 13.7, down from 15.7 on admission. UA on admission demonstrated yellow cloudy urine with negative nitrites, 500 leukocyte esterase and 0 bacteria. Are pending, prior urine culture from March 2021 grew out E. coli. Plan; continue Rocephin, await cultures. 3) physical debility Patient reports progressively worsening weakness and inability to care for self at home. Would like to be assessed for potential placement for skilled therapy. PT/OT eval ordered. Case management following. 4) pneumonia Do not believe patient is suffering from pneumonia at this time. Patient does report some cough and shortness of breath, however vital signs have been stable throughout admission and patient is satting 99% on room air. Chest x-ray is without any acute findings. Chest CTA did show a right lower lobe infiltrate, possibly atelectasis. Will discontinue metronidazole and continue to monitor patient's respiratory status. 5) ileus Abdominal pelvic CT demonstrated small bowel ileus. Diet advanced to calorie controlled diet today. Continue to monitor. 6) seizure history Placed on IV Keppra due to n.p.o. status. Resume home p.o. Keppra, is n.p.o. status has been removed. Continue to monitor. DVT prophylaxis -not indicated due to therapeutic Eliquis. Patient seen by Gus Love PA-C, under the supervision of Dr. Castañeda. Documented by User: Dr. Malcolm Castañeda, DO 08/04/21 18:54 Objective Data Lab / Micro Data Result Diagrams: 08/04/21 07:28 08/04/21 07:28 Charges/Coding Addendum Addendum: Patient was seen and examined today independently of Gus Love, patient was admitted yesterday with pulmonary embolism and acute cystitis. Patient lives alone and states that she is not able to care for herself at the present time and would like to be placed in a detention facility for short-term rehab services. On examination she appeared older than her stated age, she appeared frail, she does not appear to be in any distress. Vital signs as documented. Skin warm and dry and without overt rashes. Neck without JVD, thyroid appears normal, trachea is midline, neck is supple. Lungs clear, normal air movement was noted. Heart exam notable for regular rhythm, normal sounds and absence of murmurs, rubs or gallops. Abdomen unremarkable and without evidence of organomegaly, masses, or abdominal aortic enlargement, bowel sounds are present in all 4 quadrants, no abdominal tenderness was noted. Extremities nonedematous, no cyanosis was noted, no clubbing was noted. Neuro: Cranial nerves II through XII are grossly intact, patient has overall weakness, sensation to light touch and pinprick is intact Psych: Patient is alert and oriented x3, she does not appear anxious or depressed, she does not appear agitated. Patient was placed on Eliquis today, we will proceed with attempts at getting the patient placed in a detention facility for short-term rehab services. I have reviewed Gus Love's progress note including his medical assessment and plan of care and endorse it. Visit Charges Inpatient E&M: 47093 Subs Hosp L2
[2021-08-04] MEDS: Acetaminophen 650 MG/20 ML UDC PO (15:48)
[2021-08-04 18:16] LABS: Bedside Glucose 118 mg/dL (70-110)
--- NOTE | 2021-08-04 19:48 | CM.ED ---
Johanny Note Referral Source: CM Referral Reason: SNF SW was advised by CM that patient wants TCU at discharge. JOHANNY met with patient and her daughter and provided them a list of SNF. Patient said that her first choice is TCU. Patient said that her second choice is [facility] as her daughter is a nurse there. JOHANNY sent email to Britt in TCU that patient is interested in TCU at discharge. Plan: SNF at discharge Eusebia MOJICA
[2021-08-04] MEDS: levETIRAcetam Oral Solution 500 MG/5 ML 1500 MG PO (21:02)
[2021-08-04] MEDS: Ceftriaxone 1 GM/50 ML BAG IV (22:29)
[2021-08-04] MEDS: APIXABAN 5 MG TABLET 10 MG PO (22:29)
[2021-08-05] VITALS (9 sets, daily range): BP systolic 107–118; BP diastolic 66–78; PULSE 84–105; RESP 17–18; TEMP 36.6–37; O2SAT 94–100
[2021-08-05 02:51] LABS: Bedside Glucose 99 mg/dL (70-110)
[2021-08-05] MEDS: Morphine 2 MG/ML Syringe IV (03:00)
[2021-08-05] MEDS: 0.9% Normal Saline 1,000 ML 75 ML IV (04:38)
[2021-08-05] MEDS: Acetaminophen 650 MG/20 ML UDC PO ×2 (05:53→14:06)
[2021-08-05] MEDS: proCHLORPERazine 10 MG/2 ML Vial 5 MG IV (05:53)
[2021-08-05] MEDS: Levothyroxine 75 MCG Tablet PO (05:56)
[2021-08-05 06:10] LABS: Bedside Glucose 67 mg/dL (70-110)
--- NOTE | 2021-08-05 06:11 | NURSING ---
Pt c/o sob. po 94-95% on ra. Pt coughing often. Pt given IS and only able to get up to 250. Pt encourage to use it every hr. 02 at 2lnc applied for comfort
--- NOTE | 2021-08-05 06:14 | NURSING ---
kan 67. applesauce with sugar given
[2021-08-05 07:13] LABS: Absolute Lymphocyte Count 1.48 X10^3/uL (0.83-4.51); Absolute Neutrophil Count 12.5 X10^3/uL (2.0-7.7); Basophil# 0.02 X10^3/uL; Basophil% 0.1 % (0-1); Eosinophil# 0.01 X10^3/uL; Eosinophils% 0.1 % (0-5); Hematocrit 32.7 % (37-47); Hemoglobin 10.6 g/dL (12.0-15.0); Lymphocyte # 1.48 X10^3/ul (0.83-4.51); Lymphocyte % 9.9 % (19-41); Mean Corp Hgb Conc 32.4 g/dL (32-36); Mean Corpuscular Hgb 30.2 pg (27.0-32.0); Mean Corpuscular Volume 93.2 fL (81-99); Monocyte# 0.84 X10^3/uL; Monocyte% 5.6 % (0-10); NRBC Flagged by Analyzer 0 % (0-5); Neutrophil # 12.53 X10^3/uL (2.7-7.7); Neutrophil % 83.8 % (47-70); Platelet Count 241 K/mm3 (150-450); RBC Distribution Width CV 12.5 % (11.6-14.6); RBC Distribution Width SD 40.9 fl (35.1-43.9); Red Blood Count 3.51 M/mm3 (4.2-5.4)
[2021-08-05 07:43] LABS: Anion Gap 9 (5-15); BUN 10 mg/dL (7-18); Calcium,Total 9.1 mg/dL (8.5-10.1); Chloride 108 mmol/L (98-107); Creatinine, Serum 0.52 mg/dL (0.55-1.02); EST Glomerular Filtration Rate 125 mL/min (>60); Est Glom Filt Rate - Afr Amer 151 mL/min (>60); Estimated Creatinine Clearance 100.52 ml/min; Glucose 82 mg/dL (74-106); Potassium 3.3 mmol/L (3.5-5.1); Sodium Level 140 mmol/L (136-145)
[2021-08-05] MEDS: Aspirin E.C. 81 MG Tablet PO (08:52)
[2021-08-05] MEDS: levETIRAcetam Oral Solution 500 MG/5 ML 1500 MG PO ×2 (08:53→21:41)
[2021-08-05] MEDS: APIXABAN 5 MG TABLET 10 MG PO ×2 (08:53→21:41)
[2021-08-05] MEDS: Ensure Clear 120 ML Liquid PO ×3 (09:01→22:12)
[2021-08-05] MEDS: oxyCODONE 5 MG Tablet PO ×3 (09:37→21:48)
--- NOTE | 2021-08-05 11:46 | PN.HOSP_ITS ---
Documented by User: Gus LEON 08/05/21 11:58 Subjective Subjective Patient is a 61-year-old female comfortably resting in bed, alert and orient x3. Patient denies development of any new symptoms overnight. Does not appear in acute distress. Objective Data Objective Data Vital Signs: Vital Signs Temp Pulse Resp BP Pulse Ox 97.8 F 96 18 113/66 94 08/05/21 09:05 08/05/21 09:05 08/05/21 09:05 08/05/21 09:05 08/05/21 09:05 Oxygen Delivery Method Room Air Weight: 126 lb 12.253 oz Body Mass Index (BMI) 20.5 Intake & Output: Intake and Output for Last 24 Hours 08/03/21 08/04/21 08/05/21 23:59 23:59 23:59 Intake Total 1150 / 1150 1512.5 / 1512.5 1300 / 1300 Output Total 450 / 450 700 / 700 Balance 1150 / 1150 1062.5 / 1062.5 600 / 600 Lab / Micro Data Result Diagrams: 08/05/21 05:54 08/05/21 05:54 Labs: Laboratory Results - last 24 hr 08/04/21 18:12: POC Glucose 118 H 08/04/21 22:40: POC Glucose 99 08/05/21 05:54: WBC 15.0 H, RBC 3.51 L, Hgb 10.6 L, Hct 32.7 L, MCV 93.2, MCH 30.2, MCHC 32.4, RDW Std Deviation 40.9, RDW Coeff of Stormy 12.5, Plt Count 241, MPV 12.0, Immature Gran % (Auto) 0.500, Neut % (Auto) 83.8 H, Lymph % (Auto) 9.9 L, [place] % (Auto) 5.6, Eos % (Auto) 0.1, Baso % (Auto) 0.1, Absolute Neuts (auto) 12.5 H, Absolute Lymphs (auto) 1.48, Nucleated RBC % 0 08/05/21 05:54: Sodium 140, Potassium 3.3 L, Chloride 108 H, Carbon Dioxide 23.0, Anion Gap 9, BUN 10, Creatinine 0.52 L, Estim Creat Clear Calc 100.52, Est GFR (MDRD) Af Amer 151, Est GFR (MDRD) Non-Af 125, BUN/Creatinine Ratio 19.0, Glucose 82, Calcium 9.1 08/05/21 06:04: POC Glucose 67 L Micro: Microbiology 08/03/21 22:23 Urine, Clean Catch Urine Culture - Final Mixed Gram Pos & Gram Neg Org Radiography Diagnostic Testing: Radiology Impression Echocardiogram 08/04/21 02:30 Interpretation Summary The estimated ejection fraction is 55-60 %. Small pericardial effusion Ordering Physician: Saul Vides Referring Physician: Marianna Forte Performed By: Lisbeth Wooten, [place], RVT Physical Exam Const alert, oriented x3 and no apparent distress HEENT head/scalp atraumatic and moist oral mucous membranes Head and Scalp: normocephalic Eyes PERRL, EOMs intact bilaterally and conjunctivae normal Neck no lymphadenopathy, supple and no JVD Resp normal respiratory effort, no retractions, no use of accessory muscles and clear to auscultation bilaterally Cardio regular rate, regular rhythm, no murmurs and no JVD GI normal to inspection, nondistended, normoactive bowel sounds, soft to palpation and non-tender Extremity normal to inspection, full ROM and no clubbing, cyanosis or edema Skin no rashes or lesions noted, no wounds, skin turgor normal and no jaundice Neuro CN's II-XII intact bilaterally Psych affect normal Assessment & Plan Assessment/Plan (1) UTI (urinary tract infection): QUALIFIERS: Hematuria presence: without hematuria Urinary tract infection type: acute cystitis Qualified Code(s): N30.00 - Acute cystitis witho ut hematuria (2) Pulmonary emboli: QUALIFIERS: Acute cor pulmonale presence: without acute cor pulmonale Chronicity: acute Pulmonary embolism type: other Qualified Code(s): I26.99 - Other pulmonary embolism without acute cor pulmonale PLAN: Day 2 Discharge planning: To be determined, patient reports ongoing debility and inabi lity to care for self. Case management and social work following. 1) pulmonary embolism Patient's respiratory status is stable and she is currently satting 99% on room air. Rapid Covid is negative. Chest CTA on admission demonstrated PE and right lower lobe infiltrate with mild right pleural effusion and bibasilar atelectasis. Echocardiogram shows an EF of 55 to 60% with small pericardial effusion. Continue Eliquis. 2) acute cystitis Vital signs stable and patient is afebrile. Patient still reports pain on urination. CBC does demonstrate a leukocytosis at 15, was 15.7 on admission. UA on admission demonstrated yellow cloudy urine with negative nitrites, 500 leukocyte esterase and 0 bacteria. Are pending, prior urine culture from March 2021 grew out E. coli. Plan; continue Rocephin, await cultures. 3) physical debility Patient reports progressively worsening weakness and inability to care for self at home. Would like to be assessed for potential placement for skilled therapy. PT/OT eval ordered. Case management following. 4) pneumonia Do not believe patient is suffering from pneumonia at this time. Patient does report some cough and shortness of breath, however vital signs have been stable throughout admission and patient is satting 99% on room air. Chest x-ray is without any acute findings. Chest CTA did show a right lower lobe infiltrate, possibly atelectasis. Will discontinue metronidazole and continue to monitor patient's respiratory status. 5) ileus Abdominal pelvic CT demonstrated small bowel ileus. Diet advanced to calorie controlled diet today. Continue to monitor. 6) seizure history Placed on IV Keppra due to n.p.o. status. Resume home p.o. Keppra, is n.p.o. status has been removed. Continue to monitor. DVT prophylaxis -not indicated due to therapeutic Eliquis. Patient seen by Gus Love PA-C, under the supervision of Dr. Castañeda. Documented by User: Dr. Malcolm Castañeda, DO 08/05/21 18:23 Objective Data Lab / Micro Data Result Diagrams: 08/05/21 05:54 08/05/21 05:54 Charges/Coding Addendum Addendum: Patient was seen and examined independently of Gus Love, she voices no complaints to this examiner today. On examination she appeared older than her stated age, she appears fatigued and frail, she does not appear to be in any distress. Vital signs as documented. Skin warm and dry and without overt rashes. Neck without JVD, thyroid appears normal, trachea is midline, neck is supple. Lungs clear, normal air movement was noted. Heart exam notable for regular rhythm, normal sounds and absence of murmurs, rubs or gallops. Abdomen unremarkable and without evidence of organomegaly, masses, or abdominal aortic enlargement, bowel sounds are present in all 4 quadrants, no abdominal tenderness was noted. Extremities nonedematous, no cyanosis was noted, no clubbing was noted. Neuro: Cranial nerves II through XII are grossly intact, no focal motor deficits were noted, sensation to light touch and pinprick is intact, motor exam 5/5 throughout. Psych: Patient is alert and oriented x3, she does not appear anxious or depressed, she does not appear agitated. I have reviewed Gus Love's progress note including his medical assessment and plan of care and endorse it. Visit Charges Inpatient E&M: 65849 Subs Hosp L2
[2021-08-05 16:11] LABS: Bedside Glucose 171 mg/dL (70-110)
[2021-08-05] MEDS: Atorvastatin Calcium 20 MG Tablet PO (21:41)
[2021-08-05 22:55] LABS: Bedside Glucose 131 mg/dL (70-110)
[2021-08-06] VITALS (10 sets, daily range): BP systolic 100–115; BP diastolic 63–71; PULSE 94–103; RESP 13–18; TEMP 36.9–37.6; O2SAT 94–98
[2021-08-06] MEDS: oxyCODONE 5 MG Tablet PO ×4 (04:28→22:22)
[2021-08-06] MEDS: Levothyroxine 75 MCG Tablet PO (05:56)
[2021-08-06] MEDS: Cephalexin 500 MG Capsule PO ×3 (06:05→21:13)
[2021-08-06 07:04] LABS: Absolute Lymphocyte Count 1.03 X10^3/uL (0.83-4.51); Absolute Neutrophil Count 10.7 X10^3/uL (2.0-7.7); Basophil# 0.01 X10^3/uL; Basophil% 0.1 % (0-1); Eosinophil# 0.02 X10^3/uL; Eosinophils% 0.2 % (0-5); Hematocrit 31.3 % (37-47); Hemoglobin 9.6 g/dL (12.0-15.0); Lymphocyte # 1.03 X10^3/ul (0.83-4.51); Lymphocyte % 8.1 % (19-41); Mean Corp Hgb Conc 30.7 g/dL (32-36); Mean Corpuscular Hgb 28.1 pg (27.0-32.0); Mean Corpuscular Volume 91.5 fL (81-99); Mean Platelet Vol. 11.6 fl (6.2-12.0); Monocyte# 0.85 X10^3/uL; Monocyte% 6.7 % (0-10); NRBC Flagged by Analyzer 0 % (0-5); Neutrophil # 10.67 X10^3/uL (2.7-7.7); Neutrophil % 84.3 % (47-70); Platelet Count 235 K/mm3 (150-450); RBC Distribution Width CV 12.6 % (11.6-14.6); RBC Distribution Width SD 41.9 fl (35.1-43.9); Red Blood Count 3.42 M/mm3 (4.2-5.4); White Blood Count 12.7 K/mm3 (4.4-11.0)
[2021-08-06 07:08] LABS: Anion Gap 7 (5-15); BUN 7 mg/dL (7-18); BUN/Creat Ratio 14.3 RATIO (10-20); Calcium,Total 8.9 mg/dL (8.5-10.1); Chloride 105 mmol/L (98-107); Creatinine, Serum 0.49 mg/dL (0.55-1.02); EST Glomerular Filtration Rate 135 mL/min (>60); Est Glom Filt Rate - Afr Amer 163 mL/min (>60); Estimated Creatinine Clearance 106.67 ml/min; Glucose 118 mg/dL (74-106); Potassium 2.7 mmol/L (3.5-5.1); Sodium Level 138 mmol/L (136-145)
[2021-08-06 08:01] LABS: Bedside Glucose 118 mg/dL (70-110)
[2021-08-06] MEDS: Potassium Chloride 10mEq/100mL 10 MEQ/100 ML IV.SOLN. 100 MEQ IV BOLUS (09:04)
[2021-08-06] MEDS: Morphine 2 MG/ML Syringe IV (09:04)
[2021-08-06] MEDS: levETIRAcetam Oral Solution 500 MG/5 ML 1500 MG PO ×2 (09:10→21:13)
[2021-08-06] MEDS: APIXABAN 5 MG TABLET 10 MG PO ×2 (09:11→21:13)
[2021-08-06] MEDS: Ensure Clear 120 ML Liquid PO ×3 (09:12→22:22)
[2021-08-06] MEDS: Aspirin E.C. 81 MG Tablet PO (09:14)
--- NOTE | 2021-08-06 10:21 | CASEMGMT ---
SANDY spoke with patient and she said [facility] is her first choice as her daughter works there. Patient said if [facility] does not have any beds then she would like to stay here at [facility] TCU. SW told her SW will work on this. SW also told patient that she will need to participate in therapy as this is what insurance looks at to help determine if she qualifies for SNF. Patient said she will, she just felt horrible yesterday. SANDY called [facility] and spoke with Zahraa in admissions. SW let her know that SW is faxing a referral for patient. She will look over referral and get back to SANDY. Donna Yepez CONTINUING EDUCATION DIRECTOR ALEX
[2021-08-06] MEDS: Potassium Chloride 10mEq/100mL 10 MEQ/100 ML IV.SOLN. 80 MEQ IV BOLUS ×3 (10:43→13:20)
--- NOTE | 2021-08-06 11:06 | WOUNDNOTE ---
Was asked to see patient for ileostomy care. patient has had ostomy for many years, but on Jun [id number] patient has another bowel resection with an end ileostomy. patient is legally blind, but is able to do some of the ostomy care. pt states it would be much easier of she would be able to get a pre-cut appliance. the stoma currently measures approx 1 1/4 but is slightly oval in shape. Pt states her daughter is able to assist with the appliances changes at home as well. pt does plan to go to TCU prior to returning home. patient is currently using a coloplast 1 piece appliance. patient was ok with this nurse applying a [place] appliance while in the hospital. the stoma is well budded and pink. peristomal skin is intact. cleansed skin with soap and water. pat dry. applied a flat two piece appliance with an [employer] ring. pt tolerated well. pt aware to call for further needs. will monitor.
[2021-08-06 11:41] LABS: Bedside Glucose 143 mg/dL (70-110)
--- NOTE | 2021-08-06 11:46 | PCM.PN.HOSP ---
Documented by User: Gus LEON 08/06/21 11:54 Subjective Subjective Patient is a 61-year-old female lying in bed, alert and orient x3. Patient still reports ongoing generalized discomfort that appears stable in nature. Denies development of any new symptoms overnight. Does not appear in acute distress. Objective Data Objective Data Vital Signs: Vital Signs Temp Pulse Resp BP Pulse Ox 99.7 F H 94 13 115/63 95 08/06/21 08:51 08/06/21 08:51 08/06/21 08:51 08/06/21 08:51 08/06/21 08:51 Oxygen Delivery Method Room Air Weight: 126 lb 12.253 oz Body Mass Index (BMI) 20.5 Intake & Output: Intake and Output for Last 24 Hours 08/04/21 08/05/21 08/06/21 23:59 23:59 23:59 Intake Total 1512.5 / 1512.5 2182.5 / 2182.5 100.00 / 100.00 Output Total 450 / 450 2350 / 3150 855 / 855 Balance 1062.5 / 1062.5 -167.5 / -967.5 -755.00 / -755 Lab / Micro Data Result Diagrams: 08/06/21 05:44 08/06/21 05:44 Labs: Laboratory Results - last 24 hr 08/05/21 15:57: POC Glucose 171 H 08/05/21 22:46: POC Glucose 131 H 08/06/21 05:44: WBC 12.7 H, RBC 3.42 L, Hgb 9.6 L, Hct 31.3 L, MCV 91.5, MCH 28.1, MCHC 30.7 L D, RDW Std Deviation 41.9, RDW Coeff of Stormy 12.6, Plt Count 235, MPV 11.6, Immature Gran % (Auto) 0.600, Neut % (Auto) 84.3 H, Lymph % (Auto) 8.1 L, Garza % (Auto) 6.7, Eos % (Auto) 0.2, Baso % (Auto) 0.1, Absolute Neuts (auto) 10.7 H, Absolute Lymphs (auto) 1.03, Nucleated RBC % 0 08/06/21 05:44: Sodium 138, Potassium 2.7 L*, Chloride 105, Carbon Dioxide 26.0, Anion Gap 7, BUN 7, Creatinine 0.49 L, Estim Creat Clear Calc 106.67, Est GFR (MDRD) Af Amer 163, Est GFR (MDRD) Non-Af 135, BUN/Creatinine Ratio 14.3, Glucose 118 H, Calcium 8.9 08/06/21 07:01: POC Glucose 118 H 08/06/21 11:37: POC Glucose 143 H Micro: Microbiology 08/03/21 22:23 Urine, Clean Catch Urine Culture - Final Mixed Gram Pos & Gram Neg Org Physical Exam Const alert, oriented x3 and no apparent distress HEENT head/scalp atraumatic and moist oral mucous membranes Head and Scalp: normocephalic Eyes PERRL, EOMs intact bilaterally and conjunctivae normal Neck no lymphadenopathy, supple and no JVD Resp normal respiratory effort, no retractions, no use of accessory muscles and clear to auscultation bilaterally Cardio regular rate, regular rhythm, no murmurs and no JVD GI normal to inspection, nondistended, normoactive bowel sounds, soft to palpation and non-tender Extremity normal to inspection, full ROM and no clubbing, cyanosis or edema Peripheral Pulses: Yes pulses 2+ throughout Skin no rashes or lesions noted, no wounds, skin turgor normal and no jaundice Neuro CN's II-XII intact bilaterally Psych affect normal Assessment & Plan Assessment/Plan (1) UTI (urinary tract infection): QUALIFIERS: Hematuria presence: without hematuria Urinary tract infection type: acute cystitis Qualified Code(s): N30.00 - Acute cystitis without hematuria (2) Pulmonary emboli: QUALIFIERS: Acute cor pulmonale presence: without acute cor pulmonale Chronicity: acute Pulmonary embolism type: other Qualified Code(s): I26.99 - Other pulmonary embolism without acute cor pulmonale PLAN: Day 3 Discharge planning: Patient would like to discharge to [facility] where her daughter is a nurse. 1) pulmonary embolism Patient's respiratory status is stable and she is currently satting 95% on room air. Rapid Covid is negative. Chest CTA on admission demonstrated PE and right lower lobe infiltrate with mild right pleural effusion and bibasilar atelectasis. Echocardiogram shows an EF of 55 to 60% with small pericardial effusion. Continue Eliquis. 2) acute cystitis Vital signs stable and patient is afebrile. Patient still reports pain on urination. CBC does demonstrate a leukocytosis at 12.7, was 15.7 on admission. UA on admission demonstrated yellow cloudy urine with negative nitrites, 500 leukocyte esterase and 0 bacteria. Urine culture demonstrates mixed gram-positive and gram-negative organisms. Prior urine culture from March 2021 grew out E. coli. Plan; patient transition from IV Rocephin to oral Keflex. 3) physical debility Patient reports progressively worsening weakness and inability to care for self at home. Would like to be assessed for potential placement for skilled therapy. PT/OT eval ordered. Case management following. 4) pneumonia Do not believe patient is suffering from pneumonia at this time. Patient does report some cough and shortness of breath, however vital signs have been stable throughout admission and patient is satting 99% on room air. Chest x-ray is without any acute findings. Chest CTA did show a right lower lobe infiltrate, possibly atelectasis. Will discontinue metronidazole and continue to monitor patient's respiratory status. 5) ileus Abdominal pelvic CT demonstrated small bowel ileus. Diet advanced to calorie controlled diet today. Continue to monitor. 6) seizure history Placed on IV Keppra due to n.p.o. status. Resume home p.o. Keppra, is n.p.o. status has been removed. Continue to monitor. DVT prophylaxis - not indicated due to therapeutic Eliquis. Patient seen by Gus Love PA-C, under the supervision of Dr. Choi. Documented by User: Dr. Maria Alejandra Choi MD 08/06/21 15:18 Objective Data Lab / Micro Data Result Diagrams: 08/06/21 05:44 08/06/21 05:44 Charges/Coding Addendum Addendum: Patient seen by Gus Love PA-C under my supervision Patient seen and examined. She complains of right-sided pleuritic chest pain. She has no other complaints and review of systems otherwise negative. She is mildly tachycardic. O/E: Const alert, oriented x3 and no apparent distress HEENT head/scalp atraumatic and moist oral mucous membranes Head and Scalp: normocephalic Eyes PERRL, EOMs intact bilaterally and conjunctivae normal Neck no lymphadenopathy, supple and no JVD Resp normal respiratory effort, no retractions, no use of accessory muscles and clear to auscultation bilaterally Cardio regular rate, regular rhythm, no murmurs and no JVD GI normal to inspection, nondistended, normoactive bowel sounds, soft to palpation and non-tender Extremity, colostomy bag contains stool normal to inspection, full ROM and no clubbing, cyanosis or edema Peripheral Pulses: Yes pulses 2+ throughout Skin no rashes or lesions noted, no wounds, skin turgor normal and no jaundice Neuro CN's II-XII intact bilaterally Psych affect normal Patient is on Eliquis as treatment for right-sided PE which I think is also the cause of her pleuritic chest pain. She is on IV Rocephin for UTI and urine cultures in the past had grown E. coli. We will transition to Keflex. PT OT is on board. Fall precautions. There was concern the patient may have pneumonia but this seems unlikely. Chest CT did show a right lower lobe infiltrate but this could be due to atelectasis. Home Keppra resumed as patient is no longer n.p.o. She was initially n.p.o. on account of small bowel ileus but her diet is being advanced today. Rest as per Gus Love PA-C's notes which I reviewed and endorsed. Visit Charges Inpatient E&M: 15900 Subs Hosp L2
--- NOTE | 2021-08-06 13:21 | CASEMGMT ---
SANDY called [facility] and spoke with Zahraa. They can take patient. SANDY will fax patient's insurance card and PT/OT evaluations. Zahraa will start pre-cert. Information faxed to [facility]. SANDY let patient know that [facility] can take her at discharge. SANDY let patient know she will remain in the hospital until insurance approves her. She thanked SANDY. Plan: [facility] pending insurance approval and patient being medically ready. Donna Yepez BOWLING OR SKATING FRONT DESK CLERK ALEX
--- NOTE | 2021-08-06 14:58 | CASEMGMT ---
Call to [facility] to notify them that pt plans to discharge to [facility], Paula voices understanding. Ruthann CHAIDEZ CM
[2021-08-06 16:56] LABS: Bedside Glucose 119 mg/dL (70-110)
[2021-08-06 17:16] LABS: Anion Gap 4 (5-15); BUN 6 mg/dL (7-18); BUN/Creat Ratio 10.4 RATIO (10-20); Chloride 105 mmol/L (98-107); Creatinine, Serum 0.58 mg/dL (0.55-1.02); EST Glomerular Filtration Rate 112 mL/min (>60); Est Glom Filt Rate - Afr Amer 136 mL/min (>60); Estimated Creatinine Clearance 90.12 ml/min; Glucose 145 mg/dL (74-106); Potassium 3.9 mmol/L (3.5-5.1); Sodium Level 137 mmol/L (136-145)
[2021-08-06] MEDS: Atorvastatin Calcium 20 MG Tablet PO (21:13)
[2021-08-06 22:45] LABS: Bedside Glucose 119 mg/dL (70-110)
[2021-08-07] VITALS (8 sets, daily range): BP systolic 98–119; BP diastolic 70–72; PULSE 80–106; RESP 16–18; TEMP 36.6–37.6; O2SAT 94–100
[2021-08-07] MEDS: Acetaminophen 650 MG/20 ML UDC PO (00:09)
[2021-08-07] MEDS: oxyCODONE 5 MG Tablet PO ×4 (03:55→20:03)
[2021-08-07] MEDS: Cephalexin 500 MG Capsule PO ×3 (06:21→21:55)
[2021-08-07] MEDS: Levothyroxine 75 MCG Tablet PO (06:21)
[2021-08-07] MEDS: Potassium Chloride Oral Tablet 20 MEQ 40 MEQ PO (08:50)
[2021-08-07] MEDS: APIXABAN 5 MG TABLET 10 MG PO ×2 (08:50→21:55)
[2021-08-07] MEDS: Aspirin E.C. 81 MG Tablet PO (08:50)
[2021-08-07] MEDS: Ensure Clear 120 ML Liquid PO ×3 (08:54→17:26)
[2021-08-07] MEDS: levETIRAcetam Oral Solution 500 MG/5 ML 1500 MG PO ×2 (12:35→21:55)
--- NOTE | 2021-08-07 14:43 | NURSING ---
unable to sign onto computer in room, meds verified w/ Gus reynoso
--- NOTE | 2021-08-07 15:07 | PN.HOSP_ITS ---
Documented by User: Gus LEON 08/07/21 15:12 Subjective Subjective Patient is a 61-year-old female lying in bed, alert and orient x3. Patient still reports ongoing generalized discomfort that appears stable in nature. Denies development of any new symptoms overnight. Does not appear in acute distres Objective Data Objective Data Vital Signs: Vital Signs Temp Pulse Resp BP Pulse Ox 99.1 F 101 H 18 115/72 100 08/07/21 14:44 08/07/21 15:00 08/07/21 14:44 08/07/21 14:44 08/07/21 14:44 Oxygen Delivery Method Room Air Weight: 126 lb 12.253 oz Body Mass Index (BMI) 20.5 Intake & Output: Intake and Output for Last 24 Hours 08/05/21 08/06/21 08/07/21 23:59 23:59 23:59 Intake Total 2182.5 / 2182.5 700.00 / 700.00 440 / 440 Output Total 2350 / 3150 1055 / 1555 800 / 800 Balance -167.5 / -967.5 -355.00 / -855.00 -360 / -360 Lab / Micro Data Result Diagrams: 08/06/21 05:44 08/06/21 15:24 Labs: Laboratory Results - last 24 hr 08/06/21 15:24: Sodium 137, Potassium 3.9, Chloride 105, Carbon Dioxide 28.0, Anion Gap 4 L, BUN 6 L, Creatinine 0.58, Estim Creat Clear Calc 90.12, Est GFR (MDRD) Af Amer 136, Est GFR (MDRD) Non-Af 112, BUN/Creatinine Ratio 10.4, Glucose 145 H, Calcium 9.0 08/06/21 16:18: POC Glucose 119 H 08/06/21 22:29: POC Glucose 119 H Micro: Microbiology 08/03/21 22:23 Urine, Clean Catch Urine Culture - Final Mixed Gram Pos & Gram Neg Org Physical Exam Const alert, oriented x3 and no apparent distress HEENT head/scalp atraumatic and moist oral mucous membranes Head and Scalp: normocephalic Eyes PERRL, EOMs intact bilaterally and conjunctivae normal Neck no lymphadenopathy, supple and no JVD Resp normal respiratory effort, no retractions, no use of accessory muscles and clear to auscultation bilaterally Cardio regular rate, regular rhythm, no murmurs and no JVD GI normal to inspection, nondistended, normoactive bowel sounds, soft to palpation and non-tender Extremity normal to inspection, full ROM and no clubbing, cyanosis or edema Skin no rashes or lesions noted, no wounds and skin turgor normal Neuro CN's II-XII intact bilaterally Psych affect normal Assessment & Plan Assessment/Plan (1) UTI (urinary tract infection): QUALIFIERS: Hematuria presence: without hematuria Urinary tract infection type: acute cystitis Qualified Code(s): N30.00 - Acute cystitis without hematuria (2) Pulmonary emboli: QUALIFIERS: Acute cor pulmonale presence: without acute cor pulmonale Chronicity: acute Pulmonary embolism type: other Qualified Code(s): I26.99 - Other pulmonary embolism without acute cor pulmonale PLAN: Day 4 Discharge planning: Discharge to [facility] pending acceptance and pre-CERT. 1) pulmonary embolism Patient's respiratory status is stable and she is currently satting 95% on room air. Rapid Covid is negative. Chest CTA on admission demonstrated PE and right lower lobe infiltrate with mild right pleural effusion and bibasilar atelectasis. Echocardiogram shows an EF of 55 to 60% with small pericardial effusion. Continue Eliquis. 2) acute cystitis Vital signs stable and patient is afebrile. Patient still reports pain on urination. CBC does demonstrate a leukocytosis at 12.7, was 15.7 on admission. UA on admission demonstrated yellow cloudy urine with negative nitrites, 500 leukocyte esterase and 0 bacteria. Urine culture demonstrates mixed gram- positive and gram-negative organisms. Prior urine culture from March 2021 grew out E. coli. Plan; patient transition from IV Rocephin to oral Keflex, continue for 2 more days to complete 7-day course. 3) physical debility Patient reports progressively worsening weakness and inability to care for self at home. Awaiting discharge to [facility] as above. 4) pneumonia Do not believe patient is suffering from pneumonia at this time. Patient does report some cough and shortness of breath, however vital signs have been stable throughout admission and patient is satting 99% on room air. Chest x-ray is without any acute findings. Chest CTA did show a right lower lobe infiltrate, possibly atelectasis. Will discontinue metronidazole and continue to monitor patient's respiratory status. 5) ileus Abdominal pelvic CT demonstrated small bowel ileus. Diet advanced to calorie controlled diet today. Continue to monitor. 6) seizure history Not in status, continue home Keppra. DVT prophylaxis - not indicated due to therapeutic Eliquis. Patient seen by Gus Love PA-C, under the supervision of Dr. Choi. Documented by User: Dr. Maria Alejandra Choi MD 08/07/21 15:39 Objective Data Lab / Micro Data Result Diagrams: 08/06/21 05:44 08/06/21 15:24 Charges/Coding Addendum Addendum: Patient seen by Gus Love PA-C under my supervision Patient seen and examined. She does feel much better today. The pleuritic chest pain has improved. Review systems otherwise negative. She is awaiting placement O/E: Const alert, oriented x3 and no apparent distress HEENT head/scalp atraumatic and moist oral mucous membranes Head and Scalp: normocephalic Eyes PERRL, EOMs intact bilaterally and conjunctivae normal Neck no lymphadenopathy, supple and no JVD Resp normal respiratory effort, no retractions, no use of accessory muscles and clear to auscultation bilaterally Cardio regular rate, regular rhythm, no murmurs and no JVD GI normal to inspection, nondistended, normoactive bowel sounds, soft to palpation and non-tender Extremity, colostomy bag contains liquid stool normal to inspection, full ROM and no clubbing, cyanosis or edema Peripheral Pulses: Yes pulses 2+ throughout Skin no rashes or lesions noted, no wounds, skin turgor normal and no jaundice Neuro CN's II-XII intact bilaterally Psych affect normal Patient is on Eliquis as treatment for right-sided PE She is on IV Rocephin for UTI and urine cultures in the past had grown E. coli. We will transition to Keflex. PT OT is on board. Fall precautions. On Keppra. Tolerating her diet. Awaiting precert to go to SNF. Rest as per Gus Love PA-C's notes which I reviewed and endorsed. Visit Charges Inpatient E&M: 97339 Subs Hosp L2
[2021-08-07] MEDS: 0.9% Saline Lock 10 ML Syringe IV (20:10)
[2021-08-07] MEDS: Ondansetron 4 MG/2 ML Vial IV (20:10)
[2021-08-07] MEDS: Atorvastatin Calcium 20 MG Tablet PO (21:55)
[2021-08-07 22:05] LABS: Bedside Glucose 128 mg/dL (70-110)
[2021-08-08 00:25] VITALS: BP 101/65; PULSE 93; RESP 16; TEMP 37.4; O2SAT 98
[2021-08-08] MEDS: oxyCODONE 5 MG Tablet PO ×4 (00:36→13:40)
[2021-08-08] MEDS: Levothyroxine 75 MCG Tablet PO (06:32)
[2021-08-08] MEDS: Cephalexin 500 MG Capsule PO ×2 (06:32→13:36)
[2021-08-08 07:30] VITALS: PULSE 92
--- NOTE | 2021-08-08 09:12 | CASEMGMT ---
SANDY called [facility] to talk with Zahraa in admissions. SANDY was told Zahraa is not in today. SANDY asked if anyone was covering for her and SANDY was told no. SANDY explained that SANDY has a patient that is waiting on insurance to approve her to go to [facility]. SANDY was put on hold. When the individual returned SANDY was told the art class model will call SANDY back. Donna Yepez HOME THEATER INSTALLER ALEX
--- NOTE | 2021-08-08 09:19 | CASEMGMT ---
SANDY received a call from Zahraa at [facility]. She said she is working from home today. She will check on pre-cert. SANDY brought up to her that SANDY received information indicating patient's insurance may be waiving pre-certs. Zahraa said she will check on this and get back to SANDY. Donna Yepez SECURITY RESEARCHER ALEX
--- NOTE | 2021-08-08 09:53 | TREXTCAR_ITS ---
Documented by User: Gus LEON 08/08/21 10:03 Diet 08/04/21 18:29 Diet: Regular - General Food consistency:: Soft & Bite Sized Liquid Consistency:: Regular/Thin Is pt able to select menu?: No Diet Comments: meat and solid hard textures minced (call room if questionable); 1:1 sup Therapies Weight Bearing: Weight bearing as tolerated Physical Therapy: Eval and Treat Occupational Therapy: Eval and Treat Speech Therapy: Eval and Treat Problem/Diagnosis (1) UTI (urinary tract infection): Status: Acute (2) Pulmonary emboli: Status: Acute Allergies/Procedures Done in Hospital Allergies shellfish derived Allergy (Severe, Verified 07/18/21 15:19) Anaphylaxis amoxicillin Allergy (Verified 07/18/21 15:19) Rash ciprofloxacin [From Cipro] Allergy (Verified 07/18/21 15:19) Rash iodine Allergy (Verified 07/18/21 15:19) Rash peanut Allergy (Verified 07/18/21 15:19) Anaphylaxis it gets stuck in my throat Penicillins [PCN] Allergy (Verified 07/18/21 15:19) Rash povidone-iodine [From Betadine] Allergy (Verified 07/18/21 15:19) Rash soap [From Betadine] Allergy (Verified 07/18/21 15:19) Rash alendronate sodium [From Fosamax] Adverse Reaction (Verified 07/18/21 15:19) unable to swallow pill/choking UNABLE TO SWALLOW PILL/CHOKING risedronate sodium [From Actonel] Adverse Reaction (Verified 07/18/21 15:19) CHOKING Type of Care/Length of Stay Estimated LOS: Convalescent Care Less Than 30 days Type of Care Needed: Skilled Rehab Potential: Good Prognosis: Good Additional Orders/Day of Discharge Day of Discharge: 08/08/21 Dietary and Speech Recommendations Dietitian Recommendations/Changes: Will change diet to regular; carb/joan controlled diet not indicated at this time. Consistency as per TELEPHONE ENGINEER--currently [id number]-hl-xaan foods; thin liquids with small bites/sips. Will add 120ml ensure clear 4 times per day w/ medpass as tolerated. Discharge Plan Admission Admit Date/Time: 08/03/21 23:37 Primary Reason for Your Visit: Shortness of breath Attending Provider: Maria Alejandra Choi Primary Care Provider: Marianna Forte Discharge Orders/Prescriptions Prescriptions: New Eliquis 5 mg tablet 5 mg PO BID Qty: 68 RF: 0 cephalexin [Keflex] 750 mg capsule 750 mg PO Q8H Qty: 3 RF: 0 Continued levetiracetam 500 MG tablet 1,500 mg PO BID RF: 0 aspirin 81 MG tablet 81 mg PO DAILY@0800 RF: 0 diphenhydramine HCl [Banophen] 25 MG capsule 25 mg PO Q6H PRN PRN (Reason: headache) RF: 0 atorvastatin 20 MG tablet 20 mg PO DAILY RF: 0 multivitamin 1 EACH tablet 1 tab PO DAILY RF: 0 acetaminophen 500 mg Tablet 1,000 mg PO Q6H PRN (Reason: Pain) RF: 0 levothyroxine 100 mcg tablet 75 mcg PO DAILY RF: 0 oxycodone-acetaminophen 5-325 mg tablet 1 tab PO BID PRN (Reason: Pain) RF: 0 ascorbic acid (vitamin C) 500 mg Tablet 500 mg PO DAILY RF: 0 ondansetron 4 mg tablet,disintegrating 4 mg PO Q8H PRN (Reason: Nausea) RF: 0 Referrals / Follow Up: Marianna Forte MD [Primary Care Provider] - Within 2 Weeks Disposition Disposition (needs filled in before D/C Order can be placed): Home, Self Care Documented by User: Dr. Maria Alejandra Choi MD 08/08/21 11:30 Allergies/Procedures Done in Hospital Allergies shellfish derived Allergy (Severe, Verified 07/18/21 15:19) Anaphylaxis amoxicillin Allergy (Verified 07/18/21 15:19) Rash ciprofloxacin [From Cipro] Allergy (Verified 07/18/21 15:19) Rash iodine Allergy (Verified 07/18/21 15:19) Rash peanut Allergy (Verified 07/18/21 15:19) Anaphylaxis it gets stuck in my throat Penicillins [PCN] Allergy (Verified 07/18/21 15:19) Rash povidone-iodine [From Betadine] Allergy (Verified 07/18/21 15:19) Rash soap [From Betadine] Allergy (Verified 07/18/21 15:19) Rash alendronate sodium [From Fosamax] Adverse Reaction (Verified 07/18/21 15:19) unable to swallow pill/choking UNABLE TO SWALLOW PILL/CHOKING risedronate sodium [From Actonel] Adverse Reaction (Verified 07/18/21 15:19) CHOKING Discharge Plan Admission Admit Date/Time: 08/03/21 23:37 Primary Reason for Your Visit: Shortness of breath Attending Provider: Maria Alejandra Choi Primary Care Provider: Marianna Forte Discharge Orders/Prescriptions Prescriptions: New Eliquis 5 mg tablet 5 mg PO BID Qty: 68 RF: 0 cephalexin [Keflex] 750 mg capsule 750 mg PO Q8H Qty: 3 RF: 0 Continued levetiracetam 500 MG tablet 1,500 mg PO BID RF: 0 aspirin 81 MG tablet 81 mg PO DAILY@0800 RF: 0 diphenhydramine HCl [Banophen] 25 MG capsule 25 mg PO Q6H PRN PRN (Reason: headache) RF: 0 atorvastatin 20 MG tablet 20 mg PO DAILY RF: 0 multivitamin 1 EACH tablet 1 tab PO DAILY RF: 0 acetaminophen 500 mg Tablet 1,000 mg PO Q6H PRN (Reason: Pain) RF: 0 levothyroxine 100 mcg tablet 75 mcg PO DAILY RF: 0 oxycodone-acetaminophen 5-325 mg tablet 1 tab PO BID PRN (Reason: Pain) RF: 0 ascorbic acid (vitamin C) 500 mg Tablet 500 mg PO DAILY RF: 0 ondansetron 4 mg tablet,disintegrating 4 mg PO Q8H PRN (Reason: Nausea) RF: 0 Referrals / Follow Up: Marianna Forte MD [Primary Care Provider] - Within 2 Weeks Disposition Disposition (needs filled in before D/C Order can be placed): Home, Self Care
[2021-08-08] MEDS: Aspirin E.C. 81 MG Tablet PO (09:57)
[2021-08-08] MEDS: APIXABAN 5 MG TABLET 10 MG PO (09:57)
[2021-08-08] MEDS: Potassium Chloride Oral Tablet 20 MEQ 40 MEQ PO (09:58)
[2021-08-08] MEDS: levETIRAcetam Oral Solution 500 MG/5 ML 1500 MG PO (09:58)
[2021-08-08 10:05] VITALS: BP 115/74; PULSE 93; RESP 18; TEMP 36.5; O2SAT 98
[2021-08-08 10:39] VITALS: O2SAT 97
[2021-08-08 11:30] VITALS: PULSE 99
--- NOTE | 2021-08-08 11:38 | PHA.DC.MR ---
Pharmacy Service has performed discharge medication reconciliation for this patient. The patient's discharge medication list was reviewed for discrepancies and discrepancies were resolved. Home Medications levetiracetam 1,500 mg PO BID 04/05/17 aspirin 81 mg PO DAILY@0800 08/29/17 diphenhydramine HCl [Banophen] 25 mg PO Q6H PRN PRN 03/02/18 atorvastatin 20 mg PO DAILY 11/24/19 multivitamin 1 tab PO DAILY 09/06/20 acetaminophen 1,000 mg PO Q6H PRN 05/31/21 ascorbic acid (vitamin C) 500 mg PO DAILY 05/31/21 levothyroxine 75 mcg PO DAILY 05/31/21 ondansetron 4 mg PO Q8H PRN 05/31/21 oxycodone-acetaminophen 1 tab PO BID PRN 05/31/21 apixaban [Eliquis] 5 mg PO BID #68 tab 08/08/21 cephalexin [Keflex] 750 mg PO Q8H #3 cap 08/08/21
--- NOTE | 2021-08-08 13:35 | CASEMGMT ---
SANDY received a call from Zahraa with [facility]. Patient's insurance is waiving pre-certs. SANDY notified physician. SANDY arranged for patient to get picked up at 1500 via cot. SANDY faxed orders, negative COVID, and picker feeder time to [facility]. SANDY notified RN, personal secretary, Zahraa at [facility], patient, and her 2 daughters. SANDY completed a convalescent on HENS. All in agreement with d/c plan. [facility] level [facility] care on a convalescent stay. [facility] transported via cot. Donna Yepez DIRECTOR INSTRUCTIONAL MATERIAL ALEX
--- NOTE | 2021-08-08 14:02 | NURSING ---
report called to KAYLYNN Cruz at [facility] for discharge
--- NOTE | 2021-08-08 14:44 | DS.PCM_ITS ---
Documented by User: Gus LEON 08/08/21 14:49 Providers Date of Admission: 08/03/21 Primary Care Physician: Dr. 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 Comment: Reason For Visit: UTI, PULMONARY EMBOLISM Diagnosis Discharge Diagnosis (1) UTI (urinary tract infection): Status: Acute Code(s): N39.0 - Urinary tract infection, site not specified Qualifiers: Hematuria presence: without hematuria Urinary tract infection type: acute cystitis Qualified Code(s): N30.00 - Acute cystitis without hematuria (2) Pulmonary emboli: Status: Acute Code(s): I26.99 - Other pulmonary embolism without acute cor pulmonale Qualifiers: Acute cor pulmonale presence: without acute cor pulmonale Chronicity: acute Pulmonary embolism type: other Qualified Code(s): I26.99 - Other pulmonary embolism without acute cor pulmonale Medications at Discharge Home Medications levetiracetam 1,500 mg PO BID 04/05/17 aspirin 81 mg PO DAILY@0800 08/29/17 diphenhydramine HCl [Banophen] 25 mg PO Q6H PRN PRN 03/02/18 atorvastatin 20 mg PO DAILY 11/24/19 multivitamin 1 tab PO DAILY 09/06/20 acetaminophen 1,000 mg PO Q6H PRN 05/31/21 ascorbic acid (vitamin C) 500 mg PO DAILY 05/31/21 levothyroxine 75 mcg PO DAILY 05/31/21 ondansetron 4 mg PO Q8H PRN 05/31/21 oxycodone-acetaminophen 1 tab PO BID PRN 05/31/21 apixaban [Eliquis] 5 mg PO BID #68 tab 08/08/21 cephalexin [Keflex] 750 mg PO Q8H #3 cap 08/08/21 Hospital Course Summary of Care Provided Minutes Spent on Discharge: 35 Hospital Course: Disposition: Patient to discharge to [facility]. 1) pulmonary embolism Patient's respiratory status is stable and she is currently satting 95% on room air. Rapid Covid is negative. Chest CTA on admission demonstrated PE and right lower lobe infiltrate with mild right pleural effusion and bibasilar atelect asis. Echocardiogram shows an EF of 55 to 60% with small pericardial effusion. Patient to continue Eliquis 10 mg p.o. twice daily for 2 more days and then transition to 5 mg p.o. twice daily thereafter. 2) acute cystitis Vital signs stable and patient is afebrile. Patient still reports pain on u rination. CBC demonstrated that leukocytosis was downtrending. UA on admission demonstrated yellow cloudy urine with negative nitrites, 500 leukocyte esterase and 0 bacteria. Urine culture demonstrates mixed gram-positive and gram- negative organisms. Prior urine culture from March 2021 grew out E. coli. Patient was initially treated on Rocephin and stepdown to Keflex. 3) physical debility Discharge plan as above. 4) pneumonia Do not believe patient is suffering from pneumonia at this time. Patient does report some cough and shortness of breath, however vital signs have been stable throughout admission and patient is satting 99% on room air. Chest x-ray is without any acute findings. Chest CTA did show a right lower lobe infiltrate, possibly atelectasis. Patient was initially treated with metronidazole when admitted that was subsequently discontinued, patient's respiratory status remained stable throughout admission. 5) ileus Abdominal pelvic CT demonstrated small bowel ileus. Diet advanced to calorie controlled diet today. Diet advanced without any problems for admission. 6) seizure history Not in status, continue home Keppra. Patient seen by Gus Love PA-C, under the supervision of Dr. Choi. Physical Exam Narrative Patient is a 61-year-old female comfortably resting in bed, alert and orient x3. Denies development of any new symptoms overnight. Does not appear in acute distress. Const alert, oriented x3 and no apparent distress HEENT normocephalic, head/scalp atraumatic and hearing grossly normal bilaterally Eyes PERRL, EOMs intact bilaterally and conjunctivae normal Neck no lymphadenopathy, supple and no JVD Resp normal respiratory effort, no retractions, no use of accessory muscles and clear to auscultation bilaterally Cardio regular rate, regular rhythm, no murmurs and no JVD GI normal to inspection, nondistended, normoactive bowel sounds, soft to palpation and non-tender Extremity normal to inspection, full ROM and no clubbing, cyanosis or edema Skin no rashes or lesions noted, no wounds and skin turgor normal Neuro CN's II-XII intact bilaterally Psych affect normal Weight / BMI Weight Weight: 126 lb 12.253 oz Body Mass Index (BMI) 20.5 ABG / Lab / Microbiology Data Result Diagrams: 08/06/21 05:44 08/06/21 15:24 Laboratory: Laboratory Results - last 24 hr 08/07/21 21:45: POC Glucose 128 H Microbiology: Microbiology 08/08/21 12:15 Nasal Secretion SARS-CoV-2 Antigen (Rapid) - Final 08/03/21 22:23 Urine, Clean Catch Urine Culture - Final Mixed Gram Pos & Gram Neg Org Meaningful Use Info Meaningful Use Diagnoses (Choose all that apply): VTE VTE Anticoag overlap given w/in hospital stay or rx'd at dc?: Yes Pt receive overlap for 5 days?: Yes Discharge Plan Admission Admit Date/Time: 08/03/21 23:37 Primary Reason for Your Visit: Shortness of breath Attending Provider: Maria Alejandra Choi Primary Care Provider: Marianna Forte Discharge Orders/Prescriptions Prescriptions: New Eliquis 5 mg tablet 5 mg PO BID Qty: 68 RF: 0 cephalexin [Keflex] 750 mg capsule 750 mg PO Q8H Qty: 3 RF: 0 Continued levetiracetam 500 MG tablet 1,500 mg PO BID RF: 0 aspirin 81 MG tablet 81 mg PO DAILY@0800 RF: 0 diphenhydramine HCl [Banophen] 25 MG capsule 25 mg PO Q6H PRN PRN (Reason: headache) RF: 0 atorvastatin 20 MG tablet 20 mg PO DAILY RF: 0 multivitamin 1 EACH tablet 1 tab PO DAILY RF: 0 acetaminophen 500 mg Tablet 1,000 mg PO Q6H PRN (Reason: Pain) RF: 0 levothyroxine 100 mcg tablet 75 mcg PO DAILY RF: 0 oxycodone-acetaminophen 5-325 mg tablet 1 tab PO BID PRN (Reason: Pain) RF: 0 ascorbic acid (vitamin C) 500 mg Tablet 500 mg PO DAILY RF: 0 ondansetron 4 mg tablet,disintegrating 4 mg PO Q8H PRN (Reason: Nausea) RF: 0 Referrals / Follow Up: Marianna Forte MD [Primary Care Provider] - Within 2 Weeks Disposition Disposition (needs filled in before D/C Order can be placed): Home, Self Care Documented by User: Dr. aMria Alejandra Choi MD 08/08/21 15:21 Providers Date of Admission: 08/03/21 Reason For Visit: UTI, PULMONARY EMBOLISM Medications at Discharge Home Medications levetiracetam 1,500 mg PO BID 04/05/17 aspirin 81 mg PO DAILY@0800 08/29/17 diphenhydramine HCl [Banophen] 25 mg PO Q6H PRN PRN 03/02/18 atorvastatin 20 mg PO DAILY 11/24/19 multivitamin 1 tab PO DAILY 09/06/20 acetaminophen 1,000 mg PO Q6H PRN 05/31/21 ascorbic acid (vitamin C) 500 mg PO DAILY 05/31/21 levothyroxine 75 mcg PO DAILY 05/31/21 ondansetron 4 mg PO Q8H PRN 05/31/21 oxycodone-acetaminophen 1 tab PO BID PRN 05/31/21 apixaban [Eliquis] 5 mg PO BID #68 tab 08/08/21 cephalexin [Keflex] 750 mg PO Q8H #3 cap 08/08/21 ABG / Lab / Microbiology Data Result Diagrams: 08/06/21 05:44 08/06/21 15:24 Discharge Plan Admission Admit Date/Time: 08/03/21 23:37 Primary Reason for Your Visit: Shortness of breath Attending Provider: Maria Alejandra Choi Primary Care Provider: Marianna Forte Discharge Orders/Prescriptions Prescriptions: New Eliquis 5 mg tablet 5 mg PO BID Qty: 68 RF: 0 cephalexin [Keflex] 750 mg capsule 750 mg PO Q8H Qty: 3 RF: 0 Continued levetiracetam 500 MG tablet 1,500 mg PO BID RF: 0 aspirin 81 MG tablet 81 mg PO DAILY@0800 RF: 0 diphenhydramine HCl [Banophen] 25 MG capsule 25 mg PO Q6H PRN PRN (Reason: headache) RF: 0 atorvastatin 20 MG tablet 20 mg PO DAILY RF: 0 multivitamin 1 EACH tablet 1 tab PO DAILY RF: 0 acetaminophen 500 mg Tablet 1,000 mg PO Q6H PRN (Reason: Pain) RF: 0 levothyroxine 100 mcg tablet 75 mcg PO DAILY RF: 0 oxycodone-acetaminophen 5-325 mg tablet 1 tab PO BID PRN (Reason: Pain) RF: 0 ascorbic acid (vitamin C) 500 mg Tablet 500 mg PO DAILY RF: 0 ondansetron 4 mg tablet,disintegrating 4 mg PO Q8H PRN (Reason: Nausea) RF: 0 Referrals / Follow Up: Marianna Forte MD [Primary Care Provider] - Within 2 Weeks Disposition Disposition (needs filled in before D/C Order can be placed): Home, Self Care Charges/Coding Addendum Addendum: Patient seen by Gus Love PA-C under my supervision Patient is a 61-year-old female with an extensive past medical history as outlined was admitted through the ED on 08/03/2021 with a complaint of right upper quadrant pain which started the day before admission. Pain was sharp and worsened with breathing in and out. It also radiated to her back. She had a started vomiting and a low-grade fever. CTA of the chest showed right lower lobe infiltrate with mild right pleural effusion as well as right pulmonary embolism. CT of the abdomen and pelvis showed small bowel ileus with right lower lobe infiltrate. She was initially kept n.p.o. and hydrated with IV fluids. She was started on Eliquis for PE and she was also started on oral antibiotics for pneumonia. She was also noted to have a urine infection. Her ileus resolved and her diet was advanced successfully. His symptoms improved and she was discharged on 08/08/2021. She was discharged with a prescription for p.o. Eliquis as well as p.o. Keflex. She is follow-up with her PCP in 1 to 2 weeks. Patient seen and examined prior to discharge. O/E: Const alert, oriented x3 and no apparent distress HEENT head/scalp atraumatic and moist oral mucous membranes Head and Scalp: normocephalic Eyes PERRL, EOMs intact bilaterally and conjunctivae normal Neck no lymphadenopathy, supple and no JVD Resp normal respiratory effort, no retractions, no use of accessory muscles and clear to auscultation bilaterally Cardio regular rate, regular rhythm, no murmurs and no JVD GI normal to inspection, nondistended, normoactive bowel sounds, soft to palpation and non-tender Extremity, colostomy bag contains liquid stool normal to inspection, full ROM and no clubbing, cyanosis or edema Peripheral Pulses: Yes pulses 2+ throughout Skin no rashes or lesions noted, no wounds, skin turgor normal and no jaundice Neuro CN's II-XII intact bilaterally Psych affect normal Rest as per Gus Love PA-C's notes which I reviewed and endorsed. Visit Charges Inpatient E&M: 20181 Disch Hosp
== END 2021-08-08 15:16 | disposition skilled nursing facility (03) | DRG 176 ==
LOC: ED 23:25 → PCU 08-04 03:25
PROVIDERS: Internal Medicine; Physician Assistant; Admitting Provider Hospitalist; Emergency Provider Emergency Medicine; PCP Family Medicine; Visit Provider Student in an Organized Health Care Education/Training Program
DX: I26.99 Other pulmonary embolism without acute cor pulmonale (principal); N30.00 Acute cystitis without hematuria; G82.20 Paraplegia, unspecified; K56.7 Ileus, unspecified; J90 Pleural effusion, not elsewhere classified; K21.9 Gastro-esophageal reflux disease without esophagitis; E78.00 Pure hypercholesterolemia, unspecified; H54.8 Legal blindness, as defined in USA; G40.909 Epilepsy, unspecified, not intractable, without status epilepticus; E03.9 Hypothyroidism, unspecified; J45.909 Unspecified asthma, uncomplicated; Z93.3 Colostomy status; Z79.899 Other long term (current) drug therapy; Z79.82 Long term (current) use of aspirin; Z79.890 Hormone replacement therapy; Z87.891 Personal history of nicotine dependence; Z99.3 Dependence on wheelchair
CPT/HCPCS: 36415; 71275; 74176; 80048; 80053; 81001; 82962; 83690; 85025; 87086; 87088; 87426; 92526; 92610; 93306; 97110; 97162; 97166; 97530; 97535; 97802; 99285; J7030; J7050; Q9967; A4216; J2405